=== PATIENT | male | born 1965 | race American Indian/Alaskan Native ===

== ENCOUNTER 2016-06-20 11:26 | Emergency (ER) | payer MEDICAID ==
--- NOTE | 2016-06-20 13:26 | ER Document Report ---
ED ENT - General Mode of Arrival: Ambulatory Information source: Patient TRAVEL OUTSIDE OF THE [place] IN LAST 30 DAYS: No - HPI Patient complains to provider of: Ear problem Associated symptoms: Other - See above - General Chief Complaint: Ear Pain Stated Complaint: EAR PAIN Notes: Patient is a 51 year old male who presents to the emergency department complaining of ear pain onset last night. 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 Patient states that he has been thinking about taking jaiden pins to clean out his ears. Patient denies recently having a cold and states that he has been trying to quit smoking and so has been chewing a lot of gum recently. Patient states that the pain is exacerbated by chewing. (LG NGUYEN) - Related Data Allergies/Adverse Reactions: acetaminophen [From Tylenol] Allergy (Verified 06/20/16 12:00) amlodipine besylate [From Norvasc] Allergy (Verified 06/20/16 12:00) pioglitazone HCl [From Actos] Allergy (Verified 06/20/16 12:00) Past Medical History - General Information source: Patient - Social History Smoking Status: Current Every Day Smoker Frequency of alcohol use: Heavy Drug Abuse: Marijuana Family History: Reviewed & Not Pertinent, CAD - Past Medical History Cardiac Medical History: Reports: Hx Hypercholesterolemia, Hx Hypertension Pulmonary Medical History: Reports: Hx COPD Neurological Medical History: Reports: Hx Cerebrovascular Accident Endocrine Medical History: Reports: Hx Diabetes Mellitus Type 2 GI Medical History: Reports: Hx Gastroesophageal Reflux Disease Psychiatric Medical History: Reports: Hx Depression Past Surgical History: Reports: Hx Kidney (Renal Surgery), Hx Orthopedic Surgery - Immunizations Immunizations up to date: Yes Hx Diphtheria, Pertussis, Tetanus Vaccination: No Hx Pneumococcal Vaccination: 07/20/14 Review of Systems - Review of Systems Constitutional: No symptoms reported EENT: See HPI, Ear pain Cardiovascular: No symptoms reported Respiratory: No symptoms reported Gastrointestinal: No symptoms reported Genitourinary: No symptoms reported Male Genitourinary: No symptoms reported Musculoskeletal: No symptoms reported Skin: No symptoms reported Hematologic/Lymphatic: No symptoms reported Neurological/Psychological: No symptoms reported -: Yes All other systems reviewed and negative Physical Exam - Vital signs Interpretation: Normal - General General appearance: Appears well, Alert - HEENT Head: Normocephalic, Atraumatic Eyes: Normal Ears: Other - Temporomandibular joints tender to palpation bilaterally from within canal and around preauricular area. Pain is reproducable when opening mouth. Right temporomandibular joint is more tender than left. External canal: Normal - Some wax in left canal none in right Tympanic membrane: Normal - Respiratory Respiratory status: No respiratory distress - Cardiovascular Rhythm: Regular - Abdominal Inspection: Normal Distension: No distension Bowel sounds: Normal Tenderness: Nontender Organomegaly: No organomegaly - Extremities General upper extremity: Normal inspection, Normal ROM, Normal strength General lower extremity: Normal inspection, Normal ROM, Normal strength - Neurological Neuro grossly intact: Yes Cognition: Normal Orientation: AAOx4 Amina Coma Scale Eye Opening: Spontaneous Amina Coma Scale Verbal: Oriented Amina Coma Scale Motor: Obeys Commands Amina Coma Scale Total: 15 Speech: Normal - Psychological Associated symptoms: Normal affect, Normal mood - Skin Skin Temperature: Warm Skin Moisture: Dry Skin Color: Normal - Vital signs Vitals: Temp Pulse Resp BP Pulse Ox 97.9 F 63 18 125/73 99 06/20/16 11:53 06/20/16 11:53 06/20/16 11:53 06/20/16 11:53 06/20/16 11:53 (COLT MORENO) (LG NGUYEN) Scribe Documentation - Scribe Written by Scribe:: Shara Donald, 06/20/16, 13:47 acting as scribe for :: Mac
[2016-06-20 13:51] VITALS: BP 125/72
== END 2016-06-20 13:50 | disposition home or self-care (01) ==
LOC: ER 11:26
DX: M26.603 Bilateral temporomandibular joint disorder, unspecified (principal); H92.03 Otalgia, bilateral; E78.00 Pure hypercholesterolemia, unspecified; I10 Essential (primary) hypertension; J44.9 Chronic obstructive pulmonary disease, unspecified; E11.9 Type 2 diabetes mellitus without complications; K21.9 Gastro-esophageal reflux disease without esophagitis; Z88.6 Allergy status to analgesic agent; Z86.73 Personal history of transient ischemic attack (TIA), and cerebral infarction without residual deficits
CPT/HCPCS: 99282

== ENCOUNTER 2016-08-25 13:02 | Emergency (ER) | payer MEDICAID ==
--- NOTE | 2016-08-25 13:07 | ER Document Report ---
ED Medical Screen (RME) - General Stated Complaint: CHEST PAIN Notes: chest pain referral from dr esposito to r/o aortic dissection patient is alert and oriented, talking. Localizing pain to left lower chest with radiation into his back. Tender over anterior rib cage. I have greeted and performed a rapid initial assessment of this patient. A comprehensive ED assessment and evaluation of the patient, analysis of test results and completion of the medical decision making process will be conducted by additional ED providers. TRAVEL OUTSIDE OF THE [place] IN LAST 30 DAYS: No - Related Data Allergies/Adverse Reactions: acetaminophen [From Tylenol] Allergy (Verified 06/20/16 12:00) amlodipine besylate [From Norvasc] Allergy (Verified 06/20/16 12:00) pioglitazone HCl [From Actos] Allergy (Verified 06/20/16 12:00) Past Medical History - Past Medical History Cardiac Medical History: Reports: Hx Hypercholesterolemia, Hx Hypertension Pulmonary Medical History: Reports: Hx COPD Neurological Medical History: Reports: Hx Cerebrovascular Accident Endocrine Medical History: Reports: Hx Diabetes Mellitus Type 2 GI Medical History: Reports: Hx Gastroesophageal Reflux Disease Psychiatric Medical History: Reports: Hx Depression Past Surgical History: Reports: Hx Kidney (Renal Surgery), Hx Orthopedic Surgery - Immunizations Immunizations up to date: Yes Hx Diphtheria, Pertussis, Tetanus Vaccination: No
[2016-08-25 13:28] LABS: ABSOLUTE BASOPHILS # (AUTO) 0.1 10^3/uL (0.0-0.2); ABSOLUTE EOSINOPHILS # (AUTO) 0.4 10^3/uL (0.0-0.6); ABSOLUTE LYMPHOCYTES (AUTO) 2.3 10^3/uL (0.5-4.7); ABSOLUTE MONOCYTES (AUTO) 0.8 10^3/uL (0.1-1.4); BASOPHILS % (AUTO) 0.9 % (0-2); EOSINOPHILS % (AUTO) 4.5 % (0-6); HEMATOCRIT 48.3 % (37.9-51.0); HGB HCT DIFFERENCE -0.3; LYMPHOCYTES % (AUTO) 26.4 % (13-45); MEAN CORPUSCULAR HEMOGLOBIN 30.9 pg (27.0-33.4); MEAN CORPUSCULAR HGB CONC 33.1 g/dL (32.0-36.0); MEAN CORPUSCULAR VOLUME 93 fl (80-97); MONOCYTES % (AUTO) 9.5 % (3-13); RED BLOOD COUNT 5.17 10^6/uL (4.35-5.55); RED CELL DISTRIBUTION WIDTH 12.8 % (11.5-14.0); SEGMENTED NEUTROPHILS % (AUTO) 58.7 % (42-78); WHITE BLOOD COUNT 8.6 10^3/uL (4.0-10.5)
[2016-08-25 13:47] LABS: ALANINE AMINOTRANSFERASE 31 U/L (21-72); ALBUMIN 4.2 g/dL (3.5-5.0); ALKALINE PHOSPHATASE 62 U/L (38-126); ANION GAP 12 (5-19); ASPARTATE AMINO TRANSFERASE 23 U/L (17-59); BILIRUBIN,TOTAL 0.8 mg/dL (0.2-1.3); BLOOD UREA NITROGEN 18 mg/dL (7-20); CALCIUM 10.1 mg/dL (8.4-10.2); CARBON DIOXIDE 24 mmol/L (22-30); CHLORIDE 106 mmol/L (98-107); CREATINE KINASE 98 U/L (55-170); CREATININE RESULT 0.95 mg/dL (0.52-1.25); GLUCOSE 105 mg/dL (75-110); POTASSIUM 4.4 mmol/L (3.6-5.0); SODIUM 141.7 mmol/L (137-145); TOTAL PROTEIN 7.5 g/dL (6.3-8.2)
[2016-08-25 13:58] LABS: CREATINE KINASE MB 1.11 ng/mL (<4.55)
[2016-08-25 13:59] LABS: TROPONIN I < 0.012 ng/mL
--- NOTE | 2016-08-25 16:36 | ER Document Report ---
ED General - General Chief Complaint: Chest Pain Stated Complaint: CHEST PAIN Time seen by provider: 12:50 Mode of Arrival: Ambulatory Information source: Patient Notes: 51-year-old male who reports sharp left upper chest pain with exertion yesterday that radiated into his left neck and left shoulder. He reports he was made worse with movement or deep breathing. He denies associated shortness breath, diaphoresis, or nausea. He reports it lasted about 20 minutes and resolved with rest and did not recur during the day but he did have a second episode this morning after waking up with minimal exertion. Patient went to his primary care physician Dr. Atkinson who had concerns about possible aortic dissection refer patient to emergency department. The patient reports no prior history of symptoms like this. He reports no prior cardiac workup. He reports being in normal state of health otherwise recently. Review of records indicates an admission 2 years ago with a positive stress test here and discharge notes indicate they wanted an outpatient cardiac catheter the patient says he never had one done. He has not had any symptoms over the ensuing 2 years however. 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 He has a history of CVA with residual right upper extremity weakness but reports no new focal numbness weakness to any extremity or difficulty with speech or swallowing. Physical Exam: General: Alert, appears well. HEENT: Normocephalic. Atraumatic. PERRLA. Extraocular movements intact. Oropharynx clear. Neck: Supple. Non-tender. No JVD no carotid bruits no discomfort with range of motion Respiratory: No respiratory distress. Clear and equal breath sounds bilaterally. Point tenderness to palpation just lateral to the nipple on the left which localizes and reproduces patient's pain Cardiovascular: Regular rate and rhythm. Abdominal: Normal Inspection. Soft, non-tender. No distension. Normal Bowel Sounds. No bruits. 2 cm pulsatile mass periumbilical region with deep palpation Back: Non-tender. No deformity or step off. Extremities: Moves all four extremities. Upper extremities: Normal inspection. Non-tender. Normal color. Normal ROM. Normal temperature. Lower extremities: Normal inspection. Non-tender. No edema. Normal color. Normal ROM. Normal temperature. 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 Normal Mood. Skin: Warm. Dry. Normal color. TRAVEL OUTSIDE OF THE [place] IN LAST 30 DAYS: No - Related Data Allergies/Adverse Reactions: acetaminophen [From Tylenol] Allergy (Verified 06/20/16 12:00) amlodipine besylate [From Norvasc] Allergy (Verified 06/20/16 12:00) pioglitazone HCl [From Actos] Allergy (Verified 06/20/16 12:00) Past Medical History - Social History Smoking Status: Current Every Day Smoker Family History: CAD Patient has suicidal ideation: No Patient has homicidal ideation: No - Past Medical History Cardiac Medical History: Reports: Hx Hypercholesterolemia, Hx Hypertension Pulmonary Medical History: Reports: Hx COPD Neurological Medical History: Reports: Hx Cerebrovascular Accident Endocrine Medical History: Reports: Hx Diabetes Mellitus Type 2 Renal/ Medical History: Denies: Hx Peritoneal Dialysis GI Medical History: Reports: Hx Gastroesophageal Reflux Disease Psychiatric Medical History: Reports: Hx Depression Past Surgical History: Reports: Hx Kidney (Renal Surgery) - lithotripsy, Hx Orthopedic Surgery - Immunizations Immunizations up to date: Yes Hx Diphtheria, Pertussis, Tetanus Vaccination: Yes Hx Pneumococcal Vaccination: 07/20/14 Review of Systems - Review of Systems Constitutional: denies: Chills, Fever EENT: denies: Ear pain, Throat pain Cardiovascular: See HPI. denies: Syncope, Dizziness, Lightheaded Respiratory: denies: Cough, Short of breath Gastrointestinal: denies: Abdominal pain, Diarrhea, Nausea, Vomiting, Blood in vomit, Black stools, Rectal bleeding Genitourinary: denies: Burning, Dysuria Musculoskeletal: denies: Back pain Skin: denies: Rash Hematologic/Lymphatic: denies: Swollen glands Neurological/Psychological: See HPI Physical Exam - Vital signs Vitals: Resp 20 08/25/16 13:19 Course - Re-evaluation Re-evalutation: 08/25/16 16:42 Patient continues to have point tenderness on his chest wall but no other discomfort. Records do show positive stress test greater than a year ago but patient no further workup and no further symptoms. I do not find an etiology for his reported weight loss but he certainly has no evidence on workup for abdominal aneurysm, aortic dissection, or other serious etiologies for chest pain. He does have multiple risk factors for acute coronary syndrome but his symptoms are atypical enough that I believe he is safe for discharge and outpatient follow-up. I discussed case with Dr. Vikki Atkinson and he will see patient in office tomorrow - Vital Signs Vital signs: Temp Pulse Resp BP Pulse Ox 97.8 F 17 155/104 H 96 08/25/16 16:19 08/25/16 16:19 08/25/16 16:19 08/25/16 16:19 - Laboratory Result Diagrams: 08/25/16 13:10 08/25/16 13:10 - Diagnostic Test Radiology reviewed: Image reviewed, Reports reviewed - EKG Interpretation by Me Additional EKG results interpreted by me: 08/25/16 16:41 EKG reviewed by myself shows sinus rhythm at 69 with no acute changes and no significant change compared to 05/29/2015 Discharge - Discharge Clinical Impression: Chest wall pain Condition: Stable Disposition: HOME, SELF-CARE Instructions: Chest Pain of Unclear Cause ([facility]) Referrals: CAITLYN ATKINSON MD [Primary Care Provider] - Follow up tomorrow
[2016-08-25] MEDS ORDERED: ASPIRIN 325 MG TABLET PO ONE (16:43)
[2016-08-25 17:36] VITALS: BP 135/93
--- NOTE | 2016-08-25 20:06 | EKG REPORT ---
SEVERITY:- BORDERLINE ECG - SINUS RHYTHM BORDERLINE LEFT AXIS DEVIATION BORDERLINE T WAVE ABNORMALITIES : Confirmed by: Breann Crowley 25-Aug-2016 20:06:04
== END 2016-08-25 17:36 | disposition home or self-care (01) ==
LOC: ER 13:02
DX: R07.89 Other chest pain (principal); M54.2 Cervicalgia; M25.512 Pain in left shoulder; F17.210 Nicotine dependence, cigarettes, uncomplicated
CPT/HCPCS: 36415; 70450; 71010; 71275; 74174; 80053; 82550; 82553; 84484; 85025; 93005; 93010; 99285

== ENCOUNTER → 2016-09-23 | Outpatient (CLI) | payer MEDICAID | LOC: RAD 09:30 | PROVIDERS: ATTEND Physician Assistant | DX: R51 Headache (principal) | CPT/HCPCS: 70551 ==

== ENCOUNTER 2017-02-07 16:51 | Inpatient (IN) | payer MEDICAID ==
--- NOTE | 2017-02-07 17:39 | ER Document Report ---
ED Medical Screen (RME) - General Chief Complaint: Weakness Stated Complaint: POSSIBLE STROKE Time Seen by Provider: 02/07/17 17:36 Notes: Patient reports that he took a nap yesterday. He states that he woke approximately 1:15 PM yesterday and was unable to stand because his left leg would not work. Patient states that today he noticed that he cannot walk due to left leg weakness. He also feels that the left side of his face is weak and he has some numbness about the left side of his body. He states he has had a previous stroke in 2008 that left his right upper extremity week. He states he does not take any aspirin or Plavix daily. TRAVEL OUTSIDE OF THE [place] IN LAST 30 DAYS: No - Related Data Allergies/Adverse Reactions: acetaminophen [From Tylenol] Allergy (Verified 02/07/17 16:58) amlodipine besylate [From Norvasc] Allergy (Verified 02/07/17 16:58) pioglitazone HCl [From Actos] Allergy (Verified 02/07/17 16:58) Past Medical History - Past Medical History Cardiac Medical History: Reports: Hx Hypercholesterolemia, Hx Hypertension Pulmonary Medical History: Reports: Hx COPD Neurological Medical History: Reports: Hx Cerebrovascular Accident Endocrine Medical History: Reports: Hx Diabetes Mellitus Type 2 Renal/ Medical History: Denies: Hx Peritoneal Dialysis GI Medical History: Reports: Hx Gastroesophageal Reflux Disease Psychiatric Medical History: Reports: Hx Depression Past Surgical History: Reports: Hx Kidney (Renal Surgery) - lithotripsy, Hx Orthopedic Surgery - Immunizations Immunizations up to date: Yes Hx Diphtheria, Pertussis, Tetanus Vaccination: Yes Physical Exam - Vital signs Vitals: Temp Pulse Resp BP Pulse Ox 97.6 F 72 16 136/87 H 97 02/07/17 16:58 02/07/17 16:58 02/07/17 16:58 02/07/17 16:58 02/07/17 16:58 Course - Vital Signs Vital signs: Temp Pulse Resp BP Pulse Ox 97.6 F 72 16 136/87 H 97 02/07/17 16:58 02/07/17 16:58 02/07/17 16:58 02/07/17 16:58 02/07/17 16:58
--- NOTE | 2017-02-07 17:57 | RADIOLOGY REPORT (SQ) ---
EXAM DESCRIPTION: CT HEAD WITHOUT COMPLETED DATE/TIME: 02/07/2017 5:44 pm REASON FOR STUDY: left face/leg weak. hx cva COMPARISON: 08/25/2016 TECHNIQUE: Axial images acquired through the brain without intravenous contrast. Images reviewed wi th bone, brain and subdural windows. Images stored on PACS. All CT scanners at this facility use dose modulation, iterative reconstruction, and/or weight based d osing when appropriate to reduce radiation dose to as low as reasonably achievable (ALARA). [facility]: Dose Right [facility]: CareDose [facility]: Dose Right [facility]: Teradose 4D [facility]: Smart Hapara RADIATION DOSE: Up-to-date CT equipment and radiation dose reduction techniques were employed. CTDIv ol: 64.6 mGy. DLP: 1163 mGy-cm. mGy. LIMITATIONS: None. FINDINGS: VENTRICLES: Stable. CEREBRUM: No masses. No hemorrhage. No midline shift. Areas of low density in the white matter mos t likely due to chronic micro-vascular ischemic change. No evidence for acute infarction. CEREBELLUM: No masses. No hemorrhage. No alteration of density. No evidence for acute infarction. EXTRAAXIAL SPACES: Mild age-related involutional change. No fluid collections. No masses. ORBITS AND GLOBE: No intra- or extraconal masses. Normal contour of globe without masses. CALVARIUM: No fracture. PARANASAL SINUSES: Stable mucosal thickening without air-fluid levels. SOFT TISSUES: No mass or hematoma. OTHER: No other significant finding. IMPRESSION: NO ACUTE INTRACRANIAL PROCESS. NO SIGNIFICANT CHANGE FROM PRIOR STUDY. TECHNICAL DOCUMENTATION: JOB ID: [id number] Quality ID # [id number]: Final reports with documentation of one or more dose reduction techniques (e.g., Au tomated exposure control, adjustment of the mA and/or kV according to patient size, use of iterative reconstruction technique) 2010 [employer]- All Rights Reserved
[2017-02-07 18:02] LABS: ABSOLUTE EOSINOPHILS # (AUTO) 0.5 10^3/uL (0.0-0.6); ABSOLUTE LYMPHOCYTES (AUTO) 2.3 10^3/uL (0.5-4.7); ABSOLUTE MONOCYTES (AUTO) 0.9 10^3/uL (0.1-1.4); BASOPHILS % (AUTO) 0.6 % (0-2); EOSINOPHILS % (AUTO) 5.5 % (0-6); HEMATOCRIT 46.3 % (37.9-51.0); HEMOGLOBIN 15.9 g/dL (13.5-17.0); HGB HCT DIFFERENCE 1.4; LYMPHOCYTES % (AUTO) 25.9 % (13-45); MEAN CORPUSCULAR HEMOGLOBIN 32.3 pg (27.0-33.4); MEAN CORPUSCULAR HGB CONC 34.3 g/dL (32.0-36.0); MEAN CORPUSCULAR VOLUME 94 fl (80-97); MONOCYTES % (AUTO) 10.1 % (3-13); RED BLOOD COUNT 4.91 10^6/uL (4.35-5.55); RED CELL DISTRIBUTION WIDTH 13.1 % (11.5-14.0); SEGMENTED NEUTROPHILS % (AUTO) 57.9 % (42-78); WHITE BLOOD COUNT 8.7 10^3/uL (4.0-10.5)
[2017-02-07 18:20] LABS: ALANINE AMINOTRANSFERASE 24 U/L (21-72); ALBUMIN 4.4 g/dL (3.5-5.0); ALKALINE PHOSPHATASE 64 U/L (38-126); ANION GAP 10 (5-19); ASPARTATE AMINO TRANSFERASE 20 U/L (17-59); BILIRUBIN,DIRECT 0.4 mg/dL (0.0-0.4); BILIRUBIN,TOTAL 0.6 mg/dL (0.2-1.3); BLOOD UREA NITROGEN 18 mg/dL (7-20); CALCIUM 10.2 mg/dL (8.4-10.2); CARBON DIOXIDE 26 mmol/L (22-30); CHLORIDE 105 mmol/L (98-107); CREATININE RESULT 0.97 mg/dL (0.52-1.25); GLUCOSE 104 mg/dL (75-110); POTASSIUM 4.1 mmol/L (3.6-5.0); SODIUM 141.1 mmol/L (137-145); TOTAL PROTEIN 7.7 g/dL (6.3-8.2)
--- NOTE | 2017-02-07 19:10 | ER Document Report ---
ED Neuro Symptoms/Deficit - General Chief Complaint: Weakness Stated Complaint: POSSIBLE STROKE Time Seen by Provider: 02/07/17 17:36 Mode of Arrival: Stretcher Information source: Patient TRAVEL OUTSIDE OF THE [place] IN LAST 30 DAYS: No - HPI Patient complains to provider of: Difficulty standing, Weakness Onset: Yesterday Awoke with symptoms: No Symptoms are: Worse/persistent Duration: Continues in ED Quality of pain: Achy Severity: Moderate Pain Level: 2 Baseline Gait: Walks w/o assistance Pre-existing weakness: Lower extremity, Upper extremity New weakness: LUE, LLE Decreased ability to stand/walk: Weak Associated symptoms: Headache Similar symptoms previously: Yes Recently seen / treated by doctor: Yes Notes: Patient is a 52-year-old male sent to the emergency room by primary care provider for left-sided weakness that started yesterday, he reports he was working outside in his yard, thought maybe he felt overheated, so therefore decided to sleep it off, this morning when he woke up his left-sided weakness continued, making it difficult for him to ambulate or stand, therefore he went to see his primary care provider who sent him to the ER for evaluation and admission, he does report a headache, denies chest pain or shortness of breath, no injury or trauma, no fever, he does have a history of CVA in the past with no residual weakness as well as other medical problems that put him at risk for stroke - Related Data Allergies/Adverse Reactions: acetaminophen [From Tylenol] Allergy (Verified 02/07/17 16:58) amlodipine besylate [From Norvasc] Allergy (Verified 02/07/17 16:58) pioglitazone HCl [From Actos] Allergy (Verified 02/07/17 16:58) Past Medical History - General Information source: Patient - Social History Smoking Status: Current Every Day Smoker Family History: CAD Patient has suicidal ideation: No Patient has homicidal ideation: No - Past Medical History Cardiac Medical History: Reports: Hx Hypercholesterolemia, Hx Hypertension Pulmonary Medical History: Reports: Hx COPD Neurological Medical History: Reports: Hx Cerebrovascular Accident Endocrine Medical History: Reports: Hx Diabetes Mellitus Type 2 Renal/ Medical History: Denies: Hx Peritoneal Dialysis GI Medical History: Reports: Hx Gastroesophageal Reflux Disease Psychiatric Medical History: Reports: Hx Depression Past Surgical History: Reports: Hx Kidney (Renal Surgery) - lithotripsy, Hx Orthopedic Surgery - Immunizations Immunizations up to date: Yes Hx Diphtheria, Pertussis, Tetanus Vaccination: Yes Hx Pneumococcal Vaccination: 07/20/14 Review of Systems - Review of Systems Constitutional: No symptoms reported EENT: No symptoms reported Cardiovascular: No symptoms reported Respiratory: No symptoms reported Gastrointestinal: No symptoms reported Genitourinary: No symptoms reported Male Genitourinary: No symptoms reported Musculoskeletal: No symptoms reported Skin: No symptoms reported Hematologic/Lymphatic: No symptoms reported Neurological/Psychological: See HPI -: Yes All other systems reviewed and negative Physical Exam - Vital signs Vitals: Temp Pulse Resp BP Pulse Ox 97.6 F 72 16 136/87 H 97 02/07/17 16:58 02/07/17 16:58 02/07/17 16:58 02/07/17 16:58 02/07/17 16:58 Interpretation: Normal - General General appearance: Appears well, Alert - HEENT Head: Normocephalic, Atraumatic Eyes: Normal Pupils: PERRL - Respiratory Respiratory status: No respiratory distress Chest status: Nontender Breath sounds: Normal Chest palpation: Normal - Cardiovascular Rhythm: Regular Heart sounds: Normal auscultation Murmur: No - Abdominal Inspection: Normal Distension: No distension Bowel sounds: Normal Tenderness: Nontender Organomegaly: No organomegaly - Back Back: Normal, Nontender - Extremities General upper extremity: Normal inspection, Nontender, Normal color, Normal ROM , Normal temperature General lower extremity: Normal inspection, Nontender, Normal color, Normal ROM , Normal temperature. No: Alyssa's sign - Neurological Neuro grossly intact: Yes Cognition: Normal Orientation: AAOx4 Amina Coma Scale Eye Opening: Spontaneous [place] Coma Scale Verbal: Oriented Amina Coma Scale Motor: Obeys Commands Amina Coma Scale Total: 15 Speech: Normal Motor strength normal: RUE, RLE. No: LUE - 4 out of 5 strength in the left upper extremity, 3 out of 5 strength in the left lower extremity, LLE Sensory: Normal - Psychological Associated symptoms: Normal affect, Normal mood - Skin Skin Temperature: Warm Skin Moisture: Dry Skin Color: Normal Course - Re-evaluation Re-evalutation: 02/07/17 19:36 Patient's lab, imaging findings were discussed with primary care provider who requested he be admitted and have MRI/MRA of the brain performed, I discussed this plan with patient at bedside and he is refusing to be admitted, stating he wants to go home and follow-up as an outpatient, I did have a discussion with him regarding the risks and benefits of admission versus outpatient treatment the possibility of long or short-term or long-term sequela from acute CVA including permanent disability and/or , patient states he understands these risks and still wishes to be discharged home, therefore his primary care provider was notified and patient was permitted to sign out AGAINST MEDICAL ADVICE, although I think it is a poor decision on patient's part I do not believe he lacks the capacity to make such a decision and therefore signed out AGAINST MEDICAL ADVICE with instructions for follow-up and was informed that he can return to the emergency room at any time for further evaluation and treatment 02/07/17 23:29 , Patient was agreeable to having MRI/MRA performed, which does show evidence of an acute stroke, once I discussed this finding he was agreeable to staying for admission and was really discussed with his primary care provider who is in agreement with admitting patient for further evaluation and treatment, requested that patient receive a dose of aspirin and Plavix 02/07/17 23:31 Patient symptoms were present for greater than 24 hours at time of evaluation and presentation to the emergency room, therefore he is not eligible for TPA at this time - Vital Signs Vital signs: Temp Pulse Resp BP Pulse Ox 97.6 F 72 16 136/87 H 97 02/07/17 16:58 02/07/17 16:58 02/07/17 16:58 02/07/17 16:58 02/07/17 16:58 - Laboratory Result Diagrams: 02/07/17 17:45 02/07/17 17:45 - Diagnostic Test Radiology reviewed: Image reviewed, Reports reviewed - EKG Interpretation by Me EKG shows normal: Sinus rhythm Rate: Normal Rhythm: NSR When compared to previous EKG there are: No significant change - Transfer of Care Care transferred to following provider: Dr Taylor Critical Care Note - Critical Care Note Total time excluding time spent on procedures (mins): 60 Comments: Patient being admitted to [facility] for acute stroke, time was spent discussing lab and imaging findings with patient as well as family members at bedside and convincing patient to stay in the hospital for further evaluation and treatment ED [employer]/Exc Criteria - Date/Time patient last known well: Date/Time: 02/06/2017 1350 - Date/Time patient arrived in ED: _: 02/07/2017 - Inclusion Criteria: 1: Patient presented to ED within 3 hours of acute ischemic stroke symptom onset ? -: No 2: Did baseline CT exclude intracranial hemorrhage and/or other risk factors? -: Yes 3: Is the age of the patient 18 years of age or greater? -: Yes : If any of the above questions are answered "NO" then stop, patient is not a candidate for Alteplase, : If all of the above questions are answered "YES" then continue with Exclusion Criteria. - Exclusion Criteria: 1: Is there evidence of intracranial hemorrhage on baseline CT? 2: Is there suspicion of subarachnoid hemorrhage (even if CT negative)? 3: Is there a history of serious head trauma, recent previous stroke or NM within 3 months? 4: Does the patient have a clinical presentation consistent with NM or post-NM pericarditis? 5: Is there history of intracranial hemorrhage? 6: On repeated measurement is Systolic BP greater than 185mmHg or Diastolic BP greater that 110 mmHg and is aggressive treatment needed to reduce blood pressure to these limits (e.g. constant infusion of an anti-hypertensive)? 7: Did the patient awake with stroke symptoms? 8: Has the patient had a lumbar puncture or an arterial puncture at a non- compressile site within 7 days? 9: With in the last 14 days did the patient have surgery or major trauma? 10: Is the patient or less than 2 weeks? 11: Was there any active bleeding or acute trauma? 12: Does the patient have intracranial neoplasm, arteriovenous malformation or aneurysm? 13: Does the patient have abnormal glucose (less than 50 or greater than 400mg/ dl)? Record glucose in Comment. 14: Patient has rapidly improving symptoms at the time Alteplase is to be Administered. 15: Does the patient have any risks for bleeding, including but not limited to: a.: Current use of Coumadin with PT greater than 15 seconds or INR greater than 1.7. b.: Current use of Pradaxa (Dabigatran). c.: Heparin administereed within the past 48 hours and PTT elevated. d.: Platelet count less than 100,000/mm. e.: Major surgery or serious trauma within 14 days. f.: Gastrointestinal or gynecological urinary bleeding within 14 days. g.: Myocardial Infarction (NM) within 3 months. : If the answer to any of the above questions is "YES" then stop, the patient is not a candidate for Alteplase. : If the answer to all of the above questions is "NO" then the patient may be eligible for the Administration of Alteplase. : If the patient is noted to have seizure activity at onset of Stroke symptoms; Consult Neurologist for further evaluation. - The patient is: -: Included and is eligible to receive Alteplase. *Initiate bed placement at higher level of care* Reviewd risks & benefits of thrombolytic therapy: I have reviewed the risks and benefits of thrombolytic therapy with the patient and/or his/her family. -: Excluded and not eligible to receive Alteplase for the above exclusions. --: Yes - Symptoms for greater than 24 hours -: Excluded and not eligible to receive Alteplase for other reasons (specify in comments): - Diagnosis of TIA: -: Patient presented with transient symptoms that are now resolved and no other neurologic findings are currently present. List symptoms in comments. -: Patient is NOT a candidate for tPA. -: ____(put name in comment) has been consulted for admission and continued evaluation of risk factor assessment. Discharge - Discharge Clinical Impression: Acute CVA (cerebrovascular accident) Condition: Fair Disposition: ADMITTED INPATIENT Admitting Provider: Taylor Unit Admitted: [facility]
[2017-02-07] MEDS ORDERED: ASPIRIN 81 MG TABLET, CHEWABLE PO ONE (19:12)
[2017-02-07 19:43] LABS: PROTHROMBIN TIME 12.1 SEC (11.4-15.4)
[2017-02-07 19:44] LABS: PARTIAL THROMBOPLASTIN TIME 31.8 SEC (23.5-35.8)
[2017-02-07 20:01] LABS: CREATINE KINASE MB 0.75 ng/mL (<4.55)
[2017-02-07 20:02] LABS: TROPONIN I < 0.012 ng/mL
--- NOTE | 2017-02-07 21:03 | RADIOLOGY REPORT (SQ) ---
EXAM DESCRIPTION: MRA HEAD WITHOUT COMPLETED DATE/TIME: 02/07/2017 8:45 pm REASON FOR STUDY: left sided weakness COMPARISON: None. TECHNIQUE: Axial 3-D [id number] acquisition imaging performed through the brain in the area of t he [place] of [place]. Images reformatted using 3-D MIPS. LIMITATIONS: None. FINDINGS: SOURCE IMAGES: No unexpected findings on source images. No large masses. 3-D MIP: No aneurysm. No occlusions. No significant stenosis. OTHER: No other significant finding. IMPRESSION: NORMAL MRA OF THE [place]. TECHNICAL DOCUMENTATION: JOB ID: [id number] [employer]- All Rights Reserved
--- NOTE | 2017-02-07 21:04 | RADIOLOGY REPORT (SQ) ---
EXAM DESCRIPTION: MRI HEAD WITHOUT COMPLETED DATE/TIME: 02/07/2017 8:45 pm REASON FOR STUDY: left sided weakness COMPARISON: CT brain done earlier the same day, MRI brain dated 09/23/2016 TECHNIQUE: Multiplanar imaging includes non-contrasted T1, T2, FLAIR, and Diffusion with ADC map seq uences. Images stored on PACS. LIMITATIONS: None. FINDINGS: ANATOMY: No anomalies. Normal vascular flow voids. Pituitary fossa normal. CSF SPACES: Normal in size and contour. No hemorrhage. CEREBRUM: A few high-signal intensity lesions scattered throughout the white matter on FLAIR imaging with distribution suggesting chronic micro-vascular ischemic change. Sulci and gyri normal in size a nd contour. No evidence of hemorrhage, mass or extraaxial fluid collection. POSTERIOR FOSSA: No signal alteration. No hemorrhage. No edema, masses or mass effect. Internal lexy tory canals, cerebello-pontine angles, mastoids normal. DIFFUSION: There is abnormal signal in the high right posterior frontal lobe and in the right parieta l lobe near the midline consistent with acute infarcts. ORBITS: No masses. Globes normal. PARANASAL SINUSES: There is mucosal thickening in the maxillary and sphenoid sinuses. OTHER: No other significant finding. IMPRESSION: 1. Acute infarcts in the high right posterior frontal lobe most likely MCA distribution. A tiny focus of abnormal signal is seen on diffusion-weighted images in the high right parietal lob e as well. 2. Mild small vessel ischemic changes bilaterally. EVIDENCE OF ACUTE STROKE: YES. COMMENT: Pertinent findings on the imaging study reported as a CRITICAL RESULT to HAILE PEREIRA DO at20:55 on 02/07/2017. Category of Critical Result: Acute stroke TECHNICAL DOCUMENTATION: JOB ID: [id number] [employer]- All Rights Reserved
[2017-02-07] MEDS ORDERED: CLOPIDOGREL BISULFATE 75 MG TABLET PO ONE (21:06)
[2017-02-07] MEDS ORDERED: ACETAMINOPHEN 325 MG TABLET PO PRN (21:06)
--- NOTE | 2017-02-07 21:12 | EKG REPORT ---
SEVERITY:- ABNORMAL ECG - SINUS RHYTHM PROBABLE LEFT VENTRICULAR HYPERTROPHY NONSPECIFIC T ABNORMALITIES, INFERIOR LEADS ST ELEV, PROBABLE NORMAL EARLY REPOL PATTERN : Confirmed by: Breann Crowley 07-Feb-2017 21:11:57
[2017-02-07] MEDS ORDERED: DEXTROSE 50%-WATER 25 GM/50 ML DISP.SYRIN IV PRN ×2 (21:14)
[2017-02-07] MEDS ORDERED: GLUCAGON,HUMAN RECOMB 1 MG INJ IM PRN (21:14)
[2017-02-07] MEDS ORDERED: DEXTROSE 40% GEL 15 GM TUBE PO PRN ×2 (21:14)
[2017-02-07] MEDS ORDERED: INSULIN LISPRO 100 UNIT/ML 3 ML VIAL SUBCUT PRN (21:14)
[2017-02-07] MEDS: FAMOTIDINE 20 MG TABLET PO SCH (22:09)
[2017-02-07] MEDS: ATORVASTATIN CALCIUM 40 MG TABLET PO SCH (22:09)
--- NOTE | 2017-02-07 22:11 | PDOC H&P ---
History of Present Illness Admission Date/PCP: 02/07/17 21:09 DANIELA ATKINSON MD Patient complains of: lt side weakness History of Present Illness: EMERSON DANGELO JR is a 52 year old male This is a 52-year-old male with a history of the CVA and type 2 diabetes mellitus hypertension's hyperlipidemia and chronic smokerCame to my office today with the complaining of a left-sided weakness and tingling and numbness started yesterday at 1:50 PM patient was working outside and patients was not feeling well.Patient's went home and this morning patients noticed more weakness in the left lower extremity and unable to walk and patients came to the office today with the patient have a definite left-sided weakness Patient otherwise denied any chest pain denied any shortness of the breath but patients Sent to the emergency department and patient have an MRI and MRA of the head was done and was so the acute right-sided parietal infarctions All other blood work and a CT of the head was negative patient initially declined to admit in the hospital but finally agreed to admit in the hospital Past Medical History Cardiac Medical History: Reports: Hyperlipidema, Hypertension Pulmonary Medical History: Reports: Chronic Obstructive Pulmonary Disease (COPD) Neurological Medical History: Reports: Ischemic CVA Endocrine Medical History: Reports: Diabetes Mellitus Type 2 GI Medical History: Reports: Gastroesophageal Reflux Disease Psychiatric Medical History: Reports: Depression Past Surgical History Past Surgical History: Reports: Orthopedic Surgery Social History Smoking Status: Current Every Day Smoker Frequency of Alcohol Use: None Hx Recreational Drug Use: No Hx Prescription Drug Abuse: No Family History Family History: Reviewed & Not Pertinent, CAD Parental Family History Reviewed: Yes Children Family History Reviewed: Yes Sibling(s) Family History Reviewed.: Yes Medication/Allergy Home Medications: Aspirin [Ecotrin 81 mg EC Tablet] 81 mg PO DAILY tabec 05/29/15 Clonidine HCl [Catapres 0.2 mg Tablet] 0.3 mg PO Q8 #90 tablet 05/29/15 Fluticasone Propionate [Flonase Allergy Relief] 2 sprays NAREB BID #1 spray.susp 05/29/15 Hum Insulin NPH/Reg Insulin Hm [Insulin 70-30 (NPH/Reg) 100 unit/mL] 10 units SUBCUT BIDACBS 30 Days unit 05/29/15 Insulin Aspart [Novolog Flexpen] 5 units SUBCUT BIDACBS 30 Days ml 05/29/15 Ipratropium [place] [Atrovent Hfa] 12.9 gm IH QID #7 hfa.aer.ad 05/29/15 Losartan Potassium [Cozaar 25 mg Tablet] 25 mg PO DAILY #30 tablet 05/29/15 Metoprolol Tartrate [Lopressor 25 mg Tablet] 12.5 mg PO Q12 #60 tab 05/29/15 Pantoprazole Sodium [Protonix] 40 mg PO DAILY #30 tablet. 05/29/15 Simvastatin 20 mg PO DAILY #30 tablet 05/29/15 Trazodone HCl [Desyrel 50 mg Tablet] 25 mg PO HSP PRN #30 tablet 05/29/15 Hydrocodone/Acetaminophen [[place] 5-325 mg Tablet] 1 tab PO Q6HP PRN #14 tablet 10/02/15 Cyclobenzaprine HCl [Flexeril 10 mg Tablet] 10 mg PO TIDP PRN #10 tab 10/05/15 Erythromycin Base [Ilotycin] 1 gm OP QID #1 oint...g. 10/05/15 Hydrocodone/Acetaminophen [[place] 5-325 Tablet] 1 each PO Q6 #15 tablet 10/05/15 Prednisone 20 mg PO DAILY #15 tablet 10/05/15 Cyclobenzaprine HCl [Flexeril 10 mg Tablet] 10 mg PO TIDP PRN #10 tab 11/23/15 Hydrocodone/Acetaminophen [[place] 5-325 mg Tablet] 1 tab PO BID #7 tablet Naproxen [Naprosyn 375 mg Tablet] 375 mg PO BID #10 tablet 11/23/15 Tramadol HCl [Ultram] 50 mg PO Q4HP PRN #20 tablet 12/07/15 Hydrocodone/Acetaminophen [Hydrocodon-Acetaminophen 5-325] 1 each PO Q4 PRN #15 tablet 06/20/16 Naproxen [Naprosyn 375 Mg Tablet] 375 mg PO BID #15 tablet 06/20/16 Clopidogrel Bisulfate [Plavix 75 mg Tablet] 75 mg PO DAILY #30 tablet 02/07/17 Allergies/Adverse Reactions: acetaminophen [From Tylenol] Allergy (Verified 02/07/17 16:58) amlodipine besylate [From Norvasc] Allergy (Verified 02/07/17 16:58) pioglitazone HCl [From Actos] Allergy (Verified 08/22/17 16:58) Review of Systems Constitutional: ABSENT: chills, fever(s), headache(s), weight gain, weight loss Eyes: ABSENT: visual disturbances Ears: ABSENT: hearing changes Cardiovascular: ABSENT: chest pain, dyspnea on exertion, edema, orthropnea, palpitations Respiratory: ABSENT: cough, hemoptysis Gastrointestinal: ABSENT: abdominal pain, constipation, diarrhea, hematemesis, hematochezia, nausea, vomiting Genitourinary: ABSENT: dysuria, hematuria Musculoskeletal: ABSENT: joint swelling Integumentary: ABSENT: rash, wounds Neurological: PRESENT: as per HPI, abnormal gait, numbness Psychiatric: ABSENT: anxiety, depression, homidical ideation, suicidal ideation Endocrine: ABSENT: cold intolerance, heat intolerance, menstrual abnormalities, polydipsia, polyuria Hematologic/Lymphatic: ABSENT: easy bleeding, easy bruising, lymphadenopathy Physical Exam Vital Signs: Temp Pulse Resp BP Pulse Ox 97.6 F 72 23 H 143/97 H 99 02/07/17 16:58 02/07/17 16:58 02/07/17 20:01 02/07/17 20:01 02/07/17 20:01 General appearance: PRESENT: no acute distress, well-developed, well-nourished Head exam: PRESENT: atraumatic, normocephalic Eye exam: PRESENT: conjunctiva pink, EOMI, PERRLA. ABSENT: scleral icterus Ear exam: PRESENT: normal external ear exam Mouth exam: PRESENT: moist, tongue midline Neck exam: PRESENT: full ROM. ABSENT: carotid bruit, JVD, lymphadenopathy, thyromegaly Respiratory exam: PRESENT: clear to auscultation rommel Cardiovascular exam: PRESENT: RRR. ABSENT: diastolic murmur, rubs, systolic murmur Pulses: PRESENT: normal dorsalis pedis pul, +2 pedal pulses bilateral Vascular exam: PRESENT: normal capillary refill GI/Abdominal exam: PRESENT: normal bowel sounds, soft. ABSENT: distended, guarding, mass, organolmegaly, rebound, tenderness Rectal exam: PRESENT: deferred Neurological exam: PRESENT: alert, awake, oriented to person, oriented to place , oriented to time, oriented to situation, CN II-XII grossly intact. ABSENT: motor sensory deficit Additional comments: Left-sided 3/5 strength both upper and lower extremity Psychiatric exam: PRESENT: appropriate affect, normal mood. ABSENT: homicidal ideation, suicidal ideation Skin exam: PRESENT: dry, intact, warm. ABSENT: cyanosis, rash Results Impressions: Head CT 02/07/17 17:37 IMPRESSION: NO ACUTE INTRACRANIAL PROCESS. NO SIGNIFICANT CHANGE FROM PRIOR STUDY. Brain MRI with MRA 02/07/17 19:29 IMPRESSION: NORMAL MRA OF THE [place]. Head MRI 02/07/17 19:29 IMPRESSION: 1. Acute infarcts in the high right posterior frontal lobe most likely MCA distribution. A tiny focus of abnormal signal is seen on diffusion- weighted images in the high right parietal lobe as well. 2. Mild small vessel ischemic changes bilaterally. EVIDENCE OF ACUTE STROKE: YES. Assessment & Plan - Diagnosis (1) Acute CVA (cerebrovascular accident) Is this a current diagnosis for this admission?: Yes Plan: Hospital for the CVA protocol (2) COPD (chronic obstructive pulmonary disease) Qualifiers: COPD type: unspecified COPD Qualified Code(s): J44.9 - Chronic obstructive pulmonary disease, unspecified Is this a current diagnosis for this admission?: Yes Plan: Continues to nebulizer treatments discussed with the patient about smoking cessation (3) Depression Qualifiers: Depression Type: major depressive disorder Is this a current diagnosis for this admission?: Yes (4) Hyperlipidemia Qualifiers: Hyperlipidemia type: unspecified Qualified Code(s): E78.5 - Hyperlipidemia , unspecified Is this a current diagnosis for this admission?: Yes Plan: Continues to statin 40 mg patient's recent LDL is 109 (5) Hypertension Qualifiers: Hypertension type: essential hypertension Qualified Code(s): I10 - Essential (primary) hypertension Is this a current diagnosis for this admission?: Yes Plan: Patient's progress about 140-160 range (6) Insulin dependent diabetes mellitus Plan: This patient sliding scale - Time Time Spent: 30 to 50 Minutes Medications reviewed and adjusted accordingly: Yes Anticipated discharge: Home Within: Other - Inpatient Certification Based on my medical assessment, after consideration of the patient's comorbidities, presenting symptoms, or acuity I expect that the services needed warrant INPATIENT care.: Yes Medical Necessity: Significant Comorbidiites Make Outpatient Treatment Too Risky , Need Close Monitoring Due to Risk of Patient Decompensation Post Hospital Care: D/C E Business Specialist Documentation - Plan Summary Plan Summary: Discussed with the patient and his regarding the patient's current condition and all the test and the plan admitting the [facility]
[2017-02-08 00:37] LABS: CREATINE KINASE MB 0.63 ng/mL (<4.55)
[2017-02-08 00:40] LABS: TROPONIN I < 0.012 ng/mL
[2017-02-08] MEDS ORDERED: TRAZODONE HCL 50 MG TABLET PO PRN (02:42)
[2017-02-08] MEDS ORDERED: CYCLOBENZAPRINE HCL 10 MG TABLET PO PRN (02:42)
[2017-02-08] MEDS ORDERED: TRAMADOL HCL 50 MG TABLET PO PRN ×2 (02:42→03:00)
[2017-02-08] MEDS ORDERED: IPRATROPIUM BROMIDE HFA 17 MCG/PUFF 200 PUFF/12.9 GM MDI IH ONE (03:29)
[2017-02-08] MEDS ORDERED: HYDROCODONE/ACETAMINOPHEN 5-325 MG TABLET PO ONE (03:30)
[2017-02-08 05:51] LABS: ABSOLUTE EOSINOPHILS # (AUTO) 0.5 10^3/uL (0.0-0.6); ABSOLUTE LYMPHOCYTES (AUTO) 2.2 10^3/uL (0.5-4.7); ABSOLUTE NEUT (AUTO) 4.7 10^3/uL (1.7-8.2); BASOPHILS % (AUTO) 0.5 % (0-2); EOSINOPHILS % (AUTO) 5.5 % (0-6); HEMATOCRIT 43.5 % (37.9-51.0); HEMOGLOBIN 14.9 g/dL (13.5-17.0); HGB HCT DIFFERENCE 1.2; LYMPHOCYTES % (AUTO) 26.2 % (13-45); MEAN CORPUSCULAR HEMOGLOBIN 32.6 pg (27.0-33.4); MEAN CORPUSCULAR HGB CONC 34.3 g/dL (32.0-36.0); MEAN CORPUSCULAR VOLUME 95 fl (80-97); MONOCYTES % (AUTO) 11.4 % (3-13); RED BLOOD COUNT 4.59 10^6/uL (4.35-5.55); RED CELL DISTRIBUTION WIDTH 13.1 % (11.5-14.0); SEGMENTED NEUTROPHILS % (AUTO) 56.4 % (42-78); WHITE BLOOD COUNT 8.4 10^3/uL (4.0-10.5)
[2017-02-08] MEDS ORDERED: CLONIDINE HCL 0.2 MG TABLET PO SCH (06:00)
[2017-02-08 06:11] LABS: ALANINE AMINOTRANSFERASE 26 U/L (21-72); ALBUMIN 3.8 g/dL (3.5-5.0); ALKALINE PHOSPHATASE 62 U/L (38-126); ANION GAP 9 (5-19); ASPARTATE AMINO TRANSFERASE 20 U/L (17-59); BILIRUBIN,DIRECT 0.4 mg/dL (0.0-0.4); BILIRUBIN,TOTAL 0.6 mg/dL (0.2-1.3); BLOOD UREA NITROGEN 19 mg/dL (7-20); CALCIUM 9.8 mg/dL (8.4-10.2); CARBON DIOXIDE 25 mmol/L (22-30); CHLORIDE 105 mmol/L (98-107); CREATINE KINASE 85 U/L (55-170); CREATININE RESULT 0.96 mg/dL (0.52-1.25); Direct HDL 34 mg/dL (>40); GLUCOSE 118 mg/dL (75-110); POTASSIUM 4.1 mmol/L (3.6-5.0); SODIUM 139.4 mmol/L (137-145); TOTAL PROTEIN 6.8 g/dL (6.3-8.2); TRIGLYCERIDES 224 mg/dL (<150)
[2017-02-08 06:21] LABS: CREATINE KINASE MB 0.58 ng/mL (<4.55)
[2017-02-08 06:25] LABS: DIRECT LDL 127 mg/dL (<100)
[2017-02-08 06:28] LABS: TROPONIN I < 0.012 ng/mL
[2017-02-08 06:29] LABS: VLDL CHOLESTEROL 44.8 mg/dL (10-31)
[2017-02-08] MEDS: INSULIN LISPRO 100 UNIT/ML 3 ML VIAL SUBCUT SCH ×2 (08:29→16:38)
[2017-02-08] MEDS: HYDROCODONE/ACETAMINOPHEN 5-325 MG TABLET PO PRN ×2 (08:44→16:34)
[2017-02-08] MEDS ORDERED: SIMVASTATIN 10 MG TABLET PO SCH (10:00)
[2017-02-08] MEDS ORDERED: LANSOPRAZOLE 30 MG TAB.RAP.DR PO SCH (10:00)
[2017-02-08] MEDS ORDERED: FLUTICASONE NASAL SPRAY 50 MCG/SPRY 120 SPRAY/16 GM NAREB SCH (10:00)
[2017-02-08] MEDS ORDERED: METOPROLOL TARTRATE 25 MG TABLET PO SCH (10:00)
[2017-02-08] MEDS ORDERED: HYDROCODONE/ACETAMINOPHEN 5-325 MG TABLET PO SCH (10:00)
[2017-02-08] MEDS: ASPIRIN 81 MG TABLET, ENT COATED PO SCH (10:25)
[2017-02-08] MEDS: CLOPIDOGREL BISULFATE 75 MG TABLET PO SCH (10:26)
[2017-02-08] MEDS: FAMOTIDINE 20 MG TABLET PO SCH ×2 (10:26→20:59)
[2017-02-08] MEDS: ENOXAPARIN SODIUM INJ 40 MG/0.4 ML DISP.SYRIN SUBCUT SCH (10:28)
[2017-02-08] MEDS: IPRATROPIUM BROMIDE HFA 17 MCG/PUFF 200 PUFF/12.9 GM MDI IH SCH ×4 (10:35→21:17)
--- NOTE | 2017-02-08 11:14 | RADIOLOGY REPORT (SQ) ---
EXAM DESCRIPTION: CAROTID DOPPLER COMPLETED DATE/TIME: 02/08/2017 11:02 am REASON FOR STUDY: [place] COMPARISON: CT brain 08/25/2016, 02/07/2017 MRI brain 09/23/2016, 02/07/2017 TECHNIQUE: Grayscale ultrasound, Doppler velocity and spectra, and color Doppler images acquired of the extra-cranial carotid and vertebral arteries. Images stored on PACS. LIMITATIONS: None. FINDINGS: RIGHT CAROTID CCA Velocities: Within normal limits. ICA Velocities Peak systolic 1.7 m/s. End diastolic 0.6 m/s. Proximal ICA/CCA peak systolic ratio 2.9. There is mixed calcific and noncalcific plaque at the right carotid bifurcation. On direct vessel di ameter measurement, there is 68% proximal right ICA stenosis. By velocity criteria, there is 50 to 6 9% diameter narrowing. LEFT CAROTID CCA Velocities: Within normal limits. ICA Velocities Peak systolic 0.63 m/s. End diastolic 0.21 m/s. Proximal ICA/CCA peak systolic ratio 1.3. Minimal mixed calcific and noncalcific plaque at the left carotid bifurcation. No flow significant s tenosis by direct vessel diameter measurement or velocity criteria VERTEBRAL ARTERIES: Antegrade flow. Normal waveforms. SUBCLAVIAN ARTERIES: Not examined OTHER: No other significant finding. IMPRESSION: 50 to 69% stenosis right proximal internal carotid artery at the bifurcation No flow significant stenosis identified left carotid bifurcation. COMMENT: Quality ID #[id number]: Velocity criteria are extrapolated from the diameter data as defined by t he Society of Radiologists in Ultrasound Consensus Conference. Radiology 2003: 229; 340-346. TECHNICAL DOCUMENTATION: JOB ID: [id number] [employer]- All Rights Reserved
[2017-02-08] MEDS ORDERED: (PENDING PHARMACY ID) (Eszopiclone [Lunesta] 2 MG) PO PRN (13:05)
--- NOTE | 2017-02-08 13:16 | PDOC PROGRESS REPORT ---
Subjective Progress Note for:: 02/08/17 Subjective:: Patient is currently doing fair. Patient's denied any chest pain denied any shortness of the breath. Patient is still complaining some mild headache No blurry vision Still have some weakness in the left upper and lower extremity Physical Exam Vital Signs: Temp Pulse Resp BP Pulse Ox 97.9 F 60 18 155/93 H 99 02/08/17 11:36 02/08/17 11:36 02/08/17 11:36 02/08/17 11:36 02/08/17 11:36 Intake & Output 02/07/17 02/08/17 02/09/17 06:59 06:59 06:59 Intake Total 403 598 Output Total 450 Balance 403 148 Weight 85.5 kg General appearance: PRESENT: no acute distress, well-developed, well-nourished Head exam: PRESENT: atraumatic, normocephalic Eye exam: PRESENT: conjunctiva pink, EOMI, PERRLA. ABSENT: scleral icterus Ear exam: PRESENT: normal external ear exam Mouth exam: PRESENT: moist, tongue midline Neck exam: PRESENT: full ROM. ABSENT: carotid bruit, JVD, lymphadenopathy, thyromegaly Respiratory exam: PRESENT: clear to auscultation rommel Cardiovascular exam: PRESENT: RRR. ABSENT: diastolic murmur, rubs, systolic murmur Pulses: PRESENT: normal dorsalis pedis pul, +2 pedal pulses bilateral Vascular exam: PRESENT: normal capillary refill GI/Abdominal exam: PRESENT: normal bowel sounds, soft. ABSENT: distended, guarding, mass, organolmegaly, rebound, tenderness Rectal exam: PRESENT: deferred Neurological exam: PRESENT: alert, awake, oriented to person, oriented to place , oriented to time, oriented to situation, reflexes normal, abnormal gait. ABSENT: motor sensory deficit Additional comments: Patient had was weakness on the left upper and lower extremity and the patient' s move the left lower extremity but unable to keep a stand Psychiatric exam: PRESENT: appropriate affect, normal mood. ABSENT: homicidal ideation, suicidal ideation Skin exam: PRESENT: dry, intact, warm. ABSENT: cyanosis, rash Results Laboratory Results: 02/08/17 05:21 02/08/17 05:21 02/08/17 02/08/17 05:21 05:21 WBC 8.4 RBC 4.59 Hgb 14.9 Hct 43.5 MCV 95 MCH 32.6 MCHC 34.3 RDW 13.1 Plt Count 185 Seg Neutrophils % 56.4 Lymphocytes % 26.2 Monocytes % 11.4 Eosinophils % 5.5 Basophils % 0.5 Absolute Neutrophils 4.7 Absolute Lymphocytes 2.2 Absolute Monocytes 1.0 Absolute Eosinophils 0.5 Absolute Basophils 0.0 Sodium 139.4 Potassium 4.1 Chloride 105 Carbon Dioxide 25 Anion Gap 9 BUN 19 Creatinine 0.96 Est GFR ( Amer) > 60 Est GFR (Non-Af Amer) > 60 Glucose 118 H Calcium 9.8 Total Bilirubin 0.6 AST 20 ALT 26 Alkaline Phosphatase 62 Total Protein 6.8 Albumin 3.8 Triglycerides 224 H Cholesterol 187.70 LDL Cholesterol Direct 127 H VLDL Cholesterol 44.8 H HDL Cholesterol 34 L 02/07/17 02/07/17 02/08/17 23:43 23:43 05:21 Creatine Kinase 90 CK-MB (CK-2) 0.63 0.58 Troponin I < 0.012 < 0.012 02/08/17 05:21 Creatine Kinase 85 CK-MB (CK-2) Troponin I Impressions: Head CT 02/07/17 17:37 IMPRESSION: NO ACUTE INTRACRANIAL PROCESS. NO SIGNIFICANT CHANGE FROM PRIOR STUDY. Brain MRI with MRA 02/07/17 19:29 IMPRESSION: NORMAL MRA OF THE [place]. Head MRI 02/07/17 19:29 IMPRESSION: 1. Acute infarcts in the high right posterior frontal lobe most likely MCA distribution. A tiny focus of abnormal signal is seen on diffusion- weighted images in the high right parietal lobe as well. 2. Mild small vessel ischemic changes bilaterally. EVIDENCE OF ACUTE STROKE: YES. Carotid Doppler Study 02/08/17 00:00 IMPRESSION: 50 to 69% stenosis right proximal internal carotid artery at the bifurcation No flow significant stenosis identified left carotid bifurcation. Assessment & Plan - Diagnosis (1) Acute CVA (cerebrovascular accident) Is this a current diagnosis for this admission?: Yes Plan: Hospital for the CVA protocol (2) COPD (chronic obstructive pulmonary disease) Qualifiers: COPD type: unspecified COPD Qualified Code(s): J44.9 - Chronic obstructive pulmonary disease, unspecified Is this a current diagnosis for this admission?: Yes Plan: Continues to nebulizer treatments discussed with the patient about smoking cessation (3) Depression Qualifiers: Depression Type: major depressive disorder Is this a current diagnosis for this admission?: Yes (4) Hyperlipidemia Qualifiers: Hyperlipidemia type: unspecified Qualified Code(s): E78.5 - Hyperlipidemia , unspecified Is this a current diagnosis for this admission?: Yes Plan: Continues to statin 40 mg patient's recent LDL is 109 (5) Hypertension Qualifiers: Hypertension type: essential hypertension Qualified Code(s): I10 - Essential (primary) hypertension Is this a current diagnosis for this admission?: Yes Plan: Patient's progress about 140-160 range (6) Insulin dependent diabetes mellitus Plan: This patient sliding scale - Time Time Spent with patient: 15-24 minutes Medications reviewed and adjusted accordingly: Yes Anticipated discharge: Home Within: Other - Inpatient Certification Medical Necessity: Need Close Monitoring Due to Risk of Patient Decompensation Post Hospital Care: D/C 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
[2017-02-08 13:41] LABS: CREATINE KINASE MB 0.59 ng/mL (<4.55)
[2017-02-08 14:06] LABS: TROPONIN I < 0.012 ng/mL
[2017-02-08] MEDS: GABAPENTIN 300 MG CAPSULE PO SCH ×2 (14:56→20:59)
[2017-02-08] MEDS ORDERED: HUM INSULIN NPH/REG INSULIN HM 100 UNIT/1 ML 3 ML SUBCUT SCH (18:00)
--- NOTE | 2017-02-08 19:40 | XCELERA REPORT ---
[address] [address] Transthoracic Echocardiogram Report Name: EMERSON DANGELO JR Age: 52 yrs Gender: Male : 1965 Patient Status: Inpatient Patient Location: [address] [place] [address] Study Date: 02/08/2017 09:20 AM Height: 65 in Weight: 173 lb BSA: 1.9 m2 Procedure: A complete two-dimensional transthoracic echocardiogram was performed (2D, M-mode, spectral and color flow Doppler). The study was technically adequate with some images being suboptimal in quality. Reason For Study: merced Ordering Physician: CAITLYN ATKINSON Performed By: Tabitha Hdz Interpretation Summary Left ventricular systolic function is low normal. Doppler measurements suggest pseudonormalized left ventricular relaxation, which is associated with grade II/IV or mild to moderate diastolic dysfunction There is borderline concentric left ventricular hypertrophy. The left ventricle is grossly normal size. Wall motion cannot be accurately commented on, but no definite regional wall motion abnormalities noted. The right ventricular systolic function is normal. The right atrium is normal. The left atrium is mildly dilated. There is a mild amount of mitral regurgitation There is no mitral valve stenosis. There is a mild amount of aortic regurgitation There is no aortic valve stenosis There is a trace or physiologic amount of tricuspid regurgitation Tricuspid regurgitation jet envelope not well defined to measure RV systolic pressure accurately. The aortic root is not well visualized but is probably normal size. The inferior vena cava appeared normal and decreased > 50% with respiration (RAP 5-10 mmHg) Minimal pericardial effusion. MMode/2D Measurements & Calculations RVDd: 3.3 cm LVIDd: 6.0 cm FS: 30.1 % Ao root diam: 2.6 cm IVSd: 0.97 cm LVIDs: 4.2 cm EDV(Teich): 181.3 ml LVPWd: 1.0 cm ESV(Teich): 78.9 ml Ao root area: 5.4 cm2 EF(Teich): 56.5 % Doppler Measurements & Calculations MV E max alan: MV dec slope: Ao V2 max: AI max alan: 59.8 cm/sec 180.8 cm/sec 486.9 cm/sec MV A max alan: 335.4 cm/sec2 Ao max PG: AI max P.7 cm/sec MV dec time: 13.1 mmHg 94.8 mmHg MV E/A: 1.1 0.18 sec AI dec slope: 214.8 cm/sec2 AI P1/2t: 663.9 msec LV V1 max PG: PA V2 max: PI end-d alan: TR max alan: 3.6 mmHg 81.9 cm/sec 116.1 cm/sec 238.0 cm/sec LV V1 max: PA max P.7 mmHg TR max P.3 cm/sec 22.7 mmHg Left Ventricle The left ventricle is grossly normal size. There is borderline concentric left ventricular hypertrophy. Left ventricular systolic function is low normal. Doppler measurements suggest pseudonormalized left ventricular relaxation, which is associated with grade II/IV or mild to moderate diastolic dysfunction. Wall motion cannot be accurately commented on, but no definite regional wall motion abnormalities noted. Right Ventricle The right ventricle is grossly normal size. There is normal right ventricular wall thickness. The right ventricular systolic function is normal. Atria The right atrium is normal. The left atrium is mildly dilated. Interarterial septum not well visualized and not well dopplered. Cannot comment on ASD/PFO presence. Mitral Valve The mitral valve is grossly normal. There is no mitral valve stenosis. There is a mild amount of mitral regurgitation. Aortic Valve The aortic valve is grossly normal. There is no aortic valve stenosis. There is a mild amount of aortic regurgitation. Tricuspid Valve The tricuspid valve is not well visualized, but is grossly normal. There is no tricuspid stenosis. There is a trace or physiologic amount of tricuspid regurgitation. Tricuspid regurgitation jet envelope not well defined to measure RV systolic pressure accurately. Pulmonic Valve The pulmonic valve is not well visualized. Great Vessels The aortic root is not well visualized but is probably normal size. The inferior vena cava appeared normal and decreased > 50% with respiration (RAP 5-10 mmHg). Effusions Minimal pericardial effusion. : CAITLYN ATKINSON > Breann Crowley
[2017-02-08] MEDS: ATORVASTATIN CALCIUM 40 MG TABLET PO SCH (20:59)
[2017-02-08] MEDS: CLONIDINE HCL 0.2 MG TABLET PO SCH (21:00)
[2017-02-08] MEDS: TRAZODONE HCL 50 MG TABLET PO SCH (21:00)
[2017-02-08] MEDS: ZOLPIDEM TARTRATE 5 MG TABLET PO PRN (21:13)
[2017-02-08] MEDS: BUDESONIDE/FORMOTEROL 160-4.5 MCG 60 PUFF/6 GM MDI IH SCH (21:14)
[2017-02-09] MEDS: HYDROCODONE/ACETAMINOPHEN 5-325 MG TABLET PO PRN ×3 (02:30→23:31)
[2017-02-09 04:48] LABS: ABSOLUTE EOSINOPHILS # (AUTO) 0.4 10^3/uL (0.0-0.6); ABSOLUTE MONOCYTES (AUTO) 0.7 10^3/uL (0.1-1.4); ABSOLUTE NEUT (AUTO) 3.3 10^3/uL (1.7-8.2); BASOPHILS % (AUTO) 0.7 % (0-2); EOSINOPHILS % (AUTO) 5.5 % (0-6); HEMOGLOBIN 14.8 g/dL (13.5-17.0); HGB HCT DIFFERENCE 0.4; LYMPHOCYTES % (AUTO) 31.6 % (13-45); MEAN CORPUSCULAR HGB CONC 33.7 g/dL (32.0-36.0); MEAN CORPUSCULAR VOLUME 95 fl (80-97); MONOCYTES % (AUTO) 10.9 % (3-13); RED BLOOD COUNT 4.64 10^6/uL (4.35-5.55); RED CELL DISTRIBUTION WIDTH 12.9 % (11.5-14.0); SEGMENTED NEUTROPHILS % (AUTO) 51.3 % (42-78); WHITE BLOOD COUNT 6.4 10^3/uL (4.0-10.5)
[2017-02-09 05:08] LABS: ALANINE AMINOTRANSFERASE 25 U/L (21-72); ALBUMIN 3.7 g/dL (3.5-5.0); ALKALINE PHOSPHATASE 53 U/L (38-126); ANION GAP 10 (5-19); ASPARTATE AMINO TRANSFERASE 18 U/L (17-59); BILIRUBIN,DIRECT 0.4 mg/dL (0.0-0.4); BILIRUBIN,TOTAL 0.8 mg/dL (0.2-1.3); BLOOD UREA NITROGEN 16 mg/dL (7-20); CALCIUM 9.8 mg/dL (8.4-10.2); CARBON DIOXIDE 25 mmol/L (22-30); CHLORIDE 105 mmol/L (98-107); CREATININE RESULT 1.02 mg/dL (0.52-1.25); GLUCOSE 123 mg/dL (75-110); POTASSIUM 4.3 mmol/L (3.6-5.0); SODIUM 139.9 mmol/L (137-145); TOTAL PROTEIN 6.7 g/dL (6.3-8.2)
[2017-02-09] MEDS: GABAPENTIN 300 MG CAPSULE PO SCH ×3 (05:28→21:54)
[2017-02-09] MEDS: ENOXAPARIN SODIUM INJ 40 MG/0.4 ML DISP.SYRIN SUBCUT SCH (09:22)
[2017-02-09] MEDS: FAMOTIDINE 20 MG TABLET PO SCH ×2 (09:23→21:54)
[2017-02-09] MEDS: CLOPIDOGREL BISULFATE 75 MG TABLET PO SCH (09:24)
[2017-02-09] MEDS: RAMIPRIL 5 MG CAPSULE PO SCH (09:24)
[2017-02-09] MEDS: ASPIRIN 81 MG TABLET, ENT COATED PO SCH (09:25)
[2017-02-09] MEDS: FLUTICASONE NASAL SPRAY 50 MCG/SPRY 120 SPRAY/16 GM NASL SCH (09:25)
[2017-02-09] MEDS: IPRATROPIUM BROMIDE HFA 17 MCG/PUFF 200 PUFF/12.9 GM MDI IH SCH ×4 (09:27→21:55)
[2017-02-09] MEDS: BUDESONIDE/FORMOTEROL 160-4.5 MCG 60 PUFF/6 GM MDI IH SCH ×2 (09:27→21:55)
[2017-02-09] MEDS: CLONIDINE HCL 0.2 MG TABLET PO SCH ×2 (09:27→21:54)
[2017-02-09] MEDS ORDERED: RAMIPRIL 5 MG CAPSULE PO SCH (10:00)
--- NOTE | 2017-02-09 10:00 | PDOC PROGRESS REPORT ---
Subjective Progress Note for:: 02/09/17 Subjective:: Patient is currently doing fair. Denied any headache no blurry visionPatient's had a physical therapy done and still have a lot of weakness in the left lower extremitiesI think patient should get a benefit to go to the rehab's Patient's otherwise denied any chest pain denied any shortness of the breath Physical Exam Vital Signs: Temp Pulse Resp BP Pulse Ox 97.7 F 59 L 17 134/43 H 96 02/09/17 07:11 02/09/17 08:00 02/09/17 08:00 02/09/17 08:00 02/09/17 08:00 Intake & Output 02/08/17 02/09/17 02/10/17 06:59 06:59 06:59 Intake Total 403 1818 Output Total 1775 Balance 403 43 Weight 85.5 kg 89.9 kg General appearance: PRESENT: no acute distress, well-developed, well-nourished Head exam: PRESENT: atraumatic, normocephalic Eye exam: PRESENT: conjunctiva pink, EOMI, PERRLA. ABSENT: scleral icterus Ear exam: PRESENT: normal external ear exam Mouth exam: PRESENT: moist, tongue midline Neck exam: PRESENT: full ROM. ABSENT: carotid bruit, JVD, lymphadenopathy, thyromegaly Respiratory exam: PRESENT: clear to auscultation rommel Cardiovascular exam: PRESENT: RRR. ABSENT: diastolic murmur, rubs, systolic murmur Pulses: PRESENT: normal dorsalis pedis pul, +2 pedal pulses bilateral Vascular exam: PRESENT: normal capillary refill GI/Abdominal exam: PRESENT: normal bowel sounds, soft. ABSENT: distended, guarding, mass, organolmegaly, rebound, tenderness Rectal exam: PRESENT: deferred Neurological exam: PRESENT: alert, awake, oriented to person, oriented to place , oriented to time, oriented to situation, abnormal gait. ABSENT: motor sensory deficit Additional comments: Patient have a left lower extremity weakness unable to lift but having difficulty walking Psychiatric exam: PRESENT: appropriate affect, normal mood. ABSENT: homicidal ideation, suicidal ideation Skin exam: PRESENT: dry, intact, warm. ABSENT: cyanosis, rash Results Laboratory Results: 02/09/17 03:53 02/09/17 03:53 02/09/17 02/09/17 03:53 03:53 WBC 6.4 RBC 4.64 Hgb 14.8 Hct 44.0 MCV 95 MCH 32.0 MCHC 33.7 RDW 12.9 Plt Count 190 Seg Neutrophils % 51.3 Lymphocytes % 31.6 Monocytes % 10.9 Eosinophils % 5.5 Basophils % 0.7 Absolute Neutrophils 3.3 Absolute Lymphocytes 2.0 Absolute Monocytes 0.7 Absolute Eosinophils 0.4 Absolute Basophils 0.0 Sodium 139.9 Potassium 4.3 Chloride 105 Carbon Dioxide 25 Anion Gap 10 BUN 16 Creatinine 1.02 Est GFR ( Amer) > 60 Est GFR (Non-Af Amer) > 60 Glucose 123 H Calcium 9.8 Total Bilirubin 0.8 AST 18 ALT 25 Alkaline Phosphatase 53 Total Protein 6.7 Albumin 3.7 02/07/17 02/07/17 02/08/17 23:43 23:43 05:21 Creatine Kinase 90 CK-MB (CK-2) 0.63 0.58 Troponin I < 0.012 < 0.012 02/08/17 02/08/17 02/08/17 05:21 12:30 12:30 Creatine Kinase 85 82 CK-MB (CK-2) 0.59 Troponin I < 0.012 Impressions: Head CT 02/07/17 17:37 IMPRESSION: NO ACUTE INTRACRANIAL PROCESS. NO SIGNIFICANT CHANGE FROM PRIOR STUDY. Brain MRI with MRA 02/07/17 19:29 IMPRESSION: NORMAL MRA OF THE [place]. Head MRI 02/07/17 19:29 IMPRESSION: 1. Acute infarcts in the high right posterior frontal lobe most likely MCA distribution. A tiny focus of abnormal signal is seen on diffusion- weighted images in the high right parietal lobe as well. 2. Mild small vessel ischemic changes bilaterally. EVIDENCE OF ACUTE STROKE: YES. Carotid Doppler Study 02/08/17 00:00 IMPRESSION: 50 to 69% stenosis right proximal internal carotid artery at the bifurcation No flow significant stenosis identified left carotid bifurcation. Assessment & Plan - Diagnosis (1) Acute CVA (cerebrovascular accident) Is this a current diagnosis for this admission?: Yes Plan: Hospital for the CVA protocol (2) COPD (chronic obstructive pulmonary disease) Qualifiers: COPD type: unspecified COPD Qualified Code(s): J44.9 - Chronic obstructive pulmonary disease, unspecified Is this a current diagnosis for this admission?: Yes Plan: Continues to nebulizer treatments discussed with the patient about smoking cessation (3) Depression Qualifiers: Depression Type: major depressive disorder Is this a current diagnosis for this admission?: Yes (4) Hyperlipidemia Qualifiers: Hyperlipidemia type: unspecified Qualified Code(s): E78.5 - Hyperlipidemia , unspecified Is this a current diagnosis for this admission?: Yes Plan: Continues to statin 40 mg patient's recent LDL is 109 (5) Hypertension Qualifiers: Hypertension type: essential hypertension Qualified Code(s): I10 - Essential (primary) hypertension Is this a current diagnosis for this admission?: Yes Plan: Patient's progress about 140-160 range (6) Insulin dependent diabetes mellitus Plan: This patient sliding scale (7) Carotid stenosis Qualifiers: Laterality: right Qualified Code(s): I65.21 - Occlusion and stenosis of right carotid artery Is this a current diagnosis for this admission?: Yes Plan: Continues to aspirin and the Plavix and statins and to follow outpatients vascular surgeon - Time Time Spent with patient: 15-24 minutes Medications reviewed and adjusted accordingly: Yes Anticipated discharge: SNF Within: within 24 hours, Other - Inpatient Certification Medical Necessity: Need Close Monitoring Due to Risk of Patient Decompensation Post Hospital Care: D/C Principal Law Clerk Documentation - Plan Summary Plan Summary: Continues to current medications planning to send to the rehab if he remained stable in next 24 hours
--- NOTE | 2017-02-09 11:43 | Physician Advisory Note ---
Physician Advisor ProgressNote .: Pursuant to the plan for [facility], I have reviewed the medical record for this patient. Physician Advisor Statement: Please consider documenting, for increased specificity: 1. "Acute Rt-sided thrombotic [or embolic, or other etiology] MCA CVA with cerebral infarction, with Lt nondominant hemiparesis, [resolved or improved or persistent] " Thanks! CK
[2017-02-09] MEDS ORDERED: CLONIDINE HCL 0.2 MG TABLET PO SCH (12:00)
[2017-02-09] MEDS: TRAMADOL HCL 50 MG TABLET PO PRN ×2 (17:00→23:30)
[2017-02-09] MEDS: ATORVASTATIN CALCIUM 40 MG TABLET PO SCH (21:54)
[2017-02-09] MEDS: TRAZODONE HCL 50 MG TABLET PO SCH (21:54)
[2017-02-10] MEDS: ZOLPIDEM TARTRATE 5 MG TABLET PO PRN (01:42)
[2017-02-10 05:37] LABS: ABSOLUTE EOSINOPHILS # (AUTO) 0.4 10^3/uL (0.0-0.6); ABSOLUTE LYMPHOCYTES (AUTO) 1.9 10^3/uL (0.5-4.7); ABSOLUTE MONOCYTES (AUTO) 0.8 10^3/uL (0.1-1.4); ABSOLUTE NEUT (AUTO) 3.6 10^3/uL (1.7-8.2); BASOPHILS % (AUTO) 0.7 % (0-2); EOSINOPHILS % (AUTO) 5.3 % (0-6); HEMOGLOBIN 14.7 g/dL (13.5-17.0); HGB HCT DIFFERENCE 1.1; LYMPHOCYTES % (AUTO) 28.8 % (13-45); MEAN CORPUSCULAR HEMOGLOBIN 32.3 pg (27.0-33.4); MEAN CORPUSCULAR HGB CONC 34.2 g/dL (32.0-36.0); MEAN CORPUSCULAR VOLUME 95 fl (80-97); MONOCYTES % (AUTO) 11.4 % (3-13); RED BLOOD COUNT 4.55 10^6/uL (4.35-5.55); RED CELL DISTRIBUTION WIDTH 12.9 % (11.5-14.0); SEGMENTED NEUTROPHILS % (AUTO) 53.8 % (42-78); WHITE BLOOD COUNT 6.6 10^3/uL (4.0-10.5)
[2017-02-10] MEDS: GABAPENTIN 300 MG CAPSULE PO SCH (05:53)
[2017-02-10 06:09] LABS: ALANINE AMINOTRANSFERASE 20 U/L (21-72); ALBUMIN 3.8 g/dL (3.5-5.0); ALKALINE PHOSPHATASE 52 U/L (38-126); ANION GAP 9 (5-19); ASPARTATE AMINO TRANSFERASE 16 U/L (17-59); BILIRUBIN,DIRECT 0.3 mg/dL (0.0-0.4); BILIRUBIN,TOTAL 0.7 mg/dL (0.2-1.3); BLOOD UREA NITROGEN 22 mg/dL (7-20); CALCIUM 9.8 mg/dL (8.4-10.2); CARBON DIOXIDE 26 mmol/L (22-30); CHLORIDE 105 mmol/L (98-107); CREATININE RESULT 1.04 mg/dL (0.52-1.25); GLUCOSE 111 mg/dL (75-110); POTASSIUM 4.6 mmol/L (3.6-5.0); SODIUM 140.1 mmol/L (137-145); TOTAL PROTEIN 6.6 g/dL (6.3-8.2)
--- NOTE | 2017-02-10 08:18 | PDOC DISCHARGE SUMMARY ---
General - Admit/Disc Date/PCP Admission Date/Primary Care Provider: 02/07/17 21:06 DANIELA ATKINSON MD Discharge Date: 02/10/17 - Discharge Diagnosis (1) Acute CVA (cerebrovascular accident) Is this a current diagnosis for this admission?: Yes Summary: Continues to aspirin and Plavix and continues to statin. Because of the patient is a chronic migraine issue avoid the Aggrenox at this point may be a consider to put back instead of the Plavix follow the neurology as outpatient (2) COPD (chronic obstructive pulmonary disease) Is this a current diagnosis for this admission?: Yes Summary: Continues to current inhaler and discuss about the patient's to smoking cessation (3) Depression Is this a current diagnosis for this admission?: Yes Summary: stable (4) Hyperlipidemia Is this a current diagnosis for this admission?: Yes Summary: Continues to statin 40 mg (5) Hypertension Is this a current diagnosis for this admission?: Yes Summary: Currently all well controlled (6) Insulin dependent diabetes mellitus Summary: Insert current medications (7) Carotid stenosis Is this a current diagnosis for this admission?: Yes Summary: We will schedule outpatients vascular surgeon for further evaluations - Additional Information Discharge Diet: Diabetic Home Medications: Albuterol Sulfate [Proair HFA Inhalation Aerosol 8.5 gm MDI] 2 puff NASL Q4H PRN 02/08/17 Budesonide/Formoterol Fumarate [Symbicort HFA 160-4.5 mcg Inhaler 6 gm] 2 puff NASL Q12 02/08/17 Eszopiclone [Lunesta] 2 mg PO HSP PRN 02/08/17 Fluticasone Propionate [Flonase Nasal [place] 50 Mcg/[place] 16 gm] 1 spray NASL DAILY 02/08/17 Gabapentin [Neurontin 300 mg Capsule] 300 mg PO Q8 02/08/17 Ramipril [Altace 5 mg Capsule] 5 mg PO DAILY 02/08/17 Trazodone HCl [Desyrel 50 mg Tablet] 50 mg PO QHS 02/08/17 Aspirin [Ecotrin 81 mg EC Tablet] 81 mg PO DAILY #30 tabec 02/10/17 Atorvastatin Calcium [Lipitor 40 mg Tablet] 40 mg PO QHS #30 tablet 02/10/17 Clonidine HCl [Catapres 0.2 mg Tablet] 0.3 mg PO Q12 #60 tablet 02/10/17 Clopidogrel Bisulfate [Plavix 75 mg Tablet] 75 mg PO DAILY #30 tablet 02/10/17 History of Present Illness History of Present Illness: EMERSON DANGELO JR is a 52 year old male This is a 52-year-old male with a history of the CVA and type 2 diabetes mellitus hypertension's hyperlipidemia and chronic smokerCame to my office today with the complaining of a left-sided weakness and tingling and numbness started yesterday at 1:50 PM patient was working outside and patients was not feeling well.Patient's went home and this morning patients noticed more weakness in the left lower extremity and unable to walk and patients came to the office today with the patient have a definite left-sided weakness Patient otherwise denied any chest pain denied any shortness of the breath but patients Sent to the emergency department and patient have an MRI and MRA of the head was done and was so the acute right-sided parietal infarctions All other blood work and a CT of the head was negative patient initially declined to admit in the hospital but finally agreed to admit in the hospital Hospital Course Hospital Course: This is a 52-year-old male with a significant history is as above came to the my office with the left-sided weakness for more than 24 hours sent to the emergency department with the patient was found acute CVA on the right side and the patient was admitting in the hospital for the CVA protocol. Patient initially did not want to admit but finally agree Reason was put on aspirin Plavix and patient have a physical therapy and speech therapy was done Patient have all the other test was done was all stable except patient's right- sided carotid with 50-60% stenosis and follow outpatients Patients at this points still have a left-sided weakness and suggest to go to the rehab but patients do not want to go to the rehab and wants to go home and will make arrangement for the home health and physical therapy at home Discussed with the regarding the patient's current conditions Patient is a very noncompliance continues to smoke and drink alcohol and discussed with the patient about that if the patient does not take the medicines as prescribed patients may be high risk for further stroke and more complications and patients and the understand very well Patient's main might get a more benefit to go to the rehab but patients choose to go to the home and will follow the patient wish Physical Exam Vital Signs: Temp Pulse Resp BP Pulse Ox 97.6 F 53 L 20 144/81 H 97 02/10/17 04:09 02/10/17 04:09 02/10/17 04:09 02/10/17 04:09 02/10/17 04:09 Intake & Output 02/09/17 02/10/17 02/11/17 06:59 06:59 06:59 Intake Total 1818 2270 Output Total 1775 1350 Balance 43 920 Weight 89.9 kg 90.5 kg General appearance: PRESENT: no acute distress, well-developed, well-nourished Head exam: PRESENT: atraumatic, normocephalic Eye exam: PRESENT: conjunctiva pink, EOMI, PERRLA. ABSENT: scleral icterus Ear exam: PRESENT: normal external ear exam Mouth exam: PRESENT: moist, tongue midline Neck exam: PRESENT: full ROM. ABSENT: carotid bruit, JVD, lymphadenopathy, thyromegaly Respiratory exam: PRESENT: clear to auscultation rommel Cardiovascular exam: PRESENT: RRR. ABSENT: diastolic murmur, rubs, systolic murmur Pulses: PRESENT: normal dorsalis pedis pul, +2 pedal pulses bilateral Vascular exam: PRESENT: normal capillary refill GI/Abdominal exam: PRESENT: normal bowel sounds, soft. ABSENT: distended, guarding, mass, organolmegaly, rebound, tenderness Rectal exam: PRESENT: deferred Extremities exam: ABSENT: pedal edema Musculoskeletal exam: PRESENT: ambulatory Neurological exam: PRESENT: alert, awake, oriented to person, oriented to place , oriented to time, oriented to situation, CN II-XII grossly intact, other. ABSENT: motor sensory deficit Additional comments: Left-sided weakness from the stroke is present Psychiatric exam: PRESENT: appropriate affect, normal mood. ABSENT: homicidal ideation, suicidal ideation Skin exam: PRESENT: dry, intact, warm. ABSENT: cyanosis, rash Results Laboratory Results: 02/10/17 04:29 02/10/17 04:29 02/10/17 02/10/17 04:29 04:29 WBC 6.6 RBC 4.55 Hgb 14.7 Hct 43.0 MCV 95 MCH 32.3 MCHC 34.2 RDW 12.9 Plt Count 181 Seg Neutrophils % 53.8 Lymphocytes % 28.8 Monocytes % 11.4 Eosinophils % 5.3 Basophils % 0.7 Absolute Neutrophils 3.6 Absolute Lymphocytes 1.9 Absolute Monocytes 0.8 Absolute Eosinophils 0.4 Absolute Basophils 0.0 Sodium 140.1 Potassium 4.6 Chloride 105 Carbon Dioxide 26 Anion Gap 9 BUN 22 H Creatinine 1.04 Est GFR ( Amer) > 60 Est GFR (Non-Af Amer) > 60 Glucose 111 H Calcium 9.8 Total Bilirubin 0.7 AST 16 L ALT 20 L Alkaline Phosphatase 52 Total Protein 6.6 Albumin 3.8 02/07/17 02/07/17 02/08/17 23:43 23:43 05:21 Creatine Kinase 90 CK-MB (CK-2) 0.63 0.58 Troponin I < 0.012 < 0.012 02/08/17 02/08/17 02/08/17 05:21 12:30 12:30 Creatine Kinase 85 82 CK-MB (CK-2) 0.59 Troponin I < 0.012 Impressions: Head CT 02/07/17 17:37 IMPRESSION: NO ACUTE INTRACRANIAL PROCESS. NO SIGNIFICANT CHANGE FROM PRIOR STUDY. Brain MRI with MRA 02/07/17 19:29 IMPRESSION: NORMAL MRA OF THE [place]. Head MRI 02/07/17 19:29 IMPRESSION: 1. Acute infarcts in the high right posterior frontal lobe most likely MCA distribution. A tiny focus of abnormal signal is seen on diffusion- weighted images in the high right parietal lobe as well. 2. Mild small vessel ischemic changes bilaterally. EVIDENCE OF ACUTE STROKE: YES. Carotid Doppler Study 02/08/17 00:00 IMPRESSION: 50 to 69% stenosis right proximal internal carotid artery at the bifurcation No flow significant stenosis identified left carotid bifurcation. Plan Time Spent: Greater than 30 Minutes - Follow outpatients neurology and will schedule outpatient vascular surgery for further evaluations. Continues to new current medications and very extensive discussed with the patient and the and the nursing staff and patient understand very well and patient's discharge home
[2017-02-10] MEDS: IPRATROPIUM BROMIDE HFA 17 MCG/PUFF 200 PUFF/12.9 GM MDI IH SCH (09:50)
[2017-02-10] MEDS: FLUTICASONE NASAL SPRAY 50 MCG/SPRY 120 SPRAY/16 GM NASL SCH (09:51)
[2017-02-10] MEDS: BUDESONIDE/FORMOTEROL 160-4.5 MCG 60 PUFF/6 GM MDI IH SCH (09:51)
[2017-02-10] MEDS: CLOPIDOGREL BISULFATE 75 MG TABLET PO SCH (09:52)
[2017-02-10] MEDS: FAMOTIDINE 20 MG TABLET PO SCH (09:52)
[2017-02-10] MEDS: ASPIRIN 81 MG TABLET, ENT COATED PO SCH (09:52)
[2017-02-10] MEDS: ENOXAPARIN SODIUM INJ 40 MG/0.4 ML DISP.SYRIN SUBCUT SCH (09:54)
[2017-02-10] MEDS: RAMIPRIL 5 MG CAPSULE PO SCH (09:54)
[2017-02-10] MEDS: CLONIDINE HCL 0.2 MG TABLET PO SCH (09:54)
[2017-02-10 10:13] VITALS: BP 145/88
== END 2017-02-10 10:45 | disposition home or self-care (01) | DRG 66 ==
LOC: ER 16:51 → EH 21:06 → UNDOADMIN 21:09 → EH 21:09 → 3N 23:28
PROVIDERS: ADMIT Family Medicine; ATTEND Family Medicine
DX: I63.231 Cerebral infarction due to unspecified occlusion or stenosis of right carotid arteries (principal); G43.909 Migraine, unspecified, not intractable, without status migrainosus; J44.9 Chronic obstructive pulmonary disease, unspecified; F32.9 Major depressive disorder, single episode, unspecified; E78.5 Hyperlipidemia, unspecified; I10 Essential (primary) hypertension; E11.9 Type 2 diabetes mellitus without complications; F17.210 Nicotine dependence, cigarettes, uncomplicated; K21.9 Gastro-esophageal reflux disease without esophagitis; Z79.4 Long term (current) use of insulin; Z79.82 Long term (current) use of aspirin; Z79.899 Other long term (current) drug therapy; Z88.6 Allergy status to analgesic agent; Z88.8 Allergy status to other drugs, medicaments and biological substances; Z82.49 Family history of ischemic heart disease and other diseases of the circulatory system
CPT/HCPCS: 36415; 70450; 70544; 70551; 80053; 80061; 82550; 82553; 82962; 84484; 85025; 85610; 85730; 93005; 93010; 93306; 93880; 99285; J1650; J3490

== ENCOUNTER 2017-04-13 11:23 | Emergency (ER) | payer MEDICAID ==
[2017-04-13] MEDS ORDERED: ASPIRIN 81 MG TABLET, CHEWABLE PO ONE (11:27)
[2017-04-13 11:51] LABS: ABSOLUTE EOSINOPHILS # (AUTO) 0.1 10^3/uL (0.0-0.6); ABSOLUTE LYMPHOCYTES (AUTO) 0.8 10^3/uL (0.5-4.7); ABSOLUTE MONOCYTES (AUTO) 0.5 10^3/uL (0.1-1.4); ABSOLUTE NEUT (AUTO) 4.5 10^3/uL (1.7-8.2); BASOPHILS % (AUTO) 0.7 % (0-2); EOSINOPHILS % (AUTO) 1.4 % (0-6); HEMATOCRIT 42.6 % (37.9-51.0); HEMOGLOBIN 14.8 g/dL (13.5-17.0); HGB HCT DIFFERENCE 1.8; LYMPHOCYTES % (AUTO) 13.2 % (13-45); MEAN CORPUSCULAR HGB CONC 34.7 g/dL (32.0-36.0); MEAN CORPUSCULAR VOLUME 92 fl (80-97); MONOCYTES % (AUTO) 8.2 % (3-13); RED BLOOD COUNT 4.62 10^6/uL (4.35-5.55); RED CELL DISTRIBUTION WIDTH 12.9 % (11.5-14.0); SEGMENTED NEUTROPHILS % (AUTO) 76.5 % (42-78); WHITE BLOOD COUNT 5.9 10^3/uL (4.0-10.5)
--- NOTE | 2017-04-13 11:51 | RADIOLOGY REPORT (SQ) ---
EXAM DESCRIPTION: CT HEAD WITHOUT COMPLETED DATE/TIME: 04/13/2017 11:36 am REASON FOR STUDY: weakness COMPARISON: 02/07/2017 TECHNIQUE: Axial images acquired through the brain without intravenous contrast. Images reviewed wi th bone, brain and subdural windows. Images stored on PACS. All CT scanners at this facility use dose modulation, iterative reconstruction, and/or weight based d osing when appropriate to reduce radiation dose to as low as reasonably achievable (ALARA). [facility]: Dose Right [facility]: CareDose [facility]: Dose Right [facility]: Teradose 4D [facility]: [employer] RADIATION DOSE: Up-to-date CT equipment and radiation dose reduction techniques were employed. CTDIv ol: 64.6 mGy. DLP: 1163 mGy-cm. mGy. LIMITATIONS: None. FINDINGS: VENTRICLES: Prominent. CEREBRUM: No masses. No hemorrhage. No midline shift. Areas of low density in the white matter mos t likely due to chronic micro-vascular ischemic change. No evidence for acute infarction. CEREBELLUM: No masses. No hemorrhage. No alteration of density. No evidence for acute infarction. EXTRAAXIAL SPACES: Mild age-related involutional change. No fluid collections. No masses. ORBITS AND GLOBE: No intra- or extraconal masses. Normal contour of globe without masses. CALVARIUM: No fracture. PARANASAL SINUSES: Extensive sinus disease is identified with mucosal thickening. SOFT TISSUES: No mass or hematoma. OTHER: No other significant finding. IMPRESSION: MILD CHRONIC CHANGES OF ATROPHY AND MICROVASCULAR ISCHEMIA. NO ACUTE PROCESS. EVIDENCE OF ACUTE STROKE: NO. COMMENT: Pertinent positive or negative findings of the imaging study reported as a CRITICAL EXAM fidel GREEN DO at11:39 on 04/13/2017. Category of Critical Exam: Stroke alert TECHNICAL DOCUMENTATION: JOB ID: [id number] Quality ID # [id number]: Final reports with documentation of one or more dose reduction techniques (e.g., Au tomated exposure control, adjustment of the mA and/or kV according to patient size, use of iterative reconstruction technique) 2010 [employer]- All Rights Reserved
[2017-04-13 11:56] LABS: PROTHROMBIN TIME 12.8 SEC (11.4-15.4)
[2017-04-13 11:57] LABS: PARTIAL THROMBOPLASTIN TIME 30.3 SEC (23.5-35.8)
--- NOTE | 2017-04-13 12:00 | RADIOLOGY REPORT (SQ) ---
EXAM DESCRIPTION: CHEST SINGLE VIEW COMPLETED DATE/TIME: 04/13/2017 11:36 am REASON FOR STUDY: weakness COMPARISON: August 2016 EXAM PARAMETERS: NUMBER OF VIEWS: One view. TECHNIQUE: Single frontal radiographic view of the chest acquired. RADIATION DOSE: NA LIMITATIONS: None. FINDINGS: LUNGS AND PLEURA: No opacities, masses or pneumothorax. No pleural effusion. MEDIASTINUM AND HILAR STRUCTURES: No masses. Contour normal. HEART AND VASCULAR STRUCTURES: Heart normal in size. Normal vasculature. BONES: Degenerative changes are identified in the lower thoracic spine. HARDWARE: None in the chest. OTHER: No other significant finding. IMPRESSION: NO ACUTE RADIOGRAPHIC FINDING IN THE CHEST. TECHNICAL DOCUMENTATION: JOB ID: [id number]
--- NOTE | 2017-04-13 12:02 | ER Document Report ---
ED General - General Stated Complaint: LEFT SIDE WEAK/NUMB Time Seen by Provider: 04/13/17 11:27 Mode of Arrival: Ambulatory Information source: Patient, [facility] Records TRAVEL OUTSIDE OF THE [place] IN LAST 30 DAYS: No - HPI Patient complains to provider of: Left-sided weakness Onset: This morning Onset/Duration: Gradual Quality of pain: No pain Associated symptoms: Other - Speech changes Exacerbated by: Denies Relieved by: Denies Similar symptoms previously: Yes Recently seen / treated by doctor: Yes Notes: Patient is a 52-year-old male who was last admitted to this facility on February 07 for symptoms consistent with a right-sided CVA. Patient had an MRI done at that time which did confirm acute infarcts in the high right posterior frontal lobe most likely MCA distribution. Patient was admitted for the stroke. Patient discharged home several days later. Patient states he has been doing well until today when he noticed some left-sided weakness once again. Patient was able to drive himself home from the location where the symptoms began. Patient also states his speech does not sound normal. No syncope or LOC. No chest pain or shortness of breath. Patient had an appointment tomorrow with neurology in [place] to discuss further management of his symptoms. - Related Data Allergies/Adverse Reactions: acetaminophen [From Tylenol] Allergy (Verified 02/07/17 16:58) amlodipine besylate [From Norvasc] Allergy (Verified 02/07/17 16:58) pioglitazone HCl [From Actos] Allergy (Verified 02/07/17 16:58) Past Medical History - General Information source: Patient, [facility] Records - Social History Smoking Status: Never Smoker Family History: CAD - Past Medical History Cardiac Medical History: Reports: Hx Hypercholesterolemia, Hx Hypertension Pulmonary Medical History: Reports: Hx COPD Neurological Medical History: Reports: Hx Cerebrovascular Accident Endocrine Medical History: Reports: Hx Diabetes Mellitus Type 2 Renal/ Medical History: Denies: Hx Peritoneal Dialysis GI Medical History: Reports: Hx Gastroesophageal Reflux Disease Psychiatric Medical History: Reports: Hx Depression Past Surgical History: Reports: Hx Kidney (Renal Surgery) - lithotripsy, Hx Orthopedic Surgery - Immunizations Immunizations up to date: Yes Hx Diphtheria, Pertussis, Tetanus Vaccination: Yes Hx Pneumococcal Vaccination: 07/20/14 Review of Systems - Review of Systems Neurological/Psychological: Weakness -: Yes All other systems reviewed and negative Physical Exam - Vital signs Vitals: Pulse Ox 100 04/13/17 11:37 Interpretation: Normal - General General appearance: Appears well, Alert - HEENT Head: Normocephalic, Atraumatic Eyes: Normal Pupils: PERRL - Respiratory Respiratory status: No respiratory distress Chest status: Nontender Breath sounds: Normal Chest palpation: Normal - Cardiovascular Rhythm: Regular Heart sounds: Normal auscultation Murmur: No - Abdominal Inspection: Normal Distension: No distension Bowel sounds: Normal Tenderness: Nontender Organomegaly: No organomegaly - Back Back: Normal, Nontender - Extremities General upper extremity: Normal inspection, Nontender, Normal color, Normal ROM , Normal temperature General lower extremity: Normal inspection, Nontender, Normal color, Normal ROM , Normal temperature, Normal weight bearing. No: Alyssa's sign - Neurological Neuro grossly intact: Yes Cognition: Normal Orientation: AAOx4 Amina Coma Scale Eye Opening: Spontaneous [place] Coma Scale Verbal: Oriented Amina Coma Scale Motor: Obeys Commands Amina Coma Scale Total: 15 Speech: Other - Speech is slow, appropriate, intelligible, no slurring noted Motor strength normal: RUE, RLE Sensory: Normal Notes: On motor exam, there appears to be some spasticity of the left upper and left lower extremity, I do not appreciate any specific weakness but his movement is somewhat uncoordinated. - Psychological Associated symptoms: Normal affect, Normal mood - Skin Skin Temperature: Warm Skin Moisture: Dry Skin Color: Normal Course - Re-evaluation Re-evalutation: 04/13/17 12:[address] Peter Atkinson for admission 04/13/17 12:[address] Atkinson. He requests MRI Head. If unchanged, discharge home. If positive, call him back. 04/13/17 14:50 MRI brain complete. Will call Dr. Atkinson and discussed report with him. 04/13/17 15:08 MRI report discussed with Dr. Atkinson. Dr. Atkinson is comfortable with patient being discharged home. Patient has appointment with vascular surgery on Monday. Patient given copy of his MRI report and he also has a CD of the images. - Vital Signs Vital signs: Temp Pulse Resp BP Pulse Ox 82 17 126/82 H 97 04/13/17 11:58 04/13/17 13:01 04/13/17 13:01 04/13/17 13:01 - Laboratory Result Diagrams: 04/13/17 11:42 04/13/17 11:42 Laboratory results interpreted by me: 04/13/17 04/13/17 11:38 11:42 Glucose 215 H POC Glucose 204 H - Diagnostic Test Radiology reviewed: Reports reviewed Radiology results interpreted by me: 04/13/17 12:02 Per radiologist, CT brain is unremarkable. 04/13/17 14:49 MRI report reviewed. Discharge - Discharge Clinical Impression: History of CVA (cerebrovascular accident) Condition: Good Disposition: HOME, SELF-CARE Instructions: Transient Ischemic Attack ([facility]) Additional Instructions: Follow-up with your scheduled vascular surgery appointment on Monday. Continue on your medications. Return to the emergency department if worse or for any other problems. Referrals: CAITLYN ATKINSON MD [Primary Care Provider] - Follow up as needed
[2017-04-13 12:12] LABS: ALANINE AMINOTRANSFERASE 26 U/L (21-72); ALBUMIN 4.4 g/dL (3.5-5.0); ALKALINE PHOSPHATASE 51 U/L (38-126); ANION GAP 14 (5-19); ASPARTATE AMINO TRANSFERASE 21 U/L (17-59); BILIRUBIN,DIRECT 0.3 mg/dL (0.0-0.4); BILIRUBIN,TOTAL 0.5 mg/dL (0.2-1.3); BLOOD UREA NITROGEN 14 mg/dL (7-20); CALCIUM 9.8 mg/dL (8.4-10.2); CARBON DIOXIDE 26 mmol/L (22-30); CHLORIDE 104 mmol/L (98-107); CREATINE KINASE 131 U/L (55-170); CREATININE RESULT 1.05 mg/dL (0.52-1.25); GLUCOSE 215 mg/dL (75-110); POTASSIUM 4.3 mmol/L (3.6-5.0); TOTAL PROTEIN 7.4 g/dL (6.3-8.2)
[2017-04-13 12:25] LABS: CREATINE KINASE MB 0.92 ng/mL (<4.55)
[2017-04-13 12:27] LABS: TROPONIN I < 0.012 ng/mL
--- NOTE | 2017-04-13 14:43 | RADIOLOGY REPORT (SQ) ---
EXAM DESCRIPTION: MRI HEAD WITHOUT COMPLETED DATE/TIME: 04/13/2017 2:15 pm REASON FOR STUDY: cva COMPARISON: Brain CT scan dated 04/13/2017 an MRI of the brain dated 02/07/2017 TECHNIQUE: Multiplanar imaging includes non-contrasted T1, T2, FLAIR, and Diffusion with ADC map seq uences. Images stored on PACS. LIMITATIONS: None. FINDINGS: ANATOMY: No anomalies. Normal vascular flow voids. Pituitary fossa normal. CSF SPACES: Normal in size and contour. No hemorrhage. CEREBRUM: A few high-signal intensity lesions scattered throughout the white matter on FLAIR imaging with distribution suggesting chronic micro-vascular ischemic change. Sulci and gyri normal in size a nd contour. No evidence of hemorrhage, mass or extraaxial fluid collection. POSTERIOR FOSSA: There are a couple punctate areas of abnormal signal intensity in the right posterio r parietal region consistent with focal areas of recent infarction. DIFFUSION: Negative for acute or sub-acute infarction. ORBITS: No masses. Globes normal. PARANASAL SINUSES: Mucosal thickening is identified in the maxillary antra, several of the ethmoidal air cells, in the frontal sinuses. OTHER: No other significant finding. IMPRESSION: MINIMAL MICROVASCULAR ISCHEMIC CHANGE. There are couple punctate areas of abnormal sign al intensity in the right posterior parietal region consistent with focal areas of recent infarction. Other findings as noted above EVIDENCE OF ACUTE STROKE: Yes TECHNICAL DOCUMENTATION: JOB ID: [id number]- All Rights Reserved
[2017-04-13 15:16] VITALS: BP 130/86
--- NOTE | 2017-04-14 10:41 | EKG REPORT ---
SEVERITY:- ABNORMAL ECG - SINUS RHYTHM LEFT VENTRICULAR HYPERTROPHY BORDERLINE T ABNORMALITIES, INFERIOR LEADS : Confirmed by: Breann Crowley 14-Apr-2017 10:40:20
== END 2017-04-13 15:41 | disposition home or self-care (01) ==
LOC: ER 11:23
DX: R53.1 Weakness (principal); E78.00 Pure hypercholesterolemia, unspecified; I10 Essential (primary) hypertension; E11.9 Type 2 diabetes mellitus without complications; Z88.6 Allergy status to analgesic agent; Z86.73 Personal history of transient ischemic attack (TIA), and cerebral infarction without residual deficits
CPT/HCPCS: 36415; 70450; 70551; 71010; 80053; 82550; 82553; 82962; 84484; 85025; 85610; 85730; 93005; 93010; 99285

== ENCOUNTER 2017-07-25 09:21 | Emergency (ER) | payer MEDICAID ==
--- NOTE | 2017-07-25 09:50 | ER Document Report ---
ED Medical Screen (RME) - General Chief Complaint: Weakness Stated Complaint: WEAKNESS Time Seen by Provider: 07/25/17 09:46 Notes: Patient with recent CVA. thinks he is having another stroke. States that is slurring his speech. Dragging his right side. He has good days and bad days but today is a bad day. Currently patient is answering all of the questions appropriately. Denies any complaints. Speech is clear. I have greeted and performed a rapid initial assessment of this patient. A comprehensive ED assessment and evaluation of the patient, analysis of test results and completion of the medical decision making process will be conducted by additional ED providers. TRAVEL OUTSIDE OF THE U.S. IN LAST 30 DAYS: No - Related Data Allergies/Adverse Reactions: acetaminophen [From Tylenol] Allergy (Verified 07/25/17 09:23) amlodipine besylate [From Norvasc] Allergy (Verified 07/25/17 09:23) pioglitazone HCl [From Actos] Allergy (Verified 07/25/17 09:23) Past Medical History - Past Medical History Cardiac Medical History: Reports: Hx Hypercholesterolemia, Hx Hypertension Pulmonary Medical History: Reports: Hx COPD Neurological Medical History: Reports: Hx Cerebrovascular Accident Endocrine Medical History: Reports: Hx Diabetes Mellitus Type 2 Renal/ Medical History: Denies: Hx Peritoneal Dialysis GI Medical History: Reports: Hx Gastroesophageal Reflux Disease Psychiatric Medical History: Reports: Hx Depression Past Surgical History: Reports: Hx Kidney (Renal Surgery) - lithotripsy, Hx Orthopedic Surgery - Immunizations Immunizations up to date: Yes Hx Diphtheria, Pertussis, Tetanus Vaccination: Yes Review of Systems - Review of Systems Constitutional: Weakness. denies: Fever, Malaise Cardiovascular: denies: Palpitations, Heart racing, Orthopnea Respiratory: denies: Hurts to breathe, Short of breath, Wheezing Gastrointestinal: denies: Abdominal pain Neurological/Psychological: Confusion, Weakness, Gait changes, Other - slurred speach Physical Exam - Vital signs Vitals: Temp Pulse Resp BP Pulse Ox 97.7 F 53 L 16 157/97 H 98 07/25/17 09:29 07/25/17 09:29 07/25/17 09:29 07/25/17 09:29 07/25/17 09:29 Interpretation: Hypertensive, Bradycardic - General General appearance: Appears well, Alert In distress: None - Neurological Cognition: Normal Orientation: AAOx4 Course - Vital Signs Vital signs: Temp Pulse Resp BP Pulse Ox 97.7 F 53 L 16 157/97 H 98 07/25/17 09:29 07/25/17 09:29 07/25/17 09:29 07/25/17 09:29 07/25/17 09:29
--- NOTE | 2017-07-25 10:16 | RADIOLOGY REPORT (SQ) ---
EXAM DESCRIPTION: CT HEAD WITHOUT COMPLETED DATE/TIME: 07/25/2017 9:57 am REASON FOR STUDY: stroke prot COMPARISON: None. TECHNIQUE: Axial images acquired through the brain without intravenous contrast. Images reviewed wi th bone, brain and subdural windows. Images stored on PACS. All CT scanners at this facility use dose modulation, iterative reconstruction, and/or weight based d osing when appropriate to reduce radiation dose to as low as reasonably achievable (ALARA). [facility]: Dose Right [facility]: CareDose [facility]: Dose Right [facility]: Teradose 4D [facility]: [employer] RADIATION DOSE: CT Rad equipment meets quality standard of care and radiation dose reduction techniq ues were employed. CTDIvol: 64.6 mGy. DLP: 1163 mGy-cm. mGy. LIMITATIONS: None. FINDINGS: VENTRICLES: Normal size and contour. CEREBRUM: No masses. No hemorrhage. No midline shift. No evidence for acute infarction. Normal gra y/white matter differentiation. No areas of low density in the white matter. . Questionable right m iddle cerebral artery cuff off CEREBELLUM: No masses. No hemorrhage. No alteration of density. No evidence for acute infarction. EXTRAAXIAL SPACES: No fluid collections. No masses. ORBITS AND GLOBE: No intra- or extraconal masses. Normal contour of globe without masses. CALVARIUM: No fracture. PARANASAL SINUSES: No fluid or mucosal thickening. SOFT TISSUES: No mass or hematoma. OTHER: No other significant finding. IMPRESSION: No intracranial hemorrhage. No infarct. EVIDENCE OF ACUTE STROKE: NO. RIGHT MCA possible cut off sign. COMMENT: Quality ID # [id number]: Final reports with documentation of one or more dose reduction techniques (e.g., Automated exposure control, adjustment of the mA and/or kV according to patient size, use of iterative reconstruction technique) TECHNICAL DOCUMENTATION: JOB ID: [id number]- All Rights Reserved
[2017-07-25 10:21] LABS: ABSOLUTE BASOPHILS # (AUTO) 0.1 10^3/uL (0.0-0.2); ABSOLUTE EOSINOPHILS # (AUTO) 0.3 10^3/uL (0.0-0.6); ABSOLUTE LYMPHOCYTES (AUTO) 2.1 10^3/uL (0.5-4.7); ABSOLUTE MONOCYTES (AUTO) 0.7 10^3/uL (0.1-1.4); ABSOLUTE NEUT (AUTO) 4.4 10^3/uL (1.7-8.2); BASOPHILS % (AUTO) 0.8 % (0-2); EOSINOPHILS % (AUTO) 4.3 % (0-6); HEMATOCRIT 44.7 % (37.9-51.0); HEMOGLOBIN 15.1 g/dL (13.5-17.0); LYMPHOCYTES % (AUTO) 28.1 % (13-45); MEAN CORPUSCULAR HEMOGLOBIN 31.4 pg (27.0-33.4); MEAN CORPUSCULAR HGB CONC 33.8 g/dL (32.0-36.0); MEAN CORPUSCULAR VOLUME 93 fl (80-97); MONOCYTES % (AUTO) 8.6 % (3-13); PLATELET COUNT 224 10^3/uL (150-450); RED BLOOD COUNT 4.81 10^6/uL (4.35-5.55); RED CELL DISTRIBUTION WIDTH 13.2 % (11.5-14.0); SEGMENTED NEUTROPHILS % (AUTO) 58.2 % (42-78); TOTAL CELLS COUNTED % (AUTO) 100 %; WHITE BLOOD COUNT 7.6 10^3/uL (4.0-10.5)
--- NOTE | 2017-07-25 10:23 | RADIOLOGY REPORT (SQ) ---
EXAM DESCRIPTION: CHEST SINGLE VIEW COMPLETED DATE/TIME: 07/25/2017 10:12 am REASON FOR STUDY: stroke prot COMPARISON: None. EXAM PARAMETERS: NUMBER OF VIEWS: One view. TECHNIQUE: Single frontal radiographic view of the chest acquired. RADIATION DOSE: NA LIMITATIONS: None. FINDINGS: LUNGS AND PLEURA: No opacities, masses or pneumothorax. No pleural effusion. MEDIASTINUM AND HILAR STRUCTURES: No masses. Contour normal. HEART AND VASCULAR STRUCTURES: Heart normal in size. Normal vasculature. BONES: No acute findings. HARDWARE: None in the chest. OTHER: No other significant finding. IMPRESSION: NO ACUTE RADIOGRAPHIC FINDING IN THE CHEST. TECHNICAL DOCUMENTATION: JOB ID: [id number] [employer]- All Rights Reserved
[2017-07-25 10:26] LABS: INTERNATIONAL RATION (INR) 0.87; PROTHROMBIN TIME 12.4 SEC (11.4-15.4)
[2017-07-25 10:27] LABS: PARTIAL THROMBOPLASTIN TIME 30.9 SEC (23.5-35.8)
--- NOTE | 2017-07-25 10:45 | ER Document Report ---
ED Neuro Symptoms/Deficit - General Chief Complaint: Weakness Stated Complaint: WEAKNESS Time Seen by Provider: 07/25/17 09:46 Notes: Patient thinks he may be having another stroke. He says he is feeling fine at this moment, but recently has had increasing weakness, especially when he tries to walk. He has a right-sided headache since yesterday. says that he is slurring his speech off and on over the past week. He was slurring earlier this morning, but is clear now. Patient also is having problems with short- term memory, but that is also clear at this moment. His symptoms seem to have worsened over the last 24 hours. Patient has a history of a stroke in 2008, leaving him with residual right wrist/arm and right leg weakness, although he can walk. And then he has had 3 TIAs in 2013, 2014, 2016. Following his TIA in 2016, he went to [place] where he underwent a right carotid artery endarterectomy. He has done well since that time up until about a week ago. He does try to continue with normal activities. Unfortunately, he was attempting to climb up a ladder yesterday when he missed the second step and fell. Has no changes in his vision. Vomited last night. No change in bowels. No chest pain. No abdominal pain. No fevers. Patient currently takes a baby aspirin daily and Plavix 75 mg daily. TRAVEL OUTSIDE OF THE U.S[place] IN LAST 30 DAYS: No - Related Data Allergies/Adverse Reactions: acetaminophen [From Tylenol] Allergy (Verified 07/25/17 09:23) amlodipine besylate [From Norvasc] Allergy (Verified 07/25/17 09:23) pioglitazone HCl [From Actos] Allergy (Verified 07/25/17 09:23) Past Medical History - Social History Smoking Status: Current Every Day Smoker Chew tobacco use (# tins/day): No Frequency of alcohol use: Social Drug Abuse: None Family History: Reviewed & Not Pertinent, CAD Patient has suicidal ideation: No Patient has homicidal ideation: No - Past Medical History Cardiac Medical History: Reports: Hx Hypercholesterolemia, Hx Hypertension Denies: Hx Atrial Fibrillation, Hx Coronary Artery Disease Pulmonary Medical History: Reports: Hx COPD Neurological Medical History: Reports: Hx Cerebrovascular Accident Endocrine Medical History: Reports: Hx Diabetes Mellitus Type 1, Hx Diabetes Mellitus Type 2 GI Medical History: Reports: Hx Gastroesophageal Reflux Disease Psychiatric Medical History: Reports: Hx Depression Past Surgical History: Reports: Hx Kidney (Renal Surgery) - lithotripsy, Hx Orthopedic Surgery - Immunizations Immunizations up to date: Yes Hx Diphtheria, Pertussis, Tetanus Vaccination: Yes Hx Pneumococcal Vaccination: 07/20/14 Review of Systems - Review of Systems Notes: REVIEW OF SYSTEMS: CONSTITUTIONAL : Denies fever. EENT: Denies eye, ear, nose or mouth or throat pain or other symptoms. CARDIOVASCULAR: Denies chest pain. RESPIRATORY: Denies cough, chest congestion, or shortness of breath. GASTROINTESTINAL: Denies abdominal pain. Vomited last night. No diarrhea. GENITOURINARY: Denies difficulty or painful urinating, urinary frequency, blood in urine. MUSCULOSKELETAL: Denies back or neck pain. Denies joint pain or swelling. SKIN: Denies rash or skin lesions. NEUROLOGICAL: Denies LOC or altered mental status. Right-sided headache since last night.. Denies sensory loss or motor deficits. ALL OTHER SYSTEMS REVIEWED AND NEGATIVE. Physical Exam - Vital signs Vitals: Temp Pulse Resp BP Pulse Ox 97.7 F 53 L 16 157/97 H 98 07/25/17 09:29 07/25/17 09:29 07/25/17 09:29 07/25/17 09:29 07/25/17 09:29 Interpretation: Normal - Notes Notes: PHYSICAL EXAMINATION: GENERAL: Well-appearing, in no acute distress. HEAD: Atraumatic, normocephalic. EYES: Pupils equal round and reactive to light, extraocular movements intact. ENT: oropharynx clear without exudates. Moist mucous membranes. NECK: Normal range of motion, supple. LUNGS: Breath sounds clear and equal bilaterally. HEART: Regular rate and rhythm without murmurs. ABDOMEN: Soft, nontender. No guarding or rebound. No masses. BACK: No tenderness throughout entire back. EXTREMITIES: Normal range of motion without pain. Right wrist in a splint because of weakness of that extremity from his previous stroke NEUROLOGICAL: Normal speech. Unsteady gait. 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 Awake, alert, and oriented x3. PSYCH: Normal mood, normal affect. SKIN: Warm, dry, no rashes. Course - Re-evaluation Re-evalutation: 07/25/17 12:[address] Atkinson. - Vital Signs Vital signs: Temp Pulse Resp BP Pulse Ox 97.7 F 53 L 16 157/97 H 98 07/25/17 09:29 07/25/17 09:29 07/25/17 09:29 07/25/17 09:29 07/25/17 09:29 - Laboratory Result Diagrams: 07/25/17 10:11 07/25/17 10:11 - EKG Interpretation by Me EKG shows normal: Sinus rhythm Rate: Normal Rhythm: NSR Additional EKG results interpreted by me: 07/25/17 20:38 EKG shows some nonspecific ST and T-wave changes, but no acute changes. Discharge - Discharge Clinical Impression: Altered mental status, TIA (transient ischemic attack) Condition: Stable Disposition: HOME, SELF-CARE Additional Instructions: Altered Mental Status An altered mental status is a change in the normal functioning of the brain. This alteration of function can range from minor decreased brain function with some forgetfulness and confusion to complete loss of consciousness and coma. There are many possible causes of an altered mental status and include brain injuries such as trauma or strokes, problems with oxygen supply to the brain, fever and infections of the brain and/or elsewhere in the body, metabolic abnormalities such as low or high blood sugar, overdoses or excessive medication ingestion, and mental and psychiatric illnesses. Sometimes the altered mental status resolves and a definite cause is not determined. If a cause for your altered mental status was found, it has likely been corrected. Your evaluation has not shown any condition that requires that you be admitted to the hospital. It is believed that you are safe to leave and return to your home. If you have a return of your symptoms, you should return for re-evaluation. Transient Ischemic Attack You have been diagnosed as having a transient ischemic attack (TIA). This is caused when an artery to the brain has been temporarily blocked. It can result in visual changes, difficulty with speech, and weakness or numbness -- usually limited to one side of the body. TIA symptoms usually resolve within an hour, but a TIA is serious, as it may be a warning sign of an impending stroke. To prevent further episodes, you may be placed on medication to reduce the possibility that your platelets will aggregate and form blood clots in the arteries that supply the brain. Usually, this includes aspirin and sometimes other platelet inhibitors. Further evaluation is often necessary to make an exact diagnosis as to where these blood clots are originating, and if anything else needs to be done to correct the problem. Call the physician or go to the emergency room if episodes occur with increasing frequency. If symptoms occur that don't go away within a few minutes , call 911. Continue to take your Plavix and your baby aspirin daily. Stop Smoking You should stop smoking. The tar and chemicals in cigarette smoke are harmful. Smoking has been shown to cause: Emphysema and chronic bronchitis Lung cancer Cancer of the mouth, larynx, stomach, and pancreas Heart disease and stroke Stillbirths and miscarriage Premature aging In addition, smoking increases the chances of respiratory infections and ear infections in children of smokers, and increases the risk of cancer in persons exposed to second-hand smoke. Classes are available to help you stop smoking. If you are serious about wanting to quit, we can help arrange this therapy for you, or you can contact the local lung or cancer association. Return for further reevaluation if your symptoms worsen. Follow-up with your doctor, Dr. Atkinson. FOLLOW-UP CARE: If you have been referred to a physician for follow-up care, call the physician s office for an appointment as you were instructed or within the next two days. If you experience worsening or a significant change in your symptoms, notify the physician immediately or return to the Emergency Department at any time for re-evaluation. Referrals: CAITLYN ATKINSON MD [Primary Care Provider] - Follow up as needed
[2017-07-25 10:49] LABS: ALANINE AMINOTRANSFERASE 19 U/L (21-72); ALBUMIN 4.4 g/dL (3.5-5.0); ALKALINE PHOSPHATASE 53 U/L (38-126); ANION GAP 8 (5-19); ASPARTATE AMINO TRANSFERASE 19 U/L (17-59); BILIRUBIN,TOTAL 0.4 mg/dL (0.2-1.3); BLOOD UREA NITROGEN 15 mg/dL (7-20); CALCIUM 10.1 mg/dL (8.4-10.2); CARBON DIOXIDE 31 mmol/L (22-30); CHLORIDE 104 mmol/L (98-107); GLUCOSE 123 mg/dL (75-110); POTASSIUM 4.5 mmol/L (3.6-5.0); SODIUM 142.8 mmol/L (137-145); TOTAL PROTEIN 7.1 g/dL (6.3-8.2)
--- NOTE | 2017-07-25 11:52 | RADIOLOGY REPORT (SQ) ---
EXAM DESCRIPTION: CTA HEAD COMPLETED DATE/TIME: 07/25/2017 11:26 am REASON FOR STUDY: ? occlusion right MCA; [place] COMPARISON: None. TECHNIQUE: Post IV contrast scanning, thin section axial imaging through the brain to evaluate the a rterial structures. Source and MIP images are saved and reviewed on PACS. Advanced 3D imaging as volume-rendering, MIPs, SSD performed? yes All CT scanners at this facility use dose modulation, iterative reconstruction, and/or weight based d osing when appropriate to reduce radiation dose to as low as reasonably achievable (ALARA). [facility]: Dose Right [facility]: CareDose [facility]: Dose Right [facility]: Teradose 4D [facility]: [employer] CONTRAST TYPE AND DOSE: contrast/concentration: Isovue 370.00 mg/ml; Total Contrast Delivered: 70.0 ml; Total Saline Delivered: 44.0 ml 70 cc Isovue 370- low osmolar. RENAL FUNCTION: GFR > 60. LIMITATIONS: None. FINDINGS: [place] [facility] [place]: The anterior, middle, posterior cerebral arteries are all patent. No ev idence of aneurysm or focal stenosis. POSTERIOR CIRCULATION: The distal vertebral arteries are patent as is the basilar artery. No aneurysm . BRAIN: No gross enhancing lesions as visualized. The superior cerebral hemispheres are not included in the field of view. BONES: Intact as visualized. SINUSES: No fluid or mucosal thickening. OTHER: No other significant finding. IMPRESSION: No intracranial vascular occlusive changes identified particularly right middle cerebral artery as suspected on the earlier CT of the head. No aneurysm or other vascular pathology TECHNICAL DOCUMENTATION: JOB ID: [id number] Quality ID # [id number]: Final reports with documentation of one or more dose reduction techniques (e.g., Au tomated exposure control, adjustment of the mA and/or kV according to patient size, use of iterative reconstruction technique) 2010 [employer]- All Rights Reserved
[2017-07-25 12:37] LABS: APPEARANCE,URINE CLEAR; BILIRUBIN,URINE NEGATIVE (NEGATIVE); COLOR,URINE YELLOW; GLUCOSE, URINE NEGATIVE (NEGATIVE); KETONES,URINE NEGATIVE (NEGATIVE); LEUKOCYTE ESTERASE,URINE NEGATIVE (NEGATIVE); NITRITE,URINE NEGATIVE (NEGATIVE); PROTEIN,URINE 100 mg/dL (NEGATIVE); URINE SPECIFIC GRAVITY 1.033; UROBILINOGEN,URINE NEGATIVE mg/dL (<2.0)
[2017-07-25 12:47] VITALS: BP 187/103
--- NOTE | 2017-07-25 22:52 | EKG REPORT ---
SEVERITY:- ABNORMAL ECG - SINUS RHYTHM LEFT AXIS DEVIATION NONSPECIFIC T ABNORMALITIES, LATERAL LEADS : Confirmed by: Breann Crowley 25-Jul-2017 22:51:29
== END 2017-07-25 12:47 | disposition home or self-care (01) ==
LOC: ER 09:21
DX: G45.9 Transient cerebral ischemic attack, unspecified (principal); R51 Headache; R41.82 Altered mental status, unspecified; I69.351 Hemiplegia and hemiparesis following cerebral infarction affecting right dominant side; I10 Essential (primary) hypertension; E11.9 Type 2 diabetes mellitus without complications; J44.9 Chronic obstructive pulmonary disease, unspecified; F17.200 Nicotine dependence, unspecified, uncomplicated; Z79.02 Long term (current) use of antithrombotics/antiplatelets; Z79.82 Long term (current) use of aspirin; Z88.6 Allergy status to analgesic agent; Z88.8 Allergy status to other drugs, medicaments and biological substances
CPT/HCPCS: 36415; 70450; 70496; 71045; 80053; 81001; 84484; 85025; 85610; 85730; 93005; 93010; 99285

== ENCOUNTER 2017-08-09 13:03 | Emergency (ER) | payer MEDICAID ==
--- NOTE | 2017-08-09 14:24 | ER Document Report ---
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 IN LAST 30 DAYS: No - Related Data Allergies/Adverse Reactions: acetaminophen [From Tylenol] Allergy (Verified 08/09/17 13:05) amlodipine besylate [From Norvasc] Allergy (Verified 08/09/17 13:05) pioglitazone HCl [From Actos] Allergy (Verified 08/09/17 13:05) Past Medical History - Social History Frequency of alcohol use: Occasional Drug Abuse: Marijuana - Past Medical History Cardiac Medical History: Reports: Hx Hypercholesterolemia, Hx Hypertension Denies: Hx Atrial Fibrillation, Hx Coronary Artery Disease Pulmonary Medical History: Reports: Hx COPD Neurological Medical History: Reports: Hx Cerebrovascular Accident Endocrine Medical History: Reports: Hx Diabetes Mellitus Type 1, Hx Diabetes Mellitus Type 2 Renal/ Medical History: Denies: Hx Peritoneal Dialysis GI Medical History: Reports: Hx Gastroesophageal Reflux Disease Psychiatric Medical History: Reports: Hx Depression Past Surgical History: Reports: Hx Kidney (Renal Surgery) - lithotripsy, Hx Orthopedic Surgery - Immunizations Immunizations up to date: Yes Hx Diphtheria, Pertussis, Tetanus Vaccination: Yes Physical Exam - Vital signs Vitals: Temp Pulse Resp BP Pulse Ox 98.5 F 81 24 H 166/94 H 100 08/09/17 13:11 08/09/17 13:11 08/09/17 13:11 08/09/17 13:11 08/09/17 13:11 Course - Vital Signs Vital signs: Temp Pulse Resp BP Pulse Ox 98.5 F 81 24 H 166/94 H 100 08/09/17 13:11 08/09/17 13:11 08/09/17 13:11 08/09/17 13:11 08/09/17 13:11
[2017-08-09] MEDS ORDERED: LORAZEPAM 1 MG TABLET PO ONE (14:26)
[2017-08-09 15:12] LABS: ABSOLUTE BASOPHILS # (AUTO) 0.1 10^3/uL (0.0-0.2); ABSOLUTE EOSINOPHILS # (AUTO) 0.2 10^3/uL (0.0-0.6); ABSOLUTE LYMPHOCYTES (AUTO) 2.2 10^3/uL (0.5-4.7); ABSOLUTE MONOCYTES (AUTO) 1.1 10^3/uL (0.1-1.4); ABSOLUTE NEUT (AUTO) 4.5 10^3/uL (1.7-8.2); BASOPHILS % (AUTO) 1.3 % (0-2); EOSINOPHILS % (AUTO) 2.3 % (0-6); HEMATOCRIT 48.3 % (37.9-51.0); HEMOGLOBIN 16.6 g/dL (13.5-17.0); LYMPHOCYTES % (AUTO) 27.4 % (13-45); MEAN CORPUSCULAR HEMOGLOBIN 31.2 pg (27.0-33.4); MEAN CORPUSCULAR HGB CONC 34.3 g/dL (32.0-36.0); MEAN CORPUSCULAR VOLUME 91 fl (80-97); MONOCYTES % (AUTO) 13.2 % (3-13); PLATELET COUNT 272 10^3/uL (150-450); RED BLOOD COUNT 5.31 10^6/uL (4.35-5.55); RED CELL DISTRIBUTION WIDTH 13.1 % (11.5-14.0); SEGMENTED NEUTROPHILS % (AUTO) 55.8 % (42-78); TOTAL CELLS COUNTED % (AUTO) 100 %
[2017-08-09 15:22] LABS: APPEARANCE,URINE SLIGHTLY-CLOUDY; BILIRUBIN,URINE NEGATIVE (NEGATIVE); COLOR,URINE YELLOW; GLUCOSE, URINE NEGATIVE (NEGATIVE); KETONES,URINE NEGATIVE (NEGATIVE); LEUKOCYTE ESTERASE,URINE NEGATIVE (NEGATIVE); NITRITE,URINE NEGATIVE (NEGATIVE); PROTEIN,URINE 100 mg/dL (NEGATIVE); URINE SPECIFIC GRAVITY 1.028; UROBILINOGEN,URINE NEGATIVE mg/dL (<2.0)
[2017-08-09 15:27] LABS: ALANINE AMINOTRANSFERASE 31 U/L (21-72); ALKALINE PHOSPHATASE 54 U/L (38-126); ANION GAP 14 (5-19); ASPARTATE AMINO TRANSFERASE 36 U/L (17-59); BILIRUBIN,DIRECT 0.3 mg/dL (0.0-0.4); BILIRUBIN,TOTAL 1.2 mg/dL (0.2-1.3); BLOOD UREA NITROGEN 24 mg/dL (7-20); CALCIUM 10.3 mg/dL (8.4-10.2); CARBON DIOXIDE 25 mmol/L (22-30); CHLORIDE 106 mmol/L (98-107); CREATINE KINASE 591 U/L (55-170); GLUCOSE 95 mg/dL (75-110); POTASSIUM 4.3 mmol/L (3.6-5.0); SODIUM 144.7 mmol/L (137-145); TOTAL PROTEIN 8.9 g/dL (6.3-8.2)
--- NOTE | 2017-08-09 15:28 | ER Document Report ---
ED General - General Chief Complaint: Abdominal Pain Stated Complaint: STOMACH ISSUES Time Seen by Provider: 08/09/17 14:20 Notes: The patient is a 52-year-old male, PMHx HTN, who presents with multiple complaints that began after he smoked hookah that he thinks was laced with parasites. Patient is feeling anxious and thinks he saw worms in his stool and in his urine. He also had a dog bite several days ago on his left palm, but denies discharge from the wounds, redness or fevers. Patient appears anxious, but denies chest pain, shortness of breath, hallucinations, fevers, nausea, vomiting, back pain, headaches, SI or HI. TRAVEL OUTSIDE OF THE [place] IN LAST 30 DAYS: No - Related Data Allergies/Adverse Reactions: acetaminophen [From Tylenol] Allergy (Verified 08/09/17 13:05) amlodipine besylate [From Norvasc] Allergy (Verified 08/09/17 13:05) pioglitazone HCl [From Actos] Allergy (Verified 08/09/17 13:05) Past Medical History - General Information source: Patient - Social History Smoking Status: Current Every Day Smoker Frequency of alcohol use: Occasional Drug Abuse: Marijuana Family History: Reviewed & Not Pertinent, CAD Patient has suicidal ideation: No Patient has homicidal ideation: No - Past Medical History Cardiac Medical History: Reports: Hx Hypercholesterolemia, Hx Hypertension Denies: Hx Atrial Fibrillation, Hx Coronary Artery Disease Pulmonary Medical History: Reports: Hx COPD Neurological Medical History: Reports: Hx Cerebrovascular Accident Endocrine Medical History: Reports: Hx Diabetes Mellitus Type 1, Hx Diabetes Mellitus Type 2 Renal/ Medical History: Denies: Hx Peritoneal Dialysis GI Medical History: Reports: Hx Gastroesophageal Reflux Disease Psychiatric Medical History: Reports: Hx Depression Past Surgical History: Reports: Hx Kidney (Renal Surgery) - lithotripsy, Hx Orthopedic Surgery - Immunizations Immunizations up to date: Yes Hx Diphtheria, Pertussis, Tetanus Vaccination: Yes Hx Pneumococcal Vaccination: 07/20/14 Review of Systems - Review of Systems Notes: REVIEW OF SYSTEMS: CONSTITUTIONAL: -fevers, -chills EENT: -eye pain, -difficulty swallowing, -nasal congestion CARDIOVASCULAR: -chest pain, -syncope. RESPIRATORY: -cough, -SOB GASTROINTESTINAL: -abdominal pain, -nausea, -vomiting, -diarrhea GENITOURINARY: -dysuria, -hematuria MUSCULOSKELETAL: -back pain, -neck pain SKIN: -rash or skin lesions. HEMATOLOGIC: -easy bruising or bleeding. LYMPHATIC: -swollen, enlarged glands. NEUROLOGICAL: -altered mental status or loss of consciousness, -headache, - neurologic symptoms PSYCHIATRIC: +anxiety, -depression. ALL OTHER SYSTEMS REVIEWED AND NEGATIVE. Physical Exam - Vital signs Vitals: Temp Pulse Resp BP Pulse Ox 98.5 F 81 24 H 166/94 H 100 08/09/17 13:11 08/09/17 13:11 08/09/17 13:11 08/09/17 13:11 08/09/17 13:11 - Notes Notes: PHYSICAL EXAMINATION: GENERAL: Well-appearing, well-nourished and in no acute distress. HEAD: Atraumatic, normocephalic. EYES: Pupils equal round and reactive to light, extraocular movements intact, sclera anicteric, conjunctiva are normal. ENT: nares patent, oropharynx clear without exudates. Moist mucous membranes. NECK: Normal range of motion, supple without lymphadenopathy LUNGS: Breath sounds clear to auscultation bilaterally and equal. No wheezes rales or rhonchi. HEART: Regular rate and rhythm without murmurs ABDOMEN: Soft, nontender, normoactive bowel sounds. No guarding, no rebound. No masses appreciated. EXTREMITIES: Normal range of motion, no pitting or edema. No cyanosis. NEUROLOGICAL: Cranial nerves grossly intact. Normal speech, normal gait. Normal sensory and motor exams. PSYCH: Anxious affect. SKIN: Warm, Dry, normal turgor, no rashes or lesions noted. Course - Re-evaluation Re-evalutation: Patient's blood work is consistent with slight dehydration and slight rhabdo, which may be from smoking THC that may have been laced with a sympathomimetic drug. He does not appear to be any acute distress and told him that he should throw this away and not smoke it again. Patient provided with 2 L IV fluids. His dog bite from several days ago does not appear to be infected and instructed him to use bacitracin. Patient presents with multiple vague complaints that did not appear to be concerning for any acute life-threatening pathology. Vitals are within normal limits at triage and at time of discharge. Physical examination is unremarkable. Patient has tolerated oral intake without difficulty. Patient was not noted to be in distress at any point during their ER visit. At this time, based on the reassuring evaluation, I do not suspect an acute MA, pulmonary embolus, aortic dissection, acute intra-abdominal pathology, stroke, or sepsis.Will discharge with return precautions and follow-up recommendations. Verbal discharge instructions given a the bedside and opportunity for questions given. Medication warnings reviewed. Patient is in agreement with this plan and has verbalized understanding of return precautions and the need for primary care follow-up in the next 24-72 hours. - Vital Signs Vital signs: Temp Pulse Resp BP Pulse Ox 98.5 F 81 24 H 166/94 H 100 08/09/17 13:11 08/09/17 13:11 08/09/17 13:11 08/09/17 13:11 08/09/17 13:11 - Laboratory Result Diagrams: 08/09/17 14:57 08/09/17 14:57 Laboratory results interpreted by me: 08/09/17 08/09/17 08/09/17 14:57 14:57 15:00 Monocytes % 13.2 H BUN 24 H Creatinine 1.35 H Est GFR (Non-Af Amer) 55 L Calcium 10.3 H Creatine Kinase 591 H Total Protein 8.9 H Urine Protein 100 H Urine Ascorbic Acid 40 H Discharge - Discharge Clinical Impression: Substance abuse Condition: Stable Disposition: HOME, SELF-CARE Additional Instructions: Try to cut down on using marijuana, especially if you think it is laced with something. Follow-up with your primary care physician for recheck of your symptoms this week. Forms: Elevated Blood Pressure Referrals: [facility] [Outside] - Follow up as needed
[2017-08-09] MEDS: NORMAL SALINE 1000 ML 1,000 ML IV PRN ×2 (15:35→15:36)
[2017-08-09 15:36] LABS: URINE AMPHETAMINES SCREEN NEGATIVE; URINE BARBITURATES SCREEN NEGATIVE; URINE BENZODIAZEPINES SCREEN NEGATIVE; URINE COCAINE SCREEN NEGATIVE; URINE MARIJUANA (THC) SCREEN UNCONFIRMED POSITIVE; URINE METHADONE SCREEN NEGATIVE; URINE PHENCYCLIDINE SCREEN NEGATIVE
--- NOTE | 2017-08-09 15:38 | RADIOLOGY REPORT (SQ) ---
EXAM DESCRIPTION: CHEST PA/LAT COMPLETED DATE/TIME: 08/09/2017 3:28 pm REASON FOR STUDY: sob COMPARISON: None. EXAM PARAMETERS: NUMBER OF VIEWS: two views TECHNIQUE: Digital Frontal and Lateral radiographic views of the chest acquired. RADIATION DOSE: NA LIMITATIONS: none FINDINGS: LUNGS AND PLEURA: No opacities, masses or pneumothorax. No pleural effusion. MEDIASTINUM AND HILAR STRUCTURES: No masses or contour abnormalities. HEART AND VASCULAR STRUCTURES: Heart normal size. No evidence for failure. BONES: No acute findings. HARDWARE: None in the chest. OTHER: No other significant finding. IMPRESSION: NO SIGNIFICANT RADIOGRAPHIC FINDING IN THE CHEST. TECHNICAL DOCUMENTATION: JOB ID: [id number] [employer]- All Rights Reserved
[2017-08-09 15:45] LABS: NT PRO BNP 26 pg/mL (5-900)
[2017-08-09 15:46] LABS: TROPONIN I < 0.012 ng/mL
[2017-08-09] MEDS ORDERED: HYDROXYZINE PAMOATE 25 MG CAPSULE PO ONE (17:08)
[2017-08-09] MEDS ORDERED: CLONIDINE HCL 0.2 MG TABLET PO ONE (17:22)
[2017-08-09 17:28] VITALS: BP 201/115
--- NOTE | 2017-08-09 18:25 | EKG REPORT ---
SEVERITY:- ABNORMAL ECG - SINUS RHYTHM LEFT VENTRICULAR HYPERTROPHY ST ELEV, PROBABLE NORMAL EARLY REPOL PATTERN : Confirmed by: Richard Harding MD 09-Aug-2017 18:24:32
== END 2017-08-09 17:27 | disposition home or self-care (01) ==
LOC: ER 13:03
DX: F12.10 Cannabis abuse, uncomplicated (principal); F17.200 Nicotine dependence, unspecified, uncomplicated; F41.9 Anxiety disorder, unspecified; S81.852A Open bite, left lower leg, initial encounter; W54.0XXA Bitten by dog, initial encounter; I10 Essential (primary) hypertension; J44.9 Chronic obstructive pulmonary disease, unspecified; E11.9 Type 2 diabetes mellitus without complications; Z88.6 Allergy status to analgesic agent; Z88.8 Allergy status to other drugs, medicaments and biological substances
CPT/HCPCS: 93005; 99284; 96360; 36415; 80307 ×2; 82550; 85025; 80053; 81001; 84484; 83880; 71046; 93010; J3490 ×2; J7030

== ENCOUNTER 2017-08-10 11:20 | Inpatient (IN) | payer MEDICAID ==
[2017-08-10 11:40] LABS: ABSOLUTE BASOPHILS # (AUTO) 0.1 10^3/uL (0.0-0.2); ABSOLUTE EOSINOPHILS # (AUTO) 0.2 10^3/uL (0.0-0.6); ABSOLUTE LYMPHOCYTES (AUTO) 2.2 10^3/uL (0.5-4.7); ABSOLUTE NEUT (AUTO) 4.8 10^3/uL (1.7-8.2); BASOPHILS % (AUTO) 0.8 % (0-2); EOSINOPHILS % (AUTO) 2.2 % (0-6); HEMOGLOBIN 16.9 g/dL (13.5-17.0); LYMPHOCYTES % (AUTO) 26.6 % (13-45); MEAN CORPUSCULAR HEMOGLOBIN 30.9 pg (27.0-33.4); MEAN CORPUSCULAR HGB CONC 33.8 g/dL (32.0-36.0); MEAN CORPUSCULAR VOLUME 91 fl (80-97); MONOCYTES % (AUTO) 11.7 % (3-13); PLATELET COUNT 291 10^3/uL (150-450); RED BLOOD COUNT 5.47 10^6/uL (4.35-5.55); RED CELL DISTRIBUTION WIDTH 13.1 % (11.5-14.0); SEGMENTED NEUTROPHILS % (AUTO) 58.7 % (42-78); TOTAL CELLS COUNTED % (AUTO) 100 %; WHITE BLOOD COUNT 8.2 10^3/uL (4.0-10.5)
[2017-08-10 11:42] LABS: INTERNATIONAL RATION (INR) 0.93; PROTHROMBIN TIME 13.1 SEC (11.4-15.4)
--- NOTE | 2017-08-10 11:47 | RADIOLOGY REPORT (SQ) ---
EXAM DESCRIPTION: CT HEAD WITHOUT COMPLETED DATE/TIME: 08/10/2017 11:31 am REASON FOR STUDY: STROKE ALERT COMPARISON: [address] brain exams since 05/28/2015, most recently 07/25/2017 MRI brain 04/13/2017, 02/07/2017, 09/23/2016 TECHNIQUE: Axial images acquired through the brain without intravenous contrast. Images reviewed wi th bone, brain and subdural windows. Images stored on PACS. All CT scanners at this facility use dose modulation, iterative reconstruction, and/or weight based d osing when appropriate to reduce radiation dose to as low as reasonably achievable (ALARA). [facility]: Dose Right [facility]: CareDose [facility]: Dose Right [facility]: Teradose 4D [facility]: [employer] RADIATION DOSE: 64 mGy. LIMITATIONS: Patient motion artifact, scanned twice FINDINGS: VENTRICLES: Normal size and contour. CEREBRUM: No CT evidence of acute large territory ischemic change, acute intracranial hemorrhage, mas s effect, or shift. There are small old cortical infarcts in the left and right frontal cortex. Ther e is mild spotty low attenuation in the biparietal and bifrontal white matter likely chronic small ve ssel ischemic change CEREBELLUM: No masses. No hemorrhage. No alteration of density. No evidence for acute infarction. EXTRAAXIAL SPACES: No fluid collections. No masses. ORBITS AND GLOBE: No intra- or extraconal masses. Normal contour of globe without masses. CALVARIUM: No fracture. PARANASAL SINUSES: Mucous membrane thickening bilateral ethmoid air cells and maxillary sinuses. Air -fluid level right maxillary sinus SOFT TISSUES: No mass or hematoma. OTHER: No other significant finding. 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 COMMENT: Pertinent findings on the imaging study reported as a CRITICAL RESULT to ARLENE Vieyra t11:21 on 08/10/2017. Category of Critical Result: CT code stroke Quality ID # [id number]: Final reports with documentation of one or more dose reduction techniques (e.g., Au tomated exposure control, adjustment of the mA and/or kV according to patient size, use of iterative reconstruction technique) TECHNICAL DOCUMENTATION: JOB ID: [id number]- All Rights Reserved
[2017-08-10 11:57] LABS: ALANINE AMINOTRANSFERASE 36 U/L (21-72); ALBUMIN 5.1 g/dL (3.5-5.0); ALKALINE PHOSPHATASE 68 U/L (38-126); ANION GAP 16 (5-19); ASPARTATE AMINO TRANSFERASE 42 U/L (17-59); BILIRUBIN,DIRECT 0.3 mg/dL (0.0-0.4); BLOOD UREA NITROGEN 17 mg/dL (7-20); CALCIUM 10.6 mg/dL (8.4-10.2); CARBON DIOXIDE 23 mmol/L (22-30); CHLORIDE 105 mmol/L (98-107); CREATINE KINASE 674 U/L (55-170); GLUCOSE 109 mg/dL (75-110); POTASSIUM 4.4 mmol/L (3.6-5.0); SODIUM 144.2 mmol/L (137-145)
--- NOTE | 2017-08-10 12:02 | ER Document Report ---
ED Neuro Symptoms/Deficit - General Mode of Arrival: Medic Information source: Patient Notes: 52 year old male with history of CVA (2008) presents to the ED via EMS after developing slurred speech, left sided weakness, and blurred vision while at Dr. Crowley's office earlier this morning. Patient reports he suddenly was not able to move his bilateral upper or lower extremities. Patient was seen in the ED yesterday for vomiting and malaise after his hookah was "poisoned" when smoking synthetic marijuana. Patient reports that since he initially arrived in the ED today he is feeling better and is able to understand more. Patient reports he has noticed the improvement in his symptoms. Last known well: 1055 PCP: Dr. Taylor TRAVEL OUTSIDE OF THE [place] IN LAST 30 DAYS: No - HPI Patient complains to provider of: Facial Droop, Paresthesia, Speech Impairment Onset: This morning Context: Other - see notes above New weakness: L facial Associated symptoms: Other - see notes above <JUNIOR TAYLOR - Last Filed: 08/10/17 14:00> <ARLENE STOREY - Last Filed: 08/10/17 15:19> - General Chief Complaint: S/S of Possible Stroke Stated Complaint: POSSIBLE STROKE Time Seen by Provider: 08/10/17 11:28 - Related Data Allergies/Adverse Reactions: acetaminophen [From Tylenol] Allergy (Verified 08/10/17 12:16) amlodipine besylate [From Norvasc] Allergy (Verified 08/10/17 12:16) pioglitazone HCl [From Actos] Allergy (Verified 08/10/17 12:16) Past Medical History - General Information source: Patient - Social History Smoking Status: Current Every Day Smoker Chew tobacco use (# tins/day): No Frequency of alcohol use: Social Drug Abuse: Marijuana - synthetic Family History: Reviewed & Not Pertinent, CAD - Past Medical History Cardiac Medical History: Reports: Hx Hypercholesterolemia, Hx Hypertension Denies: Hx Atrial Fibrillation, Hx Coronary Artery Disease Pulmonary Medical History: Reports: Hx COPD Neurological Medical History: Reports: Hx Cerebrovascular Accident - 2008 with residual right sided weakness Endocrine Medical History: Reports: Hx Diabetes Mellitus Type 1, Hx Diabetes Mellitus Type 2 Renal/ Medical History: Denies: Hx Peritoneal Dialysis GI Medical History: Reports: Hx Gastroesophageal Reflux Disease Psychiatric Medical History: Reports: Hx Depression Past Surgical History: Reports: Hx Kidney (Renal Surgery) - lithotripsy, Hx Orthopedic Surgery - Immunizations Immunizations up to date: Yes Hx Diphtheria, Pertussis, Tetanus Vaccination: Yes Hx Pneumococcal Vaccination: 07/20/14 <JUNIOR TAYLOR - Last Filed: 08/10/17 14:00> Review of Systems - Review of Systems Constitutional: No symptoms reported EENT: No symptoms reported Cardiovascular: No symptoms reported Respiratory: No symptoms reported Gastrointestinal: No symptoms reported Genitourinary: No symptoms reported Male Genitourinary: No symptoms reported Musculoskeletal: No symptoms reported Skin: No symptoms reported Hematologic/Lymphatic: No symptoms reported Neurological/Psychological: See HPI, Weakness - left sided, Speech impairment, Numbness - right side -: Yes All other systems reviewed and negative <JUNIOR TAYLOR - Last Filed: 08/10/17 14:00> Physical Exam - Vital signs Vitals: Pulse Ox 99 08/10/17 11:38 - Notes Notes: GENERAL: Alert, interacts well. HEAD: Normocephalic, atraumatic. EYES: Pupils equal, round, and reactive to light. Extraocular movements intact. See neuro exam below. ENT: Oral mucosa moist, tongue midline. NECK: Full range of motion. Supple. Trachea midline. LUNGS: Clear to auscultation bilaterally, no wheezes, rales, or rhonchi. No respiratory distress. HEART: Regular rate and rhythm. No murmurs, gallops, or rubs. ABDOMEN: Soft, non-tender. Non-distended. Bowel sounds present in all 4 quadrants. EXTREMITIES: No edema, radial and dorsalis pedis pulses 2/4 bilaterally. No cyanosis. NEUROLOGICAL: Alert and oriented x3. Upon arrival to the ED (approximately 1125 ) the patient had a weak traffic director bilaterally, slight tremor bilaterally, slurred unintelligible speech, significant left sided facial droop, with no respiratory compromise. Upon reevaluation (approximately 1140), patient has slight traffic director weakness on the left compared to right. No pronator drift bilaterally. Normal left leg raise. Slightly reduced superior visual field of the right eye. Minimal left sided facial droop that almost completely resolves with smiling. Slurred speech clears with talking. Decreased sensation to the right upper extremity. Patient has residual right sided weakness secondary to CVA in 2008 and is unable to lift his right lower extremity. PSYCH: Normal affect, normal mood. SKIN: Warm, dry, normal turgor. No rashes or lesions noted. <JUNIOR TAYLOR - Last Filed: 08/10/17 14:00> - Vital signs Vitals: Resp 38 H 08/10/17 11:27 <ARLENE STOREY - Last Filed: 08/10/17 15:19> Course - Vital Signs Vital signs: Temp Pulse Resp BP Pulse Ox 99 08/10/17 11:38 - Laboratory Result Diagrams: 08/10/17 11:14 08/10/17 11:14 - Consults Dr. Taylor Time consulted: 13:45 Reason for consultation: 08/10/17 13:[address] Taylor who agrees to admit the patient under his care. <JUNIOR TAYLOR - Last Filed: 08/10/17 14:00> - Re-evaluation Re-evalutation: 08/10/17 13:55 On arrival admit the patient as he came in through the ambulance bay doors, he had acutely slurred speech, unintelligible speech, left-sided facial droop. Patient was stable for CT scan so is immediately sent to the CAT scanner, on return from CAT scan patient had some improvement in his speech and his facial droop. NIH stroke scale was performed and is as recorded in the computer. Patient's symptoms steadily continue to improve, he is not a candidate for TPA as he appears to be having a TIA. I did just recheck the patient at 1345 and his symptoms have completely resolved as far as slurred speech, weakness and facial droop. Patient does state that he still feels somewhat dizzy when he stands up. Patient's CAT scan does not show any acute process, MRI also does not show any acute ischemia. Patient appears to be having a TIA. His residual dizziness on standing may be related to vertigo. Patient will be treated with Antivert. Discussed this case with Dr. Taylor the patient's primary care physician who agrees to accept the patient to his service on the [facility] for a TIA. 08/10/17 13:56 CBC unremarkable, coags unremarkable, CMP shows elevated calcium and bilirubin otherwise unremarkable, cardiac enzymes negative, chest x-ray shows no acute process. CT scan of the head and MRI of the brain do not show acute bleeding or infarction. 08/10/17 15:19 Hypertension will be followed as an inpatient. - Vital Signs Vital signs: Temp Pulse Resp BP Pulse Ox 73 26 H 165/108 H 98 08/10/17 11:49 08/10/17 12:01 08/10/17 12:01 08/10/17 12:01 - Laboratory Result Diagrams: 08/10/17 11:14 08/10/17 11:14 Laboratory results interpreted by me: 08/10/17 11:14 Calcium 10.6 H Total Bilirubin 2.0 H Creatine Kinase 674 H Total Protein 9.0 H Albumin 5.1 H - EKG Interpretation by Me Additional EKG results interpreted by me: 08/10/17 13:56 EKG shows sinus rhythm at a rate of 79, left axis deviation, normal intervals, poor R-wave progression, no ST segment elevations or depressions, T-wave inversions in lead III and flattening in aVF per my interpretation. <ARLENE STOREY - Last Filed: 08/10/17 15:19> Critical Care Note - Critical Care Note Total time excluding time spent on procedures (mins): 45 <ARLENE STOREY - Last Filed: 08/10/17 15:19> ED Alteplase Inc/Exc Criteria - Date/Time patient last known well: Date/Time: 1055 - Date/Time patient arrived in ED: _: 1120 - Inclusion Criteria: 1: Patient presented to ED within 3 hours of acute ischemic stroke symptom onset ? -: Yes 2: Did baseline CT exclude intracranial hemorrhage and/or other risk factors? -: Yes 3: Is the age of the patient 18 years of age or greater? -: Yes : If any of the above questions are answered "NO" then stop, patient is not a candidate for Alteplase, : If all of the above questions are answered "YES" then continue with Exclusion Criteria. - Exclusion Criteria: 1: Is there evidence of intracranial hemorrhage on baseline CT? -: No 2: Is there suspicion of subarachnoid hemorrhage (even if CT negative)? -: No 3: Is there a history of serious head trauma, recent previous stroke or HI within 3 months? 4: Does the patient have a clinical presentation consistent with HI or post-HI pericarditis? 5: Is there history of intracranial hemorrhage? -: Yes - CVA 2008 6: On repeated measurement is Systolic BP greater than 185mmHg or Diastolic BP greater that 110 mmHg and is aggressive treatment needed to reduce blood pressure to these limits (e.g. constant infusion of an anti-hypertensive)? 7: Did the patient awake with stroke symptoms? -: No 8: Has the patient had a lumbar puncture or an arterial puncture at a non- compressile site within 7 days? -: No 9: With in the last 14 days did the patient have surgery or major trauma? -: No 10: Is the patient or less than 2 weeks? -: No 11: Was there any active bleeding or acute trauma? -: No 12: Does the patient have intracranial neoplasm, arteriovenous malformation or aneurysm? 13: Does the patient have abnormal glucose (less than 50 or greater than 400mg/ dl)? Record glucose in Comment. 14: Patient has rapidly improving symptoms at the time Alteplase is to be Administered. -: Yes 15: Does the patient have any risks for bleeding, including but not limited to: a.: Current use of Coumadin with PT greater than 15 seconds or INR greater than 1.7. b.: Current use of Pradaxa (Dabigatran). c.: Heparin administereed within the past 48 hours and PTT elevated. d.: Platelet count less than 100,000/mm. e.: Major surgery or serious trauma within 14 days. f.: Gastrointestinal or gynecological urinary bleeding within 14 days. g.: Myocardial Infarction (HI) within 3 months. : If the answer to any of the above questions is "YES" then stop, the patient is not a candidate for Alteplase. : If the answer to all of the above questions is "NO" then the patient may be eligible for the Administration of Alteplase. : If the patient is noted to have seizure activity at onset of Stroke symptoms; Consult Neurologist for further evaluation. - The patient is: -: Included and is eligible to receive Alteplase. *Initiate bed placement at higher level of care* Reviewd risks & benefits of thrombolytic therapy: I have reviewed the risks and benefits of thrombolytic therapy with the patient and/or his/her family. Yes -: Excluded and not eligible to receive Alteplase for the above exclusions. --: Yes -: Excluded and not eligible to receive Alteplase for other reasons (specify in comments): <JUNIOR TAYLOR - Last Filed: 08/10/17 14:00> - The patient is: -: Included and is eligible to receive Alteplase. *Initiate bed placement at higher level of care* --: No Reviewd risks & benefits of thrombolytic therapy: I have reviewed the risks and benefits of thrombolytic therapy with the patient and/or his/her family. -: Excluded and not eligible to receive Alteplase for the above exclusions. -: Excluded and not eligible to receive Alteplase for other reasons (specify in comments): - Diagnosis of TIA: -: Patient presented with transient symptoms that are now resolved and no other neurologic findings are currently present. List symptoms in comments. -: Yes - slurred speech, facial droop L -: Patient is NOT a candidate for tPA. -: Yes -: ____(put name in comment) has been consulted for admission and continued evaluation of risk factor assessment. Comment: Brandon <ARLENE STOREY - Last Filed: 08/10/17 15:19> ED NIH Stroke Scale - NIH Stroke Scale When completed:: Before Alteplase *: 1. NIH scale should be completed with appropriate accompanying assessment tools. *: 2. The NIH should reflect what the patient is capable of doing and should not be coached by the clinician. 1a. Level of Consciousness: 0=Alert;keenly responsive -: 1=Drowsy -: 2=Obtunded -: 3=Coma/unresponsive or reflex to noxious stimuli. 1a. Responses: 0 1b. Orientation Questions: a. What month is it? -: b. How old are you? -: 0=Answers both questions correctly. -: 1=Answers one question correctly or patient is intubated or has orotracheal trauma. -: 2=Answers neither question correctly. 1b. Responses: 1 1c. Response to commands: a. Open and close eyes? -: b. Wooden Tank Erector and release hand? -: Credit is given despite weakness. Demonstration of task is permitted. Substitute command if hands cannot be used. -: 0=Performs both tasks correctly -: 1=Performs one task correctly -: 2=Performs neither task correctly 1c. Responses: 0 2. Gaze: Establish eye contact and instruct patient to "Follow my finger" -: 0=Normal -: 1=Partial gaze palsy. Gaze is abnormal in one or both eyes, but where forced deviation or total gaze paresis is not present. -: 2=Forced deviation or total gaze paresis. 2. Responses: 0 3. Visual [place]: Sees fingers in all four quadrants. -: 0=No visual loss. -: 1=Partial hemianopsia. -: 2=Complete hemianopsia. -: 3=Bilateral hemianopsia (including Cortical blindness) 3. Responses: 1 4. Facial Movement: Instruct patient to: -: a. Show me your teeth -: b. Raise your eyebrows -: c. Close your eyes -: d. Smile -: 0=Normal symmetrical movement -: 1=Minor paralysis (flattened nasolabial fold, asymmetry on smiling). -: 2=Partial paralysis (total or near total paralysis of lower face). -: 3=Complete paralysis of upper and lower face 4. Responses: 1 - left sided 5. Motor functions (left arm): Alternate sides and extend each arm with palms down (90 degrees if sitting or 45 degrees for supine). -: 0=No drift;limb holds for full 10 seconds. -: 1=Drift; limb holds but drifts down before full 10 seconds, but does not hit bed. -: 2=Some effort against gravity; limb cannot get to or maintain position. -: 3=No effort against gravity; limb falls. -: 4=No movement. -: UN=Amputation, joint fusion, explain in comments. 5. Responses (left arm): 0 5. Motor Functions (right arm): Alternate sides and extend each arm with palms down (90 degrees if sitting or 45 degrees for supine). -: 0=No drift;limb holds for full 10 seconds. -: 1=Drift; limb holds but drifts down before full 10 seconds, but does not hit bed. -: 2=Some effort against gravity; limb cannot get to or maintain position. -: 3=No effort against gravity; limb falls. -: 4=No movement. -: UN=Amputation, joint fusion, explain in comments. 5. Responses (right arm): 0 6. Motor Functions (left leg): With patient lying supine, alternate sides and extend each leg (30 degrees always while supine). -: 0=No drift, leg holds position for full 5 seconds -: 1=Drift; leg falls before full 5 seconds but does not hit bed. -: 2=Some effort against gravity, leg falls to bed but some effort against gravity. -: 3=No effort against gravity, leg falls to bed immediately. -: 4=No movement. -: UN=Amputation, joint fusion; explain in comments. 6. Responses (left leg): 0 6. Motor Functions (right leg): With patient lying supine, alternate sides and extend each leg (30 degrees always while supine). -: 0=No drift, leg holds position for full 5 seconds -: 1=Drift; leg falls before full 5 seconds but does not hit bed. -: 2=Some effort against gravity, leg falls to bed but some effort against gravity. -: 3=No effort against gravity, leg falls to bed immediately. -: 4=No movement. -: UN=Amputation, joint fusion; explain in comments. 6. Responses (right leg): 3 - Residual weakness from CVA in 2008 7. Limb Ataxia: With eyes open instruct patient to: -: a. "Touch your finger to your nose". -: b. "Touch your heel to your palm" -: 0=Absent -: 1=Present in one limb. -: 2=Present in two limbs. -: UN=Amputation or joint fusion; explain in comments. 7. Responses: 0 - Untested in right leg due to weakness from old stroke (2008) 8. Sensory: Test sensation using pinprick or noxious stimuli. Test as many body parts as possible. -: 0=Normal;no sensory loss -: 1=Mile to moderate sensory loss (patient feels pin prick but is less sharp on affected side). -: 2=Severe or total sensory loss. 8. Responses: 1 - Decreased sensation to the right upper extremity secondary to old CVA in 2008 9. Best Language: Instruct patient to: -: a. "Describe what you see in this picture." -: b. "Name the items in this picture." -: c. "Read these sentences." -: 0=No aphasia, normal -: 1=Mild to moderate aphasia. -: 2=Severe aphasia -: 3=Mute, global aphasia, no usable speech or auditory comprehension. 9. Responses: 0 10. Articulation, Dysarthia: Instruct patient to: -: "Read these words" or "Repeat these words" -: 0=Normal -: 1=Mild to moderate; patient may slur some words but can be understood without difficulty. -: 2=Severe; patients speech so slurred as to be unintelligible in the absence of dysphasia. -: UN=Intubated or other physical barrier, explain in comments. 10. Responses: 1 11. Extinction or inattention: 0=No abnormality -: 1= Visual, tactile, auditory, spatial, or personal inattention or extinction to bilateral simulation in one or the sensory modalities. -: 2=Profound karyn-inattention or karyn-inattention to more than one modality; does not recognize own hand. 11. Responses: 0 Total Score: 8 <JUNIOR TAYLOR - Last Filed: 08/10/17 14:00> Discharge <JUNIOR TAYLOR - Last Filed: 08/10/17 14:00> - Discharge Admitting Provider: Brandon Unit Admitted: KP Scribe Attestation: 08/10/17 15:19 I personally performed the services described in the documentation, reviewed and edited the documentation which was dictated to the scribe in my presence, and it accurately records my words and actions. <ARLENE STOREY - Last Filed: 08/10/17 15:19> - Discharge Clinical Impression: Substance abuse Hypertension Qualifiers: Hypertension type: essential hypertension Qualified Code(s): I10 - Essential ( primary) hypertension TIA (transient ischemic attack) Qualifiers: Transient cerebral ischemia type: unspecified Qualified Code(s): G45.9 - Transient cerebral ischemic attack, unspecified Condition: Fair Disposition: ADMITTED INPATIENT Scribe Documentation - Scribe Written by Scribe:: Shara Hopkins, 08/10/2017 1220 acting as scribe for :: Bhavani <JUNIOR TAYLOR - Last Filed: 08/10/17 14:00>
[2017-08-10 12:09] LABS: CREATINE KINASE MB 2.25 ng/mL (<4.55)
[2017-08-10 12:10] LABS: TROPONIN I < 0.012 ng/mL
--- NOTE | 2017-08-10 12:33 | RADIOLOGY REPORT (SQ) ---
EXAM DESCRIPTION: CHEST SINGLE VIEW COMPLETED DATE/TIME: 08/10/2017 12:19 pm REASON FOR STUDY: STRPKE ALERT COMPARISON: AP chest 08/09/2017, 04/13/2017, 11/23/2015 CT chest 08/25/2016 EXAM PARAMETERS: NUMBER OF VIEWS: One view. TECHNIQUE: Single frontal radiographic view of the chest acquired. RADIATION DOSE: NA LIMITATIONS: None. FINDINGS: LUNGS AND PLEURA: No opacities, masses or pneumothorax. No pleural effusion. MEDIASTINUM AND HILAR STRUCTURES: No masses. Contour normal. HEART AND VASCULAR STRUCTURES: Heart normal in size. Normal vasculature. BONES: No acute findings. HARDWARE: None in the chest. OTHER: No other significant finding. IMPRESSION: NO ACUTE RADIOGRAPHIC FINDING IN THE CHEST. TECHNICAL DOCUMENTATION: JOB ID: [id number] [employer]- All Rights Reserved
--- NOTE | 2017-08-10 13:07 | RADIOLOGY REPORT (SQ) ---
EXAM DESCRIPTION: MRI HEAD WITHOUT COMPLETED DATE/TIME: 08/10/2017 12:55 pm REASON FOR STUDY: acute stroke, clinically inconsistent symptoms COMPARISON: CT brain 08/10/2017 MRI brain 04/13/2017, 02/07/2017 TECHNIQUE: Multiplanar imaging includes non-contrasted T1, T2, FLAIR, and diffusion with ADC map seq uences. Images stored on PACS. LIMITATIONS: None. FINDINGS: ANATOMY: No developmental anomalies. Normal vascular flow voids. Pituitary fossa normal. CSF SPACES: Normal in size and contour. No hemorrhage. CEREBRUM: No MR evidence of acute ischemic change. Diffusion-weighted images are negative. There is mild spotty bifrontal and biparietal white matter disease, likely small vessel ischemic phillips ge. Demyelinating process could mimic this appearance. There are old small bilateral posterior frontal cortical and subcortical white matter infarcts. No MR evidence of acute intracranial hemorrhage, mass effect, or midline shift. POSTERIOR FOSSA: Spotty white matter disease in the mid shea, small bilateral chronic appearing cereb ellar lacunar infarcts are present. No acute hemorrhage. No edema, masses or mass effect. Internal a uditory canals, cerebello-pontine angles, mastoids normal. DIFFUSION IMAGING: Negative for acute or sub-acute infarction. ORBITS: No masses. Globes normal. PARANASAL SINUSES: Diffuse inflammatory change in the paranasal sinuses with air-fluid levels in the frontal, ethmoid, and bilateral maxillary sinuses from sinusitis OTHER: No other significant finding. IMPRESSION: Mild small vessel ischemic change in the hemispheric white matter and shea with Old right and left posterior frontal cortical infarcts Old right and left cerebellar lacunar infarcts Sinusitis EVIDENCE OF ACUTE STROKE: NO. TECHNICAL DOCUMENTATION: JOB ID: [id number] [employer]- All Rights Reserved
--- NOTE | 2017-08-10 13:27 | EKG REPORT ---
SEVERITY:- ABNORMAL ECG - SINUS RHYTHM LEFT AXIS DEVIATION LEFT VENTRICULAR HYPERTROPHY : Confirmed by: Richard Harding MD 10-Aug-2017 13:26:57
[2017-08-10] MEDS ORDERED: ASPIRIN 325 MG TABLET PO ONE (13:48)
[2017-08-10] MEDS ORDERED: LABETALOL HCL INJ 20 MG/4 ML DISP.SYRIN IV PRN (13:53)
[2017-08-10] MEDS ORDERED: ACETAMINOPHEN 325 MG TABLET PO PRN (13:53)
[2017-08-10] MEDS ORDERED: DEXTROSE 40% GEL 15 GM TUBE PO PRN ×2 (14:15)
[2017-08-10] MEDS ORDERED: INSULIN LISPRO 100 UNIT/ML 3 ML VIAL SUBCUT PRN (14:15)
[2017-08-10] MEDS ORDERED: GLUCAGON,HUMAN RECOMB 1 MG INJ IM PRN (14:15)
[2017-08-10] MEDS ORDERED: DEXTROSE 50%-WATER 25 GM/50 ML DISP.SYRIN IV PRN ×2 (14:15)
[2017-08-10 15:27] LABS: CREATINE KINASE MB 1.68 ng/mL (<4.55)
[2017-08-10 15:30] LABS: TROPONIN I < 0.012 ng/mL
--- NOTE | 2017-08-10 15:52 | RADIOLOGY REPORT (SQ) ---
EXAM DESCRIPTION: MRA HEAD WITHOUT COMPLETED DATE/TIME: 08/10/2017 3:30 pm REASON FOR STUDY: tia COMPARISON: MRI brain 08/10/2017, CT brain 08/10/2017, 07/25/2017, MRI brain 04/13/2017 TECHNIQUE: Axial 3-D [id number] acquisition imaging performed through the brain in the area of t he [place] of [place]. Images reformatted using 3-D MIPS. LIMITATIONS: None. FINDINGS: SOURCE IMAGES: No unexpected findings on source images. No large masses. 3-D MIP: No aneurysm. No occlusions. No significant stenosis. OTHER: No other significant finding. IMPRESSION: NORMAL MRA OF THE [place]. TECHNICAL DOCUMENTATION: JOB ID: [id number] [employer]- All Rights Reserved
[2017-08-10] MEDS ORDERED: ONDANSETRON HCL INJ/PF 4 MG/2 ML SDV IV PRN (16:37)
[2017-08-10] MEDS ORDERED: HYDRALAZINE HCL INJ/PF 20 MG/1 ML SDV IV PRN (17:32)
--- NOTE | 2017-08-10 17:33 | PDOC H&P ---
History of Present Illness Admission Date/PCP: 08/10/17 14:02 CAITLYN ATKINSON MD Patient complains of: Left-sided weakness and slurred speech History of Present Illness: EMERSON DANGELO JR is a 52 year old male This is a 52-year-old maleWith a significant history of the stroke in the past with a carotid artery disease status post right-sided surgeryWith a history of the type 2 diabetes mellitus hypertension'sAnd hyperlipidemia and a super noncompliance with the medications and also continues to smoke and continues to smoke the marijuanaWent to the doctor's office and noticed some slurred speech and left-sided weakness and patients called the EMS and brought to the emergency department with left-sided weakness and slurred speech is completely resolved Patient's MRI of the head was all negatives with no acute findings patient's blood pressure is definitely elevated which patient is very noncompliance with the medications Patient's denied any chest pain denied any shortness of the breath Is completely back to the baseline's but still very noncompliance with extensive discussed with the patient and the in my office last week about this and patient understand very well and understand very wellBut unfortunately patient's still not able to follow the diets not stop smoking At this point we decided to admit the patient's in the IMCU for the stroke protocol and order the MRI of the head to rule out other etiology Just came back same issues with the couple of weeks back and a CT angiogram of the head was done was negative Past Medical History Cardiac Medical History: Reports: Hyperlipidema, Hypertension Denies: Atrial Fibrillation, Coronary Artery Disease Pulmonary Medical History: Reports: Chronic Obstructive Pulmonary Disease (COPD) Endocrine Medical History: Reports: Diabetes Mellitus Type 2 GI Medical History: Reports: Gastroesophageal Reflux Disease Psychiatric Medical History: Reports: Depression, Substance Abuse, Tobacco Dependency Past Surgical History Past Surgical History: Reports: Carotid Endarterectomy, Orthopedic Surgery, Vascular Surgery Social History Information Source: Patient, Relative Smoking Status: Current Every Day Smoker Frequency of Alcohol Use: None Hx Recreational Drug Use: Yes Drugs: None, Marijuana Hx Prescription Drug Abuse: No Family History Family History: Reviewed & Not Pertinent, CAD Parental Family History Reviewed: Yes Children Family History Reviewed: Yes Sibling(s) Family History Reviewed.: Yes Medication/Allergy Home Medications: Albuterol Sulfate [Proair Hfa Inhalation Aerosol 8.5 gm Mdi] 2 puff IH Q12 08/10 Aspirin [Ecotrin 81 mg EC Tablet] 81 mg PO DAILY 08/10/17 Atorvastatin Calcium [Lipitor 40 mg Tablet] 40 mg PO QHS 08/10/17 Budesonide/Formoterol Fumarate [Symbicort 160-4.5 Mcg Inhaler] 2 puff IH Q12 Clonidine HCl [Catapres 0.3 mg Tablet] 0.3 mg PO DAILY 08/10/17 Clopidogrel Bisulfate [Plavix 75 mg Tablet] 75 mg PO DAILY 08/10/17 Fluticasone Propionate [Flonase Nasal [place] 50 Mcg/[place] 16 gm] 1 spray NAREB DAILY PRN 08/10/17 Gabapentin [Neurontin 300 mg Capsule] 300 mg PO Q8 PRN 08/10/17 Meloxicam [Mobic] 15 mg PO DAILY 08/10/17 Metoprolol Succinate [Toprol Xl 50 mg Tab.sr] 50 mg PO DAILY 08/10/17 Ramipril [Altace 5 mg Capsule] 5 mg PO BID 08/10/17 Allergies/Adverse Reactions: acetaminophen [From Tylenol] Allergy (Verified 08/10/17 12:16) amlodipine besylate [From Norvasc] Allergy (Verified 08/10/17 12:16) pioglitazone HCl [From Actos] Allergy (Verified 08/10/17 12:16) Review of Systems Constitutional: ABSENT: chills, fever(s), headache(s), weight gain, weight loss Eyes: ABSENT: visual disturbances Ears: ABSENT: hearing changes Cardiovascular: ABSENT: chest pain, dyspnea on exertion, edema, orthropnea, palpitations Respiratory: ABSENT: cough, hemoptysis Gastrointestinal: ABSENT: abdominal pain, constipation, diarrhea, hematemesis, hematochezia, nausea, vomiting Genitourinary: ABSENT: dysuria, hematuria Musculoskeletal: ABSENT: joint swelling Integumentary: ABSENT: rash, wounds Neurological: PRESENT: dizziness, focal weakness, numbness, weakness. ABSENT: abnormal gait, abnormal speech, confusion, syncope Psychiatric: ABSENT: anxiety, depression, homidical ideation, suicidal ideation Endocrine: ABSENT: cold intolerance, heat intolerance, menstrual abnormalities, polydipsia, polyuria Hematologic/Lymphatic: ABSENT: easy bleeding, easy bruising, lymphadenopathy Physical Exam Vital Signs: Temp Pulse Resp BP Pulse Ox 73 26 H 165/108 H 98 08/10/17 11:49 08/10/17 12:01 08/10/17 12:01 08/10/17 12:01 General appearance: PRESENT: no acute distress, well-developed, well-nourished Head exam: PRESENT: atraumatic, normocephalic Eye exam: PRESENT: conjunctiva pink, EOMI, PERRLA. ABSENT: scleral icterus Ear exam: PRESENT: normal external ear exam Mouth exam: PRESENT: moist, tongue midline Neck exam: PRESENT: full ROM. ABSENT: carotid bruit, JVD, lymphadenopathy, thyromegaly Respiratory exam: PRESENT: clear to auscultation rommel Cardiovascular exam: PRESENT: RRR. ABSENT: diastolic murmur, rubs, systolic murmur Pulses: PRESENT: normal dorsalis pedis pul, +2 pedal pulses bilateral Vascular exam: PRESENT: normal capillary refill GI/Abdominal exam: PRESENT: normal bowel sounds, soft. ABSENT: distended, guarding, mass, organolmegaly, rebound, tenderness Rectal exam: PRESENT: deferred Extremities exam: ABSENT: full ROM, left AKA, right AKA, left BKA, right BKA, calf tenderness, joint swelling, pedal edema, tenderness, other Neurological exam: PRESENT: alert, awake, oriented to person, oriented to place , oriented to time, oriented to situation, CN II-XII grossly intact. ABSENT: motor sensory deficit Psychiatric exam: PRESENT: appropriate affect, normal mood. ABSENT: homicidal ideation, suicidal ideation Skin exam: PRESENT: dry, intact, warm. ABSENT: cyanosis, rash Results Laboratory Results: 08/10/17 08/10/17 14:51 14:51 Creatine Kinase 588 H CK-MB (CK-2) 1.68 Troponin I < 0.012 Impressions: Chest X-Ray 08/10/17 00:00 IMPRESSION: NO ACUTE RADIOGRAPHIC FINDING IN THE CHEST. Head CT 08/10/17 00:00 IMPRESSION: No CT evidence of acute intracranial hemorrhage, mass effect, midline shift, or large territory acute ischemic change Old bilateral small frontal cortical and subcortical white matter infarcts Inflammatory changes in the paranasal sinuses EVIDENCE OF ACUTE STROKE: NO. Head MRI 08/10/17 11:51 IMPRESSION: Mild small vessel ischemic change in the hemispheric white matter and shea with Old right and left posterior frontal cortical infarcts Old right and left cerebellar lacunar infarcts Sinusitis EVIDENCE OF ACUTE STROKE: NO. Assessment & Plan - Diagnosis (1) TIA (transient ischemic attack) Qualifiers: Transient cerebral ischemia type: unspecified Qualified Code(s): G45.9 - Transient cerebral ischemic attack, unspecified Is this a current diagnosis for this admission?: Yes Plan: Continues to stroke protocols is Continues aspirin Plavix and statin This with the patient about the smoking counseling and also substance abuse counseling and better control of the blood pressures (2) Carotid stenosis Qualifiers: Laterality: right Qualified Code(s): I65.21 - Occlusion and stenosis of right carotid artery Is this a current diagnosis for this admission?: Yes Plan: Patient had right-sided carotid artery surgery was done last to the [facility] repeat the ultrasound for the carotid (3) Hyperlipidemia Qualifiers: Hyperlipidemia type: unspecified Qualified Code(s): E78.5 - Hyperlipidemia , unspecified Is this a current diagnosis for this admission?: Yes Plan: Continues on high-dose statin (4) Insulin dependent diabetes mellitus Is this a current diagnosis for this admission?: Yes Plan: Continues to current medication and sliding scale (5) COPD (chronic obstructive pulmonary disease) Qualifiers: COPD type: unspecified COPD Qualified Code(s): J44.9 - Chronic obstructive pulmonary disease, unspecified Is this a current diagnosis for this admission?: Yes Plan: Continues to nebulizer (6) Substance abuse Is this a current diagnosis for this admission?: Yes Plan: Discussed with the patient about smoking counseling in the substance abuse counselingWe consult the psych for further - Time Time Spent: 30 to 50 Minutes Medications reviewed and adjusted accordingly: Yes Anticipated discharge: Other Within: Other - Inpatient Certification Medical Necessity: Need Close Monitoring Due to Risk of Patient Decompensation Post Hospital Care: D/C Time Clerk Documentation - Plan Summary Plan Summary: Discussed with the patient and the regarding the patient's current condition we admit in the IM for the stroke protocolsWill get the MRI of the brain and also get the carotid Doppler and echocardiogram
[2017-08-10 17:36] LABS: URINE AMPHETAMINES SCREEN NEGATIVE; URINE BARBITURATES SCREEN NEGATIVE; URINE BENZODIAZEPINES SCREEN NEGATIVE; URINE COCAINE SCREEN NEGATIVE; URINE METHADONE SCREEN NEGATIVE; URINE PHENCYCLIDINE SCREEN NEGATIVE
[2017-08-10 17:45] LABS: URINE MARIJUANA (THC) SCREEN UNCONFIRMED POSITIVE
[2017-08-10] MEDS ORDERED: CLONIDINE HCL 0.1 MG TABLET PO ONE (18:00)
[2017-08-10] MEDS ORDERED: RAMIPRIL 5 MG CAPSULE PO SCH (18:00)
[2017-08-10] MEDS: LANSOPRAZOLE 30 MG TAB.RAP.DR PO SCH (18:01)
[2017-08-10 20:37] LABS: CREATINE KINASE MB 1.33 ng/mL (<4.55); TROPONIN I < 0.012 ng/mL
[2017-08-10] MEDS ORDERED: ATORVASTATIN CALCIUM 40 MG TABLET PO SCH (22:00)
[2017-08-10] MEDS ORDERED: FAMOTIDINE 20 MG TABLET PO SCH (22:00)
[2017-08-10] MEDS ORDERED: (PENDING PHARMACY ID) (Clonidine Hcl [Catapres 0.3 Mg Tablet] 0.3 MG) PO SCH (22:00)
[2017-08-10] MEDS: CLONIDINE HCL 0.1 MG TABLET PO SCH (22:30)
[2017-08-10] MEDS: RAMIPRIL 5 MG CAPSULE PO SCH (22:30)
[2017-08-10] MEDS: ATORVASTATIN CALCIUM 40 MG TABLET PO SCH (22:31)
[2017-08-10] MEDS: BUSPIRONE HCL 10 MG TABLET PO SCH (22:33)
[2017-08-10] MEDS: BUDESONIDE/FORMOTEROL 160-4.5 MCG 60 PUFF/6 GM MDI IH SCH (22:33)
[2017-08-11 02:28] LABS: HEMATOCRIT 46.1 % (37.9-51.0); HEMOGLOBIN 15.6 g/dL (13.5-17.0); MEAN CORPUSCULAR HEMOGLOBIN 30.8 pg (27.0-33.4); MEAN CORPUSCULAR HGB CONC 33.8 g/dL (32.0-36.0); MEAN CORPUSCULAR VOLUME 91 fl (80-97); RED BLOOD COUNT 5.06 10^6/uL (4.35-5.55); RED CELL DISTRIBUTION WIDTH 12.8 % (11.5-14.0); WHITE BLOOD COUNT 8.5 10^3/uL (4.0-10.5)
[2017-08-11 02:29] LABS: ABSOLUTE BASOPHILS # (AUTO) 0.1 10^3/uL (0.0-0.2); ABSOLUTE EOSINOPHILS # (AUTO) 0.4 10^3/uL (0.0-0.6); EOSINOPHILS % (AUTO) 5.1 % (0-6); LYMPHOCYTES % (AUTO) 23.7 % (13-45); MONOCYTES % (AUTO) 11.4 % (3-13); PLATELET COUNT 235 10^3/uL (150-450); SEGMENTED NEUTROPHILS % (AUTO) 58.8 % (42-78); TOTAL CELLS COUNTED % (AUTO) 100 %
[2017-08-11 02:54] LABS: ALANINE AMINOTRANSFERASE 24 U/L (21-72); ALBUMIN 4.5 g/dL (3.5-5.0); ALKALINE PHOSPHATASE 55 U/L (38-126); ANION GAP 12 (5-19); ASPARTATE AMINO TRANSFERASE 38 U/L (17-59); BILIRUBIN,DIRECT 0.5 mg/dL (0.0-0.4); BILIRUBIN,TOTAL 1.2 mg/dL (0.2-1.3); BLOOD UREA NITROGEN 20 mg/dL (7-20); CALCIUM 9.9 mg/dL (8.4-10.2); CARBON DIOXIDE 22 mmol/L (22-30); CHLORIDE 110 mmol/L (98-107); CHOLESTEROL 206.88 mg/dL (0-200); GLUCOSE 119 mg/dL (75-110); POTASSIUM 4.2 mmol/L (3.6-5.0); SODIUM 144.2 mmol/L (137-145); TOTAL PROTEIN 7.6 g/dL (6.3-8.2); TRIGLYCERIDES 133 mg/dL (<150)
[2017-08-11 03:04] LABS: CREATINE KINASE MB 1.19 ng/mL (<4.55); DIRECT LDL 151 mg/dL (<100)
[2017-08-11 03:09] LABS: TROPONIN I < 0.012 ng/mL
[2017-08-11] MEDS: CLONIDINE HCL 0.1 MG TABLET PO SCH ×3 (05:37→23:14)
[2017-08-11] MEDS: BUSPIRONE HCL 10 MG TABLET PO SCH ×3 (05:40→23:19)
[2017-08-11] MEDS: LANSOPRAZOLE 30 MG TAB.RAP.DR PO SCH ×2 (05:40→17:20)
[2017-08-11] MEDS ORDERED: IBUPROFEN 400 MG TABLET PO PRN (08:28)
[2017-08-11] MEDS ORDERED: CLONIDINE HCL 0.2 MG TABLET PO ONE (09:30)
[2017-08-11] MEDS: NICOTINE 14 MG/24 HR PATCH.TD24 TD SCH (09:39)
[2017-08-11] MEDS: CLOPIDOGREL BISULFATE 75 MG TABLET PO SCH (09:39)
[2017-08-11] MEDS: ASPIRIN 81 MG TABLET, ENT COATED PO SCH (09:40)
[2017-08-11] MEDS: METOPROLOL SUCCINATE 50 MG TAB.SR.24H PO SCH (09:40)
[2017-08-11] MEDS: FLUTICASONE NASAL SPRAY 50 MCG/SPRY 120 SPRAY/16 GM NAREB PRN (09:41)
[2017-08-11] MEDS: ENOXAPARIN SODIUM INJ 40 MG/0.4 ML DISP.SYRIN SUBCUT SCH (09:42)
[2017-08-11] MEDS: BUDESONIDE/FORMOTEROL 160-4.5 MCG 60 PUFF/6 GM MDI IH SCH ×2 (09:42→23:17)
[2017-08-11] MEDS ORDERED: CLOPIDOGREL BISULFATE 75 MG TABLET PO SCH (10:00)
[2017-08-11] MEDS ORDERED: ASPIRIN 81 MG TABLET, ENT COATED PO SCH (10:00)
--- NOTE | 2017-08-11 10:00 | PDOC PROGRESS REPORT ---
Subjective Progress Note for:: 08/11/17 Subjective:: Patient is currently feeling much better still have some weakness but other than that no any focal weaknesses noticed Patient still have some stomach discomfort which is most likely a synthetic marijuana Patient's denied any chest pain denied any shortness of the breath Most likely patient however after using the synthetic marijuana started developing a stomach upset and nausea and vomiting and patient unable to keep any blood pressure medications down which caused the patient's blood pressures go high and possible mild TIA Reason For Visit: TIA Physical Exam Vital Signs: Temp Pulse Resp BP Pulse Ox 97.5 F 66 20 161/98 H 100 08/11/17 07:46 08/11/17 07:46 08/11/17 07:46 08/11/17 07:46 08/11/17 07:46 Intake & Output 08/10/17 08/11/17 08/12/17 06:59 06:59 06:59 Intake Total 916 Output Total 400 Balance 516 Weight 90.2 kg General appearance: PRESENT: no acute distress, well-developed, well-nourished Head exam: PRESENT: atraumatic, normocephalic Eye exam: PRESENT: conjunctiva pink, EOMI, PERRLA. ABSENT: scleral icterus Ear exam: PRESENT: normal external ear exam Mouth exam: PRESENT: moist, tongue midline Neck exam: PRESENT: full ROM. ABSENT: carotid bruit, JVD, lymphadenopathy, thyromegaly Respiratory exam: PRESENT: clear to auscultation rommel Cardiovascular exam: PRESENT: RRR. ABSENT: diastolic murmur, rubs, systolic murmur Pulses: PRESENT: normal dorsalis pedis pul, +2 pedal pulses bilateral Vascular exam: PRESENT: normal capillary refill GI/Abdominal exam: PRESENT: normal bowel sounds, soft. ABSENT: distended, guarding, mass, organolmegaly, rebound, tenderness Rectal exam: PRESENT: deferred Neurological exam: PRESENT: alert, awake, oriented to person, oriented to place , oriented to time, oriented to situation, CN II-XII grossly intact. ABSENT: motor sensory deficit Psychiatric exam: PRESENT: appropriate affect, normal mood. ABSENT: homicidal ideation, suicidal ideation Skin exam: PRESENT: dry, intact, warm. ABSENT: cyanosis, rash Results Laboratory Results: 08/11/17 02:16 08/11/17 02:16 08/10/17 08/11/17 08/11/17 14:51 02:16 02:16 WBC 8.5 RBC 5.06 Hgb 15.6 Hct 46.1 MCV 91 MCH 30.8 MCHC 33.8 RDW 12.8 Plt Count 235 Seg Neutrophils % 58.8 Lymphocytes % 23.7 Monocytes % 11.4 Eosinophils % 5.1 Basophils % 1.0 Absolute Neutrophils 5.0 Absolute Lymphocytes 2.0 Absolute Monocytes 1.0 Absolute Eosinophils 0.4 Absolute Basophils 0.1 Sodium 144.2 Potassium 4.2 Chloride 110 H Carbon Dioxide 22 Anion Gap 12 BUN 20 Creatinine 1.12 Est GFR ( Amer) > 60 Est GFR (Non-Af Amer) > 60 Glucose 119 H Calcium 9.9 Total Bilirubin 1.2 AST 38 ALT 24 Alkaline Phosphatase 55 Total Protein 7.6 Albumin 4.5 Triglycerides 133 Cholesterol 206.88 H LDL Cholesterol Direct 151 H VLDL Cholesterol 27.0 HDL Cholesterol 33 L Lipase 106.2 08/10/17 08/10/17 08/10/17 14:51 14:51 20:00 Creatine Kinase 588 H 479 H CK-MB (CK-2) 1.68 Troponin I < 0.012 08/10/17 08/11/17 08/11/17 20:00 02:16 02:16 Creatine Kinase 444 H CK-MB (CK-2) 1.33 1.19 Troponin I < 0.012 < 0.012 Impressions: Brain MRI with MRA 08/10/17 00:00 IMPRESSION: NORMAL MRA OF THE [place]. Chest X-Ray 08/10/17 00:00 IMPRESSION: NO ACUTE RADIOGRAPHIC FINDING IN THE CHEST. Head CT 08/10/17 00:00 IMPRESSION: No CT evidence of acute intracranial hemorrhage, mass effect, midline shift, or large territory acute ischemic change Old bilateral small frontal cortical and subcortical white matter infarcts Inflammatory changes in the paranasal sinuses EVIDENCE OF ACUTE STROKE: NO. Head MRI 08/10/17 11:51 IMPRESSION: Mild small vessel ischemic change in the hemispheric white matter and shea with Old right and left posterior frontal cortical infarcts Old right and left cerebellar lacunar infarcts Sinusitis EVIDENCE OF ACUTE STROKE: NO. Assessment & Plan - Diagnosis (1) TIA (transient ischemic attack) Qualifiers: Transient cerebral ischemia type: unspecified Qualified Code(s): G45.9 - Transient cerebral ischemic attack, unspecified Is this a current diagnosis for this admission?: Yes Plan: Continues aspirin Plavix and statin (2) Carotid stenosis Qualifiers: Laterality: right Qualified Code(s): I65.21 - Occlusion and stenosis of right carotid artery Is this a current diagnosis for this admission?: Yes Plan: Patient had right-sided carotid artery surgery was done last to the [facility] repeat the ultrasound for the carotid (3) Hyperlipidemia Qualifiers: Hyperlipidemia type: unspecified Qualified Code(s): E78.5 - Hyperlipidemia , unspecified Is this a current diagnosis for this admission?: Yes Plan: Continues on high-dose statin (4) Insulin dependent diabetes mellitus Is this a current diagnosis for this admission?: Yes Plan: Continues to current medication and sliding scale (5) COPD (chronic obstructive pulmonary disease) Qualifiers: COPD type: unspecified COPD Qualified Code(s): J44.9 - Chronic obstructive pulmonary disease, unspecified Is this a current diagnosis for this admission?: Yes Plan: Continues to nebulizer (6) Substance abuse Is this a current diagnosis for this admission?: Yes Plan: Discussed with the patient about do not use any kind of substance abuse and patients understand and agreeWe will get the psych consult - Time Time Spent with patient: 15-24 minutes Medications reviewed and adjusted accordingly: Yes Anticipated discharge: Home Within: within 24 hours - Inpatient Certification Medical Necessity: Need Close Monitoring Due to Risk of Patient Decompensation - Plan Summary Plan Summary: We will restart the patient's all blood pressure medications will remain stable in the next 24 hours patient's blood pressure is 130-140 range and hopefully if the patient's remain stable discharge home with the home health and physical therapy
--- NOTE | 2017-08-11 11:44 | RADIOLOGY REPORT (SQ) ---
EXAM DESCRIPTION: CAROTID DOPPLER COMPLETED DATE/TIME: 08/11/2017 11:33 am REASON FOR STUDY: tia COMPARISON: Carotid Doppler 02/08/2017 MRI brain 04/13/2017, 08/10/2017 MRA [place] 08/10/2017 CT brain 07/25/2017, 08/10/2017 TECHNIQUE: Grayscale ultrasound, Doppler velocity and spectra, and color Doppler images acquired of the extra-cranial carotid and vertebral arteries. Images stored on PACS. LIMITATIONS: None. FINDINGS: RIGHT CAROTID CCA Velocities: Within normal limits. ICA Velocities Peak systolic 0.52 m/s. End diastolic 0.13 m/s. Proximal ICA/CCA peak systolic ratio 1.2. Spectra normal. No significant plaque. LEFT CAROTID CCA Velocities: Within normal limits. ICA Velocities Peak systolic 0.71 m/s. End diastolic 0.28 m/s. Proximal ICA/CCA peak systolic ratio 1.0. Spectra normal. No significant plaque. VERTEBRAL ARTERIES: Antegrade flow. Normal waveforms. SUBCLAVIAN ARTERIES: Not evaluated OTHER: No other significant finding. IMPRESSION: NO HEMODYNAMICALLY SIGNIFICANT STENOSIS. COMMENT: Quality ID #[id number]: Velocity criteria are extrapolated from the diameter data as defined by t he Society of Radiologists in Ultrasound Consensus Conference. Radiology 2003: 229; 340-346. TECHNICAL DOCUMENTATION: JOB ID: [id number] [employer]- All Rights Reserved
--- NOTE | 2017-08-11 11:48 | RADIOLOGY REPORT (SQ) ---
EXAM DESCRIPTION: CT ABD/PELVIS NO ORAL OR IV COMPLETED DATE/TIME: 08/11/2017 11:34 am REASON FOR STUDY: abd pain COMPARISON: CT chest abdomen pelvis 08/25/2016 CT abdomen pelvis 10/02/2015 TECHNIQUE: CT scan of the abdomen and pelvis performed without intravenous or oral contrast. Images reviewed with lung, soft tissue, and bone windows. Reconstructed coronal and sagittal MPR images revi ewed. All images stored on PACS. All CT scanners at this facility use dose modulation, iterative reconstruction, and/or weight based d osing when appropriate to reduce radiation dose to as low as reasonably achievable (ALARA). [facility]: Dose Right [facility]: CareDose [facility]: Dose Right [facility]: Teradose 4D [facility]: [employer] RADIATION DOSE: CT Rad equipment meets quality standard of care and radiation dose reduction techniq ues were employed. CTDIvol: 7.0 mGy. DLP: 367 mGy-cm.mGy. LIMITATIONS: No oral or IV contrast FINDINGS: LOWER CHEST: Small hiatal hernia. No nodules or infiltrates. NON-CONTRASTED LIVER, SPLEEN, ADRENALS: Evaluation limited by lack of IV contrast. No identified sign ificant masses. PANCREAS: No masses. No peripancreatic inflammatory changes. GALLBLADDER: No identified stones by CT criteria. No inflammatory changes to suggest cholecystitis. RIGHT KIDNEY AND URETER: No suspicious masses. Assessment limited by lack of IV contrast. No signif icant calcifications. No hydronephrosis or hydroureter. LEFT KIDNEY AND URETER: No suspicious masses. Assessment limited by lack of IV contrast. 2 mm left midpole intrarenal nonobstructive stone. No hydronephrosis or hydroureter. AORTA AND RETROPERITONEUM: No aneurysm. No retroperitoneal masses or adenopathy. BOWEL AND PERITONEAL CAVITY: No obvious masses or inflammatory changes. No free fluid. APPENDIX: Normal. PELVIS, BLADDER, AND ABDOMINAL WALL:No abnormal masses. No free fluid. Bladder normal. BONES: No significant findings. OTHER: No other significant finding. IMPRESSION: NO SIGNIFICANT OR ACUTE PROCESS IN THE ABDOMEN OR PELVIS. COMMENT: Quality ID # [id number]: Final reports with documentation of one or more dose reduction techniques (e.g., Automated exposure control, adjustment of the mA and/or kV according to patient size, use of iterative reconstruction technique) TECHNICAL DOCUMENTATION: JOB ID: [id number]- All Rights Reserved
--- NOTE | 2017-08-11 11:59 | XCELERA REPORT ---
[address] [address] Transthoracic Echocardiogram Report Name: EMERSON DANGELO JR Age: 52 yrs Gender: Male : 1965 Patient Status: Inpatient Patient Location: [address] [place], [place] [address]A Study Date: 08/11/2017 09:28 AM Height: 69 in Weight: 198 lb BSA: 2.1 m2 Procedure: A complete two-dimensional transthoracic echocardiogram was performed (2D, M-mode, spectral and color flow Doppler). The study was technically adequate with some images being suboptimal in quality. Reason For Study: tia Ordering Physician: CAITLYN ATKINSON Performed By: Melania Lopez Interpretation Summary The left ventricular ejection fraction is normal. There is mild concentric left ventricular hypertrophy. Doppler measurements suggest pseudonormalized left ventricular relaxation, which is associated with grade II/IV or mild to moderate diastolic dysfunction The left ventricle is grossly normal size. Wall motion cannot be accurately commented on, but no definite regional wall motion abnormalities noted. The right ventricular systolic function is normal. The left atrial size is normal. The right atrium is normal in size There is a trace amount of mitral regurgitation There is no mitral valve stenosis. There is a mild to moderate amount of aortic regurgitation There is no aortic valve stenosis The aortic root is not well visualized. The inferior vena cava appeared normal and decreased > 50% with respiration (RAP 5-10 mmHg) There is no pericardial effusion. MMode/2D Measurements & Calculations RVDd: 2.4 cm LVIDd: 6.5 cm FS: 26.7 % Ao root diam: 2.5 cm IVSd: 0.98 cm LVIDs: 4.8 cm EDV(Teich): 216.7 ml LVPWd: 0.96 cm ESV(Teich): 106.0 ml Ao root area: 5.0 cm2 EF(Teich): 51.1 % LA dimension: 2.9 cm Doppler Measurements & Calculations MV E max alan: MV P1/2t max alan: Ao V2 max: AI max alan: 49.4 cm/sec 51.3 cm/sec 186.0 cm/sec 257.4 cm/sec MV A max alan: MV P1/2t: 61.6 msec Ao max PG: AI max P.3 cm/sec 13.8 mmHg 26.5 mmHg MV E/A: 0.93 MVA(P1/2t): 3.6 cm2 AI dec slope: MV dec slope: 244.1 cm/sec2 67.0 cm/sec2 AI P1/2t: 1124 msec LV V1 max PG: PA V2 max: 3.9 mmHg 80.5 cm/sec LV V1 max: PA max P.6 mmHg 98.2 cm/sec Left Ventricle The left ventricle is grossly normal size. There is mild concentric left ventricular hypertrophy. The left ventricular ejection fraction is normal. Doppler measurements suggest pseudonormalized left ventricular relaxation, which is associated with grade II/IV or mild to moderate diastolic dysfunction. Wall motion cannot be accurately commented on, but no definite regional wall motion abnormalities noted. Right Ventricle The right ventricle is grossly normal size. There is normal right ventricular wall thickness. The right ventricular systolic function is normal. Atria The right atrium is normal in size. The left atrial size is normal. Interarterial septum not well visualized and not well dopplered. Cannot comment on ASD/PFO presence. Mitral Valve The mitral valve leaflets appear thickened, but open well. There is no mitral valve stenosis. There is a trace amount of mitral regurgitation. Aortic Valve The aortic valve is grossly normal. There is no aortic valve stenosis. There is a mild to moderate amount of aortic regurgitation. Tricuspid Valve The tricuspid valve is not well visualized, but is grossly normal. There is no tricuspid stenosis. There is a trace or physiologic amount of tricuspid regurgitation. Tricuspid regurgitation jet envelope not well defined to measure RV systolic pressure accurately. Pulmonic Valve The pulmonic valve is not well visualized. Great Vessels The aortic root is not well visualized. The inferior vena cava appeared normal and decreased > 50% with respiration (RAP 5-10 mmHg). Effusions There is no pericardial effusion. : CAITLYN ATKINSON > Breann Crowley
[2017-08-11] MEDS ORDERED: IBUPROFEN 400 MG TABLET PO SCH (12:00)
--- NOTE | 2017-08-11 12:33 | PDOC CONSULTATION ---
Consultation Consult Date: 08/11/17 Attending physician:: CAITLYN ATKINSON Consult reason:: Severe hypertension and transient ischemic attack History of Present Illness Admission Date/PCP: 08/10/17 14:02 CAITLYN ATKINSON MD Patient complains of: Severe hypertension and transient ischemic attack History of Present Illness: EMERSON DANGELO JR is a 52 year old male This is a 52-year-old maleWith a significant history of the stroke in the past with a carotid artery disease status post right-sided surgeryWith a history of the type 2 diabetes mellitus hypertension'sAnd hyperlipidemia and a super noncompliance with the medications and also continues to smoke and continues to smoke the marijuanaWent to the doctor's office and noticed some slurred speech and left-sided weakness and patients called the EMS and brought to the emergency department with left-sided weakness and slurred speech is completely resolved Patient's MRI of the head was all negatives with no acute findings patient's blood pressure is definitely elevated which patient is very noncompliance with the medications Patient's denied any chest pain denied any shortness of the breath Is completely back to the baseline's but still very noncompliance with extensive discussed with the patient and the in my office last week about this and patient understand very well and understand very wellBut unfortunately patient's still not able to follow the diets not stop smoking At this point we decided to admit the patient's in the IMCU for the stroke protocol and order the MRI of the head to rule out other etiology Just came back same issues with the couple of weeks back and a CT angiogram of the head was done was negative. This history was reviewed and confirmed. Patient was actually seen by my physician assistant county engineer in the office. He tells me that his blood pressure was extremely high at around 250/150. This may however need to be confirmed independently. He was noted to be very dizzy week and almost passing out. A 12-lead EKG had shown sinus tachycardia but without any acute ST-T wave changes. This was performed in my office. Patient was subsequently transported to the emergency room with the diagnosis of impending stroke and severe hypertension. Past Medical History Cardiac Medical History: Reports: Hyperlipidema, Hypertension Denies: Atrial Fibrillation, Coronary Artery Disease Pulmonary Medical History: Reports: Chronic Obstructive Pulmonary Disease (COPD) Endocrine Medical History: Reports: Diabetes Mellitus Type 1, Diabetes Mellitus Type 2 GI Medical History: Reports: Gastroesophageal Reflux Disease Psychiatric Medical History: Reports: Depression, Substance Abuse, Tobacco Dependency Past Surgical History Past Surgical History: Reports: Carotid Endarterectomy, Orthopedic Surgery, Vascular Surgery Social History Information Source: Patient Smoking Status: Current Every Day Smoker Frequency of Alcohol Use: None Hx Recreational Drug Use: Yes Drugs: None, Marijuana Hx Prescription Drug Abuse: No - Advance Directive Resuscitation Status: Full Code Surrogate healthcare decision maker:: Patient spouse is the surrogate decision-maker Family History Family History: Reviewed & Not Pertinent, CAD Parental Family History Reviewed: Yes Children Family History Reviewed: Yes Sibling(s) Family History Reviewed.: Yes Medication/Allergy Home Medications: Albuterol Sulfate [Proair Hfa Inhalation Aerosol 8.5 gm Mdi] 2 puff IH Q12 08/10 Aspirin [Ecotrin 81 mg EC Tablet] 81 mg PO DAILY 08/10/17 Atorvastatin Calcium [Lipitor 40 mg Tablet] 40 mg PO QHS 08/10/17 Budesonide/Formoterol Fumarate [Symbicort 160-4.5 Mcg Inhaler] 2 puff IH Q12 Clonidine HCl [Catapres 0.3 mg Tablet] 0.3 mg PO DAILY 08/10/17 Clopidogrel Bisulfate [Plavix 75 mg Tablet] 75 mg PO DAILY 08/10/17 Fluticasone Propionate [Flonase Nasal [place] 50 Mcg/[place] 16 gm] 1 spray NAREB DAILY PRN 08/10/17 Gabapentin [Neurontin 300 mg Capsule] 300 mg PO Q8 PRN 08/10/17 Meloxicam [Mobic] 15 mg PO DAILY 08/10/17 Metoprolol Succinate [Toprol Xl 50 mg Tab.sr] 50 mg PO DAILY 08/10/17 Ramipril [Altace 5 mg Capsule] 5 mg PO BID 08/10/17 Allergies/Adverse Reactions: acetaminophen [From Tylenol] Allergy (Verified 08/10/17 12:16) amlodipine besylate [From Norvasc] Allergy (Verified 08/10/17 12:16) pioglitazone HCl [From Actos] Allergy (Verified 08/10/17 12:16) Review of Systems Review of Systems: Please see history of present illness and past medical history as wall. Constitutional: No fever or chills reported. Head : Describes history of recent headaches but denied any head trauma. Eyes: No recent eye pain, diplopia, redness, discharge, acute visual changes. Ears: No recent chronic ear pain, acute hearing loss, ear discharge. Oral cavity: No recent ulcerations, bleeding, oral cavity discomfort. Neck: No recent acute neck pain reported. Hematologic: No recent easy bruising or bleeding or hematologic malignancy reported. Lymphatic: No recent lymphatic malignancy, chronic lymphadenopathy reported yet Cardiovascular system review: See history of present illness. Respiratory system review: No recent chronic cough, hemoptysis, blood clots in the lungs reported. Shortness of breath on exertion Gastrointestinal system review: Negative for any recent acute or chronic abdominal pain, hematemesis, melena, recent change in bowel habits. Genitourinary system review: No recent acute or chronic hematuria, flank pain, UTI etc. reported. Skin system review: Negative for any recent abnormal bruising, no rash, no pruritus reported. Neurologic: No prior history of strokes, mini strokes, seizure disorder. Near syncopal spells noted in the office yesterday. Psychologic: No history of major psychosis or major depression reported. Musculoskeletal: Minor aches and pains reported. No acute joint swelling reported. Endocrine: No recent polyuria, polydipsia, recent heat or cold intolerance. Physical Exam Vital Signs: Temp Pulse Resp BP Pulse Ox 98.1 F 68 20 151/99 H 100 08/11/17 12:00 08/11/17 12:00 08/11/17 12:00 08/11/17 12:00 08/11/17 12:00 Intake & Output 08/10/17 08/11/17 08/12/17 06:59 06:59 06:59 Intake Total 916 Output Total 400 Balance 516 Weight 90.2 kg Exam: GENERAL: well-nourished and in no acute distress. Alert and oriented x3 HEAD: Atraumatic, normocephalic. EYES: Pupils equal round and reactive to light, extraocular movements intact, sclera anicteric, conjunctiva are normal. ENT: TMs normal, nares patent, oropharynx clear without exudates. Moist mucous membranes. No oral ulcerations or bleeding gums noted NECK: supple without lymphadenopathy. Trachea is central. No cervical or axillary lymphadenopathy noted. Carotids are 2+, JVD WNL LUNGS: Respiration seems nonlabored, no significant accessory muscle action noted. Breath sounds clear to auscultation bilaterally and equal noted. No wheezes rales or rhonchi noted. No significant dullness noted on percussion. CHEST: Palpation of the chest wall shows no significant chest wall tenderness. No other significant abnormalities noted. 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 ABDOMEN: Soft, no significant tenderness appreciated, normoactive bowel sounds. No guarding, no rebound. No rigidity noted . No masses appreciated. EXTREMITIES: Pedal pulses are 1-2+, no calf tenderness noted. No clubbing or cyanosis. Negative pedal edema noted NEUROLOGICAL: Focused neurological exam showed no significant neurologic deficit. Normal speech, no focal weakness appreciated. PSYCH: Normal mood, normal affect. Judgment and insight within normal limits. SKIN: No significant ecchymosis, rash, ulcerations or signs of pruritus noted. MUSCULOSKELETAL EXAM: No significant joint swelling noted. Results Laboratory Results: 08/11/17 02:16 08/11/17 02:16 08/10/17 08/11/17 08/11/17 14:51 02:16 02:16 WBC 8.5 RBC 5.06 Hgb 15.6 Hct 46.1 MCV 91 MCH 30.8 MCHC 33.8 RDW 12.8 Plt Count 235 Seg Neutrophils % 58.8 Lymphocytes % 23.7 Monocytes % 11.4 Eosinophils % 5.1 Basophils % 1.0 Absolute Neutrophils 5.0 Absolute Lymphocytes 2.0 Absolute Monocytes 1.0 Absolute Eosinophils 0.4 Absolute Basophils 0.1 Sodium 144.2 Potassium 4.2 Chloride 110 H Carbon Dioxide 22 Anion Gap 12 BUN 20 Creatinine 1.12 Est GFR ( Amer) > 60 Est GFR (Non-Af Amer) > 60 Glucose 119 H Calcium 9.9 Total Bilirubin 1.2 AST 38 ALT 24 Alkaline Phosphatase 55 Total Protein 7.6 Albumin 4.5 Triglycerides 133 Cholesterol 206.88 H LDL Cholesterol Direct 151 H VLDL Cholesterol 27.0 HDL Cholesterol 33 L Lipase 106.2 08/10/17 08/10/17 08/10/17 14:51 14:51 20:00 Creatine Kinase 588 H 479 H CK-MB (CK-2) 1.68 Troponin I < 0.012 08/10/17 08/11/17 08/11/17 20:00 02:16 02:16 Creatine Kinase 444 H CK-MB (CK-2) 1.33 1.19 Troponin I < 0.012 < 0.012 EKG Comments: Twelve-lead EKG shows sinus rhythm. No acute ST-T wave changes noted. Impressions: Abdomen/Pelvis CT 08/10/17 00:00 IMPRESSION: NO SIGNIFICANT OR ACUTE PROCESS IN THE ABDOMEN OR PELVIS. Brain MRI with MRA 08/10/17 00:00 IMPRESSION: NORMAL MRA OF THE [place]. Chest X-Ray 08/10/17 00:00 IMPRESSION: NO ACUTE RADIOGRAPHIC FINDING IN THE CHEST. Head CT 08/10/17 00:00 IMPRESSION: No CT evidence of acute intracranial hemorrhage, mass effect, midline shift, or large territory acute ischemic change Old bilateral small frontal cortical and subcortical white matter infarcts Inflammatory changes in the paranasal sinuses EVIDENCE OF ACUTE STROKE: NO. Head MRI 08/10/17 11:51 IMPRESSION: Mild small vessel ischemic change in the hemispheric white matter and shea with Old right and left posterior frontal cortical infarcts Old right and left cerebellar lacunar infarcts Sinusitis EVIDENCE OF ACUTE STROKE: NO. Carotid Doppler Study 08/11/17 00:00 IMPRESSION: NO HEMODYNAMICALLY SIGNIFICANT STENOSIS. Assessment & Plan - Diagnosis (1) Hypertensive emergency Is this a current diagnosis for this admission?: Yes (2) TIA (transient ischemic attack) Qualifiers: Transient cerebral ischemia type: unspecified Qualified Code(s): G45.9 - Transient cerebral ischemic attack, unspecified Is this a current diagnosis for this admission?: Yes (3) Substance abuse Is this a current diagnosis for this admission?: Yes (4) Hyperlipidemia Qualifiers: Hyperlipidemia type: unspecified Qualified Code(s): E78.5 - Hyperlipidemia , unspecified Is this a current diagnosis for this admission?: Yes - Notes Notes: Severe hypertension: Patient was noted to have extremely high blood pressure. This could have caused cerebral vasoconstriction leading to patient's symptoms of TIA. So far evaluation into carotid duplex, brain MRI/MRA, CT of the head has been negative for acute stroke. Recommend better control of blood pressure. Consider switching patient to clonidine TTS patch to reduce chances of rebound hypertension. Have ordered patient to have 24 hour urinary collection for catecholamine excretion to rule out pheochromocytoma. Previous CT of the abdomen was negative for any adrenal tumor. The radiologist did not comment on renal artery stenosis but may need to be ruled out in this patient. Transient ischemic attack: Caused by severe hypertension. Recommend antiplatelet and statin therapy. Substance abuse: Patient had been advised against this. Hyperlipidemia: Recommend high potency statin therapy. - Time Time Spent: 30 to 50 Minutes - CODE STATUS was discussed, patient remains full code. Surrogate decision-maker unchanged. Multiple medical problems were addressed. More than 50% of the time spent coordinating care, discussing management plans with involved caregivers. Management plans discussed with involved personnels. Medical decision making was of moderate to high complexity , patient's has multiple comorbidities. Medications reviewed and adjusted accordingly: Yes
[2017-08-11] MEDS: GABAPENTIN 300 MG CAPSULE PO PRN (17:24)
[2017-08-11] MEDS: RAMIPRIL 5 MG CAPSULE PO SCH (23:14)
[2017-08-11] MEDS: ATORVASTATIN CALCIUM 40 MG TABLET PO SCH (23:19)
[2017-08-12 05:38] LABS: ABSOLUTE BASOPHILS # (AUTO) 0.1 10^3/uL (0.0-0.2); ABSOLUTE EOSINOPHILS # (AUTO) 0.4 10^3/uL (0.0-0.6); ABSOLUTE LYMPHOCYTES (AUTO) 1.8 10^3/uL (0.5-4.7); ABSOLUTE MONOCYTES (AUTO) 0.9 10^3/uL (0.1-1.4); ABSOLUTE NEUT (AUTO) 4.4 10^3/uL (1.7-8.2); BASOPHILS % (AUTO) 0.9 % (0-2); EOSINOPHILS % (AUTO) 5.5 % (0-6); HEMATOCRIT 46.2 % (37.9-51.0); HEMOGLOBIN 15.7 g/dL (13.5-17.0); LYMPHOCYTES % (AUTO) 23.4 % (13-45); MEAN CORPUSCULAR HEMOGLOBIN 30.9 pg (27.0-33.4); MEAN CORPUSCULAR VOLUME 91 fl (80-97); MONOCYTES % (AUTO) 12.1 % (3-13); PLATELET COUNT 226 10^3/uL (150-450); RED BLOOD COUNT 5.07 10^6/uL (4.35-5.55); SEGMENTED NEUTROPHILS % (AUTO) 58.1 % (42-78); TOTAL CELLS COUNTED % (AUTO) 100 %; WHITE BLOOD COUNT 7.6 10^3/uL (4.0-10.5)
[2017-08-12 06:04] LABS: ALANINE AMINOTRANSFERASE 24 U/L (21-72); ALBUMIN 4.4 g/dL (3.5-5.0); ALKALINE PHOSPHATASE 54 U/L (38-126); ANION GAP 11 (5-19); ASPARTATE AMINO TRANSFERASE 30 U/L (17-59); BILIRUBIN,DIRECT 0.3 mg/dL (0.0-0.4); BILIRUBIN,TOTAL 1.1 mg/dL (0.2-1.3); BLOOD UREA NITROGEN 21 mg/dL (7-20); CALCIUM 9.7 mg/dL (8.4-10.2); CARBON DIOXIDE 25 mmol/L (22-30); CHLORIDE 109 mmol/L (98-107); GLUCOSE 99 mg/dL (75-110); POTASSIUM 4.2 mmol/L (3.6-5.0); SODIUM 144.6 mmol/L (137-145); TOTAL PROTEIN 7.8 g/dL (6.3-8.2)
[2017-08-12] MEDS: BUSPIRONE HCL 10 MG TABLET PO SCH ×3 (06:29→22:02)
[2017-08-12] MEDS: CLONIDINE HCL 0.1 MG TABLET PO SCH (06:30)
[2017-08-12] MEDS: LANSOPRAZOLE 30 MG TAB.RAP.DR PO SCH ×2 (06:30→17:06)
[2017-08-12] MEDS: METOPROLOL SUCCINATE 50 MG TAB.SR.24H PO SCH (11:06)
[2017-08-12] MEDS: RAMIPRIL 5 MG CAPSULE PO SCH ×2 (11:06→22:01)
[2017-08-12] MEDS: CLOPIDOGREL BISULFATE 75 MG TABLET PO SCH (11:06)
[2017-08-12] MEDS: ASPIRIN 81 MG TABLET, ENT COATED PO SCH (11:06)
[2017-08-12] MEDS: BUDESONIDE/FORMOTEROL 160-4.5 MCG 60 PUFF/6 GM MDI IH SCH ×2 (11:07→22:01)
[2017-08-12] MEDS: ENOXAPARIN SODIUM INJ 40 MG/0.4 ML DISP.SYRIN SUBCUT SCH (11:07)
[2017-08-12] MEDS: GABAPENTIN 300 MG CAPSULE PO PRN ×2 (11:09→19:37)
[2017-08-12] MEDS: NICOTINE 14 MG/24 HR PATCH.TD24 TD SCH (11:10)
--- NOTE | 2017-08-12 11:16 | PDOC PROGRESS REPORT ---
Subjective Progress Note for:: 08/12/17 Subjective:: Patient was seen by the bedside, he was admitted for evaluation of left-sided weakness, the MRI of the head that was done on 08/10/2017 showed old small bilateral posterior frontal cortical and subcortical white matter infarcts there is diffuse inflammatory change in the paranasal sinuses with air-fluid levels in the frontal, ethmoid, bilateral maxillary sinuses Reason For Visit: TIA Physical Exam Vital Signs: Temp Pulse Resp BP Pulse Ox 98.8 F 67 16 128/83 H 98 08/12/17 07:51 08/12/17 07:51 08/12/17 07:51 08/12/17 07:51 08/12/17 07:51 Intake & Output 08/11/17 08/12/17 08/13/17 06:59 06:59 06:59 Intake Total 916 1326 Output Total 400 1200 Balance 516 126 Weight 90.2 kg 80.2 kg General appearance: PRESENT: no acute distress Eye exam: PRESENT: PERRLA Respiratory exam: PRESENT: clear to auscultation rommel Cardiovascular exam: PRESENT: +S1, +S2 GI/Abdominal exam: PRESENT: soft Neurological exam: PRESENT: alert, motor sensory deficit Results Laboratory Results: 08/12/17 04:51 08/12/17 04:51 08/12/17 08/12/17 04:51 04:51 WBC 7.6 RBC 5.07 Hgb 15.7 Hct 46.2 MCV 91 MCH 30.9 MCHC 34.0 RDW 13.0 Plt Count 226 Seg Neutrophils % 58.1 Lymphocytes % 23.4 Monocytes % 12.1 Eosinophils % 5.5 Basophils % 0.9 Absolute Neutrophils 4.4 Absolute Lymphocytes 1.8 Absolute Monocytes 0.9 Absolute Eosinophils 0.4 Absolute Basophils 0.1 Sodium 144.6 Potassium 4.2 Chloride 109 H Carbon Dioxide 25 Anion Gap 11 BUN 21 H Creatinine 1.22 Est GFR ( Amer) > 60 Est GFR (Non-Af Amer) > 60 Glucose 99 Calcium 9.7 Total Bilirubin 1.1 AST 30 ALT 24 Alkaline Phosphatase 54 Total Protein 7.8 Albumin 4.4 08/10/17 08/10/17 08/10/17 14:51 14:51 20:00 Creatine Kinase 588 H 479 H CK-MB (CK-2) 1.68 Troponin I < 0.012 08/10/17 08/11/17 08/11/17 20:00 02:16 02:16 Creatine Kinase 444 H CK-MB (CK-2) 1.33 1.19 Troponin I < 0.012 < 0.012 Impressions: Abdomen/Pelvis CT 08/10/17 00:00 IMPRESSION: NO SIGNIFICANT OR ACUTE PROCESS IN THE ABDOMEN OR PELVIS. Brain MRI with MRA 08/10/17 00:00 IMPRESSION: NORMAL MRA OF THE [place]. Chest X-Ray 08/10/17 00:00 IMPRESSION: NO ACUTE RADIOGRAPHIC FINDING IN THE CHEST. Head CT 08/10/17 00:00 IMPRESSION: No CT evidence of acute intracranial hemorrhage, mass effect, midline shift, or large territory acute ischemic change Old bilateral small frontal cortical and subcortical white matter infarcts Inflammatory changes in the paranasal sinuses EVIDENCE OF ACUTE STROKE: NO. Head MRI 08/10/17 11:51 IMPRESSION: Mild small vessel ischemic change in the hemispheric white matter and shea with Old right and left posterior frontal cortical infarcts Old right and left cerebellar lacunar infarcts Sinusitis EVIDENCE OF ACUTE STROKE: NO. Carotid Doppler Study 08/11/17 00:00 IMPRESSION: NO HEMODYNAMICALLY SIGNIFICANT STENOSIS. Assessment & Plan - Diagnosis (1) Acute CVA (cerebrovascular accident) Is this a current diagnosis for this admission?: Yes Plan: Continue anti-CVA regimen may need to repeat MRI in a week (2) Acute maxillary sinusitis Qualifiers: Recurrence: not specified as recurrent Qualified Code(s): J01.00 - Acute maxillary sinusitis, unspecified Is this a current diagnosis for this admission?: Yes Plan: Start amoxicillin
[2017-08-12] MEDS ORDERED: AMOXICILLIN TRIHYDRATE 500 MG CAPSULE PO SCH (11:30)
--- NOTE | 2017-08-12 13:25 | PDOC PROGRESS REPORT ---
Subjective Progress Note for:: 08/12/17 Subjective:: Patient seems to be doing better with gradual improvement. Patient denied any recurrence of neurologic deficit. Blood pressure remains intermittently elevated. Yesterday patient declined to pursue 24 hour urinary collection. Pt is denying any chest arm or neck discomfort. Patient denying any PND, orthopnea. Patient denied any sustained palpitations, dizziness, syncope, near syncope. Patient denying any fever chills. Patient denying any other significant discomfort. Patient is maintaining sinus rhythm. Review of systems: Rest review of systems negative. Medications: Medications have been reviewed. Reason For Visit: TIA Physical Exam Vital Signs: Temp Pulse Resp BP Pulse Ox 98.6 F 67 14 154/94 H 98 08/12/17 12:02 08/12/17 12:02 08/12/17 12:02 08/12/17 12:02 08/12/17 12:02 Intake & Output 08/11/17 08/12/17 08/13/17 06:59 06:59 06:59 Intake Total 916 1326 Output Total 400 1200 Balance 516 126 Weight 90.2 kg 80.2 kg Exam: GENERAL: well-nourished and in no acute distress. Alert and oriented x3 HEAD: Atraumatic, normocephalic. EYES: Pupils equal round and reactive to light, extraocular movements intact, sclera anicteric, conjunctiva are normal. ENT: TMs normal, nares patent, oropharynx clear without exudates. Moist mucous membranes. No oral ulcerations or bleeding gums noted NECK: supple without lymphadenopathy. Trachea is central. No cervical or axillary lymphadenopathy noted. Carotids are 2+, JVD WNL LUNGS: Respiration seems nonlabored, no significant accessory muscle action noted. Breath sounds clear to auscultation bilaterally and equal noted. No wheezes rales or rhonchi noted. No significant dullness noted on percussion. CHEST: Palpation of the chest wall shows no significant chest wall tenderness. No other significant abnormalities noted. 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 ABDOMEN: Soft, no significant tenderness appreciated, normoactive bowel sounds. No guarding, no rebound. No rigidity noted . No masses appreciated. EXTREMITIES: Pedal pulses are 1-2+, no calf tenderness noted. No clubbing or cyanosis.trace to 1+ pedal edema noted NEUROLOGICAL: Focused neurological exam showed no significant neurologic deficit. Normal speech, no focal weakness appreciated. PSYCH: Normal mood, normal affect. Judgment and insight within normal limits. SKIN: No significant ecchymosis, rash, ulcerations or signs of pruritus noted. MUSCULOSKELETAL EXAM: No significant joint swelling noted. Results Laboratory Results: 08/12/17 04:51 08/12/17 04:51 08/12/17 08/12/17 04:51 04:51 WBC 7.6 RBC 5.07 Hgb 15.7 Hct 46.2 MCV 91 MCH 30.9 MCHC 34.0 RDW 13.0 Plt Count 226 Seg Neutrophils % 58.1 Lymphocytes % 23.4 Monocytes % 12.1 Eosinophils % 5.5 Basophils % 0.9 Absolute Neutrophils 4.4 Absolute Lymphocytes 1.8 Absolute Monocytes 0.9 Absolute Eosinophils 0.4 Absolute Basophils 0.1 Sodium 144.6 Potassium 4.2 Chloride 109 H Carbon Dioxide 25 Anion Gap 11 BUN 21 H Creatinine 1.22 Est GFR ( Amer) > 60 Est GFR (Non-Af Amer) > 60 Glucose 99 Calcium 9.7 Total Bilirubin 1.1 AST 30 ALT 24 Alkaline Phosphatase 54 Total Protein 7.8 Albumin 4.4 08/10/17 08/10/17 08/10/17 14:51 14:51 20:00 Creatine Kinase 588 H 479 H CK-MB (CK-2) 1.68 Troponin I < 0.012 08/10/17 08/11/17 08/11/17 20:00 02:16 02:16 Creatine Kinase 444 H CK-MB (CK-2) 1.33 1.19 Troponin I < 0.012 < 0.012 EKG Comments: Telemetry strips shows sinus rhythm without any sustained tacky or bradycardia arrhythmias. Impressions: Abdomen/Pelvis CT 08/10/17 00:00 IMPRESSION: NO SIGNIFICANT OR ACUTE PROCESS IN THE ABDOMEN OR PELVIS. Brain MRI with MRA 08/10/17 00:00 IMPRESSION: NORMAL MRA OF THE [place]. Chest X-Ray 08/10/17 00:00 IMPRESSION: NO ACUTE RADIOGRAPHIC FINDING IN THE CHEST. Head CT 08/10/17 00:00 IMPRESSION: No CT evidence of acute intracranial hemorrhage, mass effect, midline shift, or large territory acute ischemic change Old bilateral small frontal cortical and subcortical white matter infarcts Inflammatory changes in the paranasal sinuses EVIDENCE OF ACUTE STROKE: NO. Head MRI 08/10/17 11:51 IMPRESSION: Mild small vessel ischemic change in the hemispheric white matter and shea with Old right and left posterior frontal cortical infarcts Old right and left cerebellar lacunar infarcts Sinusitis EVIDENCE OF ACUTE STROKE: NO. Carotid Doppler Study 08/11/17 00:00 IMPRESSION: NO HEMODYNAMICALLY SIGNIFICANT STENOSIS. Assessment & Plan - Diagnosis (1) Hypertensive emergency Is this a current diagnosis for this admission?: Yes (2) TIA (transient ischemic attack) Qualifiers: Transient cerebral ischemia type: unspecified Qualified Code(s): G45.9 - Transient cerebral ischemic attack, unspecified Is this a current diagnosis for this admission?: Yes (3) Substance abuse Is this a current diagnosis for this admission?: Yes (4) Hyperlipidemia Qualifiers: Hyperlipidemia type: unspecified Qualified Code(s): E78.5 - Hyperlipidemia , unspecified Is this a current diagnosis for this admission?: Yes - Notes Notes: Patient convinced to have 24 hour urinary collection. Patient was demanding to be discharged. Patient being started on treatment for acute sinusitis by Dr. Rodriguez. Severe hypertension: Patient was noted to have extremely high blood pressure. This could have caused cerebral vasoconstriction leading to patient's symptoms of TIA. So far evaluation into carotid duplex, brain MRI/MRA, CT of the head has been negative for acute stroke. Recommend better control of blood pressure. Consider switching patient to clonidine TTS patch to reduce chances of rebound hypertension. Have ordered patient to have 24 hour urinary collection for catecholamine excretion to rule out pheochromocytoma. Previous CT of the abdomen was negative for any adrenal tumor. The radiologist did not comment on renal artery stenosis but may need to be ruled out in this patient. Transient ischemic attack: Caused by severe hypertension. Recommend antiplatelet and statin therapy. Substance abuse: History of substance abuse. Patient had been advised against this. Hyperlipidemia: Recommend high potency statin therapy. - Time Time with patient: 15-25 minutes - CODE STATUS was discussed, patient remains full code. Surrogate decision-maker unchanged. Multiple medical problems were addressed. More than 50% of the time spent coordinating care, discussing management plans with involved caregivers. Management plans discussed with involved personnels. Medical decision making was of moderate to high complexity , patient's has multiple comorbidities. Medications reviewed and adjusted accordingly: Yes
[2017-08-12] MEDS: CLONIDINE HCL 0.2 MG TABLET PO SCH ×2 (13:54→22:02)
[2017-08-12] MEDS: AMOXICILLIN TRIHYDRATE 500 MG CAPSULE PO SCH ×2 (13:55→22:02)
--- NOTE | 2017-08-12 18:37 | PSYCHOLOGICAL NOTE ---
Psych Note - Psych Note Psych Note: Reason for Consult: Substance abuse and depression Consent permissions: none given 52 year old male with history of CVA (2008) presents to the ED via EMS after developing slurred speech, left sided weakness, and blurred vision while at Dr. Crowley's office earlier this morning. Patient reports he suddenly was not able to move his bilateral upper or lower extremities. Patient was seen in the ED yesterday for vomiting and malaise after his hookah was "poisoned" when smoking synthetic marijuana. Patient disclosed that he is currently feeling better than when he came in to [facility]; "I came in from a stroke." He confirms this is not his first stroke;" I have had 3 or 4 before this one." He continued disclosed it happened after smoke his hookah with some "bad stuff." He reports that he is attempting to quit smoking and "my doctor told me to do that stuff...I'm not doing that again. " He confirms he drinks but disclosed that he has not drank for "a few months" because he has not been feeling well. He reports that he does not have any concerns with his drinking or smoking; "If I want to have a drink, I am going to drink...I'm 52 years old." When offered local resources to for mental health and substance abuse services he stated he had no interest and thanked the clinician for coming. Patient asked for assistance in obtaining access to stroke video per information page he received; clinician provided the requested assistance. Patient is alert and orientated to person, place, time and circumstance. Mood is euthymic with congruent affect as evidenced by the patient smiling, laughing and openly engaging with clinician. Patient denies suicidal and homicidal ideation. Delusions are absent and behaviors congruent with intact reality based presentation i.e. organized, linear thinking. Intellectual abilities appears to be within the average range. Eye contact was well-maintained. Conversational speech was within normal rate and tone with distinct accent. Attention and concentration were good. Insight, judgment, impulse control is fair. There are no medication recommendations at this time Alcohol abuse Cannabis abuse Impression\\plan: Patient is considered psychiatrically clear. Patient does not meet IVC criteria per [place] GS 120 2C. Patient denies suicidal and homicidal ideation. No evidence of psychosis and behaviors are congruent with intact reality based presentation i.e. organized and linear thinking. Patient was encouraged to seek substance abuse treatment however patient stated he was not interested in disclosed "if I want to have a drink I am going to drink." Patient declined resources for local area that include both substance abuse and mental health services. Dr. Fung was consulted and the care management this patient.
[2017-08-12] MEDS: ATORVASTATIN CALCIUM 40 MG TABLET PO SCH (22:02)
[2017-08-13] MEDS: LANSOPRAZOLE 30 MG TAB.RAP.DR PO SCH ×2 (05:34→18:14)
[2017-08-13] MEDS: AMOXICILLIN TRIHYDRATE 500 MG CAPSULE PO SCH ×3 (05:34→23:09)
[2017-08-13] MEDS: BUSPIRONE HCL 10 MG TABLET PO SCH ×3 (05:34→23:04)
[2017-08-13] MEDS: CLONIDINE HCL 0.2 MG TABLET PO SCH ×3 (05:36→23:03)
[2017-08-13 06:16] LABS: ABSOLUTE BASOPHILS # (AUTO) 0.1 10^3/uL (0.0-0.2); ABSOLUTE EOSINOPHILS # (AUTO) 0.4 10^3/uL (0.0-0.6); ABSOLUTE LYMPHOCYTES (AUTO) 1.9 10^3/uL (0.5-4.7); ABSOLUTE MONOCYTES (AUTO) 0.8 10^3/uL (0.1-1.4); ABSOLUTE NEUT (AUTO) 4.3 10^3/uL (1.7-8.2); BASOPHILS % (AUTO) 1.2 % (0-2); EOSINOPHILS % (AUTO) 5.3 % (0-6); HEMATOCRIT 47.1 % (37.9-51.0); HEMOGLOBIN 15.9 g/dL (13.5-17.0); LYMPHOCYTES % (AUTO) 25.3 % (13-45); MEAN CORPUSCULAR HEMOGLOBIN 30.9 pg (27.0-33.4); MEAN CORPUSCULAR HGB CONC 33.7 g/dL (32.0-36.0); MEAN CORPUSCULAR VOLUME 92 fl (80-97); MONOCYTES % (AUTO) 10.9 % (3-13); PLATELET COUNT 217 10^3/uL (150-450); RED BLOOD COUNT 5.14 10^6/uL (4.35-5.55); RED CELL DISTRIBUTION WIDTH 12.9 % (11.5-14.0); SEGMENTED NEUTROPHILS % (AUTO) 57.3 % (42-78); TOTAL CELLS COUNTED % (AUTO) 100 %; WHITE BLOOD COUNT 7.6 10^3/uL (4.0-10.5)
[2017-08-13 06:29] LABS: ALANINE AMINOTRANSFERASE 25 U/L (21-72); ALBUMIN 4.5 g/dL (3.5-5.0); ALKALINE PHOSPHATASE 54 U/L (38-126); ANION GAP 15 (5-19); ASPARTATE AMINO TRANSFERASE 23 U/L (17-59); BILIRUBIN,DIRECT 0.1 mg/dL (0.0-0.4); BILIRUBIN,TOTAL 1.3 mg/dL (0.2-1.3); BLOOD UREA NITROGEN 24 mg/dL (7-20); CALCIUM 10.2 mg/dL (8.4-10.2); CARBON DIOXIDE 24 mmol/L (22-30); CHLORIDE 105 mmol/L (98-107); GLUCOSE 97 mg/dL (75-110); POTASSIUM 4.4 mmol/L (3.6-5.0); TOTAL PROTEIN 7.5 g/dL (6.3-8.2)
[2017-08-13] MEDS: CLOPIDOGREL BISULFATE 75 MG TABLET PO SCH (09:47)
[2017-08-13] MEDS: ENOXAPARIN SODIUM INJ 40 MG/0.4 ML DISP.SYRIN SUBCUT SCH (09:47)
[2017-08-13] MEDS: NICOTINE 14 MG/24 HR PATCH.TD24 TD SCH (09:48)
[2017-08-13] MEDS: RAMIPRIL 5 MG CAPSULE PO SCH ×2 (09:48→23:04)
[2017-08-13] MEDS: ASPIRIN 81 MG TABLET, ENT COATED PO SCH (09:48)
[2017-08-13] MEDS: GABAPENTIN 300 MG CAPSULE PO PRN ×2 (09:48→18:15)
[2017-08-13] MEDS: METOPROLOL SUCCINATE 50 MG TAB.SR.24H PO SCH (09:48)
[2017-08-13] MEDS: BUDESONIDE/FORMOTEROL 160-4.5 MCG 60 PUFF/6 GM MDI IH SCH ×2 (09:49→23:02)
--- NOTE | 2017-08-13 12:36 | PDOC PROGRESS REPORT ---
Subjective Progress Note for:: 08/13/17 Subjective:: Blood pressure noted to be in better control. Patient seems to be doing better with gradual improvement. Patient denied any recurrence of neurologic deficit. Blood pressure remains intermittently elevated. Yesterday patient declined to pursue 24 hour urinary collection. Pt is denying any chest arm or neck discomfort. Patient denying any PND, orthopnea. Patient denied any sustained palpitations, dizziness, syncope, near syncope. Patient denying any fever chills. Patient denying any other significant discomfort. Patient is maintaining sinus rhythm. Patient complaints of fluttering sensation in the chest but when correlated with telemetry monitoring, no arrhythmias were noted. Review of systems: Rest review of systems negative. Medications: Medications have been reviewed. Reason For Visit: TIA Physical Exam Vital Signs: Temp Pulse Resp BP Pulse Ox 98.7 F 63 18 144/87 H 99 08/13/17 11:34 08/13/17 11:34 08/13/17 11:34 08/13/17 11:34 08/13/17 11:34 Intake & Output 08/12/17 08/13/17 08/14/17 06:59 06:59 06:59 Intake Total 1326 1603 250 Output Total 1200 900 400 Balance 126 703 -150 Weight 80.2 kg 79.1 kg Exam: GENERAL: well-nourished and in no acute distress. Alert and oriented x3 HEAD: Atraumatic, normocephalic. EYES: Pupils equal round and reactive to light, extraocular movements intact, sclera anicteric, conjunctiva are normal. ENT: TMs normal, nares patent, oropharynx clear without exudates. Moist mucous membranes. No oral ulcerations or bleeding gums noted NECK: supple without lymphadenopathy. Trachea is central. No cervical or axillary lymphadenopathy noted. Carotids are 2+, JVD WNL LUNGS: Respiration seems nonlabored, no significant accessory muscle action noted. Breath sounds clear to auscultation bilaterally and equal noted. No wheezes rales or rhonchi noted. No significant dullness noted on percussion. CHEST: Palpation of the chest wall shows no significant chest wall tenderness. No other significant abnormalities noted. HEART: [place] TALCER, No PSH, 1/6 ERNESTO aortic area, 1/6 [place] systolic murmur mitral area, no rubs, no gallops. ABDOMEN: Soft, no significant tenderness appreciated, normoactive bowel sounds. No guarding, no rebound. No rigidity noted . No masses appreciated. EXTREMITIES: Pedal pulses are 1-2+, no calf tenderness noted. No clubbing or cyanosis.trace to 1+ pedal edema noted NEUROLOGICAL: Focused neurological exam showed no significant neurologic deficit. Normal speech, no focal weakness appreciated. PSYCH: Normal mood, normal affect. Judgment and insight within normal limits. SKIN: No significant ecchymosis, rash, ulcerations or signs of pruritus noted. MUSCULOSKELETAL EXAM: No significant joint swelling noted. Results Laboratory Results: 08/13/17 05:08 08/13/17 05:08 08/13/17 08/13/17 05:08 05:08 WBC 7.6 RBC 5.14 Hgb 15.9 Hct 47.1 MCV 92 MCH 30.9 MCHC 33.7 RDW 12.9 Plt Count 217 Seg Neutrophils % 57.3 Lymphocytes % 25.3 Monocytes % 10.9 Eosinophils % 5.3 Basophils % 1.2 Absolute Neutrophils 4.3 Absolute Lymphocytes 1.9 Absolute Monocytes 0.8 Absolute Eosinophils 0.4 Absolute Basophils 0.1 Sodium 144.0 Potassium 4.4 Chloride 105 Carbon Dioxide 24 Anion Gap 15 BUN 24 H Creatinine 1.34 H Est GFR ( Amer) > 60 Est GFR (Non-Af Amer) 56 L Glucose 97 Calcium 10.2 Total Bilirubin 1.3 AST 23 ALT 25 Alkaline Phosphatase 54 Total Protein 7.5 Albumin 4.5 08/10/17 08/10/17 08/10/17 14:51 14:51 20:00 Creatine Kinase 588 H 479 H CK-MB (CK-2) 1.68 Troponin I < 0.012 08/10/17 08/11/17 08/11/17 20:00 02:16 02:16 Creatine Kinase 444 H CK-MB (CK-2) 1.33 1.19 Troponin I < 0.012 < 0.012 Impressions: Abdomen/Pelvis CT 08/10/17 00:00 IMPRESSION: NO SIGNIFICANT OR ACUTE PROCESS IN THE ABDOMEN OR PELVIS. Brain MRI with MRA 08/10/17 00:00 IMPRESSION: NORMAL MRA OF THE [place]. Chest X-Ray 08/10/17 00:00 IMPRESSION: NO ACUTE RADIOGRAPHIC FINDING IN THE CHEST. Head CT 08/10/17 00:00 IMPRESSION: No CT evidence of acute intracranial hemorrhage, mass effect, midline shift, or large territory acute ischemic change Old bilateral small frontal cortical and subcortical white matter infarcts Inflammatory changes in the paranasal sinuses EVIDENCE OF ACUTE STROKE: NO. Head MRI 08/10/17 11:51 IMPRESSION: Mild small vessel ischemic change in the hemispheric white matter and shea with Old right and left posterior frontal cortical infarcts Old right and left cerebellar lacunar infarcts Sinusitis EVIDENCE OF ACUTE STROKE: NO. Carotid Doppler Study 08/11/17 00:00 IMPRESSION: NO HEMODYNAMICALLY SIGNIFICANT STENOSIS. Assessment & Plan - Diagnosis (1) Hypertensive emergency Is this a current diagnosis for this admission?: Yes (2) TIA (transient ischemic attack) Qualifiers: Transient cerebral ischemia type: unspecified Qualified Code(s): G45.9 - Transient cerebral ischemic attack, unspecified Is this a current diagnosis for this admission?: Yes (3) Substance abuse Is this a current diagnosis for this admission?: Yes (4) Hyperlipidemia Qualifiers: Hyperlipidemia type: unspecified Qualified Code(s): E78.5 - Hyperlipidemia , unspecified Is this a current diagnosis for this admission?: Yes (5) Acute maxillary sinusitis Qualifiers: Recurrence: not specified as recurrent Qualified Code(s): J01.00 - Acute maxillary sinusitis, unspecified Is this a current diagnosis for this admission?: Yes - Notes Notes: Patient continue with 24 hour urinary collection. Severe hypertension: Blood pressure now under better control. However on admission and just back to admission, patient was noted to have extremely high blood pressure. This could have caused cerebral vasoconstriction leading to patient's symptoms of TIA. So far evaluation into carotid duplex, brain MRI/MRA , CT of the head has been negative for acute stroke. Consider switching patient to clonidine TTS patch to reduce chances of rebound hypertension. Have ordered patient to have 24 hour urinary collection for catecholamine excretion to rule out pheochromocytoma. Previous CT of the abdomen was negative for any adrenal tumor. The radiologist did not comment on renal artery stenosis but may need to be ruled out in this patient. Transient ischemic attack: Caused by severe hypertension. Recommend antiplatelet and statin therapy. Substance abuse: History of substance abuse. Patient had been advised against this. Hyperlipidemia: Recommend high potency statin therapy. Headaches: Most likely related to acute sinusitis. Continue antibiotic therapy. - Time Time with patient: Greater than 35 minutes - CODE STATUS was discussed, patient remains full code. Surrogate decision-maker unchanged. Multiple medical problems were addressed. More than 50% of the time spent coordinating care, discussing management plans with involved caregivers. Management plans discussed with involved personnels. Medical decision making was of moderate to high complexity, patient's has multiple comorbidities. Medications reviewed and adjusted accordingly: Yes
[2017-08-13] MEDS ORDERED: BISACODYL 5 MG TABEC PO ONE (13:15)
--- NOTE | 2017-08-13 13:55 | PDOC PROGRESS REPORT ---
Subjective Progress Note for:: 08/13/17 Subjective:: He complained of constipation and insomnia Reason For Visit: TIA Physical Exam Vital Signs: Temp Pulse Resp BP Pulse Ox 98.7 F 63 18 144/87 H 99 08/13/17 11:34 08/13/17 11:34 08/13/17 11:34 08/13/17 11:34 08/13/17 11:34 Intake & Output 08/12/17 08/13/17 08/14/17 06:59 06:59 06:59 Intake Total 1326 1603 250 Output Total 1200 900 400 Balance 126 703 -150 Weight 80.2 kg 79.1 kg General appearance: PRESENT: no acute distress Eye exam: PRESENT: PERRLA Respiratory exam: PRESENT: clear to auscultation rommel Cardiovascular exam: PRESENT: +S1, +S2 GI/Abdominal exam: PRESENT: soft Neurological exam: PRESENT: alert Results Laboratory Results: 08/13/17 05:08 08/13/17 05:08 08/13/17 08/13/17 05:08 05:08 WBC 7.6 RBC 5.14 Hgb 15.9 Hct 47.1 MCV 92 MCH 30.9 MCHC 33.7 RDW 12.9 Plt Count 217 Seg Neutrophils % 57.3 Lymphocytes % 25.3 Monocytes % 10.9 Eosinophils % 5.3 Basophils % 1.2 Absolute Neutrophils 4.3 Absolute Lymphocytes 1.9 Absolute Monocytes 0.8 Absolute Eosinophils 0.4 Absolute Basophils 0.1 Sodium 144.0 Potassium 4.4 Chloride 105 Carbon Dioxide 24 Anion Gap 15 BUN 24 H Creatinine 1.34 H Est GFR ( Amer) > 60 Est GFR (Non-Af Amer) 56 L Glucose 97 Calcium 10.2 Total Bilirubin 1.3 AST 23 ALT 25 Alkaline Phosphatase 54 Total Protein 7.5 Albumin 4.5 08/10/17 08/10/17 08/10/17 14:51 14:51 20:00 Creatine Kinase 588 H 479 H CK-MB (CK-2) 1.68 Troponin I < 0.012 08/10/17 08/11/17 08/11/17 20:00 02:16 02:16 Creatine Kinase 444 H CK-MB (CK-2) 1.33 1.19 Troponin I < 0.012 < 0.012 Impressions: Abdomen/Pelvis CT 08/10/17 00:00 IMPRESSION: NO SIGNIFICANT OR ACUTE PROCESS IN THE ABDOMEN OR PELVIS. Brain MRI with MRA 08/10/17 00:00 IMPRESSION: NORMAL MRA OF [place]. Chest X-Ray 08/10/17 00:00 IMPRESSION: NO ACUTE RADIOGRAPHIC FINDING IN THE CHEST. Head CT 08/10/17 00:00 IMPRESSION: No CT evidence of acute intracranial hemorrhage, mass effect, midline shift, or large territory acute ischemic change Old bilateral small frontal cortical and subcortical white matter infarcts Inflammatory changes in the paranasal sinuses EVIDENCE OF ACUTE STROKE: NO. Head MRI 08/10/17 11:51 IMPRESSION: Mild small vessel ischemic change in the hemispheric white matter and shea with Old right and left posterior frontal cortical infarcts Old right and left cerebellar lacunar infarcts Sinusitis EVIDENCE OF ACUTE STROKE: NO. Carotid Doppler Study 08/11/17 00:00 IMPRESSION: NO HEMODYNAMICALLY SIGNIFICANT STENOSIS. Assessment & Plan - Diagnosis (1) Acute CVA (cerebrovascular accident) Is this a current diagnosis for this admission?: Yes (2) Acute maxillary sinusitis Qualifiers: Recurrence: not specified as recurrent Qualified Code(s): J01.00 - Acute maxillary sinusitis, unspecified Is this a current diagnosis for this admission?: Yes Plan: Start amoxicillin (3) Constipation Qualifiers: Constipation type: other constipation type Qualified Code(s): K59.09 - Other constipation Is this a current diagnosis for this admission?: Yes Plan: Give Dulcolax (4) Insomnia Qualifiers: Insomnia type: primary Qualified Code(s): F51.01 - Primary insomnia Plan: Start Ambien
[2017-08-13 21:17] LABS: ABSOLUTE BASOPHILS # (AUTO) 0.1 10^3/uL (0.0-0.2); ABSOLUTE EOSINOPHILS # (AUTO) 0.4 10^3/uL (0.0-0.6); ABSOLUTE LYMPHOCYTES (AUTO) 3.1 10^3/uL (0.5-4.7); ABSOLUTE MONOCYTES (AUTO) 1.1 10^3/uL (0.1-1.4); ABSOLUTE NEUT (AUTO) 7.6 10^3/uL (1.7-8.2); BASOPHILS % (AUTO) 0.7 % (0-2); EOSINOPHILS % (AUTO) 3.2 % (0-6); HEMATOCRIT 51.7 % (37.9-51.0); HEMOGLOBIN 17.6 g/dL (13.5-17.0); LYMPHOCYTES % (AUTO) 25.5 % (13-45); MEAN CORPUSCULAR HEMOGLOBIN 30.9 pg (27.0-33.4); MEAN CORPUSCULAR HGB CONC 34.1 g/dL (32.0-36.0); MEAN CORPUSCULAR VOLUME 91 fl (80-97); PLATELET COUNT 321 10^3/uL (150-450); SEGMENTED NEUTROPHILS % (AUTO) 61.6 % (42-78); TOTAL CELLS COUNTED % (AUTO) 100 %; WHITE BLOOD COUNT 12.3 10^3/uL (4.0-10.5)
[2017-08-13 21:23] LABS: INTERNATIONAL RATION (INR) 0.91; PARTIAL THROMBOPLASTIN TIME 33.4 SEC (23.5-35.8)
[2017-08-13 21:26] LABS: PROTHROMBIN TIME 12.9 SEC (11.4-15.4)
--- NOTE | 2017-08-13 21:26 | EKG REPORT ---
SEVERITY:- ABNORMAL ECG - SINUS RHYTHM LEFT AXIS DEVIATION LEFT VENTRICULAR HYPERTROPHY : Confirmed by: Richard Harding MD 13-Aug-2017 21:25:15
[2017-08-13 21:34] LABS: ALANINE AMINOTRANSFERASE 30 U/L (21-72); ALBUMIN 5.3 g/dL (3.5-5.0); ALKALINE PHOSPHATASE 72 U/L (38-126); ANION GAP 17 (5-19); ASPARTATE AMINO TRANSFERASE 22 U/L (17-59); BILIRUBIN,DIRECT 0.1 mg/dL (0.0-0.4); BILIRUBIN,TOTAL 1.2 mg/dL (0.2-1.3); BLOOD UREA NITROGEN 26 mg/dL (7-20); CALCIUM 10.6 mg/dL (8.4-10.2); CARBON DIOXIDE 19 mmol/L (22-30); CHLORIDE 107 mmol/L (98-107); CREATINE KINASE 185 U/L (55-170); GLUCOSE 102 mg/dL (75-110); POTASSIUM 4.3 mmol/L (3.6-5.0); SODIUM 143.1 mmol/L (137-145); TOTAL PROTEIN 8.7 g/dL (6.3-8.2)
[2017-08-13 21:45] LABS: CREATINE KINASE MB 0.75 ng/mL (<4.55)
--- NOTE | 2017-08-13 21:45 | RADIOLOGY REPORT (SQ) ---
EXAM DESCRIPTION: CT HEAD WITHOUT COMPLETED DATE/TIME: 08/13/2017 9:21 pm REASON FOR STUDY: INPATIENT STROKE ALERT PROTOCOL/SUSPECTED STROKE COMPARISON: 08/10/2017 TECHNIQUE: Axial images acquired through the brain without intravenous contrast. Images reviewed wi th bone, brain and subdural windows. Images stored on PACS. All CT scanners at this facility use dose modulation, iterative reconstruction, and/or weight based d osing when appropriate to reduce radiation dose to as low as reasonably achievable (ALARA). [facility]: Dose Right [facility]: CareDose [facility]: Dose Right [facility]: Teradose 4D [facility]: [employer] RADIATION DOSE: CT Rad equipment meets quality standard of care and radiation dose reduction techniq ues were employed. CTDIvol: 64.6 mGy. DLP: 1163 mGy-cm. mGy. LIMITATIONS: None. FINDINGS: VENTRICLES: Normal. CEREBRUM: No masses. No hemorrhage. No midline shift. Small Areas of low density in the white jeannie er most likely due to chronic micro-vascular ischemic change. No evidence for acute infarction. CEREBELLUM: No masses. No hemorrhage. No alteration of density. No evidence for acute infarction. EXTRAAXIAL SPACES: Mild age-related involutional change. No fluid collections. No masses. ORBITS AND GLOBE: No intra- or extraconal masses. Normal contour of globe without masses. CALVARIUM: No fracture. PARANASAL SINUSES: Similar mucosal thickening. SOFT TISSUES: No mass or hematoma. OTHER: No other significant finding. IMPRESSION: No acute intracranial findings. EVIDENCE OF ACUTE STROKE: NO. COMMENT: These results were communicated to Dr. Taylor at 2138 hours. TECHNICAL DOCUMENTATION: JOB ID: [id number] Quality ID # [id number]: Final reports with documentation of one or more dose reduction techniques (e.g., Au tomated exposure control, adjustment of the mA and/or kV according to patient size, use of iterative reconstruction technique) 2010 [employer]- All Rights Reserved Reading location - IP/workstation name: [email or web address]
--- NOTE | 2017-08-13 21:47 | RADIOLOGY REPORT (SQ) ---
EXAM DESCRIPTION: CHEST SINGLE VIEW COMPLETED DATE/TIME: 08/13/2017 9:25 pm REASON FOR STUDY: INPATIENT STROKE ALERT PROTOCOL/SUSPECTED STROKE COMPARISON: 08/10/2017 EXAM PARAMETERS: NUMBER OF VIEWS: One view. TECHNIQUE: Single frontal radiographic view of the chest acquired. RADIATION DOSE: NA LIMITATIONS: None. FINDINGS: LUNGS AND PLEURA: No acute opacities, masses or pneumothorax. No pleural effusion. MEDIASTINUM AND HILAR STRUCTURES: Stable. HEART AND VASCULAR STRUCTURES: Heart normal in size. Normal vasculature. BONES: No acute findings. HARDWARE: None in the chest. OTHER: No other significant finding. IMPRESSION: NO ACUTE RADIOGRAPHIC FINDING IN THE CHEST. TECHNICAL DOCUMENTATION: JOB ID: [id number] 2010 [employer]- All Rights Reserved Reading location - IP/workstation name: [email or web address]
[2017-08-13 21:49] LABS: TROPONIN I < 0.012 ng/mL
[2017-08-13] MEDS: ATORVASTATIN CALCIUM 40 MG TABLET PO SCH (23:03)
[2017-08-13] MEDS: ZOLPIDEM TARTRATE 5 MG TABLET PO SCH (23:10)
[2017-08-13] MEDS ORDERED: ASPIRIN 325 MG TABLET, ENT COATED PO ONE (23:45)
[2017-08-14] MEDS: LANSOPRAZOLE 30 MG TAB.RAP.DR PO SCH ×2 (05:36→17:21)
[2017-08-14] MEDS: AMOXICILLIN TRIHYDRATE 500 MG CAPSULE PO SCH ×3 (05:36→21:08)
[2017-08-14] MEDS: BUSPIRONE HCL 10 MG TABLET PO SCH ×3 (05:36→21:08)
[2017-08-14] MEDS: CLONIDINE HCL 0.2 MG TABLET PO SCH ×3 (05:36→21:08)
[2017-08-14] MEDS: ENOXAPARIN SODIUM INJ 40 MG/0.4 ML DISP.SYRIN SUBCUT SCH (11:17)
[2017-08-14] MEDS: ASPIRIN 325 MG TABLET, ENT COATED PO SCH (11:20)
[2017-08-14] MEDS: METOPROLOL SUCCINATE 50 MG TAB.SR.24H PO SCH (11:20)
[2017-08-14] MEDS: RAMIPRIL 5 MG CAPSULE PO SCH ×2 (11:22→21:08)
[2017-08-14] MEDS: CLOPIDOGREL BISULFATE 75 MG TABLET PO SCH (11:22)
[2017-08-14] MEDS: FLUTICASONE NASAL SPRAY 50 MCG/SPRY 120 SPRAY/16 GM NAREB PRN (11:24)
[2017-08-14] MEDS: BUDESONIDE/FORMOTEROL 160-4.5 MCG 60 PUFF/6 GM MDI IH SCH ×2 (11:26→21:08)
[2017-08-14] MEDS: NICOTINE 14 MG/24 HR PATCH.TD24 TD SCH (11:28)
--- NOTE | 2017-08-14 11:54 | PDOC PROGRESS REPORT ---
Subjective Progress Note for:: 08/14/17 Subjective:: Patient have episode of for possible TIA like symptoms yesterday and have a CT scan of the head and other workup was done was all negative Patient's denied any chest pain denied any weakness denied any shortness of the breath Patient also for migraine headache no short of the TIA versus migraine Reason For Visit: TIA Physical Exam Vital Signs: Temp Pulse Resp BP Pulse Ox 98.4 F 79 16 129/65 H 99 08/14/17 08:50 08/14/17 08:50 08/14/17 08:50 08/14/17 08:50 08/14/17 08:50 Intake & Output 08/13/17 08/14/17 08/15/17 06:59 06:59 06:59 Intake Total 1603 860 Output Total 900 900 Balance 703 -40 Weight 79.1 kg 77.4 kg General appearance: PRESENT: no acute distress, well-developed, well-nourished Head exam: PRESENT: atraumatic, normocephalic Eye exam: PRESENT: conjunctiva pink, EOMI, PERRLA. ABSENT: scleral icterus Ear exam: PRESENT: normal external ear exam Mouth exam: PRESENT: moist, tongue midline Neck exam: PRESENT: full ROM. ABSENT: carotid bruit, JVD, lymphadenopathy, thyromegaly Respiratory exam: PRESENT: clear to auscultation rommel Cardiovascular exam: PRESENT: RRR. ABSENT: diastolic murmur, rubs, systolic murmur Pulses: PRESENT: normal dorsalis pedis pul, +2 pedal pulses bilateral Vascular exam: PRESENT: normal capillary refill GI/Abdominal exam: PRESENT: normal bowel sounds, soft. ABSENT: distended, guarding, mass, organolmegaly, rebound, tenderness Rectal exam: PRESENT: deferred Extremities exam: ABSENT: pedal edema Musculoskeletal exam: PRESENT: ambulatory Neurological exam: PRESENT: alert, awake, oriented to person, oriented to place , oriented to time, oriented to situation, CN II-XII grossly intact. ABSENT: motor sensory deficit Psychiatric exam: PRESENT: appropriate affect, normal mood. ABSENT: homicidal ideation, suicidal ideation Skin exam: PRESENT: dry, intact, warm. ABSENT: cyanosis, rash Results Laboratory Results: 08/13/17 21:10 08/13/17 21:10 08/13/17 08/13/17 21:10 21:10 WBC 12.3 H RBC 5.70 H Hgb 17.6 H Hct 51.7 H MCV 91 MCH 30.9 MCHC 34.1 RDW 13.0 Plt Count 321 Seg Neutrophils % 61.6 Lymphocytes % 25.5 Monocytes % 9.0 Eosinophils % 3.2 Basophils % 0.7 Absolute Neutrophils 7.6 Absolute Lymphocytes 3.1 Absolute Monocytes 1.1 Absolute Eosinophils 0.4 Absolute Basophils 0.1 Sodium 143.1 Potassium 4.3 Chloride 107 Carbon Dioxide 19 L Anion Gap 17 BUN 26 H Creatinine 1.34 H Est GFR ( Amer) > 60 Est GFR (Non-Af Amer) 56 L Glucose 102 Calcium 10.6 H Total Bilirubin 1.2 AST 22 ALT 30 Alkaline Phosphatase 72 Total Protein 8.7 H Albumin 5.3 H 08/10/17 08/10/17 08/10/17 14:51 14:51 20:00 Creatine Kinase 588 H 479 H CK-MB (CK-2) 1.68 Troponin I < 0.012 08/10/17 08/11/17 08/11/17 20:00 02:16 02:16 Creatine Kinase 444 H CK-MB (CK-2) 1.33 1.19 Troponin I < 0.012 < 0.012 08/13/17 08/13/17 21:10 21:10 Creatine Kinase 185 H CK-MB (CK-2) 0.75 Troponin I < 0.012 Impressions: Abdomen/Pelvis CT 08/10/17 00:00 IMPRESSION: NO SIGNIFICANT OR ACUTE PROCESS IN THE ABDOMEN OR PELVIS. Brain MRI with MRA 08/10/17 00:00 IMPRESSION: NORMAL MRA OF THE [place]. Head MRI 08/10/17 11:51 IMPRESSION: Mild small vessel ischemic change in the hemispheric white matter and shea with Old right and left posterior frontal cortical infarcts Old right and left cerebellar lacunar infarcts Sinusitis EVIDENCE OF ACUTE STROKE: NO. Carotid Doppler Study 08/11/17 00:00 IMPRESSION: NO HEMODYNAMICALLY SIGNIFICANT STENOSIS. Chest X-Ray 08/13/17 20:51 IMPRESSION: NO ACUTE RADIOGRAPHIC FINDING IN THE CHEST. Head CT 08/13/17 20:51 IMPRESSION: No acute intracranial findings. EVIDENCE OF ACUTE STROKE: NO. Assessment & Plan - Diagnosis (1) TIA (transient ischemic attack) Qualifiers: Transient cerebral ischemia type: unspecified Qualified Code(s): G45.9 - Transient cerebral ischemic attack, unspecified Is this a current diagnosis for this admission?: Yes Plan: Continues aspirin Plavix and statin (2) Carotid stenosis Qualifiers: Laterality: right Qualified Code(s): I65.21 - Occlusion and stenosis of right carotid artery Is this a current diagnosis for this admission?: Yes Plan: Currently all stable (3) Hyperlipidemia Qualifiers: Hyperlipidemia type: unspecified Qualified Code(s): E78.5 - Hyperlipidemia , unspecified Is this a current diagnosis for this admission?: Yes Plan: Continues on high-dose statin (4) Insulin dependent diabetes mellitus Is this a current diagnosis for this admission?: Yes Plan: Continues to current medication and sliding scale (5) COPD (chronic obstructive pulmonary disease) Qualifiers: COPD type: unspecified COPD Qualified Code(s): J44.9 - Chronic obstructive pulmonary disease, unspecified Is this a current diagnosis for this admission?: Yes Plan: Continues to nebulizer (6) Substance abuse Is this a current diagnosis for this admission?: Yes Plan: Discussed with the patient about do not use any kind of substance abuse and patients understand and agreeWe will get the psych consult - Time Time Spent with patient: 15-24 minutes Medications reviewed and adjusted accordingly: Yes Anticipated discharge: Home with Homehealth Within: Other - Inpatient Certification Medical Necessity: Need Close Monitoring Due to Risk of Patient Decompensation Post Hospital Care: D/C Hydrator Documentation
--- NOTE | 2017-08-14 19:58 | PDOC PROGRESS REPORT ---
Subjective Progress Note for:: 08/14/17 Subjective:: Blood pressure noted to be in better control. Patient claims transient numbness of left side of face claiming that he had yet another TIA spell. Patient is maintaining sinus rhythm. Review of systems: Rest review of systems negative. Medications: Medications have been reviewed. Reason For Visit: TIA Physical Exam Vital Signs: Temp Pulse Resp BP Pulse Ox 98.9 F 70 16 100/59 L 99 08/14/17 15:53 08/14/17 18:56 08/14/17 15:53 08/14/17 15:53 08/14/17 15:53 Intake & Output 08/13/17 08/14/17 08/15/17 06:59 06:59 06:59 Intake Total 1603 860 750 Output Total 900 900 Balance 703 -40 750 Weight 79.1 kg 77.4 kg Exam: GENERAL: well-nourished and in no acute distress. Alert and oriented x3 HEAD: Atraumatic, normocephalic. EYES: Pupils equal round and reactive to light, extraocular movements intact, sclera anicteric, conjunctiva are normal. ENT: TMs normal, nares patent, oropharynx clear without exudates. Moist mucous membranes. No oral ulcerations or bleeding gums noted NECK: supple without lymphadenopathy. Trachea is central. No cervical or axillary lymphadenopathy noted. Carotids are 2+, JVD WNL LUNGS: Respiration seems nonlabored, no significant accessory muscle action noted. Breath sounds clear to auscultation bilaterally and equal noted. No wheezes rales or rhonchi noted. No significant dullness noted on percussion. CHEST: Palpation of the chest wall shows no significant chest wall tenderness. No other significant abnormalities noted. 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 ABDOMEN: Soft, no significant tenderness appreciated, normoactive bowel sounds. No guarding, no rebound. No rigidity noted . No masses appreciated. EXTREMITIES: Pedal pulses are 1-2+, no calf tenderness noted. No clubbing or cyanosis.trace to 1+ pedal edema noted NEUROLOGICAL: Focused neurological exam showed no significant neurologic deficit. Normal speech, no focal weakness appreciated. PSYCH: Normal mood, normal affect. Judgment and insight within normal limits. SKIN: No significant ecchymosis, rash, ulcerations or signs of pruritus noted. MUSCULOSKELETAL EXAM: No significant joint swelling noted. Results Laboratory Results: 08/13/17 21:10 08/13/17 21:10 08/13/17 08/13/17 21:10 21:10 WBC 12.3 H RBC 5.70 H Hgb 17.6 H Hct 51.7 H MCV 91 MCH 30.9 MCHC 34.1 RDW 13.0 Plt Count 321 Seg Neutrophils % 61.6 Lymphocytes % 25.5 Monocytes % 9.0 Eosinophils % 3.2 Basophils % 0.7 Absolute Neutrophils 7.6 Absolute Lymphocytes 3.1 Absolute Monocytes 1.1 Absolute Eosinophils 0.4 Absolute Basophils 0.1 Sodium 143.1 Potassium 4.3 Chloride 107 Carbon Dioxide 19 L Anion Gap 17 BUN 26 H Creatinine 1.34 H Est GFR ( Amer) > 60 Est GFR (Non-Af Amer) 56 L Glucose 102 Calcium 10.6 H Total Bilirubin 1.2 AST 22 ALT 30 Alkaline Phosphatase 72 Total Protein 8.7 H Albumin 5.3 H 08/10/17 08/10/17 08/10/17 14:51 14:51 20:00 Creatine Kinase 588 H 479 H CK-MB (CK-2) 1.68 Troponin I < 0.012 08/10/17 08/11/17 08/11/17 20:00 02:16 02:16 Creatine Kinase 444 H CK-MB (CK-2) 1.33 1.19 Troponin I < 0.012 < 0.012 08/13/17 08/13/17 21:10 21:10 Creatine Kinase 185 H CK-MB (CK-2) 0.75 Troponin I < 0.012 Impressions: Abdomen/Pelvis CT 08/10/17 00:00 IMPRESSION: NO SIGNIFICANT OR ACUTE PROCESS IN THE ABDOMEN OR PELVIS. Brain MRI with MRA 08/10/17 00:00 IMPRESSION: NORMAL MRA OF THE [place]. Head MRI 08/10/17 11:51 IMPRESSION: Mild small vessel ischemic change in the hemispheric white matter and shea with Old right and left posterior frontal cortical infarcts Old right and left cerebellar lacunar infarcts Sinusitis EVIDENCE OF ACUTE STROKE: NO. Carotid Doppler Study 08/11/17 00:00 IMPRESSION: NO HEMODYNAMICALLY SIGNIFICANT STENOSIS. Chest X-Ray 02/25/18 20:51 IMPRESSION: NO ACUTE RADIOGRAPHIC FINDING IN THE CHEST. Head CT 08/13/17 20:51 IMPRESSION: No acute intracranial findings. EVIDENCE OF ACUTE STROKE: NO. Assessment & Plan - Diagnosis (1) Hypertensive emergency Is this a current diagnosis for this admission?: Yes (2) TIA (transient ischemic attack) Qualifiers: Transient cerebral ischemia type: unspecified Qualified Code(s): G45.9 - Transient cerebral ischemic attack, unspecified Is this a current diagnosis for this admission?: Yes (3) Substance abuse Is this a current diagnosis for this admission?: Yes (4) Hyperlipidemia Qualifiers: Hyperlipidemia type: unspecified Qualified Code(s): E78.5 - Hyperlipidemia , unspecified Is this a current diagnosis for this admission?: Yes (5) Acute maxillary sinusitis Qualifiers: Recurrence: not specified as recurrent Qualified Code(s): J01.00 - Acute maxillary sinusitis, unspecified Is this a current diagnosis for this admission?: Yes - Notes Notes: Hypertension: Blood pressure now under better control. However on admission and just back to admission, patient was noted to have extremely high blood pressure. This could have caused cerebral vasoconstriction leading to patient' s symptoms of TIA. So far evaluation into carotid duplex, brain MRI/MRA, CT of the head has been negative for acute stroke. Consider switching patient to clonidine TTS patch to reduce chances of rebound hypertension. Have ordered patient to have 24 hour urinary collection for catecholamine excretion to rule out pheochromocytoma. Previous CT of the abdomen was negative for any adrenal tumor. The radiologist did not comment on renal artery stenosis but may need to be ruled out in this patient. Transient ischemic attack: Caused by severe hypertension. Recommend antiplatelet and statin therapy. Today blood pressure lower than patient's usual blood pressure therefore could be related to TIA. Substance abuse: History of substance abuse. Patient had been advised against this. Hyperlipidemia: Recommend high potency statin therapy. Headaches: Most likely related to acute sinusitis. Continue antibiotic therapy. - Time Time with patient: 15-25 minutes - CODE STATUS was discussed, patient remains full code. Surrogate decision-maker unchanged. Multiple medical problems were addressed. More than 50% of the time spent coordinating care, discussing management plans with involved caregivers. Management plans discussed with involved personnels. Medical decision making was of moderate to high complexity , patient's has multiple comorbidities. Medications reviewed and adjusted accordingly: Yes
[2017-08-14] MEDS: ZOLPIDEM TARTRATE 5 MG TABLET PO SCH (21:08)
[2017-08-14] MEDS ORDERED: ATORVASTATIN CALCIUM 40 MG TABLET PO SCH (22:00)
[2017-08-15 05:54] LABS: ABSOLUTE BASOPHILS # (AUTO) 0.1 10^3/uL (0.0-0.2); ABSOLUTE EOSINOPHILS # (AUTO) 0.3 10^3/uL (0.0-0.6); ABSOLUTE LYMPHOCYTES (AUTO) 2.2 10^3/uL (0.5-4.7); ABSOLUTE MONOCYTES (AUTO) 0.9 10^3/uL (0.1-1.4); EOSINOPHILS % (AUTO) 3.6 % (0-6); HEMATOCRIT 48.5 % (37.9-51.0); HEMOGLOBIN 16.4 g/dL (13.5-17.0); LYMPHOCYTES % (AUTO) 26.1 % (13-45); MEAN CORPUSCULAR HEMOGLOBIN 30.5 pg (27.0-33.4); MEAN CORPUSCULAR HGB CONC 33.8 g/dL (32.0-36.0); MEAN CORPUSCULAR VOLUME 90 fl (80-97); MONOCYTES % (AUTO) 10.7 % (3-13); PLATELET COUNT 252 10^3/uL (150-450); RED BLOOD COUNT 5.37 10^6/uL (4.35-5.55); RED CELL DISTRIBUTION WIDTH 12.9 % (11.5-14.0); SEGMENTED NEUTROPHILS % (AUTO) 58.6 % (42-78); TOTAL CELLS COUNTED % (AUTO) 100 %; WHITE BLOOD COUNT 8.6 10^3/uL (4.0-10.5)
[2017-08-15] MEDS: AMOXICILLIN TRIHYDRATE 500 MG CAPSULE PO SCH (06:05)
[2017-08-15] MEDS: BUSPIRONE HCL 10 MG TABLET PO SCH (06:05)
[2017-08-15] MEDS: LANSOPRAZOLE 30 MG TAB.RAP.DR PO SCH (06:05)
[2017-08-15] MEDS: CLONIDINE HCL 0.2 MG TABLET PO SCH (06:06)
[2017-08-15 06:22] LABS: ANION GAP 11 (5-19); BLOOD UREA NITROGEN 28 mg/dL (7-20); CALCIUM 9.7 mg/dL (8.4-10.2); CARBON DIOXIDE 24 mmol/L (22-30); CHLORIDE 107 mmol/L (98-107); GLUCOSE 97 mg/dL (75-110); SODIUM 141.8 mmol/L (137-145)
[2017-08-15 06:39] LABS: HEPATITIS A AB IGM Negative (Negative); HEPATITIS B CORE AB IGM Negative (Negative); HEPATITS B SURFACE ANTIGEN Negative (Negative)
[2017-08-15 07:16] LABS: HEPATITIS C VIRUS ANTIBODY <0.1 s/co ratio (0.0-0.9)
[2017-08-15] MEDS ORDERED: NORMAL SALINE 1000 ML 1,000 ML IV ONE (09:30)
[2017-08-15] MEDS: RAMIPRIL 5 MG CAPSULE PO SCH (09:46)
[2017-08-15] MEDS: ASPIRIN 325 MG TABLET, ENT COATED PO SCH (09:47)
[2017-08-15] MEDS: CLOPIDOGREL BISULFATE 75 MG TABLET PO SCH (09:47)
[2017-08-15] MEDS: METOPROLOL SUCCINATE 50 MG TAB.SR.24H PO SCH (09:47)
[2017-08-15] MEDS: ENOXAPARIN SODIUM INJ 40 MG/0.4 ML DISP.SYRIN SUBCUT SCH (09:47)
[2017-08-15] MEDS: BUDESONIDE/FORMOTEROL 160-4.5 MCG 60 PUFF/6 GM MDI IH SCH (09:48)
[2017-08-15] MEDS: NICOTINE 14 MG/24 HR PATCH.TD24 TD SCH (09:48)
--- NOTE | 2017-08-15 11:51 | PDOC DISCHARGE SUMMARY ---
General - Admit/Disc Date/PCP Admission Date/Primary Care Provider: 08/10/17 14:02 CAITLYN ATKINSON MD Discharge Date: 08/15/17 - Discharge Diagnosis (1) TIA (transient ischemic attack) Is this a current diagnosis for this admission?: Yes Summary: Continues to aspirin Plavix and statin (2) Carotid stenosis Is this a current diagnosis for this admission?: Yes Summary: Currently all stable (3) Hyperlipidemia Is this a current diagnosis for this admission?: Yes Summary: Continues on high-dose statin (4) Insulin dependent diabetes mellitus Is this a current diagnosis for this admission?: Yes Summary: Continues to current medications (5) COPD (chronic obstructive pulmonary disease) Is this a current diagnosis for this admission?: Yes Summary: Currently all stable's (6) Substance abuse Is this a current diagnosis for this admission?: Yes Summary: Very extensive discussed with the patient's do not use any kind of street drugs and patients currently every and follow outpatient psych (7) Renal insufficiency Is this a current diagnosis for this admission?: Yes Summary: Currently hold the ramipril and patient already given 1 L of the fluid will repeat the blood work in a week in the office while patient did not want to stay in the hospital because of the patient admitting for his disability (8) Acute maxillary sinusitis Is this a current diagnosis for this admission?: Yes Summary: Continue amoxicillin - Additional Information Resuscitation Status: Full Code Discharge Diet: Diabetic Discharge Activity: Activity As Tolerated Prescriptions: Amoxicillin Trihydrate [Amoxil 500 mg Capsule] 500 mg PO Q8 #21 capsule Aspirin [Ecotrin 325 mg EC Tablet] 325 mg PO DAILY #30 tabec Atorvastatin Calcium [Lipitor 40 mg Tablet] 80 mg PO QHS #30 tablet Buspirone HCl [Buspar 10 mg Tablet] 5 mg PO Q8 #90 tablet Clonidine HCl [Catapres 0.2 mg Tablet] 0.2 mg PO Q8 #90 tablet Clopidogrel Bisulfate [Plavix 75 mg Tablet] 75 mg PO DAILY #30 tablet Nicotine [Nicoderm 14 mg/24 Hr Transdermal Patch] 1 each TD DAILY #30 patch.td24 Omeprazole 40 mg PO DAILY #30 capsule. Home Medications: Albuterol Sulfate [Proair HFA Inhalation Aerosol 8.5 gm MDI] 2 puff IH Q12 08/10 Budesonide/Formoterol Fumarate [Symbicort 160-4.5 Mcg Inhaler] 2 puff IH Q12 Clopidogrel Bisulfate [Plavix 75 mg Tablet] 75 mg PO DAILY 08/10/17 Fluticasone Propionate [Flonase Nasal [place] 50 Mcg/[place] 16 gm] 1 spray NAREB DAILY PRN 08/10/17 Gabapentin [Neurontin 300 mg Capsule] 300 mg PO Q8 PRN 08/10/17 Metoprolol Succinate [Toprol Xl 50 mg Tab.sr] 50 mg PO DAILY 08/10/17 Amoxicillin Trihydrate [Amoxil 500 mg Capsule] 500 mg PO Q8 #21 capsule Aspirin [Ecotrin 325 mg EC Tablet] 325 mg PO DAILY #30 tabec 08/15/17 Atorvastatin Calcium [Lipitor 40 mg Tablet] 80 mg PO QHS #30 tablet 08/15/17 Buspirone HCl [Buspar 10 mg Tablet] 5 mg PO Q8 #90 tablet 08/15/17 Clonidine HCl [Catapres 0.2 mg Tablet] 0.2 mg PO Q8 #90 tablet 08/15/17 Clopidogrel Bisulfate [Plavix 75 mg Tablet] 75 mg PO DAILY #30 tablet 08/15/17 Nicotine [Nicoderm 14 mg/24 Hr Transdermal Patch] 1 each TD DAILY #30 patch.td24 08/15/17 Omeprazole 40 mg PO DAILY #30 capsule. 08/15/17 History of Present Illness History of Present Illness: EMERSON DANGELO JR is a 52 year old male This is a 52-year-old maleWith a significant history of the stroke in the past with a carotid artery disease status post right-sided surgeryWith a history of the type 2 diabetes mellitus hypertension'sAnd hyperlipidemia and a super noncompliance with the medications and also continues to smoke and continues to smoke the marijuanaWent to the doctor's office and noticed some slurred speech and left-sided weakness and patients called the EMS and brought to the emergency department with left-sided weakness and slurred speech is completely resolved Patient's MRI of the head was all negatives with no acute findings patient's blood pressure is definitely elevated which patient is very noncompliance with the medications Patient's denied any chest pain denied any shortness of the breath Is completely back to the baseline's but still very noncompliance with extensive discussed with the patient and the in my office last week about this and patient understand very well and understand very wellBut unfortunately patient's still not able to follow the diets not stop smoking At this point we decided to admit the patient's in the IMCU for the stroke protocol and order the MRI of the head to rule out other etiology Just came back same issues with the couple of weeks back and a CT angiogram of the head was done was negative Hospital Course Hospital Course: This is a 52-year-old male with this very noncompliance basically came to the emergency department with the left-sided weakness with possible TIA with using the marijuana with the synthetic which causing the more upset stomach'sAnd patient unable to keep her food down and which make the patient's blood pressures go home very high Patient was started on IV fluid and put on stroke protocol and had MRI and MRA of the head was done was negative for any acute finding Patient had ultrasound for the carotid was done which is also negative for any acute finding and echocardiogram was also stable Patient seen by the cardiology suggest to continue some medications follow outpatient Patient also some mild renal insufficiency which patient was given IV fluid and hold the ramipril and patient did not want to stay in the hospital because of the as able patient was admitting with the disability people She is otherwise doing well walk with the walker without any problems, no more any symptoms patient's blood pressures remain 130 range in the discharge Physical Exam Vital Signs: Temp Pulse Resp BP Pulse Ox 98.6 F 74 16 148/91 H 100 08/15/17 07:42 08/15/17 07:42 08/15/17 07:42 08/15/17 07:42 08/15/17 07:42 Intake & Output 08/14/17 08/15/17 08/16/17 06:59 06:59 06:59 Intake Total 860 1270 Output Total 900 200 Balance -40 1070 Weight 77.4 kg 76.7 kg General appearance: PRESENT: no acute distress, well-developed, well-nourished Head exam: PRESENT: atraumatic, normocephalic Eye exam: PRESENT: conjunctiva pink, EOMI, PERRLA. ABSENT: scleral icterus Ear exam: PRESENT: normal external ear exam Mouth exam: PRESENT: moist, tongue midline Neck exam: PRESENT: full ROM. ABSENT: carotid bruit, JVD, lymphadenopathy, thyromegaly Respiratory exam: PRESENT: clear to auscultation rommel Cardiovascular exam: PRESENT: RRR. ABSENT: diastolic murmur, rubs, systolic murmur Pulses: PRESENT: normal dorsalis pedis pul, +2 pedal pulses bilateral Vascular exam: PRESENT: normal capillary refill GI/Abdominal exam: PRESENT: normal bowel sounds, soft. ABSENT: distended, guarding, mass, organolmegaly, rebound, tenderness Rectal exam: PRESENT: deferred Extremities exam: ABSENT: full ROM, left AKA, right AKA, left BKA, right BKA, calf tenderness, joint swelling, pedal edema, tenderness, other Musculoskeletal exam: PRESENT: ambulatory Neurological exam: PRESENT: alert, awake, oriented to person, oriented to place , oriented to time, oriented to situation, CN II-XII grossly intact. ABSENT: motor sensory deficit Psychiatric exam: PRESENT: appropriate affect, normal mood. ABSENT: homicidal ideation, suicidal ideation Skin exam: PRESENT: dry, intact, warm. ABSENT: cyanosis, rash Results Laboratory Results: 08/15/17 05:13 08/15/17 05:13 08/15/17 08/15/17 05:13 05:13 WBC 8.6 RBC 5.37 Hgb 16.4 Hct 48.5 MCV 90 MCH 30.5 MCHC 33.8 RDW 12.9 Plt Count 252 Seg Neutrophils % 58.6 Lymphocytes % 26.1 Monocytes % 10.7 Eosinophils % 3.6 Basophils % 1.0 Absolute Neutrophils 5.0 Absolute Lymphocytes 2.2 Absolute Monocytes 0.9 Absolute Eosinophils 0.3 Absolute Basophils 0.1 Sodium 141.8 Potassium 4.0 Chloride 107 Carbon Dioxide 24 Anion Gap 11 BUN 28 H Creatinine 1.51 H Est GFR ( Amer) 59 L Est GFR (Non-Af Amer) 49 L Glucose 97 Calcium 9.7 08/10/17 08/10/17 08/10/17 14:51 14:51 20:00 Creatine Kinase 588 H 479 H CK-MB (CK-2) 1.68 Troponin I < 0.012 08/10/17 08/11/17 08/11/17 20:00 02:16 02:16 Creatine Kinase 444 H CK-MB (CK-2) 1.33 1.19 Troponin I < 0.012 < 0.012 08/13/17 08/13/17 21:10 21:10 Creatine Kinase 185 H CK-MB (CK-2) 0.75 Troponin I < 0.012 Impressions: Abdomen/Pelvis CT 08/10/17 00:00 IMPRESSION: NO SIGNIFICANT OR ACUTE PROCESS IN THE ABDOMEN OR PELVIS. Brain MRI with MRA 08/10/17 00:00 IMPRESSION: NORMAL MRA OF THE [place]. Head MRI 08/10/17 11:51 IMPRESSION: Mild small vessel ischemic change in the hemispheric white matter and shea with Old right and left posterior frontal cortical infarcts Old right and left cerebellar lacunar infarcts Sinusitis EVIDENCE OF ACUTE STROKE: NO. Carotid Doppler Study 08/11/17 00:00 IMPRESSION: NO HEMODYNAMICALLY SIGNIFICANT STENOSIS. Chest X-Ray 08/13/17 20:51 IMPRESSION: NO ACUTE RADIOGRAPHIC FINDING IN THE CHEST. Head CT 08/13/17 20:51 IMPRESSION: No acute intracranial findings. EVIDENCE OF ACUTE STROKE: NO. Qualifiers - * PATEINT BEING DISCHARGED WITH ANY OF THE FOLLOWING DIAGNOSIS?: Stroke VTE patient discharged on overlapping Therapy?: Yes Stroke Pt being discharged on Anti-thrombolytic therapy?: Yes Stroke Pt being discharged on Anti-coagulation therapy?: No Reason(s) for not prescribing Anti-coagulation therapy:: Not indicated Stroke Pt being discharged on Statins?: Yes Plan Time Spent: Greater than 30 Minutes - Patient discharged home with the stable conditions with the home health and physical therapy Patients do not want to go to the rehab Follow-up outpatient will recheck the Chem-7 Discussed with the patient about smoking and substance abuse counseling and follow outpatient psych
[2017-08-15 13:17] VITALS: BP 151/99
[2017-08-15 13:18] LABS: ANION GAP 14 (5-19); BLOOD UREA NITROGEN 27 mg/dL (7-20); CARBON DIOXIDE 21 mmol/L (22-30); CHLORIDE 108 mmol/L (98-107); GLUCOSE 96 mg/dL (75-110); POTASSIUM 4.6 mmol/L (3.6-5.0); SODIUM 143.2 mmol/L (137-145)
--- NOTE | 2017-08-15 19:29 | PDOC PROGRESS REPORT ---
Subjective Progress Note for:: 08/15/17 Subjective:: Blood pressure noted to be in better control. Today claims to be much improved and wanting to be discharged. With me as an outpatient. Patient is maintaining sinus rhythm. Review of systems: Rest review of systems negative. Medications: Medications have been reviewed. Reason For Visit: TIA Physical Exam Vital Signs: Temp Pulse Resp BP Pulse Ox 98.6 F 74 16 148/91 H 100 08/15/17 07:42 08/15/17 07:42 08/15/17 07:42 08/15/17 07:42 08/15/17 07:42 Intake & Output 08/14/17 08/15/17 08/16/17 06:59 06:59 06:59 Intake Total 860 1270 Output Total 900 200 Balance -40 1070 Weight 77.4 kg 76.7 kg Exam: GENERAL: well-nourished and in no acute distress. Alert and oriented x3 HEAD: Atraumatic, normocephalic. EYES: Pupils equal round and reactive to light, extraocular movements intact, sclera anicteric, conjunctiva are normal. ENT: TMs normal, nares patent, oropharynx clear without exudates. Moist mucous membranes. No oral ulcerations or bleeding gums noted NECK: supple without lymphadenopathy. Trachea is central. No cervical or axillary lymphadenopathy noted. Carotids are 2+, JVD WNL LUNGS: Respiration seems nonlabored, no significant accessory muscle action noted. Breath sounds clear to auscultation bilaterally and equal noted. No wheezes rales or rhonchi noted. No significant dullness noted on percussion. CHEST: Palpation of the chest wall shows no significant chest wall tenderness. No other significant abnormalities noted. 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 ABDOMEN: Soft, no significant tenderness appreciated, normoactive bowel sounds. No guarding, no rebound. No rigidity noted . No masses appreciated. EXTREMITIES: Pedal pulses are 1-2+, no calf tenderness noted. No clubbing or cyanosis. Negative + pedal edema noted NEUROLOGICAL: Focused neurological exam showed no significant neurologic deficit. Normal speech, no focal weakness appreciated. PSYCH: Normal mood, normal affect. Judgment and insight within normal limits. SKIN: No significant ecchymosis, rash, ulcerations or signs of pruritus noted. MUSCULOSKELETAL EXAM: No significant joint swelling noted. Results Laboratory Results: 08/15/17 05:13 08/15/17 08/15/17 05:13 05:13 WBC 8.6 RBC 5.37 Hgb 16.4 Hct 48.5 MCV 90 MCH 30.5 MCHC 33.8 RDW 12.9 Plt Count 252 Seg Neutrophils % 58.6 Lymphocytes % 26.1 Monocytes % 10.7 Eosinophils % 3.6 Basophils % 1.0 Absolute Neutrophils 5.0 Absolute Lymphocytes 2.2 Absolute Monocytes 0.9 Absolute Eosinophils 0.3 Absolute Basophils 0.1 Sodium 141.8 Potassium 4.0 Chloride 107 Carbon Dioxide 24 Anion Gap 11 BUN 28 H Creatinine 1.51 H Est GFR ( Amer) 59 L Est GFR (Non-Af Amer) 49 L Glucose 97 Calcium 9.7 08/10/17 08/10/17 08/10/17 14:51 14:51 20:00 Creatine Kinase 588 H 479 H CK-MB (CK-2) 1.68 Troponin I < 0.012 08/10/17 08/11/17 08/11/17 20:00 02:16 02:16 Creatine Kinase 444 H CK-MB (CK-2) 1.33 1.19 Troponin I < 0.012 < 0.012 08/13/17 08/13/17 21:10 21:10 Creatine Kinase 185 H CK-MB (CK-2) 0.75 Troponin I < 0.012 Impressions: Abdomen/Pelvis CT 08/10/17 00:00 IMPRESSION: NO SIGNIFICANT OR ACUTE PROCESS IN THE ABDOMEN OR PELVIS. Brain MRI with MRA 08/10/17 00:00 IMPRESSION: NORMAL MRA OF THE [place]. Head MRI 08/10/17 11:51 IMPRESSION: Mild small vessel ischemic change in the hemispheric white matter and shea with Old right and left posterior frontal cortical infarcts Old right and left cerebellar lacunar infarcts Sinusitis EVIDENCE OF ACUTE STROKE: NO. Carotid Doppler Study 08/11/17 00:00 IMPRESSION: NO HEMODYNAMICALLY SIGNIFICANT STENOSIS. Chest X-Ray 08/13/17 20:51 IMPRESSION: NO ACUTE RADIOGRAPHIC FINDING IN THE CHEST. Head CT 08/13/17 20:51 IMPRESSION: No acute intracranial findings. EVIDENCE OF ACUTE STROKE: NO. Assessment & Plan - Diagnosis (1) Hypertensive emergency Is this a current diagnosis for this admission?: Yes (2) TIA (transient ischemic attack) Qualifiers: Transient cerebral ischemia type: unspecified Qualified Code(s): G45.9 - Transient cerebral ischemic attack, unspecified Is this a current diagnosis for this admission?: Yes (3) Substance abuse Is this a current diagnosis for this admission?: Yes (4) Hyperlipidemia Qualifiers: Hyperlipidemia type: unspecified Qualified Code(s): E78.5 - Hyperlipidemia , unspecified Is this a current diagnosis for this admission?: Yes (5) Acute maxillary sinusitis Qualifiers: Recurrence: not specified as recurrent Qualified Code(s): J01.00 - Acute maxillary sinusitis, unspecified Is this a current diagnosis for this admission?: Yes - Notes Notes: Hypertension: Blood pressure now under better control. So far evaluation into carotid duplex, brain MRI/MRA, CT of the head has been negative for acute stroke. In the hospital patient blood pressure is well controlled therefore concern regarding compliance with medication is stressed. Transient ischemic attack: Caused by severe hypertension. Recommend antiplatelet and statin therapy. Substance abuse: History of substance abuse. Patient had been advised against this. Hyperlipidemia: Recommend high potency statin therapy. Headaches: Most likely related to acute sinusitis. Continue antibiotic therapy. - Time Time with patient: 15-25 minutes - CODE STATUS was discussed, patient remains full code. Surrogate decision-maker not identified by the patient. Multiple medical problems were addressed. More than 50% of the time spent coordinating care, discussing management plans with involved caregivers. Management plans discussed with involved personnels. Medical decision making was of moderate to high complexity, patient's has multiple comorbidities. Medications reviewed and adjusted accordingly: Yes
[2017-08-18 15:38] LABS: DOPAMINE URINE 192 ug/L (Undefined); EPINEPHRINE URINE 10 ug/L (Undefined); EPINEPHRINE URINE 24HR 10 ug/24 hr (0-20); NOREPINEPHRINE URINE 27 ug/L (Undefined); NOREPINEPHRINE URINE 24HR 26 ug/24 hr (0-135)
[2017-08-18 15:54] LABS: DOPAMINE URINE 24HR 188 ug/24 hr (0-510)
== END 2017-08-15 13:30 | disposition home health service (06) | DRG 69 ==
LOC: ER 11:20 → EH 14:02 → 3N 17:11
PROVIDERS: ADMIT Family Medicine; ATTEND Family Medicine
DX: G45.9 Transient cerebral ischemic attack, unspecified (principal); I16.1 Hypertensive emergency; E11.9 Type 2 diabetes mellitus without complications; E78.5 Hyperlipidemia, unspecified; I10 Essential (primary) hypertension; J01.00 Acute maxillary sinusitis, unspecified; F12.10 Cannabis abuse, uncomplicated; F17.200 Nicotine dependence, unspecified, uncomplicated; K21.9 Gastro-esophageal reflux disease without esophagitis; J44.9 Chronic obstructive pulmonary disease, unspecified; K59.00 Constipation, unspecified; F51.01 Primary insomnia; I65.21 Occlusion and stenosis of right carotid artery; R20.0 Anesthesia of skin; Z91.19 Patient's noncompliance with other medical treatment and regimen; Z79.82 Long term (current) use of aspirin; Z88.6 Allergy status to analgesic agent; Z79.899 Other long term (current) drug therapy; Z82.49 Family history of ischemic heart disease and other diseases of the circulatory system; Z79.02 Long term (current) use of antithrombotics/antiplatelets; Z79.4 Long term (current) use of insulin
CPT/HCPCS: 36415; 70450; 70544; 70551; 71045; 74176; 80048; 80053; 80061; 80074; 80307; 82382; 82550; 82553; 82962; 83690; 84484; 85025; 85610; 85730; 86701; 93005; 93010; 93306; 93880; 99291; J0360; J1650; J1815; J2405; J3490; J7030

== ENCOUNTER 2017-09-04 08:32 | Emergency (ER) | payer MEDICAID | END 2017-09-04 09:00 | disposition left against medical advice (07) | LOC: ER 08:32 | DX: Z53.21 Procedure and treatment not carried out due to patient leaving prior to being seen by health care provider (principal) ==

== ENCOUNTER 2018-07-25 14:27 | Emergency (ER) | payer MEDICAID ==
[2018-07-25] MEDS ORDERED: NORMAL SALINE 1000 ML 1,000 ML IV ONE (15:20)
[2018-07-25] MEDS ORDERED: MORPHINE SULFATE 10 MG/ML INJ IV ONE (15:21)
[2018-07-25] MEDS ORDERED: ONDANSETRON HCL INJ/PF 4 MG/2 ML SDV IV ONE (15:21)
--- NOTE | 2018-07-25 15:25 | ER Document Report ---
ED Medical Screen (RME) - General Chief Complaint: Flank Pain Stated Complaint: FLANK PAIN Time Seen by Provider: 07/25/18 15:17 Notes: Patient is a 53-year-old male with history of kidney stones that presents to the emergency department for chief complaint of left flank pain. Reports pain started 2 days ago, with assoaciated blood in the urine. ROS: Other than noted above, the 12 point review of systems was reviewed with the patient and were negative, all pertinent findings are included in the HPI. PHYSICAL EXAMINATION: Vital signs reviewed. GENERAL: Patient appears very uncomfortable and in significant pain on exam HEAD: Atraumatic, normocephalic. EYES: Pupils equal round extraocular movements intact, conjunctiva are normal. ENT: Nares patent NECK: Normal range of motion CV: Heart regular rate and rhythm LUNGS: No respiratory distress comfortable Abdomen: Significant flank pain and tenderness on palpation Musculoskeletal: Normal range of motion NEUROLOGICAL: Normal speech PSYCH: Appears anxious and uncomfortable MDM: Patient seen and examined for rapid initial assessment. Vital signs reviewed. A comprehensive ED assessment and evaluation of the patient, analysis of test results and completion of the medical decision making process will be conducted by additional ED providers. *Note is created using voice recognition software and may contain spelling, syntax or grammatical errors. TRAVEL OUTSIDE OF THE [place] IN LAST 30 DAYS: No - Related Data Allergies/Adverse Reactions: acetaminophen [From Tylenol] Allergy (Verified 07/25/18 14:30) amlodipine besylate [From Norvasc] Allergy (Verified 07/25/18 14:30) ibuprofen Allergy (Verified 07/25/18 14:30) pioglitazone HCl [From Actos] Allergy (Verified 07/25/18 14:30) Past Medical History - Past Medical History Cardiac Medical History: Reports: Hx Hypercholesterolemia, Hx Hypertension Denies: Hx Atrial Fibrillation, Hx Coronary Artery Disease Pulmonary Medical History: Reports: Hx COPD Neurological Medical History: Reports: Hx Cerebrovascular Accident - 2009 with residual right sided weakness Endocrine Medical History: Reports: Hx Diabetes Mellitus Type 1, Hx Diabetes Mellitus Type 2 Renal/ Medical History: Denies: Hx Peritoneal Dialysis GI Medical History: Reports: Hx Gastroesophageal Reflux Disease Psychiatric Medical History: Reports: Hx Depression Past Surgical History: Reports: Hx Carotid Endarterectomy, Hx Kidney (Renal Surgery) - lithotripsy, Hx Orthopedic Surgery, Hx Vascular Surgery - Immunizations Immunizations up to date: Yes Hx Diphtheria, Pertussis, Tetanus Vaccination: Yes History of Influenza Vaccine for 03/2017 - 08/2017 Season: Refused Physical Exam - Vital signs Vitals: Temp Pulse Resp BP Pulse Ox 97.9 F 96 23 H 228/115 H 98 07/25/18 14:42 07/25/18 14:42 07/25/18 14:42 07/25/18 14:42 07/25/18 14:42 Course - Vital Signs Vital signs: Temp Pulse Resp BP Pulse Ox 97.9 F 96 23 H 228/115 H 98 07/25/18 14:42 07/25/18 14:42 07/25/18 14:42 07/25/18 14:42 07/25/18 14:42
--- NOTE | 2018-07-25 16:33 | RADIOLOGY REPORT (SQ) ---
EXAM DESCRIPTION: CT LTD RENAL STONE PROTOCOL ON COMPLETED DATE/TIME: 07/25/2018 4:21 pm REASON FOR STUDY: left flank pain, hematuria COMPARISON: 08/11/2017 TECHNIQUE: CT scan of the abdomen and pelvis performed without intravenous or oral contrast. Images reviewed with lung, soft tissue, and bone windows. Reconstructed coronal and sagittal MPR images revi ewed. All images stored on PACS. All CT scanners at this facility use dose modulation, iterative reconstruction, and/or weight based d osing when appropriate to reduce radiation dose to as low as reasonably achievable (ALARA). [facility]: Dose Right [facility]: CareDose [facility]: Dose Right [facility]: Teradose 4D [facility]: Smart [employer] RADIATION DOSE: CT Rad equipment meets quality standard of care and radiation dose reduction techniq ues were employed. CTDIvol: 7.2 mGy. DLP: 390 mGy-cm.mGy. LIMITATIONS: None. FINDINGS: LOWER CHEST: No significant findings. No nodules or infiltrates. NON-CONTRASTED LIVER, SPLEEN, ADRENALS: Evaluation limited by lack of IV contrast. No identified sign ificant masses. PANCREAS: No masses. No peripancreatic inflammatory changes. GALLBLADDER: No identified stones by CT criteria. No inflammatory changes to suggest cholecystitis. RIGHT KIDNEY AND URETER: No suspicious masses. Assessment limited by lack of IV contrast. No signif icant calcifications. No hydronephrosis or hydroureter. LEFT KIDNEY AND URETER: No suspicious masses. Assessment limited by lack of IV contrast. There are numerous small nonobstructing renal calculi. There is left-sided hydronephrosis and hydroureter. T hese changes are secondary to recently passed stone which now lies in the bladder. AORTA AND RETROPERITONEUM: No aneurysm. No retroperitoneal masses or adenopathy. BOWEL AND PERITONEAL CAVITY: No obvious masses or inflammatory changes. No free fluid. APPENDIX: Normal. PELVIS, BLADDER, AND ABDOMINAL WALL:No abnormal masses. No free fluid. Bladder normal. BONES: No significant findings. OTHER: No other significant finding. IMPRESSION: Mild left-sided hydronephrosis secondary to recently passed 1 to 2 mm stone which is now in the bladder. Numerous nonobstructing left renal calculi. COMMENT: Quality ID # [id number]: Final reports with documentation of one or more dose reduction techniques (e.g., Automated exposure control, adjustment of the mA and/or kV according to patient size, use of iterative reconstruction technique) TECHNICAL DOCUMENTATION: JOB ID: [id number] [employer]- All Rights Reserved Reading location - IP/workstation name: [email or web address]
[2018-07-25 17:26] LABS: ABSOLUTE BASOPHILS # (AUTO) 0.1 10^3/uL (0.0-0.2); ABSOLUTE EOSINOPHILS # (AUTO) 0.3 10^3/uL (0.0-0.6); ABSOLUTE LYMPHOCYTES (AUTO) 2.4 10^3/uL (0.5-4.7); ABSOLUTE MONOCYTES (AUTO) 1.2 10^3/uL (0.1-1.4); ABSOLUTE NEUT (AUTO) 5.4 10^3/uL (1.7-8.2); BASOPHILS % (AUTO) 1.1 % (0-2); EOSINOPHILS % (AUTO) 2.7 % (0-6); HEMATOCRIT 45.9 % (37.9-51.0); HEMOGLOBIN 15.7 g/dL (13.5-17.0); LYMPHOCYTES % (AUTO) 25.8 % (13-45); MEAN CORPUSCULAR HEMOGLOBIN 31.8 pg (27.0-33.4); MEAN CORPUSCULAR HGB CONC 34.2 g/dL (32.0-36.0); MEAN CORPUSCULAR VOLUME 93 fl (80-97); MONOCYTES % (AUTO) 12.6 % (3-13); PLATELET COUNT 227 10^3/uL (150-450); RED BLOOD COUNT 4.94 10^6/uL (4.35-5.55); RED CELL DISTRIBUTION WIDTH 13.1 % (11.5-14.0); SEGMENTED NEUTROPHILS % (AUTO) 57.8 % (42-78); TOTAL CELLS COUNTED % (AUTO) 100 %; WHITE BLOOD COUNT 9.3 10^3/uL (4.0-10.5)
--- NOTE | 2018-07-25 17:32 | ER Document Report ---
ED General - General Chief Complaint: Flank Pain Stated Complaint: FLANK PAIN Time Seen by Provider: 07/25/18 15:17 Primary Care Provider: CAITLYN ATKINSON MD [Primary Care Provider] - Follow up as needed Notes: Patient is a 53-year-old male that presents to the emergency department for chief complaint of left flank pain and hematuria. Patient reports that he started having pain in his left flank a few days ago, associated nausea, but it got severely worse today, he was seen by his primary care and advised to come to the emergency department. He has had associated nausea but no vomiting. Denies any fevers, chills, night sweats. He currently rates his pain as a 10 out of 10 in his left flank radiating towards the groin, described as a constant aching and sharp sensation. He had blood in his urine as well. He reports history of kidney stones in the past with lithotripsy. Denies having any chest pain, s hortness of breath, difficulty breathing, denies any other complaints at this time. Past Medical History: Kidney stones, hypertension Past Surgical History: Lithotripsy Social History: Denies current tobacco, alcohol or drug use. Family History: Reviewed and noncontributory for presenting illness Allergies: Reviewed, see documented allergy list. REVIEW OF SYSTEMS: Other than noted above, the 12 point review of systems was reviewed with the patient and were negative, all pertinent findings are included in the HPI. PHYSICAL EXAMINATION: Vital signs reviewed, nursing noted reviewed. GENERAL: Patient appears rather uncomfortable on exam, holding his left flank HEAD: Atraumatic, normocephalic. EYES: Eyes appear normal, extraocular movements intact, sclera anicteric, conjunctiva are normal. ENT: nares patent, oropharynx clear without exudates. Moist mucous membranes. NECK: Normal range of motion, supple without lymphadenopathy LUNGS: Breath sounds clear to auscultation bilaterally and equal. No wheezes rales or rhonchi. HEART: Regular rate and rhythm without murmurs ABDOMEN: Soft, left CVA tenderness with palpation, no anterior abdominal tenderness, normoactive bowel sounds. No rebound, guarding, or rigidity. No masses appreciated. EXTREMITIES: Nontender, good range of motion, no pitting or edema. NEUROLOGICAL: No focal neurological deficits. Moves all extremities spontaneously Motor and sensory grossly intact on exam. PSYCH: Patient appears uncomfortable, but answering questions appropriately. SKIN: Warm, Dry, normal turgor, no rashes or lesions noted on exposed skin TRAVEL OUTSIDE OF THE U.S. IN LAST 30 DAYS: No - Related Data Allergies/Adverse Reactions: acetaminophen [From Tylenol] Allergy (Verified 07/25/18 14:30) amlodipine besylate [From Norvasc] Allergy (Verified 07/25/18 14:30) ibuprofen Allergy (Verified 07/25/18 14:30) pioglitazone HCl [From Actos] Allergy (Verified 07/25/18 14:30) Past Medical History - Social History Smoking Status: Unknown if Ever Smoked Family History: Reviewed & Not Pertinent, CAD Patient has suicidal ideation: No Patient has homicidal ideation: No - Past Medical History Cardiac Medical History: Reports: Hx Hypercholesterolemia, Hx Hypertension Denies: Hx Atrial Fibrillation, Hx Coronary Artery Disease Pulmonary Medical History: Reports: Hx COPD Neurological Medical History: Reports: Hx Cerebrovascular Accident - 2008 with residual right sided weakness Endocrine Medical History: Reports: Hx Diabetes Mellitus Type 1, Hx Diabetes Mellitus Type 2 Renal/ Medical History: Denies: Hx Peritoneal Dialysis GI Medical History: Reports: Hx Gastroesophageal Reflux Disease Psychiatric Medical History: Reports: Hx Depression Past Surgical History: Reports: Hx Carotid Endarterectomy, Hx Kidney (Renal Surgery) - lithotripsy, Hx Orthopedic Surgery, Hx Vascular Surgery - Immunizations Immunizations up to date: Yes Hx Diphtheria, Pertussis, Tetanus Vaccination: Yes Hx Pneumococcal Vaccination: 07/20/14 Physical Exam - Vital signs Vitals: Temp Pulse Resp BP Pulse Ox 97.9 F 96 23 H 228/115 H 98 07/25/18 14:42 07/25/18 14:42 07/25/18 14:42 07/25/18 14:42 07/25/18 14:42 Course - Re-evaluation Re-evalutation: Patient seen and examined vital signs reviewed. Laboratory data and imaging were ordered as appropriate for the patient's presenting symptoms and complaint, with consideration of any critical or life threatening conditions that may be associated with their obtained history and exam as noted above. Patient was treated with IV fluids, IV Zofran and morphine Results were reviewed when available and demonstrated a recently passed renal stone, now currently in the bladder, measuring 2 mm, mild left hydronephrosis, with nonobstructing stones in the left kidney, otherwise negative CT, there is hematuria in the blood, no evidence of infection, no leukocytosis, renal function normal The patient was re-evaluated and was still having some pain, his blood pressure was still high therefore he was given a dose of IV Dilaudid 1 mg, and also given 0.3 mg of clonidine which she takes at home, he did miss his dose this morning. Evaluation was most consistent with renal stone, that is in the bladder currently, patient will be discharged home with Zofran and some oxycodone to take if needed for pain, advised to follow-up with urology, and to return if any worsening of his symptoms. Results were discussed with the patient at this point, after careful consideration I feel that that patient can be discharged from the emergency department, the patient was educated treatments and reasons to return to the emergency department based on their presumed diagnosis as noted above, they were advised to followup with a primary care physician in 2-3 days. Patient was agreeable to plan of care. *Note is created using voice recognition software and may contain spelling, syntax or grammatical errors. Laboratory 07/25/18 07/25/18 07/25/18 14:40 16:37 16:37 WBC 9.3 RBC 4.94 Hgb 15.7 Hct 45.9 MCV 93 MCH 31.8 MCHC 34.2 RDW 13.1 Plt Count 227 Seg Neutrophils % 57.8 Lymphocytes % 25.8 Monocytes % 12.6 Eosinophils % 2.7 Basophils % 1.1 Absolute Neutrophils 5.4 Absolute Lymphocytes 2.4 Absolute Monocytes 1.2 Absolute Eosinophils 0.3 Absolute Basophils 0.1 Sodium 142.7 Potassium 4.0 Chloride 106 Carbon Dioxide 26 Anion Gap 11 BUN 16 Creatinine 1.08 Est GFR ( Amer) > 60 Est GFR (Non-Af Amer) > 60 Glucose 84 Calcium 10.1 Total Bilirubin 1.2 Direct Bilirubin 0.2 Neonat Total Bilirubin Not Reportable Neonat Direct Bilirubin Not Reportable Neonat Indirect Bili Not Reportable AST 23 ALT 7 L Alkaline Phosphatase 53 Total Protein 8.1 Albumin 4.9 Lipase 138.6 Urine Color YELLOW Urine Appearance CLEAR Urine pH 5.0 Ur Specific [place] 1.027 Urine Protein 100 H Urine Glucose (UA) 50 H Urine Ketones NEGATIVE Urine Blood MODERATE H Urine Nitrite NEGATIVE Urine Bilirubin NEGATIVE Urine Urobilinogen NEGATIVE Ur Leukocyte Esterase NEGATIVE Urine WBC (Auto) 0 Urine RBC (Auto) 22 U Hyaline Cast (Auto) 1 Squamous Epi Cells Auto <1 Urine Mucus (Auto) RARE Urine Ascorbic Acid 20 H Limited or Local[address] CT 07/25/18 15:21 IMPRESSION: Mild left-sided hydronephrosis secondary to recently passed 1 to 2 mm stone which is now in the bladder. Numerous nonobstructing left renal calculi. - Vital Signs Vital signs: Temp Pulse Resp BP Pulse Ox 98.3 F 79 16 223/114 H 98 07/25/18 18:47 07/25/18 18:47 07/25/18 18:47 07/25/18 18:47 07/25/18 14:42 - Laboratory Result Diagrams: 07/25/18 16:37 07/25/18 16:37 Laboratory results interpreted by me: 07/25/18 07/25/18 14:40 16:37 ALT 7 L Urine Protein 100 H Urine Glucose (UA) 50 H Urine Blood MODERATE H Urine Ascorbic Acid 20 H Discharge - Discharge Clinical Impression: Ureteral stone Hematuria Qualifiers: Hematuria type: unspecified type Qualified Code(s): R31.9 - Hematuria, unspecified Condition: Stable Disposition: HOME, SELF-CARE Instructions: Kidney Stone ([facility]) Additional Instructions: Please follow up with a urologist. You may pass the stone in the next few days. [email or web address] [address] [email or web address] Uziel Brizuela [place] [email or web address] [address] Prescriptions: Ondansetron [Zofran Odt 4 mg Tablet] 1 tab PO Q8H PRN #15 tab.rapdis PRN Reason: For Nausea/Vomiting Oxycodone HCl [Oxycontin Ir 5 Mg Tablet] 1 mg PO Q6H PRN #15 tablet PRN Reason: flank pain Referrals: CAITLYN ATKINSON MD [Primary Care Provider] - Follow up as needed
[2018-07-25 17:40] LABS: ALANINE AMINOTRANSFERASE 7 U/L (21-72); ALBUMIN 4.9 g/dL (3.5-5.0); ALKALINE PHOSPHATASE 53 U/L (38-126); ANION GAP 11 (5-19); ASPARTATE AMINO TRANSFERASE 23 U/L (17-59); BILIRUBIN,DIRECT 0.2 mg/dL (0.0-0.4); BILIRUBIN,TOTAL 1.2 mg/dL (0.2-1.3); BLOOD UREA NITROGEN 16 mg/dL (7-20); CALCIUM 10.1 mg/dL (8.4-10.2); CARBON DIOXIDE 26 mmol/L (22-30); CHLORIDE 106 mmol/L (98-107); GLUCOSE 84 mg/dL (75-110); LIPASE 138.6 U/L (23-300); SODIUM 142.7 mmol/L (137-145); TOTAL PROTEIN 8.1 g/dL (6.3-8.2)
[2018-07-25 18:32] LABS: APPEARANCE,URINE CLEAR; BILIRUBIN,URINE NEGATIVE (NEGATIVE); COLOR,URINE YELLOW; GLUCOSE, URINE 50 mg/dL (NEGATIVE); KETONES,URINE NEGATIVE (NEGATIVE); LEUKOCYTE ESTERASE,URINE NEGATIVE (NEGATIVE); NITRITE,URINE NEGATIVE (NEGATIVE); PROTEIN,URINE 100 mg/dL (NEGATIVE); URINE SPECIFIC GRAVITY 1.027; UROBILINOGEN,URINE NEGATIVE mg/dL (<2.0)
[2018-07-25] MEDS ORDERED: HYDROMORPHONE HCL INJ/PF 2 MG/ML AMPULE IV ONE (18:32)
[2018-07-25 18:48] VITALS: BP 223/114
[2018-07-25] MEDS ORDERED: CLONIDINE HCL 0.2 MG TABLET PO ONE (18:49)
== END 2018-07-25 19:06 | disposition home or self-care (01) ==
LOC: ER 14:27
DX: N20.1 Calculus of ureter (principal); R31.9 Hematuria, unspecified; R10.9 Unspecified abdominal pain; R11.0 Nausea; I10 Essential (primary) hypertension; J44.9 Chronic obstructive pulmonary disease, unspecified; E11.9 Type 2 diabetes mellitus without complications
CPT/HCPCS: 99284; 96361; 96374; 96375; 36415; 83690; 85025; 80053; 81001; 76380; J3490; J2270; J1170; J2405; J7030

== ENCOUNTER 2018-08-06 08:07 | Emergency (ER) | payer MEDICAID ==
[2018-08-06 09:35] LABS: APPEARANCE,URINE SLIGHTLY-CLOUDY; BILIRUBIN,URINE NEGATIVE (NEGATIVE); COLOR,URINE YELLOW; GLUCOSE, URINE NEGATIVE (NEGATIVE); KETONES,URINE NEGATIVE (NEGATIVE); LEUKOCYTE ESTERASE,URINE NEGATIVE (NEGATIVE); NITRITE,URINE NEGATIVE (NEGATIVE); PROTEIN,URINE 100 mg/dL (NEGATIVE); URINE SPECIFIC GRAVITY 1.023
[2018-08-06] MEDS ORDERED: NORMAL SALINE 1000 ML 1,000 ML IV ONE (09:44)
[2018-08-06] MEDS ORDERED: MORPHINE SULFATE 10 MG/ML INJ IV ONE (09:44)
--- NOTE | 2018-08-06 09:49 | ER Document Report ---
ED General - General Chief Complaint: Medication Refill Stated Complaint: FLANK PAIN Time Seen by Provider: 08/06/18 09:13 Primary Care Provider: CAITLYN ATKINSON MD [Primary Care Provider] - Follow up as needed Notes: 53-year-old male with hypertension and kidney stones diagnosed on 07/25/2018 here in the emergency department presents for chief complaint of left flank pain and hematuria described as unbearable. Patient has associated nausea with no vomiting, but it got severely worse today, he called his primary care and was advised again like last time to come to the emergency department. Denies any fevers, chills, night sweats. He currently rates his pain as a 10 out of 10 in his left flank radiating towards the groin, described as a constant aching and sharp sensation. He has been unable to get into urology for referral that was given to him his last visit. He reports history of kidney stones in the past with lithotripsy. Denies having any chest pain, shortness of breath, difficulty breathing, denies any other complaints at this time. Past Medical History: Kidney stones, hypertension Past Surgical History: Lithotripsy Social History: Denies current tobacco, alcohol or drug use. Family History: Reviewed and noncontributory for presenting illness Allergies: Reviewed, see documented allergy list. TRAVEL OUTSIDE OF THE [place]S. IN LAST 30 DAYS: No - Related Data Allergies/Adverse Reactions: acetaminophen [From Tylenol] Allergy (Verified 08/06/18 08:08) amlodipine besylate [From Norvasc] Allergy (Verified 08/06/18 08:08) ibuprofen Allergy (Verified 08/06/18 08:08) pioglitazone HCl [From Actos] Allergy (Verified 08/06/18 08:08) Past Medical History - Social History Smoking Status: Current Some Day Smoker Family History: Reviewed & Not Pertinent, CAD Patient has suicidal ideation: No Patient has homicidal ideation: No - Past Medical History Cardiac Medical History: Reports: Hx Hypercholesterolemia, Hx Hypertension Denies: Hx Atrial Fibrillation, Hx Coronary Artery Disease Pulmonary Medical History: Reports: Hx COPD Neurological Medical History: Reports: Hx Cerebrovascular Accident - 2008 with residual right sided weakness Endocrine Medical History: Reports: Hx Diabetes Mellitus Type 1, Hx Diabetes Mellitus Type 2 Renal/ Medical History: Denies: Hx Peritoneal Dialysis GI Medical History: Reports: Hx Gastroesophageal Reflux Disease Psychiatric Medical History: Reports: Hx Depression Past Surgical History: Reports: Hx Carotid Endarterectomy, Hx Kidney (Renal Surgery) - lithotripsy, Hx Orthopedic Surgery, Hx Vascular Surgery - Immunizations Immunizations up to date: Yes Hx Diphtheria, Pertussis, Tetanus Vaccination: Yes Hx Pneumococcal Vaccination: 07/20/14 Physical Exam - Vital signs Vitals: Temp Pulse Resp BP Pulse Ox 99.0 F 106 H 18 179/118 H 100 08/06/18 08:14 08/06/18 08:14 08/06/18 08:14 08/06/18 08:14 08/06/18 08:14 - Notes Notes: PHYSICAL EXAMINATION: Reviewed vital signs and charting by RN GENERAL: Alert, interacts well. Standing leaning over a chair in acute distress. HEAD: Normocephalic, atraumatic. EYES: Pupils equal, round. Extraocular movements intact. ENT: Oral mucosa moist NECK: Full range of motion. Supple. Trachea midline. LUNGS: Clear to auscultation bilaterally, no wheezes, rales, or rhonchi. No respiratory distress. HEART: Regular rate and rhythm. No murmur ABDOMEN: soft, non-tender. Non-distended. Bowel sounds present in all 4 quadrants. EXTREMITIES: Moves all 4 extremities spontaneously. No edema, No cyanosis. BACK: Acute CVA tenderness left side NEUROLOGICAL: Alert and oriented. Normal speech. PSYCH: Normal affect, normal mood. SKIN: Warm, dry, normal turgor. No rashes or lesions noted. Course - Re-evaluation Re-evalutation: 08/06/18 09:48 53 male in acute distress presents to the emergency department for pain and left flank. Patient seen on 07/25/2018 and diagnosed with kidney stones on CT. No evidence of infected stone then. Plan is to obtain CBC and CMP to ensure no infection is present. Will initiate pain control and IV fluid hydration. 08/06/18 10:20 CBC showed no evidence of leukocytosis, patient does not have fever. I have low suspicion for an infected stone at this point. At this time because patient was imaged on 07/25/2018 I do not plan to reimage. I discussed case with Dr. Rain. Plan is to get pain under control and discharge home. 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 - Vital Signs Vital signs: Temp Pulse Resp BP Pulse Ox 99.0 F 106 H 18 179/118 H 100 08/06/18 08:14 08/06/18 08:14 08/06/18 08:14 08/06/18 08:14 08/06/18 08:14 - Laboratory Result Diagrams: 08/06/18 09:50 08/06/18 09:50 Laboratory results interpreted by me: 08/06/18 08/06/18 09:15 09:50 Glucose 115 H Calcium 10.3 H Urine Protein 100 H Urine Urobilinogen 2.0 H Urine Ascorbic Acid 40 H Discharge - Discharge Clinical Impression: Acute flank pain, Kidney stone on left side Condition: Good Disposition: HOME, SELF-CARE Instructions: Antinausea Medication ([facility]), Pain Medication Injection ([facility]) Additional Instructions: Your symptoms should improve over the course of the next one week. If you continue to have pain for greater than one week or your pain is not controlled with the pain medications that you have been sent home with you need to return to the emergency department. Please also return if you develop fever, persistent vomiting, or any other symptoms that are concerning to you. You should take ibuprofen 600 mg every 6 hours and use the oral morphine as prescribed only for pain not controlled by ibuprofen. You are also been sent home with a medication called Flomax to help pass the stone. You've been given Zofran to assist with nausea. Please follow-up with urology in the next 2-3 days. Prescriptions: Oxycodone HCl [Oxycontin Ir 5 Mg Tablet] 1 mg PO Q4H PRN #15 tablet PRN Reason: For Pain Referrals: CAITLYN ATKINSON MD [Primary Care Provider] - Follow up as needed
[2018-08-06 10:05] LABS: ABSOLUTE BASOPHILS # (AUTO) 0.1 10^3/uL (0.0-0.2); ABSOLUTE EOSINOPHILS # (AUTO) 0.2 10^3/uL (0.0-0.6); ABSOLUTE LYMPHOCYTES (AUTO) 1.5 10^3/uL (0.5-4.7); ABSOLUTE MONOCYTES (AUTO) 0.8 10^3/uL (0.1-1.4); ABSOLUTE NEUT (AUTO) 5.4 10^3/uL (1.7-8.2); BASOPHILS % (AUTO) 0.8 % (0-2); EOSINOPHILS % (AUTO) 2.7 % (0-6); HEMOGLOBIN 16.2 g/dL (13.5-17.0); LYMPHOCYTES % (AUTO) 18.9 % (13-45); MEAN CORPUSCULAR HGB CONC 34.5 g/dL (32.0-36.0); MEAN CORPUSCULAR VOLUME 93 fl (80-97); MONOCYTES % (AUTO) 9.8 % (3-13); PLATELET COUNT 261 10^3/uL (150-450); RED BLOOD COUNT 5.07 10^6/uL (4.35-5.55); SEGMENTED NEUTROPHILS % (AUTO) 67.8 % (42-78); TOTAL CELLS COUNTED % (AUTO) 100 %
[2018-08-06 10:26] LABS: ALANINE AMINOTRANSFERASE 23 U/L (21-72); ALKALINE PHOSPHATASE 54 U/L (38-126); ANION GAP 11 (5-19); ASPARTATE AMINO TRANSFERASE 21 U/L (17-59); BILIRUBIN,DIRECT 0.2 mg/dL (0.0-0.4); BILIRUBIN,TOTAL 0.9 mg/dL (0.2-1.3); BLOOD UREA NITROGEN 20 mg/dL (7-20); CALCIUM 10.3 mg/dL (8.4-10.2); CARBON DIOXIDE 26 mmol/L (22-30); CHLORIDE 106 mmol/L (98-107); GLUCOSE 115 mg/dL (75-110); POTASSIUM 4.8 mmol/L (3.6-5.0); SODIUM 142.7 mmol/L (137-145); TOTAL PROTEIN 8.2 g/dL (6.3-8.2)
[2018-08-06] MEDS ORDERED: ONDANSETRON ODT 4 MG TAB (6 TAB/ER DISP) PO PRN (10:41)
[2018-08-06 11:32] VITALS: BP 189/113
== END 2018-08-06 11:32 | disposition home or self-care (01) ==
LOC: ER 08:07
DX: N20.0 Calculus of kidney (principal); R31.9 Hematuria, unspecified; R10.9 Unspecified abdominal pain; R11.0 Nausea; I10 Essential (primary) hypertension; J44.9 Chronic obstructive pulmonary disease, unspecified; E11.9 Type 2 diabetes mellitus without complications; F17.200 Nicotine dependence, unspecified, uncomplicated; Z88.6 Allergy status to analgesic agent; Z88.8 Allergy status to other drugs, medicaments and biological substances
CPT/HCPCS: 99282; 96361; 96374; 36415; 85025; 80053; 81001; J2270; J7030

== ENCOUNTER → 2018-09-24 | Outpatient (CLI) | payer MEDICAID ==
--- NOTE | 2018-09-24 10:14 | RADIOLOGY REPORT (SQ) ---
EXAM DESCRIPTION: CT ABD/PELVIS NO ORAL OR IV COMPLETED DATE/TIME: 09/24/2018 8:41 am REASON FOR STUDY: KIDNEY STONES (N20.0) N20.0 CALCULUS OF KIDNEY COMPARISON: 08/11/2017 TECHNIQUE: CT scan of the abdomen and pelvis performed without intravenous or oral contrast. Images reviewed with lung, soft tissue, and bone windows. Reconstructed coronal and sagittal MPR images revi ewed. All images stored on PACS. All CT scanners at this facility use dose modulation, iterative reconstruction, and/or weight based d osing when appropriate to reduce radiation dose to as low as reasonably achievable (ALARA). [facility]: Dose Right [facility]: CareDose [facility]: Dose Right [facility]: Teradose 4D [facility]: [employer] RADIATION DOSE: CT Rad equipment meets quality standard of care and radiation dose reduction techniq ues were employed. CTDIvol: 6.0 mGy. DLP: 304 mGy-cm.. LIMITATIONS: None. FINDINGS: LOWER CHEST: No significant interval changes. NON-CONTRASTED LIVER, SPLEEN, ADRENALS: Evaluation limited by lack of IV contrast. No identified sign ificant masses. PANCREAS: No masses. No peripancreatic inflammatory changes. GALLBLADDER: No identified stones by CT criteria. No inflammatory changes to suggest cholecystitis. RIGHT KIDNEY AND URETER: A few very small punctate nonobstructing calculi in the kidney. Assessment limited by lack of IV contrast. LEFT KIDNEY AND URETER: Several new nonobstructing calculi in the mid lower pole of the left kidney with some of the largest measuring up to 5-6 mm. Assessment limited by lack of IV contrast AORTA AND RETROPERITONEUM: The abdominal aorta is tortuous. Mild atherosclerotic changes. An infra renal abdominal aortic aneurysm measures 3.6 cm. The common iliac arteries are mildly ectatic in maria a earance. The right iliac are measures 1.3 cm in diameter and the left measures 1.4 cm in diameter. BOWEL AND PERITONEAL CAVITY: No obvious masses or inflammatory changes. No free fluid. APPENDIX: Normal. PELVIS, BLADDER, AND ABDOMINAL WALL: The prostate gland is stable in appearance, mild prostate gland enlargement. No free fluid. Small stable fat containing umbilical hernia. BONES: The osseous structures are stable in appearance. OTHER: No other significant finding. IMPRESSION: 1. Bilateral nonobstructing renal calculi. 2. Mild atherosclerotic changes involving the abdominal aorta which is tortuous in appearance. An i nfrarenal 3.6 cm abdominal aortic aneurysm. The abdominal aorta is tortuous. 3. Additional stable findings as above. COMMENT: Quality ID # [id number]: Final reports with documentation of one or more dose reduction techniques (e.g., Automated exposure control, adjustment of the mA and/or kV according to patient size, use of iterative reconstruction technique) TECHNICAL DOCUMENTATION: JOB ID: [id number] [employer]- All Rights Reserved Reading location - IP/workstation name: [email or web address]
== END ==
LOC: RAD 08:14
PROVIDERS: ATTEND Urology
DX: N20.0 Calculus of kidney (principal)
CPT/HCPCS: 74176

== ENCOUNTER 2018-10-18 07:16 | Emergency (ER) | payer MEDICAID ==
[2018-10-18 07:53] LABS: APPEARANCE,URINE CLEAR; BILIRUBIN,URINE NEGATIVE (NEGATIVE); COLOR,URINE YELLOW; GLUCOSE, URINE NEGATIVE (NEGATIVE); KETONES,URINE NEGATIVE (NEGATIVE); LEUKOCYTE ESTERASE,URINE NEGATIVE (NEGATIVE); NITRITE,URINE NEGATIVE (NEGATIVE); PROTEIN,URINE 100 mg/dL (NEGATIVE); URINE SPECIFIC GRAVITY 1.023; UROBILINOGEN,URINE NEGATIVE mg/dL (<2.0)
[2018-10-18] MEDS ORDERED: METOPROLOL SUCCINATE 50 MG TAB.SR.24H PO ONE (08:25)
[2018-10-18] MEDS ORDERED: RAMIPRIL 5 MG CAPSULE PO ONE (08:25)
[2018-10-18] MEDS ORDERED: KETOROLAC TROMETHAMINE INJ/PF 30 MG/1 ML SDV IV ONE (08:26)
--- NOTE | 2018-10-18 08:27 | ER Document Report ---
ED General - General Chief Complaint: Flank Pain Stated Complaint: FLANK PAIN Time Seen by Provider: 10/18/18 08:13 Primary Care Provider: TRISTAN BARNHART MD [NO LOCAL MD] - Follow up as needed TRAVEL OUTSIDE OF THE [place] IN LAST 30 DAYS: No - HPI Notes: Patient is a 53-year-old male with a history of hypertension, CVA, kidney stones who presents emergency department complaining of left flank pain and some discomfort when he urinated began last night. Patient states that he has had pain similar to this with previous stones. He is otherwise able to eat and drink without difficulty. He is having normal bowel movements. He has had lithotripsies in the past. No other concerns or complaints. Patient states that he does not take Tylenol or Motrin by mouth because it upsets his stomach otherwise does not have an allergy to it. He did not take his blood pressure medicines this morning. Denies any headache, fever, URI, sore throat, chest pain, palpitations, syncope, cough, shortness of breath, wheeze, dyspnea, abdominal pain, nausea/vomiting/diarrhea, urinary retention, loss of control of bowel or bladder, numbness/tingling, saddle anesthesia, muscle paralysis/wea kness, or rash. Pt also has occ left ear pain after using a q-tip in his canal yesterday. No blood or other discharge noted. - Related Data Allergies/Adverse Reactions: acetaminophen [From Tylenol] Allergy (Verified 10/18/18 07:18) amlodipine besylate [From Norvasc] Allergy (Verified 10/18/18 07:18) ibuprofen Allergy (Verified 10/18/18 07:18) pioglitazone HCl [From Actos] Allergy (Verified 10/18/18 07:18) Past Medical History - Social History Smoking Status: Unknown if Ever Smoked Family History: Reviewed & Not Pertinent, CAD - Past Medical History Cardiac Medical History: Reports: Hx Hypercholesterolemia, Hx Hypertension Denies: Hx Atrial Fibrillation, Hx Coronary Artery Disease Pulmonary Medical History: Reports: Hx COPD Neurological Medical History: Reports: Hx Cerebrovascular Accident - 2008 with residual right sided weakness Endocrine Medical History: Reports: Hx Diabetes Mellitus Type 1, Hx Diabetes Mellitus Type 2 Renal/ Medical History: Denies: Hx Peritoneal Dialysis GI Medical History: Reports: Hx Gastroesophageal Reflux Disease Psychiatric Medical History: Reports: Hx Depression Past Surgical History: Reports: Hx Carotid Endarterectomy, Hx Kidney (Renal Surgery) - lithotripsy, Hx Orthopedic Surgery, Hx Vascular Surgery - Immunizations Immunizations up to date: Yes Hx Diphtheria, Pertussis, Tetanus Vaccination: Yes Hx Pneumococcal Vaccination: 07/20/14 Review of Systems - Review of Systems -: Yes All other systems reviewed and negative Physical Exam - Vital signs Vitals: Temp Pulse Resp BP Pulse Ox 98.1 F 76 16 191/108 H 97 10/18/18 07:20 10/18/18 07:20 10/18/18 07:20 10/18/18 07:20 10/18/18 07:20 - Notes Notes: PHYSICAL EXAMINATION: GENERAL: Well-appearing, well-nourished and in no acute distress. Ears: EAC clear b/l. no erythema or tenderness. TM's wnl b/l. LUNGS: Breath sounds clear to auscultation bilaterally and equal. No wheezes rales or rhonchi. HEART: Regular rate and rhythm without murmurs, rubs, gallops. ABDOMEN: Soft, nontender, nondistended abdomen. No guarding, no rebound. Norm al bowel sounds present. + mild left CVA tenderness. No pulsatile mass Musculoskeletal: LE's b/l: FROM to passive/active. Strength 5+/5. No deficits noted. No bony tenderness of extremities. Back: FROM to passive/active. Strength 5+/5. No vertebral point tenderness, stepoffs, or deformities. No other bony tenderness, erythema, swelling, or ecchymosis. SLR negative b/l. + mild reproducible tenderness to the left L- paraspinal mm. Mild spasming. No SI jt tenderness. No foot drop Extremities: No cyanosis, clubbing, or edema b/l. Peripheral pulses 2+. Capillary refill less than 2 seconds. NEUROLOGICAL: Normal speech, normal gait. Normal sensory, motor exams. Reflexes 2+ b/l. PSYCH: Normal mood, normal affect. SKIN: Warm, Dry, normal turgor, no rashes or lesions noted. Course - Re-evaluation Re-evalutation: 10/18/18 10:53 Patient is an afebrile, well-hydrated, 53-year-old male who presents to the ED with acute low back pain and left otalgia. Vitals are acceptable. PE is otherwise unremarkable for any focal neurological deficits. Labs and CT scan unremarkable for acute pathology. Patient was given Toradol and Lidoderm patch. He has no significant tachycardia, tachypnea, or hypoxia. He is nontoxic- appearing and is tolerating p.o. without difficulties. There are no signs of infection. No other red flag symptoms noted. No other labs or imaging warranted at this time based on H&P. Pt feeling better. Low suspicion for any meningitis, fracture, expanding/ruptured AAA, cauda equina syndrome, epidural mass lesion/abscess, herniated disc causing severe spinal stenosis, or other systemic infection at this time. Patient is aware that his condition can change from initial presentation and that he needs monitor symptoms closely for any acute changes. I will send him home with a prescription for flexeril as this has helped him in the past and lidoderm. Conservative measures otherwise for symptoms. Recheck with your PCM in 3-5 days. Consider consult with orthopedic/physical therapy. Return to the ED with any worsening/concerning symptoms otherwise as reviewed discharge. Patient is in agreement. - Vital Signs Vital signs: Temp Pulse Resp BP Pulse Ox 98.1 F 76 16 180/106 H 97 10/18/18 07:20 10/18/18 07:20 10/18/18 07:20 10/18/18 09:17 10/18/18 09:17 - Laboratory Result Diagrams: 10/18/18 08:22 10/18/18 08:22 Laboratory results interpreted by me: 10/18/18 07:18 Urine Protein 100 H Urine Blood SMALL H Urine Ascorbic Acid 40 H Discharge - Discharge Clinical Impression: Otalgia, left ear Left low back pain Qualifiers: Chronicity: acute Sciatica presence: without sciatica Qualified Code(s): M54.5 - Low back pain Condition: Stable Disposition: HOME, SELF-CARE Additional Instructions: Rest, Ice Light stretches daily Strength exercises as able Moist heat and massage may help F/u with your PCP in 3-5 days for a recheck Consider consult(s) with Orthopedics/physical therapy for ongoing/worsening symptoms Return to the ED with any worsening symptoms and/or development of fever, headache, chest pain, palpitations, syncope, shortness of breath, trouble breathing, abdominal pain, n/v/d, blood in stool/urine, loss of control of bowel/bladder, urinary retention, muscle weakness/paralysis, saddle anesthesia, numbness/tingling, or other worsening symptoms that are concerning to you. Prescriptions: Cyclobenzaprine HCl [Flexeril 10 mg Tablet] 10 mg PO TIDP PRN #15 tab PRN Reason: Lidocaine [Lidoderm 5% (700 mg) Transdermal Patch] 1 patch TP DAILY #10 adh..patch Forms: Elevated Blood Pressure Referrals: TRISTAN BARNHART MD [NO LOCAL MD] - Follow up as needed [facility] [Provider Group] - Follow up as needed
[2018-10-18 08:38] LABS: ABSOLUTE BASOPHILS # (AUTO) 0.1 10^3/uL (0.0-0.2); ABSOLUTE EOSINOPHILS # (AUTO) 0.3 10^3/uL (0.0-0.6); ABSOLUTE LYMPHOCYTES (AUTO) 1.4 10^3/uL (0.5-4.7); ABSOLUTE MONOCYTES (AUTO) 0.9 10^3/uL (0.1-1.4); ABSOLUTE NEUT (AUTO) 5.5 10^3/uL (1.7-8.2); BASOPHILS % (AUTO) 0.7 % (0-2); EOSINOPHILS % (AUTO) 3.9 % (0-6); HEMATOCRIT 43.9 % (37.9-51.0); HEMOGLOBIN 14.6 g/dL (13.5-17.0); LYMPHOCYTES % (AUTO) 17.6 % (13-45); MEAN CORPUSCULAR HEMOGLOBIN 31.1 pg (27.0-33.4); MEAN CORPUSCULAR HGB CONC 33.2 g/dL (32.0-36.0); MEAN CORPUSCULAR VOLUME 94 fl (80-97); MONOCYTES % (AUTO) 10.7 % (3-13); PLATELET COUNT 210 10^3/uL (150-450); RED BLOOD COUNT 4.69 10^6/uL (4.35-5.55); RED CELL DISTRIBUTION WIDTH 12.9 % (11.5-14.0); SEGMENTED NEUTROPHILS % (AUTO) 67.1 % (42-78); TOTAL CELLS COUNTED % (AUTO) 100 %; WHITE BLOOD COUNT 8.2 10^3/uL (4.0-10.5)
[2018-10-18 08:57] LABS: ALANINE AMINOTRANSFERASE 22 U/L (21-72); ALBUMIN 4.1 g/dL (3.5-5.0); ALKALINE PHOSPHATASE 50 U/L (38-126); ANION GAP 10 (5-19); ASPARTATE AMINO TRANSFERASE 24 U/L (17-59); BILIRUBIN,DIRECT 0.2 mg/dL (0.0-0.4); BILIRUBIN,TOTAL 0.6 mg/dL (0.2-1.3); BLOOD UREA NITROGEN 20 mg/dL (7-20); CALCIUM 9.7 mg/dL (8.4-10.2); CARBON DIOXIDE 28 mmol/L (22-30); CHLORIDE 106 mmol/L (98-107); GLUCOSE 103 mg/dL (75-110); POTASSIUM 4.2 mmol/L (3.6-5.0); SODIUM 143.8 mmol/L (137-145); TOTAL PROTEIN 7.6 g/dL (6.3-8.2)
[2018-10-18] MEDS ORDERED: NORMAL SALINE 1000 ML 1,000 ML IV ONE (09:00)
--- NOTE | 2018-10-18 09:12 | RADIOLOGY REPORT (SQ) ---
EXAM DESCRIPTION: CT ABD/PELVIS NO ORAL OR IV COMPLETED DATE/TIME: 10/18/2018 8:56 am REASON FOR STUDY: left flank pain COMPARISON: CT angio abdomen and pelvis 08/25/2016 CT abdomen pelvis without oral or IV contrast 08/11/2017, 09/24/2018 TECHNIQUE: CT scan of the abdomen and pelvis performed without intravenous or oral contrast. Images reviewed with lung, soft tissue, and bone windows. Reconstructed coronal and sagittal MPR images revi ewed. All images stored on PACS. All CT scanners at this facility use dose modulation, iterative reconstruction, and/or weight based d osing when appropriate to reduce radiation dose to as low as reasonably achievable (ALARA). [facility]: Dose Right [facility]: CareDose [facility]: Dose Right [facility]: Teradose 4D [facility]: [employer] RADIATION DOSE: 8.5 mGy. LIMITATIONS: None. FINDINGS: LOWER CHEST: No significant findings. No nodules or infiltrates. NON-CONTRASTED LIVER, SPLEEN, ADRENALS: Evaluation limited by lack of IV contrast. No identified sign ificant masses. PANCREAS: No masses. No peripancreatic inflammatory changes. GALLBLADDER: No identified stones by CT criteria. No inflammatory changes to suggest cholecystitis. RIGHT KIDNEY AND URETER: No suspicious masses. Assessment limited by lack of IV contrast. No signif icant calcifications. No hydronephrosis or hydroureter. LEFT KIDNEY AND URETER: No suspicious masses. Assessment limited by lack of IV contrast. There are multiple left-sided intrarenal nonobstructive calculi in the lower pole kidney, the largest is 6 mm i n diameter. No hydronephrosis or hydroureter. AORTA AND RETROPERITONEUM: Infrarenal abdominal aorta measures 3 cm in greatest diameter. No retrope ritoneal masses or adenopathy. There are atherosclerotic left iliac artery calcifications on coronal reconstruction images 35-38. BOWEL AND PERITONEAL CAVITY: No obvious masses or inflammatory changes. No free fluid. APPENDIX: Normal. PELVIS, BLADDER, AND ABDOMINAL WALL:No abnormal masses. No free fluid. Bladder normal. BONES: Old avulsion with bony well corticated fragments posterior left acetabulum OTHER: No other significant finding. IMPRESSION: Left-sided intrarenal nonobstructive calculi. No left ureteral stones or hydronephrosis / hydroureter. COMMENT: Quality ID # 436: Final reports with documentation of one or more dose reduction techniques (e.g., Automated exposure control, adjustment of the mA and/or kV according to patient size, use of iterative reconstruction technique) TECHNICAL DOCUMENTATION: JOB ID: [id number] [employer]- All Rights Reserved Reading location - IP/workstation name: [email or web address]
[2018-10-18] MEDS ORDERED: MORPHINE SULFATE 10 MG/ML INJ IV ONE (10:42)
[2018-10-18] MEDS ORDERED: LIDOCAINE 5% (700 MG) TRANSDERMAL ADH..PATCH TP ONE (10:52)
[2018-10-18 11:28] VITALS: BP 172/119
== END 2018-10-18 11:28 | disposition home or self-care (01) ==
LOC: ER 07:16
DX: M54.5 Low back pain (principal); H92.02 Otalgia, left ear; R10.9 Unspecified abdominal pain; J44.9 Chronic obstructive pulmonary disease, unspecified; E11.9 Type 2 diabetes mellitus without complications; R25.2 Cramp and spasm; I10 Essential (primary) hypertension; Z79.899 Other long term (current) drug therapy
CPT/HCPCS: 99284; 96361; 96374; 36415; 85025; 80053; 81001; 74176; J1885; J3490 ×3; J7030

== ENCOUNTER 2018-11-14 08:20 | Inpatient (IN) | payer MEDICAID ==
[2018-11-14 08:58] LABS: ABSOLUTE BASOPHILS # (AUTO) 0.1 10^3/uL (0.0-0.2); ABSOLUTE EOSINOPHILS # (AUTO) 0.3 10^3/uL (0.0-0.6); ABSOLUTE LYMPHOCYTES (AUTO) 1.7 10^3/uL (0.5-4.7); ABSOLUTE MONOCYTES (AUTO) 0.8 10^3/uL (0.1-1.4); ABSOLUTE NEUT (AUTO) 4.6 10^3/uL (1.7-8.2); BASOPHILS % (AUTO) 0.9 % (0-2); EOSINOPHILS % (AUTO) 3.6 % (0-6); HEMATOCRIT 46.5 % (37.9-51.0); HEMOGLOBIN 15.4 g/dL (13.5-17.0); LYMPHOCYTES % (AUTO) 23.3 % (13-45); MEAN CORPUSCULAR HGB CONC 33.2 g/dL (32.0-36.0); MEAN CORPUSCULAR VOLUME 93 fl (80-97); MONOCYTES % (AUTO) 11.1 % (3-13); PLATELET COUNT 188 10^3/uL (150-450); RED BLOOD COUNT 4.98 10^6/uL (4.35-5.55); RED CELL DISTRIBUTION WIDTH 13.2 % (11.5-14.0); SEGMENTED NEUTROPHILS % (AUTO) 61.1 % (42-78); TOTAL CELLS COUNTED % (AUTO) 100 %; WHITE BLOOD COUNT 7.5 10^3/uL (4.0-10.5)
--- NOTE | 2018-11-14 09:09 | RADIOLOGY REPORT (SQ) ---
EXAM DESCRIPTION: CHEST SINGLE VIEW COMPLETED DATE/TIME: 11/14/2018 8:59 am REASON FOR STUDY: New CVA COMPARISON: 08/09/2018 EXAM PARAMETERS: NUMBER OF VIEWS: One view. TECHNIQUE: Single frontal radiographic view of the chest acquired. RADIATION DOSE: NA LIMITATIONS: None. FINDINGS: LUNGS AND PLEURA: No opacities, masses or pneumothorax. No pleural effusion. MEDIASTINUM AND HILAR STRUCTURES: No masses. Contour normal. HEART AND VASCULAR STRUCTURES: Heart normal in size. Normal vasculature. BONES: No acute findings. HARDWARE: None in the chest. OTHER: No other significant finding. IMPRESSION: NO ACUTE RADIOGRAPHIC FINDING IN THE CHEST. TECHNICAL DOCUMENTATION: JOB ID: [id number] [employer]- All Rights Reserved Reading location - IP/workstation name: [email or web address]
[2018-11-14 09:16] LABS: ALANINE AMINOTRANSFERASE 19 U/L (21-72); ALBUMIN 4.4 g/dL (3.5-5.0); ALKALINE PHOSPHATASE 51 U/L (38-126); ANION GAP 10 (5-19); ASPARTATE AMINO TRANSFERASE 25 U/L (17-59); BILIRUBIN,DIRECT 0.2 mg/dL (0.0-0.4); BILIRUBIN,TOTAL 0.9 mg/dL (0.2-1.3); BLOOD UREA NITROGEN 17 mg/dL (7-20); CALCIUM 9.9 mg/dL (8.4-10.2); CARBON DIOXIDE 29 mmol/L (22-30); CHLORIDE 106 mmol/L (98-107); CREATINE KINASE 47 U/L (55-170); GLUCOSE 112 mg/dL (75-110); POTASSIUM 4.1 mmol/L (3.6-5.0); SODIUM 144.6 mmol/L (137-145); TOTAL PROTEIN 7.8 g/dL (6.3-8.2)
--- NOTE | 2018-11-14 09:17 | RADIOLOGY REPORT (SQ) ---
EXAM DESCRIPTION: CT HEAD WITHOUT COMPLETED DATE/TIME: 11/14/2018 9:00 am REASON FOR STUDY: New left-sided numbness and weakness COMPARISON: 08/13/2017 TECHNIQUE: Axial images acquired through the brain without intravenous contrast. Images reviewed wi th bone, brain and subdural windows. Additional sagittal and coronal reconstructions were generated. Images stored on PACS. All CT scanners at this facility use dose modulation, iterative reconstruction, and/or weight based d osing when appropriate to reduce radiation dose to as low as reasonably achievable (ALARA). [facility]: Dose Right [facility]: CareDose [facility]: Dose Right [facility]: Teradose 4D [facility]: [employer] RADIATION DOSE: CT Rad equipment meets quality standard of care and radiation dose reduction techniq ues were employed. CTDIvol: 53.2 mGy. DLP: 1017 mGy-cm. mGy. LIMITATIONS: None. FINDINGS: VENTRICLES: Normal size and contour. CEREBRUM: No masses. No hemorrhage. No midline shift. No evidence for acute large vascular territo ry infarction. Unchanged small areas of hypoattenuation within the bilateral frontal parietal cortex. Otherwise, normal gambino/white matter differentiation. No significant areas of low density in the whi te matter. CEREBELLUM: No masses. No hemorrhage. No alteration of density. No evidence for acute infarction. EXTRAAXIAL SPACES: No fluid collections. No masses. ORBITS AND GLOBE: No intra- or extraconal masses. Normal contour of globe without masses. CALVARIUM: No fracture. PARANASAL SINUSES: Mucosal thickening throughout the ethmoid air cells and right maxillary sinus. Mi nimal mucosal thickening in the left maxillary sinus. Small fluid level within the sphenoid sinuses. Mastoid air cells are clear. SOFT TISSUES: No mass or hematoma. OTHER: No other significant finding. IMPRESSION: 1. Stable chronic changes without evidence of acute intracranial abnormality. 2. Sinus mucosal disease within the maxillary and sphenoid sinuses and ethmoid air cells. EVIDENCE OF ACUTE STROKE: NO. COMMENT: Quality ID # [id number]: Final reports with documentation of one or more dose reduction techniques (e.g., Automated exposure control, adjustment of the mA and/or kV according to patient size, use of iterative reconstruction technique) TECHNICAL DOCUMENTATION: JOB ID: [id number] [employer]- All Rights Reserved Reading location - IP/workstation name: [email or web address]
[2018-11-14 09:28] LABS: CREATINE KINASE MB 0.56 ng/mL (<4.55)
[2018-11-14 09:40] LABS: TROPONIN I 0.102 ng/mL
--- NOTE | 2018-11-14 09:41 | ER Document Report ---
Entered by STANLEY SALGADO SCRIBE 11/14/18 0857 Acting as scribe for:COLT MORENO MD ED General - General Chief Complaint: Weakness Stated Complaint: POSSIBLE STROKE Time Seen by Provider: 11/14/18 08:31 Primary Care Provider: CAITLYN TAYLOR MD [Primary Care Provider] - Follow up as needed Mode of Arrival: Ambulatory Information source: Patient Notes: Patient is a 53 year old male with HTN and a history of CVA presents to the emergency department complaining of left sided weakness and left facial numbness. Patient states around 1800 yesterday, he noticed he had left sided weakness and left facial numbness. He states this morning, while attempting to drive to the ED, he became very confused and disoriented. He states he returned home and asked his significant other to drive him here. Patient state he has a history of a CVA (2008) and multiple TIAs (2013, 2015, 2017, 2018) with subsequent left sided deficits. In 2017, the patient presented to the ED complaining of left sided weakness and was discharged home with a walker. He states he has not needed to use the walker or a cane until his symptoms were onset yesterday. The patient reports the onset of his symptoms was at 6 PM yesterday evening. He is seen 14 hours post onset of symptoms. He is on Plavix and aspirin. He has had several TIAs or mini strokes in the past. He is not a TPA candidate. TRAVEL OUTSIDE OF THE [place] IN LAST 30 DAYS: No - Related Data Allergies/Adverse Reactions: acetaminophen [From Tylenol] Allergy (Verified 11/14/18 08:21) amlodipine besylate [From Norvasc] Allergy (Verified 11/14/18 08:21) ibuprofen Allergy (Verified 11/14/18 08:21) pioglitazone HCl [From Actos] Allergy (Verified 11/14/18 08:21) Past Medical History - General Information source: Patient - Social History Smoking Status: Current Some Day Smoker Cigarette use (# per day): Yes Chew tobacco use (# tins/day): No Smoking Education Provided: No Frequency of alcohol use: None Drug Abuse: None Lives with: Spouse/Significant other Family History: Reviewed & Not Pertinent, CAD - Past Medical History Cardiac Medical History: Reports: Hx Hypercholesterolemia, Hx Hypertension Pulmonary Medical History: Reports: Hx COPD Neurological Medical History: Reports: Hx Cerebrovascular Accident - 2009 with residual right sided weakness Endocrine Medical History: Reports: Hx Diabetes Mellitus Type 2 GI Medical History: Reports: Hx Gastroesophageal Reflux Disease Psychiatric Medical History: Reports: Hx Depression Past Surgical History: Reports: Hx Carotid Endarterectomy - right, Hx Kidney (Renal Surgery) - lithotripsy, Hx Orthopedic Surgery, Hx Vascular Surgery - Immunizations Immunizations up to date: Yes Hx Diphtheria, Pertussis, Tetanus Vaccination: Yes Hx Pneumococcal Vaccination: 07/20/14 Review of Systems - Review of Systems Constitutional: No symptoms reported EENT: No symptoms reported Cardiovascular: No symptoms reported Respiratory: No symptoms reported Gastrointestinal: No symptoms reported Genitourinary: No symptoms reported Male Genitourinary: No symptoms reported Musculoskeletal: No symptoms reported Skin: No symptoms reported Hematologic/Lymphatic: No symptoms reported Neurological/Psychological: See HPI, Confusion, Weakness, Numbness -: Yes All other systems reviewed and negative Physical Exam - Vital signs Vitals: Temp Pulse Resp BP Pulse Ox 98.2 F 82 16 178/109 H 98 11/14/18 08:30 11/14/18 08:30 11/14/18 08:30 11/14/18 08:30 11/14/18 08:30 - Notes Notes: GENERAL: Alert, interacts well. No acute distress. HEAD: Normocephalic, atraumatic. EYES: Pupils equal, round, and reactive to light. Extraocular movements intact. ENT: Oral mucosa moist, tongue midline. NECK: Full range of motion. Supple. Trachea midline. No bruits. LUNGS: Clear to auscultation bilaterally, no wheezes, rales, or rhonchi. No respiratory distress. HEART: Regular rate and rhythm. No murmurs, gallops, or rubs. ABDOMEN: Soft, non-tender. Non-distended. Bowel sounds present in all 4 quadrants. No guarding, rigidity, or rebound. EXTREMITIES: Moves all 4 extremities spontaneously. No edema, radial and dorsalis pedis pulses 2/4 bilaterally. No cyanosis. NEUROLOGICAL: Alert and oriented x3. Normal speech. Left sided facial weakness. 4/5 field broomer strength of left hand. Pass pointing with finger to nose testing of the left hand. Able to lift LLE off the bed with a jerking motion and accessory muscle use, unable to maintain LLE in the air. RUE and RLE appear normal. PSYCH: Normal affect, normal mood. SKIN: Warm, dry, normal turgor. No rashes or lesions noted. Course - Re-evaluation Re-evalutation: 11/14/18 13:20 I discussed the case with Dr. Taylor while the patient was pending MRI. He tells me the patient has either a persistent or new right carotid artery stenosis and is supposed to repeat his carotid ultrasound study sometime in the next 6 month s. He is followed by Dr. Frazier in [place]. Dr. Taylor is requesting that I get an MRA of the neck. I discussed this with radiologist, he felt that the carotid ultrasound would be a better test. About that time found that the patient had returned from MRI and the study was just being posted to PACS. I will order the duplex ultrasound now. 11/14/18 14:46 MRI shows punctate areas of restricted diffusion within the right cerebral peduncle and basal ganglia compatible with infarct. There are additional stable chronic lacunar infarcts and nonspecific white matter changes, likely sequelae of microangiopathic disease. 11/14/18 15:47 Carotid artery duplex Doppler shows good blood flow with no restricted flow in the internal carotid. - Vital Signs Vital signs: Temp Pulse Resp BP Pulse Ox 98.2 F 82 17 153/104 H 97 11/14/18 08:30 11/14/18 08:45 11/14/18 14:08 11/14/18 14:08 11/14/18 14:08 - Laboratory Result Diagrams: 11/14/18 08:40 11/14/18 08:40 Laboratory results interpreted by me: 11/14/18 08:40 Glucose 112 H ALT 19 L Creatine Kinase 47 L - Diagnostic Test Radiology reviewed: Image reviewed, Reports reviewed - CT scan of the head shows chronic changes with nothing acute. Chest x-ray is unremarkable. MRI of the brain shows punctate areas of restricted diffusion within the right cerebral peduncle and basal ganglia compatible with infarct. - EKG Interpretation by Me EKG shows normal: Sinus rhythm, [place], Intervals, QRS Complexes. abnormal: ST-T Waves - Lateral T wave abnormalities suggesting ischemia Rate: Normal - 66 Rhythm: NSR [place]/QRS: Left axis deviation Voltage: Consistant with LVH When compared to previous EKG there are: Changes noted - Inverted T waves in the 5 and V6 are new compared to the most recent EKG. - Consults Dr. Taylor Time consulted: 15:40 Consulted provider: will see as inpatient Critical Care Note - Critical Care Note Total time excluding time spent on procedures (mins): 35 Discharge - Discharge Clinical Impression: Acute CVA (cerebrovascular accident) Hypertension Qualifiers: Hypertension type: essential hypertension Qualified Code(s): I10 - Essential (primary) hypertension Condition: Stable Disposition: ADMITTED INPATIENT Admitting Provider: Brandon Unit Admitted: IMCU Referrals: CAITLYN TAYLOR MD [Primary Care Provider] - Follow up as needed Scribe Attestation: 11/14/18 10:56 I personally performed the services described in the documentation, reviewed and edited the documentation which was dictated to the scribe in my presence, and it accurately records my words and actions. I personally performed the services described in the documentation, reviewed and edited the documentation which was dictated to the scribe in my presence, and it accurately records my words and actions.
--- NOTE | 2018-11-14 13:49 | RADIOLOGY REPORT (SQ) ---
EXAM DESCRIPTION: MRI HEAD WITHOUT COMPLETED DATE/TIME: 11/14/2018 1:28 pm REASON FOR STUDY: Acute left sided weakness and numbness COMPARISON: Same day CT, 08/10/2017 TECHNIQUE: Multiplanar imaging includes non-contrasted T1, T2, FLAIR, and Diffusion with ADC map seq uences. Images stored on PACS. LIMITATIONS: None. FINDINGS: ANATOMY: No anomalies. Normal vascular flow voids. Pituitary fossa normal. CSF SPACES: Normal in size and contour. No hemorrhage. CEREBRUM: Diffusion-weighted imaging demonstrates punctate areas of restricted diffusion with corresp onding decreased signal on the ADC map involving the right cerebral peduncle and basal ganglia compat ible with infarct. Additional stable bifrontal and biparietal FLAIR signal hyperintensities compatib le with prior lacunar infarcts. There are additional scattered areas of increased signal throughout the white matter and periventricular region likely sequelae of microangiopathic disease. Sulci and gyri normal in size and contour. No evidence of hemorrhage, mass or extraaxial fluid collection. Pu nctate area of susceptibility artifact within the right periventricular frontal white matter, likely hemosiderin staining. No mass occupying hematoma. POSTERIOR FOSSA: No signal alteration. No hemorrhage. No edema, masses or mass effect. Internal lexy tory canals, cerebello-pontine angles, mastoids normal. ORBITS: No masses. Globes normal. PARANASAL SINUSES: Mucosal thickening within the in bilateral maxillary sinuses and ethmoid air cells . OTHER: No other significant finding. IMPRESSION: 1. Punctate areas of restricted diffusion within the right cerebral peduncle and basal ganglia compatible with infarct. No significant mass effect or midline shift. 2. Additional stable chronic lacunar infarcts and nonspecific white matter changes, likely sequelae of microangiopathic disease. 3. Sinus mucosal disease. Pertinent positive or negative findings of the imaging study reported as a CRITICAL EXAM to COLT MORENO MD at13:39 on 11/14/2018. EVIDENCE OF ACUTE STROKE: YES. RIGHT MCA. TECHNICAL DOCUMENTATION: JOB ID: [id number] [employer]- All Rights Reserved Reading location - IP/workstation name: [email or web address]
[2018-11-14] MEDS ORDERED: DOCUSATE SODIUM 100 MG CAPSULE PO PRN (16:19)
[2018-11-14] MEDS ORDERED: ACETAMINOPHEN 325 MG TABLET PO PRN (16:19)
[2018-11-14] MEDS ORDERED: DEXTROSE 50%-WATER 25 GM/50 ML DISP.SYRIN IV PRN ×2 (16:25)
[2018-11-14] MEDS ORDERED: DEXTROSE 40% GEL 15 GM TUBE PO PRN ×2 (16:25)
[2018-11-14] MEDS ORDERED: GLUCAGON,HUMAN RECOMB 1 MG INJ IM PRN (16:25)
[2018-11-14] MEDS ORDERED: LABETALOL HCL INJ 20 MG/4 ML DISP.SYRIN IV PRN (16:41)
--- NOTE | 2018-11-14 17:03 | RADIOLOGY REPORT (SQ) ---
EXAM DESCRIPTION: CAROTID DOPPLER COMPLETED DATE/TIME: 11/14/2018 4:51 pm REASON FOR STUDY: Right carotid stenosis, TIA COMPARISON: 08/11/2017 TECHNIQUE: Grayscale ultrasound, Doppler velocity and spectra, and color Doppler images acquired of the extra-cranial carotid and vertebral arteries. Images stored on PACS. LIMITATIONS: None. FINDINGS: RIGHT CAROTID CCA Velocities: Within normal limits. ICA Velocities Peak systolic 82 cm/s. End diastolic 28 cm/s. Proximal ICA/CCA peak systolic ratio 1.5. Intimal thickening in the proximal internal carotid. LEFT CAROTID CCA Velocities: Within normal limits. ICA Velocities Peak systolic 78 cm/s. End diastolic 33 cm/s. Proximal ICA/CCA peak systolic ratio 1.1. There is focal plaque in the internal carotid. VERTEBRAL ARTERIES: Antegrade flow. Normal waveforms. SUBCLAVIAN ARTERIES: No finding. OTHER: No other significant finding. IMPRESSION: NO HEMODYNAMICALLY SIGNIFICANT STENOSIS. COMMENT: Quality ID #[id number]: Velocity criteria are extrapolated from the diameter data as defined by t he Society of Radiologists in Ultrasound Consensus Conference. Radiology 2003: 229; 340-346. TECHNICAL DOCUMENTATION: JOB ID: [id number] [employer]- All Rights Reserved Reading location - IP/workstation name: [email or web address]
--- NOTE | 2018-11-14 17:54 | PDOC H&P ---
History of Present Illness Admission Date/PCP: 11/14/18 15:55 CAITLYN ATKINSON MD Patient complains of: Left-sided weakness History of Present Illness: EMERSON DANGELO JR is a 53 year old male This is a 53-year-old male with a history of the hypertension's and a history of the cerebrovascular accident with the multiple time but the noncompliance of the medications present in the emergency department with a complaining of a left- sided weakness in the left facial numbness. Patient stated that around 1800 yesterday he noticed he had a left-sided weakness in the left facial numbness. He stated this morning while attempting to drive to the ED he became very con fused and disoriented. He stated he returned home and ask his significant other to drive him here. Patient stated that he has a history of the CVA in 2008 and multiple TIA with subsequently left-sided deficit. July 2017 patient is presented to the ED complaining of left-sided weakness and was discharged home with a walker He stated he has not needed to use the walker cane until his symptoms with onset yesterday Patient is already taking the Plavix and aspirin and not sure about the complian ce with the medications Patient also see a neurology outpatient History of the carotid artery disease have a surgery done on the right side in 2016 and currently see a vascular surgery at [place] Patient's in the emergency departments initial CT of the head was negative and patient underwent for the MRI with so the punctate area of the restricted diffusion within the right cerebral pendulce to in the basal ganglia compatible with the acute infarct Additional stable chronic lacunar infarct and nonspecific white matter changes Carotid artery Doppler studies shows good blood flow with the no restrictions following the internal carotid Patient denied any chest pain to than any shortness of the breath patient's troponin was elevated His last blood work done in my office in July which patient A1c was 5.6 and LDL is less than 70 Patient other than that at this point admitting in the IM for the stroke protocol We will consult the cardiology due to the elevated troponin Past Medical History Cardiac Medical History: Reports: Hyperlipidema, Hypertension Denies: Atrial Fibrillation, Coronary Artery Disease Pulmonary Medical History: Reports: Chronic Obstructive Pulmonary Disease (COPD) Neurological Medical History: Reports: Ischemic CVA Endocrine Medical History: Reports: Diabetes Mellitus Type 2 Renal/ Medical History: Reports: Nephrolithiasis GI Medical History: Reports: Gastroesophageal Reflux Disease Musculoskeltal Medical History: Reports: Arthritis Musculoskeletal History Note: Chronic pain syndrome Psychiatric Medical History: Reports: Depression, General Anxiety Disorder Past Surgical History Past Surgical History: Reports: Carotid Endarterectomy - right, Orthopedic Surgery, Vascular Surgery Social History Lives with: Spouse/Significant other Smoking Status: Current Some Day Smoker Frequency of Alcohol Use: None Hx Recreational Drug Use: Yes Drugs: None, Marijuana Hx Prescription Drug Abuse: No Family History Family History: Reviewed & Not Pertinent, CAD Parental Family History Reviewed: Yes Children Family History Reviewed: Yes Sibling(s) Family History Reviewed.: Yes Medication/Allergy Home Medications: Albuterol Sulfate [Proair HFA Inhalation Aerosol 8.5 gm MDI] 2 puff IH Q12 08/10/17 Budesonide/Formoterol Fumarate [Symbicort 160-4.5 Mcg Inhaler] 2 puff IH Q12 08/10/17 Clopidogrel Bisulfate [Plavix 75 mg Tablet] 75 mg PO DAILY 08/10/17 Fluticasone Propionate [Flonase Nasal Duke 50 Mcg/Duke 16 gm] 1 spray NAREB DAILY PRN 08/10/17 Gabapentin [Neurontin 300 mg Capsule] 300 mg PO Q8 PRN 08/10/17 Metoprolol Succinate [Toprol Xl 50 mg Tab.sr] 50 mg PO DAILY 08/10/17 Amoxicillin Trihydrate [Amoxil 500 mg Capsule] 500 mg PO Q8 #21 capsule 08/15/17 Aspirin [Ecotrin 325 mg EC Tablet] 325 mg PO DAILY #30 tabec 08/15/17 Atorvastatin Calcium [Lipitor 40 mg Tablet] 80 mg PO QHS #30 tablet 08/15/17 Buspirone HCl [Buspar 10 mg Tablet] 5 mg PO Q8 #90 tablet 08/15/17 Clonidine HCl [Catapres 0.2 mg Tablet] 0.2 mg PO Q8 #90 tablet 08/15/17 Clopidogrel Bisulfate [Plavix 75 mg Tablet] 75 mg PO DAILY #30 tablet 08/15/17 Nicotine [Nicoderm 14 mg/24 Hr Transdermal Patch] 1 each TD DAILY #30 patch.td24 08/15/17 Omeprazole 40 mg PO DAILY #30 capsule. 08/15/17 Ondansetron [Zofran Odt 4 mg Tablet] 1 tab PO Q8H PRN #15 tab.rapdis 07/25/18 Oxycodone HCl [Oxycontin Ir 5 Mg Tablet] 1 mg PO Q6H PRN #15 tablet 07/25/18 Oxycodone HCl [Oxycontin Ir 5 Mg Tablet] 1 mg PO Q4H PRN #15 tablet 08/06/18 Cyclobenzaprine HCl [Flexeril 10 mg Tablet] 10 mg PO TIDP PRN #15 tab 10/18/18 Lidocaine [Lidoderm 5% (700 mg) Transdermal Patch] 1 patch TP DAILY #10 adh..patch 10/18/18 Allergies/Adverse Reactions: acetaminophen [From Tylenol] Allergy (Verified 11/14/18 08:21) amlodipine besylate [From Norvasc] Allergy (Verified 11/14/18 08:21) ibuprofen Allergy (Verified 11/14/18 08:21) pioglitazone HCl [From Actos] Allergy (Verified 11/14/18 08:21) Review of Systems Constitutional: PRESENT: fatigue, headache(s). ABSENT: chills, fever(s), weight gain, weight loss Eyes: ABSENT: visual disturbances Ears: ABSENT: hearing changes Nose, Mouth, and Throat: PRESENT: headache(s) Cardiovascular: ABSENT: chest pain, dyspnea on exertion, edema, orthropnea, palpitations Respiratory: ABSENT: cough, hemoptysis Gastrointestinal: ABSENT: abdominal pain, constipation, diarrhea, hematemesis, hematochezia, nausea, vomiting Genitourinary: ABSENT: dysuria, hematuria Musculoskeletal: ABSENT: joint swelling Integumentary: ABSENT: rash, wounds Neurological: PRESENT: dizziness. ABSENT: abnormal gait, abnormal speech, confusion, focal weakness, syncope Psychiatric: ABSENT: anxiety, depression, homidical ideation, suicidal ideation Endocrine: ABSENT: cold intolerance, heat intolerance, menstrual abnormalities, polydipsia, polyuria Hematologic/Lymphatic: ABSENT: easy bleeding, easy bruising, lymphadenopathy Physical Exam Vital Signs: Temp Pulse Resp BP Pulse Ox 98.2 F 82 17 153/104 H 97 11/14/18 08:30 11/14/18 08:45 11/14/18 14:08 11/14/18 14:08 11/14/18 14:08 Intake & Output 11/13/18 11/14/18 11/15/18 06:59 06:59 06:59 Weight 84.5 kg General appearance: PRESENT: no acute distress, well-developed, well-nourished Head exam: PRESENT: atraumatic, normocephalic Eye exam: PRESENT: conjunctiva pink, EOMI, PERRLA. ABSENT: scleral icterus Ear exam: PRESENT: normal external ear exam Mouth exam: PRESENT: moist, tongue midline Neck exam: PRESENT: full ROM. ABSENT: carotid bruit, JVD, lymphadenopathy, thyromegaly Respiratory exam: PRESENT: clear to auscultation rommel Cardiovascular exam: PRESENT: RRR. ABSENT: diastolic murmur, rubs, systolic murmur Pulses: PRESENT: normal dorsalis pedis pul, +2 pedal pulses bilateral Vascular exam: PRESENT: normal capillary refill GI/Abdominal exam: PRESENT: normal bowel sounds, soft. ABSENT: distended, guarding, mass, organolmegaly, rebound, tenderness Rectal exam: PRESENT: deferred Extremities exam: ABSENT: pedal edema Neurological exam: PRESENT: alert, awake, oriented to person, oriented to place, oriented to time, oriented to situation, CN II-XII grossly intact. ABSENT: motor sensory deficit Additional comments: Left-sided facial weakness 4/5 manager administration strength on the left hand Able to lift left lower extremity off the bed with the jerking motion and accessory muscles use able to maintain in the air Right upper extremity and lower extremity normal strength Psychiatric exam: PRESENT: appropriate affect, normal mood. ABSENT: homicidal ideation, suicidal ideation Skin exam: PRESENT: dry, intact, warm. ABSENT: cyanosis, rash Results Laboratory Results: 11/14/18 08:40 11/14/18 08:40 11/14/18 11/14/18 08:40 08:40 WBC 7.5 RBC 4.98 Hgb 15.4 Hct 46.5 MCV 93 MCH 31.0 MCHC 33.2 RDW 13.2 Plt Count 188 Seg Neutrophils % 61.1 Lymphocytes % 23.3 Monocytes % 11.1 Eosinophils % 3.6 Basophils % 0.9 Absolute Neutrophils 4.6 Absolute Lymphocytes 1.7 Absolute Monocytes 0.8 Absolute Eosinophils 0.3 Absolute Basophils 0.1 Sodium 144.6 Potassium 4.1 Chloride 106 Carbon Dioxide 29 Anion Gap 10 BUN 17 Creatinine 1.09 Est GFR ( Amer) > 60 Est GFR (Non-Af Amer) > 60 Glucose 112 H Calcium 9.9 Total Bilirubin 0.9 AST 25 ALT 19 L Alkaline Phosphatase 51 Total Protein 7.8 Albumin 4.4 05/29/19 05/29/19 08:40 08:40 Creatine Kinase 47 L CK-MB (CK-2) 0.56 Troponin I 0.102 Impressions: Chest X-Ray 11/14/18 08:44 IMPRESSION: NO ACUTE RADIOGRAPHIC FINDING IN THE CHEST. Head CT 11/14/18 08:44 IMPRESSION: 1. Stable chronic changes without evidence of acute intracranial abnormality. 2. Sinus mucosal disease within the maxillary and sphenoid sinuses and ethmoid air cells. EVIDENCE OF ACUTE STROKE: NO. Head MRI 11/14/18 11:05 IMPRESSION: 1. Punctate areas of restricted diffusion within the right cerebral peduncle and basal ganglia compatible with infarct. No significant mass effect or midline shift. 2. Additional stable chronic lacunar infarcts and nonspecific white matter changes, likely sequelae of microangiopathic disease. 3. Sinus mucosal disease. Pertinent positive or negative findings of the imaging study reported as a C RITICAL EXAM to COLT MORENO MD at13:39 on 11/14/2018. EVIDENCE OF ACUTE STROKE: YES. RIGHT MCA. Assessment & Plan - Diagnosis (1) Acute CVA (cerebrovascular accident) Is this a current diagnosis for this admission?: Yes Plan: We will put the patient on aspirin Plavix and high-dose statin Patient is very noncompliance with the medication and the follow-up Will get the echocardiograms Continues to monitor in the hospitals Up with the stroke protocol (2) Elevated troponin Is this a current diagnosis for this admission?: Yes Plan: Patient EKG of some T wave changes in the lateral lead Currently no complaints about the chest pain We will consult the cardiology for further evaluations We will do serial cardiac enzymes and EKG (3) Type 2 diabetes mellitus Qualifiers: Diabetes mellitus snf insulin use: without snf use Is this a current diagnosis for this admission?: Yes Plan: His last A1c was 5.6 (4) Smoker Is this a current diagnosis for this admission?: Yes Plan: Put the nicotine patch Discussed with the patient about the smoking counseling (5) Hypertension Qualifiers: Hypertension type: essential hypertension Qualified Code(s): I10 - Essential (primary) hypertension Is this a current diagnosis for this admission?: Yes Plan: We keep the blood pressures with a stroke protocol (6) COPD (chronic obstructive pulmonary disease) Qualifiers: COPD type: unspecified COPD Qualified Code(s): J44.9 - Chronic obstructive pulmonary disease, unspecified Is this a current diagnosis for this admission?: Yes Plan: Continues to PRN nebulizer treatments (7) Carotid stenosis Qualifiers: Laterality: right Qualified Code(s): I65.21 - Occlusion and stenosis of right carotid artery Is this a current diagnosis for this admission?: Yes Plan: Patient seen by the vascular surgery and suggest the following a 1 year recent 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 for 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 (8) Cervical radiculopathy Is this a current diagnosis for this admission?: Yes (9) Depression Qualifiers: Depression Type: major depressive disorder Is this a current diagnosis for this admission?: Yes (10) Hyperlipidemia Qualifiers: Hyperlipidemia type: unspecified Qualified Code(s): E78.5 - Hyperlipidemia, unspecified Is this a current diagnosis for this admission?: Yes Plan: Continues to high-dose stating (11) Substance abuse Is this a current diagnosis for this admission?: Yes Plan: The urine drug screens (12) Chronic sinusitis Qualifiers: Sinusitis location: unspecified location Qualified Code(s): J32.9 - Chronic sinusitis, unspecified Is this a current diagnosis for this admission?: Yes Plan: Start the patient on a Keflex - Time Time Spent: 50 to 70 Minutes Critical Time spent with patient: 25-34 minutes Smoking Cessation Education: over 10 minutes Medications reviewed and adjusted accordingly: Yes Anticipated discharge: Home, Home with Homehealth Within: Other - Inpatient Certification Based on my medical assessment, after consideration of the patient's comorbidities, presenting symptoms, or acuity I expect that the services needed warrant INPATIENT care.: Yes I certify that my determination is in accordance with my understanding of Medicare's requirements for reasonable and necessary INPATIENT services [42 CFR 412.3e].: Yes Medical Necessity: Significant Comorbidiites Make Outpatient Treatment Too Risky, Need Close Monitoring Due to Risk of Patient Decompensation Post Hospital Care: D/C Neurology Director Documentation - Plan Summary Plan Summary: Admit the patient in IMCU for the stroke protocol Discussed with the patient's and the family
[2018-11-14 19:08] LABS: CREATINE KINASE MB 0.35 ng/mL (<4.55)
[2018-11-14 19:19] LABS: TROPONIN I 0.075 ng/mL
[2018-11-14 20:22] LABS: APPEARANCE,URINE CLEAR; BILIRUBIN,URINE NEGATIVE (NEGATIVE); COLOR,URINE YELLOW; GLUCOSE, URINE NEGATIVE (NEGATIVE); KETONES,URINE NEGATIVE (NEGATIVE); LEUKOCYTE ESTERASE,URINE NEGATIVE (NEGATIVE); NITRITE,URINE NEGATIVE (NEGATIVE); PROTEIN,URINE 100 mg/dL (NEGATIVE); URINE SPECIFIC GRAVITY 1.023
[2018-11-14 20:36] LABS: URINE AMPHETAMINES SCREEN NEGATIVE; URINE BARBITURATES SCREEN NEGATIVE; URINE BENZODIAZEPINES SCREEN NEGATIVE; URINE COCAINE SCREEN NEGATIVE; URINE MARIJUANA (THC) SCREEN UNCONFIRMED POSITIVE; URINE METHADONE SCREEN NEGATIVE; URINE PHENCYCLIDINE SCREEN NEGATIVE
--- NOTE | 2018-11-14 22:21 | EKG REPORT ---
SEVERITY:- ABNORMAL ECG - SINUS RHYTHM LEFT AXIS DEVIATION LEFT VENTRICULAR HYPERTROPHY ABNORMAL T, CONSIDER ISCHEMIA, LATERAL LEADS ANTERIOR ST ELEVATION, PROBABLY DUE TO LVH : Confirmed by: Raina Kang MD 14-Nov-2018 22:20:33
[2018-11-14] MEDS: INSULIN LISPRO 100 UNIT/ML 3 ML VIAL SUBCUT SCH (22:33)
[2018-11-14] MEDS: ATORVASTATIN CALCIUM 80 MG TABLET PO SCH (22:35)
[2018-11-14] MEDS: FAMOTIDINE 20 MG TABLET PO SCH (22:35)
[2018-11-15 00:20] LABS: TROPONIN I 0.075 ng/mL
[2018-11-15 00:37] LABS: CREATINE KINASE MB 0.27 ng/mL (<4.55)
[2018-11-15 06:28] LABS: INTERNATIONAL RATION (INR) 0.93
[2018-11-15 06:34] LABS: ABSOLUTE BASOPHILS # (AUTO) 0.1 10^3/uL (0.0-0.2); ABSOLUTE EOSINOPHILS # (AUTO) 0.3 10^3/uL (0.0-0.6); ABSOLUTE LYMPHOCYTES (AUTO) 2.5 10^3/uL (0.5-4.7); ABSOLUTE MONOCYTES (AUTO) 0.9 10^3/uL (0.1-1.4); ABSOLUTE NEUT (AUTO) 3.9 10^3/uL (1.7-8.2); BASOPHILS % (AUTO) 0.9 % (0-2); EOSINOPHILS % (AUTO) 4.2 % (0-6); HEMATOCRIT 45.6 % (37.9-51.0); HEMOGLOBIN 15.3 g/dL (13.5-17.0); LYMPHOCYTES % (AUTO) 32.7 % (13-45); MEAN CORPUSCULAR HEMOGLOBIN 30.9 pg (27.0-33.4); MEAN CORPUSCULAR HGB CONC 33.6 g/dL (32.0-36.0); MEAN CORPUSCULAR VOLUME 92 fl (80-97); MONOCYTES % (AUTO) 11.6 % (3-13); PLATELET COUNT 183 10^3/uL (150-450); RED BLOOD COUNT 4.95 10^6/uL (4.35-5.55); RED CELL DISTRIBUTION WIDTH 12.8 % (11.5-14.0); SEGMENTED NEUTROPHILS % (AUTO) 50.6 % (42-78); TOTAL CELLS COUNTED % (AUTO) 100 %; WHITE BLOOD COUNT 7.7 10^3/uL (4.0-10.5)
[2018-11-15 06:51] LABS: ALANINE AMINOTRANSFERASE 18 U/L (21-72); ALBUMIN 4.1 g/dL (3.5-5.0); ALKALINE PHOSPHATASE 49 U/L (38-126); ANION GAP 11 (5-19); ASPARTATE AMINO TRANSFERASE 18 U/L (17-59); BILIRUBIN,DIRECT 0.2 mg/dL (0.0-0.4); BILIRUBIN,TOTAL 0.6 mg/dL (0.2-1.3); BLOOD UREA NITROGEN 21 mg/dL (7-20); CARBON DIOXIDE 24 mmol/L (22-30); CHLORIDE 107 mmol/L (98-107); CHOLESTEROL 221.49 mg/dL (0-200); CREATINE KINASE 42 U/L (55-170); GLUCOSE 96 mg/dL (75-110); POTASSIUM 4.3 mmol/L (3.6-5.0); SODIUM 142.4 mmol/L (137-145); TOTAL PROTEIN 7.2 g/dL (6.3-8.2); TRIGLYCERIDES 134 mg/dL (<150)
[2018-11-15 07:02] LABS: DIRECT LDL 158 mg/dL (<100)
[2018-11-15 07:05] LABS: CREATINE KINASE MB 0.31 ng/mL (<4.55); TROPONIN I 0.074 ng/mL
[2018-11-15] MEDS: INSULIN LISPRO 100 UNIT/ML 3 ML VIAL SUBCUT SCH ×4 (08:10→21:13)
--- NOTE | 2018-11-15 08:33 | PDOC PROGRESS REPORT ---
Subjective Progress Note for:: 11/15/18 Subjective:: Patient is feeling much better Patient is denied any chest pain to than any shortness of the breath Patient able to get more strength in the left lower and upper extremity Left-sided numbness is better Patient's blood pressure is 170 range Reason For Visit: ACUTE CVA (CEREBROVASCULAR ACCIDENT), HYPERTENSION Physical Exam Vital Signs: Temp Pulse Resp BP Pulse Ox 97.9 F 66 20 174/89 H 97 11/15/18 04:14 11/15/18 07:00 11/15/18 04:14 11/15/18 04:14 11/15/18 04:14 Intake & Output 11/14/18 11/15/18 11/16/18 06:59 06:59 06:59 Output Total 400 Balance -400 Weight 83.3 kg General appearance: PRESENT: no acute distress, well-developed, well-nourished Head exam: PRESENT: atraumatic, normocephalic Eye exam: PRESENT: conjunctiva pink, EOMI, PERRLA. ABSENT: scleral icterus Ear exam: PRESENT: normal external ear exam Mouth exam: PRESENT: moist, tongue midline Neck exam: PRESENT: full ROM. ABSENT: carotid bruit, JVD, lymphadenopathy, thyromegaly Respiratory exam: PRESENT: clear to auscultation rommel Cardiovascular exam: PRESENT: RRR. ABSENT: diastolic murmur, rubs, systolic murmur Pulses: PRESENT: normal dorsalis pedis pul, +2 pedal pulses bilateral Vascular exam: PRESENT: normal capillary refill GI/Abdominal exam: PRESENT: normal bowel sounds, soft. ABSENT: distended, guarding, mass, organolmegaly, rebound, tenderness Rectal exam: PRESENT: deferred Extremities exam: ABSENT: pedal edema Neurological exam: PRESENT: alert, awake, oriented to person, oriented to place, oriented to time, oriented to situation, CN II-XII grossly intact. ABSENT: motor sensory deficit Additional comments: Left lower extremities patient able to lift more and keep it in the air better Psychiatric exam: PRESENT: appropriate affect, normal mood. ABSENT: homicidal ideation, suicidal ideation Skin exam: PRESENT: dry, intact, warm. ABSENT: cyanosis, rash Results Laboratory Results: 11/15/18 05:41 11/15/18 05:41 11/14/18 11/14/18 11/14/18 08:40 08:40 19:50 WBC 7.5 RBC 4.98 Hgb 15.4 Hct 46.5 MCV 93 MCH 31.0 MCHC 33.2 RDW 13.2 Plt Count 188 Seg Neutrophils % 61.1 Lymphocytes % 23.3 Monocytes % 11.1 Eosinophils % 3.6 Basophils % 0.9 Absolute Neutrophils 4.6 Absolute Lymphocytes 1.7 Absolute Monocytes 0.8 Absolute Eosinophils 0.3 Absolute Basophils 0.1 Sodium 144.6 Potassium 4.1 Chloride 106 Carbon Dioxide 29 Anion Gap 10 BUN 17 Creatinine 1.09 Est GFR ( Amer) > 60 Est GFR (Non-Af Amer) > 60 Glucose 112 H Calcium 9.9 Total Bilirubin 0.9 AST 25 ALT 19 L Alkaline Phosphatase 51 Total Protein 7.8 Albumin 4.4 Triglycerides Cholesterol LDL Cholesterol Direct VLDL Cholesterol HDL Cholesterol Urine Color YELLOW Urine Appearance CLEAR Urine pH 6.0 Ur Specific [place] 1.023 Urine Protein 100 H Urine Glucose (UA) NEGATIVE Urine Ketones NEGATIVE Urine Blood SMALL H Urine Nitrite NEGATIVE Ur Leukocyte Esterase NEGATIVE Urine WBC (Auto) 1 Urine RBC (Auto) 1 11/15/18 11/15/18 05:41 05:41 WBC 7.7 RBC 4.95 Hgb 15.3 Hct 45.6 MCV 92 MCH 30.9 MCHC 33.6 RDW 12.8 Plt Count 183 Seg Neutrophils % 50.6 Lymphocytes % 32.7 Monocytes % 11.6 Eosinophils % 4.2 Basophils % 0.9 Absolute Neutrophils 3.9 Absolute Lymphocytes 2.5 Absolute Monocytes 0.9 Absolute Eosinophils 0.3 Absolute Basophils 0.1 Sodium 142.4 Potassium 4.3 Chloride 107 Carbon Dioxide 24 Anion Gap 11 BUN 21 H Creatinine 1.12 Est GFR ( Amer) > 60 Est GFR (Non-Af Amer) > 60 Glucose 96 Calcium 10.0 Total Bilirubin 0.6 AST 18 ALT 18 L Alkaline Phosphatase 49 Total Protein 7.2 Albumin 4.1 Triglycerides 134 Cholesterol 221.49 H LDL Cholesterol Direct 158 H VLDL Cholesterol 27.0 HDL Cholesterol 38 L Urine Color Urine Appearance Urine pH Ur Specific [place] Urine Protein Urine Glucose (UA) Urine Ketones Urine Blood Urine Nitrite Ur Leukocyte Esterase Urine WBC (Auto) Urine RBC (Auto) 11/14/18 11/14/18 11/14/18 08:40 08:40 17:51 Creatine Kinase 47 L 47 L CK-MB (CK-2) 0.56 Troponin I 0.102 11/14/18 11/14/18 11/14/18 17:51 23:37 23:37 Creatine Kinase 49 L CK-MB (CK-2) 0.35 0.27 Troponin I 0.075 0.075 11/15/18 11/15/18 05:41 05:41 Creatine Kinase 42 L CK-MB (CK-2) 0.31 Troponin I 0.074 Impressions: Chest X-Ray 11/14/18 08:44 IMPRESSION: NO ACUTE RADIOGRAPHIC FINDING IN THE CHEST. Head CT 11/14/18 08:44 IMPRESSION: 1. Stable chronic changes without evidence of acute intracranial abnormality. 2. Sinus mucosal disease within the maxillary and sphenoid sinuses and ethmoid air cells. EVIDENCE OF ACUTE STROKE: NO. Head MRI 11/14/18 11:05 IMPRESSION: 1. Punctate areas of restricted diffusion within the right c erebral peduncle and basal ganglia compatible with infarct. No significant mass effect or midline shift. 2. Additional stable chronic lacunar infarcts and nonspecific white matter changes, likely sequelae of microangiopathic disease. 3. Sinus mucosal disease. Pertinent positive or negative findings of the imaging study reported as a CRITICAL EXAM to COLT MORENO MD at13:39 on 11/14/2018. EVIDENCE OF ACUTE STROKE: YES. RIGHT MCA. Carotid Doppler Study 11/14/18 13:18 IMPRESSION: NO HEMODYNAMICALLY SIGNIFICANT STENOSIS. 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 Is this a current diagnosis for this admission?: Yes Plan: His last A1c was 5.6 (4) Smoker Is this a current diagnosis for this admission?: Yes Plan: Put the nicotine patch Discussed with the patient about the smoking counseling (5) Hypertension Qualifiers: Hypertension type: essential hypertension Qualified Code(s): I10 - Essenti al (primary) hypertension Is this a current diagnosis for this admission?: Yes Plan: We keep the blood pressures with a stroke protocol (6) COPD (chronic obstructive pulmonary disease) Qualifiers: COPD type: unspecified COPD Qualified Code(s): J44.9 - Chronic obstructive pulmonary disease, unspecified Is this a current diagnosis for this admission?: Yes Plan: Continues to PRN nebulizer treatments (7) Carotid stenosis Qualifiers: Laterality: right Qualified Code(s): I65.21 - Occlusion and stenosis of right carotid artery Is this a current diagnosis for this admission?: Yes Plan: Patient seen by the vascular surgery and suggest the following a 1 year 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 (8) Cervical radiculopathy Is this a current diagnosis for this admission?: Yes (9) Depression Qualifiers: Depression Type: major depressive disorder Is this a current diagnosis for this admission?: Yes (10) Hyperlipidemia Qualifiers: Hyperlipidemia type: unspecified Qualified Code(s): E78.5 - Hyperlipidemia, unspecified Is this a current diagnosis for this admission?: Yes Plan: Continues to high-dose stating (11) Substance abuse Is this a current diagnosis for this admission?: Yes Plan: The urine drug screens (12) Chronic sinusitis Qualifiers: Sinusitis location: unspecified location Qualified Code(s): J32.9 - Chronic sinusitis, unspecified Is this a current diagnosis for this admission?: Yes Plan: Start the patient on a Keflex - Time Time Spent with patient: 15-24 minutes Medications reviewed and adjusted accordingly: Yes Anticipated discharge: Home Within: Other - Plan Summary Plan Summary: Continues to physical therapy
[2018-11-15] MEDS: FAMOTIDINE 20 MG TABLET PO SCH ×2 (09:26→21:22)
[2018-11-15] MEDS: ASPIRIN 81 MG TABLET, ENT COATED PO SCH (09:26)
[2018-11-15] MEDS: NICOTINE 7 MG/24 HR PATCH.TD24 TD SCH (09:26)
[2018-11-15] MEDS: CLOPIDOGREL BISULFATE 75 MG TABLET PO SCH (09:26)
[2018-11-15] MEDS: FLUTICASONE/VILANTEROL 200-25 MCG/DOSE IH SCH (09:27)
[2018-11-15] MEDS: FLUTICASONE NASAL SPRAY 50 MCG/SPRY 120 SPRAY/16 GM NASL SCH (09:27)
[2018-11-15] MEDS: ENOXAPARIN SODIUM INJ 40 MG/0.4 ML DISP.SYRIN SUBCUT SCH (09:28)
[2018-11-15] MEDS: LIDOCAINE 5% (700 MG) TRANSDERMAL ADH..PATCH TP SCH (09:28)
[2018-11-15] MEDS ORDERED: CLOPIDOGREL BISULFATE 75 MG TABLET PO SCH (10:00)
[2018-11-15] MEDS: GABAPENTIN 300 MG CAPSULE PO SCH ×2 (13:58→21:22)
[2018-11-15] MEDS: HYDROCODONE/ACETAMINOPHEN 5-325 MG TABLET PO PRN ×3 (14:00→22:22)
[2018-11-15] MEDS ORDERED: LABETALOL HCL INJ 20 MG/4 ML DISP.SYRIN IV PRN (15:30)
--- NOTE | 2018-11-15 16:18 | EKG REPORT ---
SEVERITY:- ABNORMAL ECG - SINUS RHYTHM VENTRICULAR PREMATURE COMPLEX LEFT VENTRICULAR HYPERTROPHY ABNORMAL T, PROBABLE ISCHEMIA, LATERAL LEADS LVH WITH STRAIN PATTERN : Confirmed by: Raina Kang MD 15-Nov-2018 16:17:57
--- NOTE | 2018-11-15 20:08 | XCELERA REPORT ---
[address] [address] Transthoracic Echocardiogram Report Name: ANTOLIN ESPINOEMERSON JR Age: 53 yrs Gender: Male : 1965 Patient Status: Inpatient Patient Location: [address] [place], [place] [address] Study Date: 11/15/2018 10:31 AM Height: 69 in Weight: 189 lb BSA: 2.0 m2 Procedure: A two-dimensional transthoracic echocardiogram with color flow and Doppler was performed. Study Quality: Fair. Reason For Study: stroke History: CVA. Ordering Physician: CAITLYN ATKINSON Performed By: Margot Silveira Interpretation Summary There is no obvious cardiac source of embolus noted on this transthoracic echocardiogram. Follow-up with a NIYAH is suggested if cardiac source is still suspected. Upper normal LV size.No LVH. LV EF is 55% Left ventricular systolic function is low normal. Doppler measurements suggest impaired left ventricular relaxation, which is associated with grade I/IV or mild diastolic dysfunction The left ventricular wall motion is normal. There is no thrombus. There is no ventricular septal defect visualized. The right ventricle is grossly normal size. The right atrium is normal. The left atrial size is normal. The interatrial septum is intact with no evidence for an atrial septal defect. There is no Doppler evidence for an interatrial shunt There is no evidence of mitral valve prolapse. There is no vegetation seen on the mitral valve. There is mild mitral annular calcification. There is no mitral valve stenosis. There is a trace amount of mitral regurgitation There is no aortic valvular vegetation. There is aortic sclerosis without aortic stenosis. There is no aortic valve stenosis There is no LVOT obstruction. There is a mild amount of aortic regurgitation There is no tricuspid stenosis. There is a trace amount of tricuspid regurgitation Right ventricular systolic pressure is normal. RVSP is 24 to 29 mm of Hg , with RA mean of 5 to 10. There is no pulmonic valvular stenosis. There is a trace amount of pulmonic regurgitation The aortic root is normal size. The inferior vena cava appeared normal and decreased > 50% with respiration (RAP 5-10 mmHg) There is no pericardial effusion. There is no obvious cardiac source of embolus noted on this transthoracic echocardiogram. Follow-up with a NIYAH is suggested if cardiac source is still suspected MMode/2D Measurements & Calculations RVDd: 3.5 cm LVIDd: 6.4 cm FS: 23.5 % Ao root diam: 3.0 cm IVSd: 0.94 cm LVIDs: 4.9 cm EDV(Teich): LVPWd: 1.3 cm 208.1 ml Ao root area: ESV(Teich): 6.9 cm2 112.4 ml EF(Teich): 46.0 % EDV(MOD-sp4): SV(MOD-sp4): 118.1 ml 48.4 ml ESV(MOD-sp4): 69.7 ml EF(MOD-sp4): 41.0 % Doppler Measurements & Calculations MV E max alan: MV dec slope: Ao V2 max: AI max alan: 50.5 cm/sec 161.4 cm/sec 427.8 cm/sec MV A max alan: 226.7 cm/sec2 Ao max PG: AI max P.2 mmHg 60.9 cm/sec MV dec time: 10.4 mmHg AI dec slope: MV E/A: 0.83 0.22 sec 218.2 cm/sec2 AI P1/2t: 574.2 msec LV V1 max PG: PA V2 max: PI end-d alan: TR max alan: 2.5 mmHg 77.9 cm/sec 79.2 cm/sec 197.8 cm/sec LV V1 max: PA max P.4 mmHg TR max P.0 mmHg 78.8 cm/sec Left Ventricle Upper normal LV size.No LVH. LV EF is 55%. Left ventricular systolic function is low normal. Doppler measurements suggest impaired left ventricular relaxation, which is associated with grade I/IV or mild diastolic dysfunction. The left ventricular wall motion is normal. There is no thrombus. There is no ventricular septal defect visualized. Right Ventricle The right ventricle is grossly normal size. Atria The right atrium is normal. The left atrial size is normal. The interatrial septum is intact with no evidence for an atrial septal defect. There is no Doppler evidence for an interatrial shunt. Mitral Valve There is mild mitral annular calcification. There is no evidence of mitral valve prolapse. There is no vegetation seen on the mitral valve. There is no mitral valve stenosis. There is a trace amount of mitral regurgitation. Aortic Valve There is no aortic valvular vegetation. There is aortic sclerosis without aortic stenosis. There is no aortic valve stenosis. There is no LVOT obstruction. There is a mild amount of aortic regurgitation. Tricuspid Valve There is no tricuspid stenosis. There is a trace amount of tricuspid regurgitation. Right ventricular systolic pressure is normal. RVSP is 24 to 29 mm of Hg , with RA mean of 5 to 10. Pulmonic Valve There is no pulmonic valvular stenosis. There is a trace amount of pulmonic regurgitation. Great Vessels The aortic root is normal size. The inferior vena cava appeared normal and decreased > 50% with respiration (RAP 5-10 mmHg). Effusions There is no pericardial effusion. : CAITLYN ATKINSON > Raina Kang
[2018-11-15] MEDS: PHARMACY COMMUNICATION ORDER MC SCH ×2 (21:15→21:22)
[2018-11-15] MEDS: ATORVASTATIN CALCIUM 80 MG TABLET PO SCH (21:22)
[2018-11-16] MEDS: GABAPENTIN 300 MG CAPSULE PO SCH ×3 (05:04→21:31)
[2018-11-16] MEDS: HYDROCODONE/ACETAMINOPHEN 5-325 MG TABLET PO PRN ×3 (05:04→21:31)
[2018-11-16] MEDS: INSULIN LISPRO 100 UNIT/ML 3 ML VIAL SUBCUT SCH ×4 (08:34→21:30)
[2018-11-16] MEDS: NICOTINE 7 MG/24 HR PATCH.TD24 TD SCH (09:55)
[2018-11-16] MEDS: METOPROLOL SUCCINATE 25 MG TAB.SR.24H PO SCH (09:56)
[2018-11-16] MEDS ORDERED: METOPROLOL SUCCINATE 50 MG TAB.SR.24H PO SCH ×2 (10:00)
[2018-11-16] MEDS: CLOPIDOGREL BISULFATE 75 MG TABLET PO SCH (10:03)
[2018-11-16] MEDS: FAMOTIDINE 20 MG TABLET PO SCH ×2 (10:03→21:31)
[2018-11-16] MEDS: ASPIRIN 81 MG TABLET, ENT COATED PO SCH (10:03)
[2018-11-16] MEDS: ENOXAPARIN SODIUM INJ 40 MG/0.4 ML DISP.SYRIN SUBCUT SCH (10:03)
[2018-11-16] MEDS: FLUTICASONE NASAL SPRAY 50 MCG/SPRY 120 SPRAY/16 GM NASL SCH (10:03)
[2018-11-16] MEDS: FLUTICASONE/VILANTEROL 200-25 MCG/DOSE IH SCH (10:04)
[2018-11-16] MEDS: LIDOCAINE 5% (700 MG) TRANSDERMAL ADH..PATCH TP SCH (10:04)
--- NOTE | 2018-11-16 13:21 | PDOC PROGRESS REPORT ---
Subjective Progress Note for:: 11/16/18 Subjective:: Patient is feeling much better Patient is denied any chest pain to than any shortness of the breath Patient able to get more strength in the left lower and upper extremity Left-sided numbness is better Patient's blood pressure is 170 range Reason For Visit: ACUTE CVA (CEREBROVASCULAR ACCIDENT), HYPERTENSION Physical Exam Vital Signs: Temp Pulse Resp BP Pulse Ox 97.9 F 68 18 174/96 H 95 11/16/18 11:41 11/16/18 11:41 11/16/18 11:41 11/16/18 11:41 11/16/18 11:41 Intake & Output 11/15/18 11/16/18 11/17/18 06:59 06:59 06:59 Intake Total 1302 Output Total 400 1150 Balance -400 152 Weight 83.3 kg 83.9 kg General appearance: PRESENT: no acute distress, well-developed, well-nourished Head exam: PRESENT: atraumatic, normocephalic Eye exam: PRESENT: conjunctiva pink, EOMI, PERRLA. ABSENT: scleral icterus Ear exam: PRESENT: normal external ear exam Mouth exam: PRESENT: moist, tongue midline Neck exam: PRESENT: full ROM. ABSENT: carotid bruit, JVD, lymphadenopathy, thyromegaly Respiratory exam: PRESENT: clear to auscultation rommel Cardiovascular exam: PRESENT: RRR. ABSENT: diastolic murmur, rubs, systolic murmur Pulses: PRESENT: normal dorsalis pedis pul, +2 pedal pulses bilateral Vascular exam: PRESENT: normal capillary refill GI/Abdominal exam: PRESENT: normal bowel sounds, soft. ABSENT: distended, guarding, mass, organolmegaly, rebound, tenderness Rectal exam: PRESENT: deferred Musculoskeletal exam: PRESENT: ambulatory Neurological exam: PRESENT: alert, awake, oriented to person, oriented to place, oriented to time, oriented to situation, CN II-XII grossly intact. ABSENT: motor sensory deficit Psychiatric exam: PRESENT: appropriate affect, normal mood. ABSENT: homicidal ideation, suicidal ideation Skin exam: PRESENT: dry, intact, warm. ABSENT: cyanosis, rash Results Laboratory Results: 11/15/18 05:41 11/15/18 05:41 11/14/18 11/14/18 11/14/18 08:40 08:40 17:51 Creatine Kinase 47 L 47 L CK-MB (CK-2) 0.56 Troponin I 0.102 11/14/18 11/14/18 11/14/18 17:51 23:37 23:37 Creatine Kinase 49 L CK-MB (CK-2) 0.35 0.27 Troponin I 0.075 0.075 11/15/18 11/15/18 05:41 05:41 Creatine Kinase 42 L CK-MB (CK-2) 0.31 Troponin I 0.074 Impressions: Chest X-Ray 11/14/18 08:44 IMPRESSION: NO ACUTE RADIOGRAPHIC FINDING IN THE CHEST. Head CT 11/14/18 08:44 IMPRESSION: 1. Stable chronic changes without evidence of acute intracranial abnormality. 2. Sinus mucosal disease within the maxillary and sphenoid sinuses and ethmoid air cells. EVIDENCE OF ACUTE STROKE: NO. Head MRI 11/14/18 11:05 IMPRESSION: 1. Punctate areas of restricted diffusion within the right cerebral peduncle and basal ganglia compatible with infarct. No significant mass effect or midline shift. 2. Additional stable chronic lacunar infarcts and nonspecific white matter changes, likely sequelae of microangiopathic disease. 3. Sinus mucosal disease. Pertinent positive or negative findings of the imaging study reported as a CRITICAL EXAM to COLT MORENO MD at13:39 on 11/14/2018. EVIDENCE OF ACUTE STROKE: YES. RIGHT MCA. Carotid Doppler Study 11/14/18 13:18 IMPRESSION: NO HEMODYNAMICALLY SIGNIFICANT STENOSIS. Assessment & Plan - Diagnosis (1) Acute CVA (cerebrovascular accident) Is this a current diagnosis for this admission?: Yes Plan: Continues aspirin and Plavix well patient was not taking aspirin in the past Continues to high-dose statin (2) Elevated troponin Is this a current diagnosis for this admission?: Yes Plan: As per discussed with the cardiology no acute coronary syndromes (3) Type 2 diabetes mellitus Qualifiers: Diabetes mellitus mcc insulin use: without intermodal dispatcher use Is this a current diagnosis for this admission?: Yes Plan: His last A1c was 5.6 (4) Smoker Is this a current diagnosis for this admission?: Yes Plan: Put the nicotine patch Discussed with the patient about the smoking counseling (5) Hypertension Qualifiers: Hypertension type: essential hypertension Qualified Code(s): I10 - Essential (primary) hypertension Is this a current diagnosis for this admission?: Yes Plan: We keep the blood pressures with a stroke protocol (6) COPD (chronic obstructive pulmonary disease) Qualifiers: COPD type: unspecified COPD Qualified Code(s): J44.9 - Chronic obstructive pulmonary disease, unspecified Is this a current diagnosis for this admission?: Yes Plan: Continues to PRN nebulizer treatments (7) Carotid stenosis Qualifiers: Laterality: right Qualified Code(s): I65.21 - Occlusion and stenosis of right carotid artery Is this a current diagnosis for this admission?: Yes Plan: Patient seen by the vascular surgery and suggest the following a 1 year recent ultrasound for 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 (8) Cervical radiculopathy Is this a current diagnosis for this admission?: Yes (9) Depression Qualifiers: Depression Type: major depressive disorder Is this a current diagnosis for this admission?: Yes (10) Hyperlipidemia Qualifiers: Hyperlipidemia type: unspecified Qualified Code(s): E78.5 - Hyperlipidemia, unspecified Is this a current diagnosis for this admission?: Yes Plan: Continues to high-dose stating (11) Substance abuse Is this a current diagnosis for this admission?: Yes (12) Chronic sinusitis Qualifiers: Sinusitis location: unspecified location Qualified Code(s): J32.9 - Chronic sinusitis, unspecified Is this a current diagnosis for this admission?: Yes - Time Time Spent with patient: 15-24 minutes - Inpatient Certification Based on my medical assessment, after consideration of the patient's comorbidities, presenting symptoms, or acuity I expect that the services needed warrant INPATIENT care.: Yes I certify that my determination is in accordance with my understanding of Medicare's requirements for reasonable and necessary INPATIENT services [42 CFR 412.3e].: Yes 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
[2018-11-16] MEDS: ATORVASTATIN CALCIUM 80 MG TABLET PO SCH (21:31)
[2018-11-16] MEDS: PHARMACY COMMUNICATION ORDER MC SCH (21:32)
[2018-11-17] MEDS ORDERED: CLONIDINE HCL 0.1 MG TABLET PO ONE (01:45)
[2018-11-17] MEDS: GABAPENTIN 300 MG CAPSULE PO SCH (05:32)
[2018-11-17] MEDS: HYDROCODONE/ACETAMINOPHEN 5-325 MG TABLET PO PRN (05:36)
[2018-11-17] MEDS ORDERED: CLONIDINE HCL 0.1 MG TABLET PO SCH (06:00)
[2018-11-17] MEDS: INSULIN LISPRO 100 UNIT/ML 3 ML VIAL SUBCUT SCH ×2 (08:03→12:48)
[2018-11-17] MEDS: CLOPIDOGREL BISULFATE 75 MG TABLET PO SCH (09:24)
[2018-11-17] MEDS: LIDOCAINE 5% (700 MG) TRANSDERMAL ADH..PATCH TP SCH (09:24)
[2018-11-17] MEDS: METOPROLOL SUCCINATE 25 MG TAB.SR.24H PO SCH (09:24)
[2018-11-17] MEDS: ENOXAPARIN SODIUM INJ 40 MG/0.4 ML DISP.SYRIN SUBCUT SCH (09:25)
[2018-11-17] MEDS: FAMOTIDINE 20 MG TABLET PO SCH (09:25)
[2018-11-17] MEDS: NICOTINE 7 MG/24 HR PATCH.TD24 TD SCH (09:25)
[2018-11-17] MEDS: ASPIRIN 81 MG TABLET, ENT COATED PO SCH (09:25)
[2018-11-17] MEDS: FLUTICASONE/VILANTEROL 200-25 MCG/DOSE IH SCH (09:26)
[2018-11-17] MEDS: FLUTICASONE NASAL SPRAY 50 MCG/SPRY 120 SPRAY/16 GM NASL SCH (09:26)
--- NOTE | 2018-11-17 10:22 | PDOC DISCHARGE SUMMARY ---
General - Admit/Disc Date/PCP Admission Date/Primary Care Provider: 11/14/18 15:55 CAITLYN ATKINSON MD Discharge Date: 11/17/18 - Discharge Diagnosis (1) Acute CVA (cerebrovascular accident) Is this a current diagnosis for this admission?: Yes Summary: Continues to aspirin Plavix and high-dose statin (2) Elevated troponin Is this a current diagnosis for this admission?: Yes Summary: As per discussed with the Dr. Kang no cardiac issues (3) Type 2 diabetes mellitus Is this a current diagnosis for this admission?: Yes Summary: Currently on diet control (4) Smoker Is this a current diagnosis for this admission?: Yes Summary: Cussed with the patient about smoking counseling (5) Hypertension Is this a current diagnosis for this admission?: Yes Summary: Continues to clonidine patch with patients like it more Keep a blood pressure around 1 50-1 60 range Discussed with the patient and the significant other's regarding to keep track the blood pressures Use the hydralazine 25 mg as needed for blood pressure is more than 180 Following a 1 week (6) COPD (chronic obstructive pulmonary disease) Is this a current diagnosis for this admission?: Yes Summary: Continue this (7) Carotid stenosis Is this a current diagnosis for this admission?: Yes Summary: Is currently see the vascular surgeon at [facility] (8) Cervical radiculopathy Is this a current diagnosis for this admission?: Yes (9) Depression Is this a current diagnosis for this admission?: Yes Summary: Clear all stable (10) Hyperlipidemia Is this a current diagnosis for this admission?: Yes Summary: Continues high-dose statin (11) Substance abuse Is this a current diagnosis for this admission?: Yes (12) Chronic sinusitis Is this a current diagnosis for this admission?: Yes Summary: Keflex - Additional Information Resuscitation Status: Full Code Discharge Diet: Diabetic Discharge Activity: Activity As Tolerated Prescriptions: Aspirin [Ecotrin 81 mg EC Tablet] 81 mg PO DAILY #30 tabec Cephalexin Monohydrate [Keflex 500 mg Capsule] 500 mg PO TID #21 capsule Clopidogrel Bisulfate [Plavix 75 mg Tablet] 75 mg PO DAILY #30 tablet Hydralazine HCl [Apresoline 25 mg Tablet] 25 mg PO Q8 PRN #90 tablet PRN Reason: Give For Sbp > [] Home Medications: Budesonide/Formoterol Fumarate [Symbicort HFA 160-4.5 mcg Inhaler 6 gm] 2 puff IH Q12 11/14/18 Clonidine [Catapres-Tts 3 (0.3 mg/24 Hr) Transderm Patch] 1 patch TD TH@1000 11/14/18 Clopidogrel Bisulfate [Plavix 75 mg Tablet] 75 mg PO DAILY 11/14/18 Fluticasone Propionate [Flonase Nasal [place] 50 Mcg/[place] 16 gm] 1 spray NASL DAILY 11/14/18 Gabapentin [Neurontin 300 mg Capsule] 300 mg PO Q8 11/14/18 [employer] [Atrovent Hfa] 2 puff IH Q6 11/14/18 Lidocaine [Lidoderm 5% (700 mg) Transdermal Patch] 1 patch TP DAILY 11/14/18 Nicotine [Nicoderm 7 mg/24 Hr Transdermal Patch] 1 patch TD DAILY 11/14/18 Aspirin [Ecotrin 81 mg EC Tablet] 81 mg PO DAILY #30 tabec 11/17/18 Cephalexin Monohydrate [Keflex 500 mg Capsule] 500 mg PO TID #21 capsule 11/17/18 Clopidogrel Bisulfate [Plavix 75 mg Tablet] 75 mg PO DAILY #30 tablet 11/17/18 Hydralazine HCl [Apresoline 25 mg Tablet] 25 mg PO Q8 PRN #90 tablet 11/17/18 Metoprolol Succinate [Toprol Xl 50 mg Tab.sr] 25 mg PO DAILY #0 11/17/18 History of Present Illness History of Present Illness: EMERSON DANGELO JR is a 53 year old male This is a 53-year-old male with a history of the hypertension's and a history of the cerebrovascular accident with the multiple time but the noncompliance of the medications present in the emergency department with a complaining of a left- sided weakness in the left facial numbness. Patient stated that around 1800 yesterday he noticed he had a left-sided weakness in the left facial numbness. He stated this morning while attempting to drive to the ED he became very co nfused and disoriented. He stated he returned home and ask his significant other to drive him here. Patient stated that he has a history of the CVA in 2008 and multiple TIA with subsequently left-sided deficit. July 2017 patient is presented to the ED complaining of left-sided weakness and was discharged home with a walker He stated he has not needed to use the walker cane until his symptoms with onset yesterday Patient is already taking the Plavix and aspirin and not sure about the complia nce with the medications Patient also see a neurology outpatient History of the carotid artery disease have a surgery done on the right side in 2016 and currently see a vascular surgery at [facility] Patient's in the emergency departments initial CT of the head was negative and patient underwent for the MRI with so the punctate area of the restricted diffusion within the right cerebral pendulce to in the basal ganglia compatible with the acute infarct Additional stable chronic lacunar infarct and nonspecific white matter changes Carotid artery Doppler studies shows good blood flow with the no restrictions following the internal carotid Patient denied any chest pain to than any shortness of the breath patient's troponin was elevated His last blood work done in my office in July which patient A1c was 5.6 and LDL is less than 70 Patient other than that at this point admitting in the [facility] for the stroke protocol We will consult the cardiology due to the elevated troponin Hospital Course Hospital Course: This is a 53-year-old male with a chronic smoker history of the carotid disease history of the stroke in the past and a noncompliance and multiple other medical problems present in the emergency department with acute left-sided weakness d iagnosed with the stroke Patient was put in a stroke protocol in the hospitals Patient was taking only Plavix and on aspirin 81 mg and high-dose statin Patient's blood pressures remain 1 60-1 70 range Patient at this point doing well physical therapy occupational therapy speech therapy done Patient is walking the hallway Patient is denied any headache Patient is denied any chest pain Patient's troponin was elevated echocardiogram was done was all stable and discussed with the Dr. Kang actually put the consult for him and he said that no need for further evaluation Patient at this point expressed to go home only issue with the blood pressure was still little bit elevated and discussed with the patient's that keep her blood pressures at home with the 1 50-1 60 range Patient is following office 1 week and the readjust the medications Discussed with the patient's significant other Patient is also scheduled home health physical therapy Also discussed with her smoking counseling Physical Exam Vital Signs: Temp Pulse Resp BP Pulse Ox 97.8 F 63 16 169/95 H 99 11/17/18 04:00 11/17/18 08:01 11/17/18 08:01 11/17/18 08:01 11/17/18 08:01 Intake & Output 11/16/18 11/17/18 11/18/18 06:59 06:59 06:59 Intake Total 1302 2080 Output Total 1150 700 Balance 152 1380 Weight 83.9 kg 83.3 kg General appearance: PRESENT: no acute distress, well-developed, well-nourished Head exam: PRESENT: atraumatic, normocephalic Eye exam: PRESENT: conjunctiva pink, EOMI, PERRLA. ABSENT: scleral icterus Ear exam: PRESENT: normal external ear exam Mouth exam: PRESENT: moist, tongue midline Neck exam: PRESENT: full ROM. ABSENT: carotid bruit, JVD, lymphadenopathy, thyromegaly Respiratory exam: PRESENT: clear to auscultation rommel Cardiovascular exam: PRESENT: RRR. ABSENT: diastolic murmur, rubs, systolic murmur Pulses: PRESENT: normal dorsalis pedis pul, +2 pedal pulses bilateral Vascular exam: PRESENT: normal capillary refill GI/Abdominal exam: PRESENT: normal bowel sounds, soft. ABSENT: distended, guarding, mass, organolmegaly, rebound, tenderness Rectal exam: PRESENT: deferred Extremities exam: ABSENT: pedal edema Musculoskeletal exam: PRESENT: ambulatory Neurological exam: PRESENT: alert, awake, oriented to person, oriented to place, oriented to time, oriented to situation, reflexes normal, CN II-XII grossly intact, normal gait. ABSENT: motor sensory deficit Psychiatric exam: PRESENT: appropriate affect, normal mood. ABSENT: homicidal ideation, suicidal ideation Skin exam: PRESENT: dry, intact, warm. ABSENT: cyanosis, rash Results Laboratory Results: 11/15/18 05:41 11/15/18 05:41 11/14/18 11/14/18 11/14/18 08:40 08:40 17:51 Creatine Kinase 47 L 47 L CK-MB (CK-2) 0.56 Troponin I 0.102 11/14/18 11/14/18 11/14/18 17:51 23:37 23:37 Creatine Kinase 49 L CK-MB (CK-2) 0.35 0.27 Troponin I 0.075 0.075 11/15/18 11/15/18 05:41 05:41 Creatine Kinase 42 L CK-MB (CK-2) 0.31 Troponin I 0.074 Impressions: Chest X-Ray 11/14/18 08:44 IMPRESSION: NO ACUTE RADIOGRAPHIC FINDING IN THE CHEST. Head CT 11/14/18 08:44 IMPRESSION: 1. Stable chronic changes without evidence of acute intracranial abnormality. 2. Sinus mucosal disease within the maxillary and sphenoid sinuses and ethmoid air cells. EVIDENCE OF ACUTE STROKE: NO. Head MRI 11/14/18 11:05 IMPRESSION: 1. Punctate areas of restricted diffusion within the right cerebral peduncle and basal ganglia compatible with infarct. No significant mass effect or midline shift. 2. Additional stable chronic lacunar infarcts and nonspecific white matter changes, likely sequelae of microangiopathic disease. 3. Sinus mucosal disease. Pertinent positive or negative findings of the imaging study reported as a CRITICAL EXAM to COLT MORENO MD at13:39 on 11/14/2018. EVIDENCE OF ACUTE STROKE: YES. RIGHT MCA. Carotid Doppler Study 11/14/18 13:18 IMPRESSION: NO HEMODYNAMICALLY SIGNIFICANT STENOSIS. Qualifiers - * PATIENT BEING DISCHARGED WITH ANY OF THE FOLLOWING DIAGNOSIS: Stroke VTE patient discharged on overlapping Therapy?: Yes Stroke Pt being discharged on Anti-thrombolytic therapy?: Yes Stroke Pt being discharged on Anti-coagulation therapy?: No Reason(s) for not prescribing Anti-coagulation therapy:: Not indicated Stroke Pt being discharged on Statins?: Yes Acute Heart Failure Is this a Heart Failure Patient?: No Plan Time Spent: Greater than 30 Minutes - Discharge home with the stable conditions Follow in office 1 week
[2018-11-17] MEDS ORDERED: CLONIDINE 0.3 MG/24 HR PATCH.TDWK TD ONE (11:00)
[2018-11-17 13:15] VITALS: BP 174/106
[2018-11-22] MEDS ORDERED: CLONIDINE 0.3 MG/24 HR PATCH.TDWK TD SCH (10:00)
== END 2018-11-17 13:30 | disposition home or self-care (01) | DRG 66 ==
LOC: ER 08:20 → EH 15:55 → 3N 19:41
PROVIDERS: ADMIT Family Medicine; ATTEND Family Medicine
DX: I63.9 Cerebral infarction, unspecified (principal); F17.210 Nicotine dependence, cigarettes, uncomplicated; I69.344 Monoplegia of lower limb following cerebral infarction affecting left non-dominant side; R74.8 Abnormal levels of other serum enzymes; I65.21 Occlusion and stenosis of right carotid artery; J32.9 Chronic sinusitis, unspecified; M54.12 Radiculopathy, cervical region; Z79.02 Long term (current) use of antithrombotics/antiplatelets; F41.1 Generalized anxiety disorder; R53.1 Weakness; J44.9 Chronic obstructive pulmonary disease, unspecified; I10 Essential (primary) hypertension; E11.9 Type 2 diabetes mellitus without complications; K21.9 Gastro-esophageal reflux disease without esophagitis; F32.9 Major depressive disorder, single episode, unspecified; R20.0 Anesthesia of skin; Z88.6 Allergy status to analgesic agent; Z88.8 Allergy status to other drugs, medicaments and biological substances; Z91.14 Patient's other noncompliance with medication regimen; Z82.49 Family history of ischemic heart disease and other diseases of the circulatory system; Z91.19 Patient's noncompliance with other medical treatment and regimen
CPT/HCPCS: 36415; 70450; 70551; 71045; 80053; 80061; 80307; 81001; 82550; 82553; 82962; 83036; 84484; 85025; 85610; 93005; 93010; 93306; 93880; 99291; J1650; J3490

== ENCOUNTER 2019-02-13 09:11 | Emergency (ER) | payer MEDICAID ==
--- NOTE | 2019-02-13 09:34 | ER Document Report ---
ED Medical Screen (RME) - General Chief Complaint: Numbness of Face Stated Complaint: LEFT HAND NUMBNESS Time Seen by Provider: 02/13/19 09:24 Primary Care Provider: CAITLYN ATKINSON MD [Primary Care Provider] - Follow up as needed Mode of Arrival: Ambulatory Information source: Patient Notes: This 54-year-old male presents emergency department with left lip numbness left hand numbness and now reports his left eye is hurting him. Patient has been to the emergency department twice this week for symptoms. This is his third visit in a row. Patient was evaluated 2 days ago and advised to be admitted but he declined. Patient came back last night for MRI of his head but left after his MRI. Patient presents today with reports he just does not feel well. His left drooping of his lip is more pronounced. Patient seems more unsteady on his legs. I have greeted and performed a rapid initial assessment of this patient. A comprehensive ED assessment and evaluation of the patient, analysis of test results and completion of the medical decision making process will be conducted by additional ED providers. Dictation of this chart was performed using voice recognition software; therefore, there may be some unintended grammatical errors. TRAVEL OUTSIDE OF THE [place] IN LAST 30 DAYS: No - Related Data Allergies/Adverse Reactions: acetaminophen [From Tylenol] Allergy (Verified 02/13/19 09:12) amlodipine besylate [From Norvasc] Allergy (Verified 02/13/19 09:12) ibuprofen Allergy (Verified 02/13/19 09:12) pioglitazone HCl [From Actos] Allergy (Verified 02/13/19 09:12) Past Medical History - Past Medical History Cardiac Medical History: Reports: Hx Hypercholesterolemia, Hx Hypertension Denies: Hx Atrial Fibrillation, Hx Coronary Artery Disease Pulmonary Medical History: Reports: Hx COPD Neurological Medical History: Reports: Hx Cerebrovascular Accident - 2009 with residual right sided weakness Endocrine Medical History: Reports: Hx Diabetes Mellitus Type 1, Hx Diabetes Mellitus Type 2 Renal/ Medical History: Denies: Hx Peritoneal Dialysis GI Medical History: Reports: Hx Gastroesophageal Reflux Disease Musculoskeltal Medical History: Reports Hx Arthritis Psychiatric Medical History: Reports: Hx Depression Past Surgical History: Reports: Hx Carotid Endarterectomy - right, Hx Kidney (Renal Surgery) - lithotripsy, Hx Orthopedic Surgery, Hx Vascular Surgery - Immunizations Immunizations up to date: Yes Hx Diphtheria, Pertussis, Tetanus Vaccination: Yes History of Influenza Vaccine for 03/2017 - 08/2017 Season: Refused Physical Exam - Vital signs Vitals: Temp Pulse Resp BP Pulse Ox 98.1 F 87 20 186/95 H 99 02/13/19 09:17 02/13/19 09:17 02/13/19 09:17 02/13/19 09:02/13/19 09:17 Course - Vital Signs Vital signs: Temp Pulse Resp BP Pulse Ox 98.1 F 87 20 186/95 H 99 02/13/19 09:17 02/13/19 09:17 02/13/19 09:17 02/13/19 09:17 02/13/19 09:17 Doctor's Discharge - Discharge Referrals: CAITLYN ATKINSON MD [Primary Care Provider] - Follow up as needed
[2019-02-13 09:53] LABS: ABSOLUTE BASOPHILS # (AUTO) 0.1 10^3/uL (0.0-0.2); ABSOLUTE EOSINOPHILS # (AUTO) 0.3 10^3/uL (0.0-0.6); ABSOLUTE LYMPHOCYTES (AUTO) 1.9 10^3/uL (0.5-4.7); ABSOLUTE MONOCYTES (AUTO) 0.8 10^3/uL (0.1-1.4); ABSOLUTE NEUT (AUTO) 5.1 10^3/uL (1.7-8.2); BASOPHILS % (AUTO) 0.8 % (0-2); EOSINOPHILS % (AUTO) 3.8 % (0-6); HEMATOCRIT 48.1 % (37.9-51.0); HEMOGLOBIN 15.9 g/dL (13.5-17.0); LYMPHOCYTES % (AUTO) 23.2 % (13-45); MEAN CORPUSCULAR HEMOGLOBIN 30.7 pg (27.0-33.4); MEAN CORPUSCULAR HGB CONC 33.1 g/dL (32.0-36.0); MEAN CORPUSCULAR VOLUME 93 fl (80-97); MONOCYTES % (AUTO) 9.3 % (3-13); PLATELET COUNT 244 10^3/uL (150-450); RED BLOOD COUNT 5.19 10^6/uL (4.35-5.55); RED CELL DISTRIBUTION WIDTH 13.4 % (11.5-14.0); SEGMENTED NEUTROPHILS % (AUTO) 62.9 % (42-78); TOTAL CELLS COUNTED % (AUTO) 100 %; WHITE BLOOD COUNT 8.1 10^3/uL (4.0-10.5)
[2019-02-13 09:58] VITALS: BP 162/112
[2019-02-13 09:59] LABS: INTERNATIONAL RATION (INR) 0.94
[2019-02-13 10:00] LABS: PARTIAL THROMBOPLASTIN TIME 30.8 SEC (23.5-35.8)
[2019-02-13 10:02] LABS: PROTHROMBIN TIME 12.6 SEC (11.4-15.4)
--- NOTE | 2019-02-13 10:10 | RADIOLOGY REPORT (SQ) ---
EXAM DESCRIPTION: CHEST SINGLE VIEW COMPLETED DATE/TIME: 02/13/2019 9:55 am REASON FOR STUDY: stroke sx COMPARISON: 11/14/2018 NUMBER OF VIEWS: One view. TECHNIQUE: Single frontal radiographic image of the chest acquired. LIMITATIONS: None. FINDINGS: LUNGS AND PLEURA: Stable appearance. MEDIASTINUM AND HILAR STRUCTURES: Stable heart size and mediastinal structures. HEART AND VASCULAR STRUCTURES: Stable appearance. SUPPORT DEVICES: Appropriate location without change. BONES: No acute findings. OTHER: No other significant finding. IMPRESSION: STABLE APPEARANCE OF THE CHEST. SUPPORT DEVICES UNCHANGED. TECHNICAL DOCUMENTATION: JOB ID: [id number] [employer]- All Rights Reserved Reading location - IP/workstation name: [email or web address]
[2019-02-13 10:16] LABS: ALBUMIN 4.6 g/dL (3.5-5.0); ALKALINE PHOSPHATASE 43 U/L (38-126); ANION GAP 9 (5-19); ASPARTATE AMINO TRANSFERASE 31 U/L (17-59); BILIRUBIN,DIRECT 0.4 mg/dL (0.0-0.4); BILIRUBIN,TOTAL 1.2 mg/dL (0.2-1.3); BLOOD UREA NITROGEN 19 mg/dL (7-20); CARBON DIOXIDE 28 mmol/L (22-30); CHLORIDE 104 mmol/L (98-107); CREATINE KINASE 70 U/L (55-170); GLUCOSE 109 mg/dL (75-110); POTASSIUM 4.3 mmol/L (3.6-5.0); TOTAL PROTEIN 8.4 g/dL (6.3-8.2)
[2019-02-13 10:30] LABS: CREATINE KINASE MB < 0.22 ng/mL (<4.55); TROPONIN I < 0.012 ng/mL
--- NOTE | 2019-02-13 10:34 | RADIOLOGY REPORT (SQ) ---
EXAM DESCRIPTION: CT HEAD WITHOUT COMPLETED DATE/TIME: 02/13/2019 10:23 am REASON FOR STUDY: pain/swelling COMPARISON: 02/11/2019 TECHNIQUE: Axial images acquired through the brain without intravenous contrast. Images reviewed wi th bone, brain and subdural windows. Additional sagittal and coronal reconstructions were generated. Images stored on PACS. All CT scanners at this facility use dose modulation, iterative reconstruction, and/or weight based d osing when appropriate to reduce radiation dose to as low as reasonably achievable (ALARA). [facility]: Dose Right [facility]: CareDose [facility]: Dose Right [facility]: Teradose 4D [facility]: VCNC RADIATION DOSE: CT Rad equipment meets quality standard of care and radiation dose reduction techniq ues were employed. CTDIvol: 48.5 mGy. DLP: 879 mGy-cm. mGy. LIMITATIONS: None. FINDINGS: VENTRICLES: Prominent. CEREBRUM: No masses. No hemorrhage. No midline shift. Areas of low density in the white matter mos t likely due to chronic micro-vascular ischemic change. No evidence for acute infarction. CEREBELLUM: No masses. No hemorrhage. No alteration of density. No evidence for acute infarction. EXTRAAXIAL SPACES: Mild age-related involutional change. No fluid collections. No masses. ORBITS AND GLOBE: No intra- or extraconal masses. Normal contour of globe without masses. CALVARIUM: No fracture. PARANASAL SINUSES: There is bilateral ethmoid, frontal as well as sphenoid sinusitis. There is maxil jaime sinusitis. SOFT TISSUES: No mass or hematoma. OTHER: No other significant finding. IMPRESSION: Atrophy and small-vessel ischemic changes. Bilateral lacunar-type infarcts. Old left o ccipital lobe infarct. No acute intracranial event. Chronic appearing sinusitis stable from prior study. EVIDENCE OF ACUTE STROKE: NO. TECHNICAL DOCUMENTATION: JOB ID: [id number] Quality ID # 436: Final reports with documentation of one or more dose reduction techniques (e.g., Au tomated exposure control, adjustment of the mA and/or kV according to patient size, use of iterative reconstruction technique) 2010 [employer]- All Rights Reserved Reading location - IP/workstation name: [email or web address]
--- NOTE | 2019-02-13 10:42 | RADIOLOGY REPORT (SQ) ---
EXAM DESCRIPTION: CT FACIAL AREA WITHOUT COMPLETED DATE/TIME: 02/13/2019 10:23 am REASON FOR STUDY: pain/swelling COMPARISON: None. TECHNIQUE: Noncontrasted images through the facial bones and orbits windowed for bone and soft tissu e. Additional coronal and sagittal reconstructed images reviewed. All images stored on PACS. All CT scanners at this facility use dose modulation, iterative reconstruction, and/or weight based d osing when appropriate to reduce radiation dose to as low as reasonably achievable (ALARA). [facility]: Dose Right [facility]: CareDose [facility]: Dose Right [facility]: Teradose 4D [facility]: TCHO RADIATION DOSE: mGy. LIMITATIONS: None. FINDINGS: FACIAL BONES: No fracture or bone lesion. ORBITS: Intact. No fracture. Symmetric intact globes and retroorbital soft tissues. PARANASAL SINUSES: There is chronic appearing pansinusitis. Possibly polyposis syndrome. Similar fin dings were present dating back to July 2017. Both ostiomeatal units are occluded. There is bone remodeling in the ethmoid air cells. SOFT TISSUES: No mass or edema. INFERIOR BRAIN: Limited view. No acute findings. OTHER: No other significant finding. IMPRESSION: Pansinusitis which appears chronic. Occlusion of both ostiomeatal units. Some bony rem odeling. TECHNICAL DOCUMENTATION: JOB ID: [id number] Quality ID # [id number]: Final reports with documentation of one or more dose reduction techniques (e.g., Au tomated exposure control, adjustment of the mA and/or kV according to patient size, use of iterative reconstruction technique) 2010 [employer]- All Rights Reserved Reading location - IP/workstation name: [email or web address]
[2019-02-13] MEDS ORDERED: CEFTRIAXONE 1 GM/D5W RTU 1 GM/50 ML RTUPB IV ONE ×2 (10:57→13:00)
[2019-02-13 11:21] LABS: APPEARANCE,URINE CLOUDY; BILIRUBIN,URINE NEGATIVE (NEGATIVE); COLOR,URINE YELLOW; GLUCOSE, URINE NEGATIVE (NEGATIVE); KETONES,URINE NEGATIVE (NEGATIVE); LEUKOCYTE ESTERASE,URINE NEGATIVE (NEGATIVE); NITRITE,URINE NEGATIVE (NEGATIVE); PROTEIN,URINE 100 mg/dL (NEGATIVE); URIC ACID CRYSTALS,URINE TOO NUMEROUS TO CNT /HPF; URINE SPECIFIC GRAVITY 1.021; UROBILINOGEN,URINE NEGATIVE mg/dL (<2.0)
--- NOTE | 2019-02-13 12:19 | RADIOLOGY REPORT (SQ) ---
EXAM DESCRIPTION: CTA NECK COMPLETED DATE/TIME: 02/13/2019 11:56 am REASON FOR STUDY: hx carotid stenosis/facial droop COMPARISON: None. TECHNIQUE: Axial dynamic scanning technique with dynamic contrast enhancement through the extra-vessel scrapper helper nial carotid and vertebral arteries. Multiplanar reconstruction. 3-D MIPS and Volume-rendered imag es acquired at the workstation and saved to PACS. Images are reviewed in soft tissue, bone, lung w indows. All CT scanners at this facility use dose modulation, iterative reconstruction, and/or weight based d osing when appropriate to reduce radiation dose to as low as reasonably achievable (ALARA). [facility]: Dose Right [facility]: CareDose [facility]: Dose Right [facility]: Teradose 4D [facility]: [employer] CONTRAST TYPE AND DOSE: contrast/concentration: Isovue 350.00 mg/ml; Total Contrast Delivered: 80.0 ml; Total Saline Delivered: 75.0 ml RENAL FUNCTION: BUN 19, creatinine 1.2 LIMITATIONS: None. FINDINGS: AORTIC ARCH: Normal three-vessel origin. Bilateral subclavian arteries are patent. No d issection. RIGHT CAROTIDS: Patent common, internal and external carotid arteries without suggestion of significa nt stenosis or irregular plaque. No dissection. RIGHT VERTEBRAL: Patent. No dissection. LEFT CAROTIDS: Patent common, internal and external carotid arteries without suggestion of significan t stenosis or irregular plaque. No dissection. LEFT VERTEBRAL: Patent. No dissection. OTHER: No other significant finding. OTHER: 3-D reconstructions confirm findings. IMPRESSION: NORMAL CTA OF THE EXTRA-CRANIAL CAROTID AND VERTEBRAL ARTERIES. COMMENT: Quality ID #[id number]: Measurements of distal internal carotid diameter were used as the denomina tor for stenosis measurement. TECHNICAL DOCUMENTATION: JOB ID: [id number] Quality ID # 436: Final reports with documentation of one or more dose reduction techniques (e.g., Au tomated exposure control, adjustment of the mA and/or kV according to patient size, use of iterative reconstruction technique) 2010 [employer]- All Rights Reserved Reading location - IP/workstation name: [email or web address]
--- NOTE | 2019-02-13 12:38 | ER Document Report ---
ED General - General Chief Complaint: Numbness of Face Stated Complaint: LEFT HAND NUMBNESS Time Seen by Provider: 02/13/19 09:24 Primary Care Provider: CAITLYN ATKINSON MD [Primary Care Provider] - Follow up as needed Mode of Arrival: Ambulatory TRAVEL OUTSIDE OF THE [place] IN LAST 30 DAYS: No - HPI Notes: Patient presents complaining of facial pain. He also states he feels he has some numbness of his left lateral upper and lower lip. This is patient's third visit in 2 days. He has left [facility] the other 2 times. Patient all 3 times is complained of some left facial numbness. He is also complained of some left hand numbness. He does state that he feels the left hand numbness is no different than it was 5 weeks ago when he had a stroke. He states he has had some sinus congestion and pain about the face. No fevers. The pain in the face has been mild to moderate. It radiates throughout his face. Nothing makes it better or worse. It is constant. It is throbbing. - Related Data Allergies/Adverse Reactions: acetaminophen [From Tylenol] Allergy (Verified 02/13/19 09:12) amlodipine besylate [From Norvasc] Allergy (Verified 02/13/19 09:12) ibuprofen Allergy (Verified 02/13/19 09:12) pioglitazone HCl [From Actos] Allergy (Verified 02/13/19 09:12) Past Medical History - General Information source: Patient - Social History Smoking Status: Current Every Day Smoker Chew tobacco use (# tins/day): No Frequency of alcohol use: None Drug Abuse: None Family History: Reviewed & Not Pertinent, CAD Patient has suicidal ideation: No Patient has homicidal ideation: No - Past Medical History Cardiac Medical History: Reports: Hx Hypercholesterolemia, Hx Hypertension Denies: Hx Atrial Fibrillation, Hx Coronary Artery Disease Pulmonary Medical History: Reports: Hx COPD Neurological Medical History: Reports: Hx Cerebrovascular Accident - 2009 with residual right sided weakness Endocrine Medical History: Reports: Hx Diabetes Mellitus Type 1, Hx Diabetes Mellitus Type 2 Renal/ Medical History: Denies: Hx Peritoneal Dialysis GI Medical History: Reports: Hx Gastroesophageal Reflux Disease Musculoskeletal Medical History: Reports Hx Arthritis Psychiatric Medical History: Reports: Hx Depression Past Surgical History: Reports: Hx Carotid Endarterectomy - right, Hx Kidney (Renal Surgery) - lithotripsy, Hx Orthopedic Surgery, Hx Vascular Surgery - Immunizations Immunizations up to date: Yes Hx Diphtheria, Pertussis, Tetanus Vaccination: Yes Hx Pneumococcal Vaccination: 07/20/14 Review of Systems - Review of Systems Constitutional: denies: Chills, Fever EENT: Eye pain, Nose congestion, Nose discharge, Sinus pressure, Sinus discharge Cardiovascular: denies: Chest pain, Dyspnea Respiratory: denies: Cough, Short of breath Neurological/Psychological: Weakness, Numbness -: Yes All other systems reviewed and negative Physical Exam - Vital signs Vitals: Temp Pulse Resp BP Pulse Ox 98.1 F 87 20 186/95 H 99 02/13/19 09:17 02/13/19 09:17 02/13/19 09:17 02/13/19 09:17 02/13/19 09:17 Interpretation: Hypertensive - General General appearance: Appears well, Alert - HEENT Head: Other - Patient's left maxillary and zygomatic arch area as well as the left periorbital area have some mild swelling and induration. Patient is tender to palpation of the maxillary sinus. Eyes: Normal Conjunctiva: Normal Extraocular movements intact: Yes Pupils: PERRL Sinus: Tenderness - Left maxillary Nasal: Swelling Mouth/Lips: Normal Mucous membranes: Moist - Respiratory Respiratory status: No respiratory distress Chest status: Nontender Breath sounds: Normal Chest palpation: Normal - Cardiovascular Rhythm: Regular Heart sounds: Normal auscultation Murmur: No - Abdominal Inspection: Normal Distension: No distension Bowel sounds: Normal Tenderness: Nontender Organomegaly: No organomegaly - Back Back: Normal, Nontender - Extremities General upper extremity: Normal inspection, Nontender, Normal color, Normal ROM, Normal temperature General lower extremity: Normal inspection, Nontender, Normal color, Normal ROM, Normal temperature, Normal weight bearing. No: Alyssa's sign - Neurological Cognition: Normal Orientation: AAOx4 Amina Coma Scale Eye Opening: Spontaneous Amina Coma Scale Verbal: Oriented Amina Coma Scale Motor: Obeys Commands [place] Coma Scale Total: 15 Speech: Normal Cranial nerves: Other - Patient appears to have a mild facial droop on the left. Additional motor exam normals: Weakness, Other - Left arm and left leg have some weakness compared to the right. However patient states this is unchanged since the stroke 5 weeks ago. - Psychological Associated symptoms: Normal affect, Normal mood - Skin Skin Temperature: Warm Skin Moisture: Dry Skin Color: Normal Course - Re-evaluation Re-evalutation: 02/13/19 12:37 Patient presents with complaints of facial pain and numbness. There is no evidence the patient has had an extension of his stroke or a new stroke. MRI and head CT both show no evidence of new stroke. As well a CTA of the neck shows no evidence of arterial occlusion. I discussed the case with the keo oliveira's family doctor, Dr. Atkinson, who asked that I discharge the patient on antibiotics and follow-up in the office. I do believe the patient's presenting complaints today are due to his montgomery sinusitis. I will treat the patient with antibiotics. - Vital Signs Vital signs: Temp Pulse Resp BP Pulse Ox 98.1 F 74 28 H 162/112 H 100 02/13/19 09:17 02/13/19 09:49 02/13/19 09:49 02/13/19 09:49 02/13/19 09:49 - Laboratory Result Diagrams: 02/13/19 09:43 02/13/19 09:43 Laboratory results interpreted by me: 02/13/19 02/13/19 09:43 10:45 Total Protein 8.4 H Urine Protein 100 H Urine Blood SMALL H - Diagnostic Test Radiology reviewed: Image reviewed, Reports reviewed Radiology results interpreted by me: 02/13/19 12:38 Chest X-Ray 02/13/19 09:30 IMPRESSION: STABLE APPEARANCE OF THE CHEST. SUPPORT DEVICES UNCHANGED. Facial Bones CT 02/13/19 09:44 IMPRESSION: Pansinusitis which appears chronic. Occlusion of both ostiomeatal units. Some bony remodeling. Head CT 02/13/19 09:44 IMPRESSION: Atrophy and small-vessel ischemic changes. Bilateral lacunar-type infarcts. Old left occipital lobe infarct. No acute intracranial event. Chronic appearing sinusitis stable from prior study. EVIDENCE OF ACUTE STROKE: NO. Neck CTA 02/13/19 11:27 IMPRESSION: NORMAL CTA OF THE EXTRA-CRANIAL CAROTID AND VERTEBRAL ARTERIES. - EKG Interpretation by Me EKG shows normal: Sinus rhythm Rate: Normal - 76 Rhythm: NSR Voltage: Consistant with [facility] Discharge - Discharge Clinical Impression: History of CVA (cerebrovascular accident) Sinusitis Qualifiers: Sinusitis location: pansinusitis Chronicity: acute Recurrence: recurrent Qualified Code(s): J01.41 - Acute recurrent pansinusitis Condition: Stable Disposition: HOME, SELF-CARE Instructions: Sinusitis ([facility]) Additional Instructions: Please call Dr. Atkinson as soon as possible to arrange follow-up Prescriptions: Amox Tr/Potassium Clavulanate [Augmentin 875-125 Tablet] 1 tab PO BID 14 Days #28 tablet Forms: Elevated Blood Pressure Referrals: CAITLYN ATKINSON MD [Primary Care Provider] - Follow up tomorrow
--- NOTE | 2019-02-13 13:10 | EKG REPORT ---
SEVERITY:- ABNORMAL ECG - SINUS RHYTHM LEFT VENTRICULAR HYPERTROPHY : Confirmed by: Richard Harding MD 13-Feb-2019 13:09:43
== END 2019-02-13 12:50 | disposition home or self-care (01) ==
LOC: ER 09:11
DX: J01.41 Acute recurrent pansinusitis (principal); R20.0 Anesthesia of skin; F17.200 Nicotine dependence, unspecified, uncomplicated; I10 Essential (primary) hypertension; J44.9 Chronic obstructive pulmonary disease, unspecified; E11.9 Type 2 diabetes mellitus without complications; Z86.73 Personal history of transient ischemic attack (TIA), and cerebral infarction without residual deficits
CPT/HCPCS: 93005; 99284; 96365; 36415; 82553; 82550; 85025; 85610; 85730; 80053; 81001; 84484; 71045; 70450; 70486; 70498; 93010; J0696

== ENCOUNTER → 2019-05-21 | Outpatient (CLI) | payer MEDICAID ==
--- NOTE | 2019-05-21 11:04 | RADIOLOGY REPORT (SQ) ---
EXAM DESCRIPTION: SHOULDER LEFT 2 OR MORE VIEWS COMPLETED DATE/TIME: 05/21/2019 10:57 am REASON FOR STUDY: LEFT SHOULDER PAIN COMPARISON: None. NUMBER OF VIEWS: Three views. TECHNIQUE: Internal rotation, external rotation, and Y view images acquired of the left shoulder. LIMITATIONS: None. FINDINGS: MINERALIZATION: Normal. BONES: No acute fracture. No worrisome bone lesions. JOINTS: Mild degenerative changes in the AC joint. VISUALIZED LUNGS AND RIBS: No pneumothorax. No rib fracture. SOFT TISSUES: No radiopaque foreign body. OTHER: No other significant finding. IMPRESSION: Degenerative changes most marked in the AC joint. No acute findings. TECHNICAL DOCUMENTATION: JOB ID: [id number] [employer]- All Rights Reserved Reading location - IP/workstation name: [email or web address]
--- NOTE | 2019-05-21 11:06 | RADIOLOGY REPORT (SQ) ---
EXAM DESCRIPTION: CERV SP 4 OR 5 VIEWS COMPLETED DATE/TIME: 05/21/2019 10:57 am REASON FOR STUDY: CERVICALGIA COMPARISON: None. NUMBER OF VIEWS: Five views including obliques. TECHNIQUE: AP, lateral, obliques and odontoid radiographic images acquired of the cervical spine. LIMITATIONS: None. FINDINGS: MINERALIZATION: Normal. ALIGNMENT: Normal. VERTEBRAE: Maintained height. No fracture or worrisome bone lesion. DISCS: Multilevel disc space narrowing. Changes are most prominent at C4-5, C5-C6 and C6-C7. Small anterior osteophytes at the same levels. POSTERIOR ELEMENTS: Pedicles and facets are intact. No posterior arch defects. Facet arthropathy is present. FORAMINA: Poorly demonstrated bilaterally. There is foraminal narrowing on the right at C3-4 and C5- C6. Probable multilevel foraminal narrowing on the left. HARDWARE: None in the spine. PARASPINAL SOFT TISSUES: Normal. OTHER: No other significant finding. IMPRESSION: SPONDYLOSIS WITHOUT BONE LESION OR FRACTURE. TECHNICAL DOCUMENTATION: JOB ID: [id number] [employer]- All Rights Reserved Reading location - IP/workstation name: [email or web address]
== END ==
LOC: RAD 10:33
DX: M47.892 Other spondylosis, cervical region (principal); M54.2 Cervicalgia; M19.012 Primary osteoarthritis, left shoulder
CPT/HCPCS: 72050

== ENCOUNTER 2019-07-20 08:12 | Inpatient (IN) | payer MEDICAID ==
--- NOTE | 2019-07-20 08:49 | RADIOLOGY REPORT (SQ) ---
EXAM DESCRIPTION: CT HEAD WITHOUT COMPLETED DATE/TIME: 07/20/2019 8:28 am REASON FOR STUDY: right facial numbness COMPARISON: 02/13/2019 TECHNIQUE: Axial images acquired through the brain without intravenous contrast. Images reviewed wi th bone, brain and subdural windows. Additional sagittal and coronal reconstructions were generated. Images stored on PACS. All CT scanners at this facility use dose modulation, iterative reconstruction, and/or weight based d osing when appropriate to reduce radiation dose to as low as reasonably achievable (ALARA). [facility]: Dose Right [facility]: CareDose [facility]: Dose Right [facility]: Teradose 4D [facility]: [employer] RADIATION DOSE: CT Rad equipment meets quality standard of care and radiation dose reduction techniq ues were employed. CTDIvol: 53.2 mGy. DLP: 1070 mGy-cm. mGy. LIMITATIONS: None. FINDINGS: VENTRICLES: Normal size and contour. CEREBRUM: No masses. No hemorrhage. No midline shift. No evidence for acute infarction. Normal gra y/white matter differentiation. No areas of low density in the white matter. Chronic right lacunar i nfarct. CEREBELLUM: No masses. No hemorrhage. No alteration of density. No evidence for acute infarction. EXTRAAXIAL SPACES: No fluid collections. No masses. ORBITS AND GLOBE: No intra- or extraconal masses. Normal contour of globe without masses. CALVARIUM: No fracture. PARANASAL SINUSES: No fluid or mucosal thickening. SOFT TISSUES: No mass or hematoma. OTHER: No other significant finding. IMPRESSION: Chronic right lacunar infarct. No acute intracranial findings. EVIDENCE OF ACUTE STROKE: NO. COMMENT: Pertinent positive or negative findings of the imaging study reported as a CRITICAL EXAM t soledad REYES MD at08:43 on 07/20/2019. Category of Critical Exam: Stroke Quality ID # [id number]: Final reports with documentation of one or more dose reduction techniques (e.g., Au tomated exposure control, adjustment of the mA and/or kV according to patient size, use of iterative reconstruction technique) TECHNICAL DOCUMENTATION: JOB ID: [id number] [employer]- All Rights Reserved Reading location - IP/workstation name: [email or web address]
[2019-07-20] MEDS ORDERED: CLONIDINE HCL 0.1 MG TABLET PO ONE (09:00)
[2019-07-20 09:01] LABS: ABSOLUTE BASOPHILS # (AUTO) 0.1 10^3/uL (0.0-0.2); ABSOLUTE EOSINOPHILS # (AUTO) 0.3 10^3/uL (0.0-0.6); ABSOLUTE LYMPHOCYTES (AUTO) 1.8 10^3/uL (0.5-4.7); ABSOLUTE MONOCYTES (AUTO) 0.9 10^3/uL (0.1-1.4); ABSOLUTE NEUT (AUTO) 3.9 10^3/uL (1.7-8.2); BASOPHILS % (AUTO) 1.2 % (0-2); EOSINOPHILS % (AUTO) 4.5 % (0-6); HEMATOCRIT 43.1 % (37.9-51.0); HEMOGLOBIN 14.8 g/dL (13.5-17.0); LYMPHOCYTES % (AUTO) 26.1 % (13-45); MEAN CORPUSCULAR HEMOGLOBIN 31.7 pg (27.0-33.4); MEAN CORPUSCULAR HGB CONC 34.3 g/dL (32.0-36.0); MEAN CORPUSCULAR VOLUME 92 fl (80-97); MONOCYTES % (AUTO) 12.8 % (3-13); PLATELET COUNT 251 10^3/uL (150-450); RED BLOOD COUNT 4.67 10^6/uL (4.35-5.55); SEGMENTED NEUTROPHILS % (AUTO) 55.4 % (42-78); TOTAL CELLS COUNTED % (AUTO) 100 %
[2019-07-20 09:04] LABS: INTERNATIONAL RATION (INR) 0.99; PROTHROMBIN TIME 13.1 SEC (11.4-15.4)
[2019-07-20 09:05] LABS: PARTIAL THROMBOPLASTIN TIME 29.9 SEC (23.5-35.8)
--- NOTE | 2019-07-20 09:09 | RADIOLOGY REPORT (SQ) ---
EXAM DESCRIPTION: CHEST SINGLE VIEW COMPLETED DATE/TIME: 07/20/2019 8:36 am REASON FOR STUDY: possible stroke COMPARISON: 02/13/2019 EXAM PARAMETERS: NUMBER OF VIEWS: One view. TECHNIQUE: Single frontal radiographic view of the chest acquired. RADIATION DOSE: NA LIMITATIONS: None. FINDINGS: LUNGS AND PLEURA: No opacities, masses or pneumothorax. No pleural effusion. MEDIASTINUM AND HILAR STRUCTURES: No masses. Contour normal. HEART AND VASCULAR STRUCTURES: Heart normal in size. Normal vasculature. BONES: No acute findings. HARDWARE: None in the chest. OTHER: No other significant finding. IMPRESSION: NO ACUTE RADIOGRAPHIC FINDING IN THE CHEST. TECHNICAL DOCUMENTATION: JOB ID: [id number] [employer]- All Rights Reserved Reading location - IP/workstation name: [email or web address]
[2019-07-20 09:17] LABS: ALBUMIN 4.3 g/dL (3.5-5.0); ALKALINE PHOSPHATASE 40 U/L (38-126); ANION GAP 8 (5-19); ASPARTATE AMINO TRANSFERASE 25 U/L (17-59); BILIRUBIN,DIRECT 0.2 mg/dL (0.0-0.4); BILIRUBIN,TOTAL 0.8 mg/dL (0.2-1.3); BLOOD UREA NITROGEN 23 mg/dL (7-20); CALCIUM 9.9 mg/dL (8.4-10.2); CARBON DIOXIDE 27 mmol/L (22-30); CHLORIDE 106 mmol/L (98-107); CREATINE KINASE 97 U/L (55-170); GLUCOSE 109 mg/dL (75-110); POTASSIUM 4.3 mmol/L (3.6-5.0); TOTAL PROTEIN 7.7 g/dL (6.3-8.2)
[2019-07-20] MEDS ORDERED: LABETALOL HCL INJ 20 MG/4 ML DISP.SYRIN IV ONE (09:26)
[2019-07-20 09:29] LABS: CREATINE KINASE MB 0.62 ng/mL (<4.55); TROPONIN I 0.014 ng/mL
[2019-07-20] MEDS ORDERED: NORMAL SALINE 500 ML IV ONE (11:24)
--- NOTE | 2019-07-20 15:25 | RADIOLOGY REPORT (SQ) ---
EXAM DESCRIPTION: MRI HEAD WITHOUT COMPLETED DATE/TIME: 07/20/2019 3:08 pm REASON FOR STUDY: facial numbness/right lower ext weak/prior cva COMPARISON: CT dated 07/20/2019. TECHNIQUE: Multiplanar imaging includes non-contrasted T1, T2, FLAIR, and diffusion with ADC map seq uences. Images stored on PACS. LIMITATIONS: None. FINDINGS: ANATOMY: No anomalies. Normal vascular flow voids. Pituitary fossa normal. CSF SPACES: Atrophy induced prominence of ventricles and CSF spaces. CEREBRUM: High signal intensity lesions scattered throughout the white matter on FLAIR imaging with d istribution suggesting micro-vascular ischemic changes. Old lacunar infarct on the right. No eviden ce of hemorrhage, mass, or extraaxial fluid collection. POSTERIOR FOSSA: No signal alteration. No hemorrhage. No edema, masses or mass effect. Internal lexy tory canals, cerebello-pontine angles, mastoids normal. DIFFUSION IMAGING: Focal restricted diffusion in the left thalamus. ORBITS: No masses. Globes normal. PARANASAL SINUSES: Diffuse mucous membrane thickening. OTHER: No other significant finding. IMPRESSION: ATROPHY AND CHRONIC MICRO-VASCULAR ISCHEMIC CHANGES. ACUTE INFARCT IN THE LEFT THALAMUS . EVIDENCE OF ACUTE STROKE: YES. LEFT MCA. TECHNICAL DOCUMENTATION: JOB ID: [id number] [employer]- All Rights Reserved Reading location - IP/workstation name: [email or web address]
--- NOTE | 2019-07-20 15:26 | RADIOLOGY REPORT (SQ) ---
EXAM DESCRIPTION: MRA HEAD WITHOUT COMPLETED DATE/TIME: 07/20/2019 3:08 pm REASON FOR STUDY: facial numbness/rloer ext weakness/prior cva COMPARISON: None. TECHNIQUE: Axial 3-D [id number] acquisition imaging performed through the brain in the area of t he [place]. Images reformatted using 3-D MIPS. LIMITATIONS: None. FINDINGS: SOURCE IMAGES: No unexpected findings on source images. No large masses. 3-D MIP: No aneurysm. No occlusions. No significant stenosis. Mild atherosclerotic changes of the A1 segments. OTHER: No other significant finding. IMPRESSION: No significant stenosis or occlusion. No aneurysms. TECHNICAL DOCUMENTATION: JOB ID: [id number] [employer]- All Rights Reserved Reading location - IP/workstation name: [email or web address]
[2019-07-20] MEDS ORDERED: ACETAMINOPHEN 1,000 MG/100 ML RTUPB IV ONE (15:35)
--- NOTE | 2019-07-20 15:39 | ER Document Report ---
Entered by GIUSEPPE CAR SCRIBE 07/20/19 0815 Acting as scribe for:VICKI REYES MD ED Neuro Symptoms/Deficit - General Stated Complaint: FACIAL NUMBNESS Primary Care Provider: CAITLYN TAYLOR MD [Primary Care Provider] - Follow up as needed Mode of Arrival: Ambulatory Information source: Patient Notes: This 54-year-old male patient in custody of the [facility] presents to the emergency department today with complaints of right- sided weakness which he noticed when he woke up this morning. Patient states he felt well when he went to bed last night. 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 Patient states this morning he was getting out of the bed and he "noticed he could not walk and kept losing his balance". TRAVEL OUTSIDE OF THE [place] IN LAST 30 DAYS: No - Related Data Allergies/Adverse Reactions: acetaminophen [From Tylenol] Allergy (Verified 07/20/19 09:03) amlodipine besylate [From Norvasc] Allergy (Verified 07/20/19 09:03) ibuprofen Allergy (Verified 07/20/19 09:03) pioglitazone HCl [From Actos] Allergy (Verified 07/20/19 09:03) Past Medical History - General Information source: Patient - Social History Smoking Status: Never Smoker Cigarette use (# per day): No Frequency of alcohol use: None Drug Abuse: None Lives with: Other - Incarcerated Family History: Reviewed & Not Pertinent, CAD - Past Medical History Cardiac Medical History: Reports: Hx Hypercholesterolemia, Hx Hypertension Pulmonary Medical History: Reports: Hx COPD Neurological Medical History: Reports: Hx Cerebrovascular Accident - 2019 with residual left sided weakness Endocrine Medical History: Reports: Hx Diabetes Mellitus Type 2 GI Medical History: Reports: Hx Gastroesophageal Reflux Disease Musculoskeletal Medical History: Reports Hx Arthritis Psychiatric Medical History: Reports: Hx Depression Past Surgical History: Reports: Hx Carotid Endarterectomy - right, Hx Kidney (Renal Surgery) - lithotripsy, Hx Orthopedic Surgery, Hx Vascular Surgery - Immunizations Immunizations up to date: Yes Hx Diphtheria, Pertussis, Tetanus Vaccination: Yes Hx Pneumococcal Vaccination: 07/20/14 Review of Systems - Review of Systems Constitutional: No symptoms reported EENT: No symptoms reported Cardiovascular: No symptoms reported Respiratory: No symptoms reported Gastrointestinal: No symptoms reported Genitourinary: No symptoms reported Male Genitourinary: No symptoms reported Musculoskeletal: No symptoms reported Skin: No symptoms reported Hematologic/Lymphatic: No symptoms reported Neurological/Psychological: See HPI, Weakness - right -: Yes All other systems reviewed and negative Physical Exam - Notes Notes: Physical Exam: General: Alert, appears well. HEENT: Normocephalic. Atraumatic. PERRL. Extraocular movements intact. Oropharynx clear. Neck: Supple. Non-tender. Respiratory: No respiratory distress. Clear and equal breath sounds bilaterally. Cardiovascular: Regular rate and rhythm. Abdominal: Normal Inspection. Non-tender. No distension. Normal Bowel Sounds. Back: No gross abnormalities. Extremities: Moves all four extremities. Upper extremities: Normal inspection. Normal ROM. Lower extremities: Normal inspection. No edema. Normal ROM. Neurological: Normal cognition. AAOx4. Normal speech. Cranial nerves II through XII grossly intact bilaterally. There are absolutely no right-sided deficits, patient has baseline left-sided left sided facial droop and lower extremity weakness from prior CVA. Positive gag reflex. Psychological: Normal affect. Normal Mood. Skin: Warm. Dry. Normal color. Course - Re-evaluation Re-evalutation: 07/20/19 15:24 Patient returns from MRI scan. Just received the report that shows that MRI scan MRI and MRA disclose that there is an acute left thalamic infarct. 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 Patient also states he is unable to ambulate at this time without assistance. These findings were discussed with Dr. Taylor and the plan is to the admit patient to the [facility] bed. Also patient has complained of a headache since having the MRI scan and not getting him some Tylenol as needed for that. 07/20/19 15:37 Discussed with patient whether or not he had allergy to Tylenol. Patient reports that when he took Tylenol he said it made his stomach hurt he denied any swelling itching rash or any airway compromise or wheezing. Patient denied any diarrhea as well therefore I said the patient he probably does not have an allergy to Tylenol hence I ordered IV Tylenol for his headache. - Vital Signs Vital signs: 07/20/19 15:26 Vital signs are stable blood pressure 140/90 - Laboratory Result Diagrams: 07/20/19 08:45 07/20/19 08:45 - Diagnostic Test Radiology reviewed: Image reviewed, Reports reviewed - EKG Interpretation by Me Additional EKG results interpreted by me: 07/20/19 15:07 Twelve-lead EKG time 832 normal sinus rhythm rate of 71 probable left ventricular hypertrophy no acute other ST T wave changes noted. Critical Care Note - Critical Care Note Total time excluding time spent on procedures (mins): 75 ED NIH Stroke Scale - NIH Stroke Scale When completed:: Protocol *: 1. NIH scale should be completed with appropriate accompanying assessment tools. *: 2. The NIH should reflect what the patient is capable of doing and should not be coached by the clinician. 1a. Level of Consciousness: 0=Alert;keenly responsive -: 1=Drowsy -: 2=Obtunded -: 3=Coma/unresponsive or reflex to noxious stimuli. 1a. Responses: 0 1b. Orientation Questions: a. What month is it? -: b. How old are you? -: 0=Answers both questions correctly. -: 1=Answers one question correctly or patient is intubated or has orotracheal trauma. -: 2=Answers neither question correctly. 1b. Responses: 0 1c. Response to commands: a. Open and close eyes? -: b. Junior Accountant and release hand? -: Credit is given despite weakness. Demonstration of task is permitted. Substitute command if hands cannot be used. -: 0=Performs both tasks correctly -: 1=Performs one task correctly -: 2=Performs neither task correctly 1c. Responses: 0 2. Gaze: Establish eye contact and instruct patient to "Follow my finger" -: 0=Normal -: 1=Partial gaze palsy. Gaze is abnormal in one or both eyes, but where forced deviation or total gaze paresis is not present. -: 2=Forced deviation or total gaze paresis. 2. Responses: 0 3. Visual [place]: Sees fingers in all four quadrants. -: 0=No visual loss. -: 1=Partial hemianopsia. -: 2=Complete hemianopsia. -: 3=Bilateral hemianopsia (including Cortical blindness) 3. Responses: 0 4. Facial Movement: Instruct patient to: -: a. Show me your teeth -: b. Raise your eyebrows -: c. Close your eyes -: d. Smile -: 0=Normal symmetrical movement -: 1=Minor paralysis (flattened nasolabial fold, asymmetry on smiling). -: 2=Partial paralysis (total or near total paralysis of lower face). -: 3=Complete paralysis of upper and lower face 4. Responses: 0 5. Motor functions (left arm): Alternate sides and extend each arm with palms down (90 degrees if sitting or 45 degrees for supine). -: 0=No drift;limb holds for full 10 seconds. -: 1=Drift; limb holds but drifts down before full 10 seconds, but does not hit bed. -: 2=Some effort against gravity; limb cannot get to or maintain position. -: 3=No effort against gravity; limb falls. -: 4=No movement. -: UN=Amputation, joint fusion, explain in comments. 5. Responses (left arm): 0 5. Motor Functions (right arm): Alternate sides and extend each arm with palms down (90 degrees if sitting or 45 degrees for supine). -: 0=No drift;limb holds for full 10 seconds. -: 1=Drift; limb holds but drifts down before full 10 seconds, but does not hit bed. -: 2=Some effort against gravity; limb cannot get to or maintain position. -: 3=No effort against gravity; limb falls. -: 4=No movement. -: UN=Amputation, joint fusion, explain in comments. 5. Responses (right arm): 0 6. Motor Functions (left leg): With patient lying supine, alternate sides and extend each leg (30 degrees always while supine). -: 0=No drift, leg holds position for full 5 seconds -: 1=Drift; leg falls before full 5 seconds but does not hit bed. -: 2=Some effort against gravity, leg falls to bed but some effort against gravity. -: 3=No effort against gravity, leg falls to bed immediately. -: 4=No movement. -: UN=Amputation, joint fusion; explain in comments. 6. Responses (left leg): 0 6. Motor Functions (right leg): With patient lying supine, alternate sides and extend each leg (30 degrees always while supine). -: 0=No drift, leg holds position for full 5 seconds -: 1=Drift; leg falls before full 5 seconds but does not hit bed. -: 2=Some effort against gravity, leg falls to bed but some effort against gravity. -: 3=No effort against gravity, leg falls to bed immediately. -: 4=No movement. -: UN=Amputation, joint fusion; explain in comments. 6. Responses (right leg): 0 7. Limb Ataxia: With eyes open instruct patient to: -: a. "Touch your finger to your nose". -: b. "Touch your heel to your palm" -: 0=Absent -: 1=Present in one limb. -: 2=Present in two limbs. -: UN=Amputation or joint fusion; explain in comments. 7. Responses: 0 8. Sensory: Test sensation using pinprick or noxious stimuli. Test as many body parts as possible. -: 0=Normal;no sensory loss -: 1=Mile to moderate sensory loss (patient feels pin prick but is less sharp on affected side). -: 2=Severe or total sensory loss. 8. Responses: 1 9. Best Language: Instruct patient to: -: a. "Describe what you see in this picture." -: b. "Name the items in this picture." -: c. "Read these sentences." -: 0=No aphasia, normal -: 1=Mild to moderate aphasia. -: 2=Severe aphasia -: 3=Mute, global aphasia, no usable speech or auditory comprehension. 9. Responses: 0 10. Articulation, Dysarthia: Instruct patient to: -: "Read these words" or "Repeat these words" -: 0=Normal -: 1=Mild to moderate; patient may slur some words but can be understood without difficulty. -: 2=Severe; patients speech so slurred as to be unintelligible in the absence of dysphasia. -: UN=Intubated or other physical barrier, explain in comments. 10. Responses: 0 11. Extinction or inattention: 0=No abnormality -: 1= Visual, tactile, auditory, spatial, or personal inattention or extinction to bilateral simulation in one or the sensory modalities. -: 2=Profound karyn-inattention or karyn-inattention to more than one modality; does not recognize own hand. 11. Responses: 0 Total Score: 1 Notes: This NIH score does not include any pre-existing residual left sided weakness that the patient currently has at baseline. This patient has an unknown last known well as he was normal when he went to bed last night, therefore he is NOT a TPA candidate. Discharge - Discharge Clinical Impression: Acute CVA (cerebrovascular accident), Hypertensive emergency Condition: Good Disposition: ADMITTED INPATIENT Admitting Provider: [facility]ibhav Unit Admitted: IMCU Referrals: CAITLYN TAYLOR MD [Primary Care Provider] - Follow up as needed I personally performed the services described in the documentation, reviewed and edited the documentation which was dictated to the scribe in my presence, and it accurately records my words and actions.
[2019-07-20 16:54] LABS: CREATINE KINASE MB 0.48 ng/mL (<4.55)
[2019-07-20 16:55] LABS: TROPONIN I < 0.012 ng/mL
--- NOTE | 2019-07-20 17:15 | Progress Note ---
Provider Note Provider Note: pt seen and exam and d/w pt and about about pt condtion pt is non complince
[2019-07-20] MEDS: TRAMADOL HCL 50 MG TABLET PO PRN (17:32)
[2019-07-20] MEDS: ENOXAPARIN SODIUM INJ 40 MG/0.4 ML DISP.SYRIN SUBCUT SCH (17:33)
[2019-07-20] MEDS: NORMAL SALINE 1000 ML 1,000 ML IV PRN (17:33)
[2019-07-20] MEDS ORDERED: (PENDING PHARMACY ID) (Clonidine Hcl [Clonidine Hcl Er] 0.1 MG) PO SCH (18:00)
--- NOTE | 2019-07-20 18:22 | PDOC H&P ---
History of Present Illness Admission Date/PCP: 07/20/19 15:38 CAITLYN ATKINSON MD Patient complains of: Right-sided tingling numbness weakness History of Present Illness: EMERSON DANGELO is a 54 year old male This is a 54-year-old male very noncompliance with a history of the hypertensions not taking the medicine as prescribed hyperlipidemia history of the carotid disease status post surgery history of the stroke currently going to the weekend in the gel went to the care home yesterday and according to the patient he did not get any medications not sure Came today's in the morning with a complaining of her right-sided numbness and tingling on the face and weakness in the leg which patient already have a right-sided weakness and imbalance and a headache In the department patient's blood pressure was stable patient initial blood work is all stable CT scan of the head is negative patient underwent for the MRI and MRA of the head with suggest the patient have acute left-sided stroke Point admit the patient's been the stroke protocol in the hospital Denied any chest pain denied any shortness of the breath patient's denied any alcohol denies any drug abuse Patient's is on the bedside patient still continues to smoke despite of the several discussions with the patient about the high risk for the stroke anyway patient did not take any advice as usual and patient is currently of acute stroke Past Medical History Cardiac Medical History: Reports: Hyperlipidema, Hypertension Denies: Atrial Fibrillation, Coronary Artery Disease Pulmonary Medical History: Reports: Chronic Obstructive Pulmonary Disease (COPD) Neurological Medical History: Reports: Ischemic CVA Endocrine Medical History: Reports: Diabetes Mellitus Type 2 GI Medical History: Reports: Gastroesophageal Reflux Disease Musculoskeltal Medical History: Reports: Arthritis Psychiatric Medical History: Reports: Depression Past Surgical History Past Surgical History: Reports: Carotid Endarterectomy - right, Orthopedic Surgery, Vascular Surgery Social History Information Source: Patient Lives with: Other - Incarcerated Smoking Status: Former Smoker Electronic Cigarette use?: No Frequency of Alcohol Use: None Hx Recreational Drug Use: No Drugs: None Hx Prescription Drug Abuse: No - Advance Directive Resuscitation Status: Full Code Family History Family History: Reviewed & Not Pertinent, CAD Parental Family History Reviewed: Yes Children Family History Reviewed: Yes Sibling(s) Family History Reviewed.: Yes Medication/Allergy Home Medications: Albuterol Sulfate [Proair Hfa Inhalation Aerosol 8.5 gm Mdi] 2 puff IH Q4 PRN 02/01/20 Atorvastatin Calcium [Lipitor 40 mg Tablet] 40 mg PO DAILY 07/20/19 Clonidine HCl [Clonidine HCl ER] 0.1 mg PO TID 07/20/19 Clopidogrel Bisulfate [Plavix] 75 mg PO DAILY 07/20/19 Fluticasone Propionate [Flonase Nasal [place] 50 Mcg/[place] 16 gm] 1 spray NASL DAILY 07/20/19 Gabapentin [Neurontin 300 mg Capsule] 300 mg PO QID 07/20/19 Hydralazine HCl [Apresoline 50 mg Tablet] 50 mg PO TID 07/20/19 Ipratropium [place] [Atrovent Hfa] 2 puff IH Q6HP PRN 07/20/19 Metoprolol Succinate [Toprol Xl 25 mg Tab.sr] 25 mg PO DAILY 07/20/19 Ramipril [Altace] 5 mg PO DAILY 07/20/19 Tamsulosin HCl [Flomax] 0.4 mg PO DAILY 07/20/19 Trazodone HCl 50 mg PO QHS 07/20/19 Allergies/Adverse Reactions: acetaminophen [From Tylenol] Allergy (Verified 07/20/19 09:03) amlodipine besylate [From Norvasc] Allergy (Verified 07/20/19 09:03) ibuprofen Allergy (Verified 07/20/19 09:03) pioglitazone HCl [From Actos] Allergy (Verified 07/20/19 09:03) Review of Systems Constitutional: PRESENT: fatigue, weakness. ABSENT: chills, fever(s), hea dache(s), weight gain, weight loss Eyes: ABSENT: visual disturbances Ears: ABSENT: hearing changes Nose, Mouth, and Throat: PRESENT: headache(s) Cardiovascular: ABSENT: chest pain, dyspnea on exertion, edema, orthropnea, palpitations Respiratory: ABSENT: cough, hemoptysis Gastrointestinal: ABSENT: abdominal pain, constipation, diarrhea, hematemesis, hematochezia, nausea, vomiting Genitourinary: ABSENT: dysuria, hematuria Musculoskeletal: ABSENT: joint swelling Integumentary: ABSENT: rash, wounds Neurological: PRESENT: abnormal gait, numbness, tingling, weakness. ABSENT: abnormal speech, confusion, dizziness, focal weakness, syncope Psychiatric: ABSENT: anxiety, depression, homidical ideation, suicidal ideation Endocrine: ABSENT: cold intolerance, heat intolerance, menstrual abnormalities, polydipsia, polyuria Hematologic/Lymphatic: ABSENT: easy bleeding, easy bruising, lymphadenopathy Physical Exam Vital Signs: Temp Pulse Resp BP Pulse Ox 97.8 F 60 16 102/75 100 07/20/19 17:08 07/20/19 17:08 07/20/19 17:08 07/20/19 17:08 07/20/19 17:08 Intake & Output 07/19/19 07/20/19 07/21/19 06:59 06:59 06:59 Intake Total 600 Balance 600 Weight 80.9 kg General appearance: PRESENT: no acute distress, well-developed, well-nourished Head exam: PRESENT: atraumatic, normocephalic Eye exam: PRESENT: conjunctiva pink, EOMI, PERRLA. ABSENT: scleral icterus Ear exam: PRESENT: normal external ear exam Mouth exam: PRESENT: moist, tongue midline Neck exam: PRESENT: full ROM. ABSENT: carotid bruit, JVD, lymphadenopathy, thyromegaly Respiratory exam: PRESENT: clear to auscultation rommel Cardiovascular exam: PRESENT: RRR. ABSENT: diastolic murmur, rubs, systolic murmur Pulses: PRESENT: normal dorsalis pedis pul, +2 pedal pulses bilateral Vascular exam: PRESENT: normal capillary refill GI/Abdominal exam: PRESENT: normal bowel sounds, soft. ABSENT: distended, guarding, mass, organolmegaly, rebound, tenderness Rectal exam: PRESENT: deferred Neurological exam: PRESENT: alert, awake, oriented to person, oriented to place, oriented to time, oriented to situation, reflexes normal, abnormal gait, CN II- XII grossly intact. ABSENT: motor sensory deficit Additional comments: Right lower extremity weakness but I think is old Psychiatric exam: PRESENT: appropriate affect, normal mood. ABSENT: homicidal ideation, suicidal ideation Skin exam: PRESENT: dry, intact, warm. ABSENT: cyanosis, rash Results Laboratory Results: 07/20/19 08:45 07/20/19 08:45 07/20/19 07/20/19 08:45 08:45 WBC 7.0 RBC 4.67 Hgb 14.8 Hct 43.1 MCV 92 MCH 31.7 MCHC 34.3 RDW 13.0 Plt Count 251 Seg Neutrophils % 55.4 Sodium 140.8 Potassium 4.3 Chloride 106 Carbon Dioxide 27 Anion Gap 8 BUN 23 H Creatinine 0.98 Est GFR ( Amer) > 60 Glucose 109 Calcium 9.9 Total Bilirubin 0.8 AST 25 Alkaline Phosphatase 40 Total Protein 7.7 Albumin 4.3 07/20/19 07/20/19 07/20/19 08:45 08:45 12:05 Creatine Kinase 97 CK-MB (CK-2) 0.62 Troponin I 0.014 0.014 07/20/19 07/20/19 16:10 16:10 Creatine Kinase 78 CK-MB (CK-2) 0.48 Troponin I < 0.012 Impressions: Head CT 07/20/19 08:19 IMPRESSION: Chronic right lacunar infarct. No acute intracranial findings. EVIDENCE OF ACUTE STROKE: NO. Chest X-Ray 07/20/19 08:23 IMPRESSION: NO ACUTE RADIOGRAPHIC FINDING IN THE CHEST. Head MRI 07/20/19 10:59 IMPRESSION: ATROPHY AND CHRONIC MICRO-VASCULAR ISCHEMIC CHANGES. ACUTE INFARCT IN THE LEFT THALAMUS. EVIDENCE OF ACUTE STROKE: YES. LEFT MCA. Brain MRI with MRA 07/20/19 11:00 IMPRESSION: No significant stenosis or occlusion. No aneurysms. Assessment & Plan - Diagnosis (1) Acute CVA (cerebrovascular accident) Is this a current diagnosis for this admission?: Yes Plan: Most likely due to the high noncompliance about the medications will switch to the Plavix to the Aggrenox 1 tablet twice a day high-dose statin and put on a stroke protocol (2) COPD (chronic obstructive pulmonary disease) Qualifiers: COPD type: unspecified COPD Qualified Code(s): J44.9 - Chronic obstructive pulmonary disease, unspecified Is this a current diagnosis for this admission?: Yes (3) Carotid stenosis Qualifiers: Laterality: right Qualified Code(s): I65.21 - Occlusion and stenosis of r ight carotid artery Is this a current diagnosis for this admission?: Yes Plan: We will repeat the carotid Doppler study (4) Depression Qualifiers: Depression Type: major depressive disorder Is this a current diagnosis for this admission?: Yes (5) Hyperlipidemia Qualifiers: Hyperlipidemia type: unspecified Qualified Code(s): E78.5 - Hyperlipidemia, unspecified Is this a current diagnosis for this admission?: Yes Plan: High-dose statin (6) Hypertension Qualifiers: Hypertension type: essential hypertension Qualified Code(s): I10 - Essential (primary) hypertension Is this a current diagnosis for this admission?: Yes Plan: Due to the acute stroke keep her blood pressures around 150+ (7) Insomnia Qualifiers: Insomnia type: primary Qualified Code(s): F51.01 - Primary insomnia (8) Smoker Is this a current diagnosis for this admission?: Yes Plan: Counseling about smoking (9) Type 2 diabetes mellitus Qualifiers: Diabetes mellitus penitentiary insulin use: without terminal makeup operator use Is this a current diagnosis for this admission?: Yes Plan: Continue sliding-scale - Time Time Spent: 50 to 70 Minutes Medications reviewed and adjusted accordingly: Yes Anticipated discharge: Home with Homehealth Within: Other - Inpatient Certification Based on my medical assessment, after consideration of the patient's comorbidities, presenting symptoms, or acuity I expect that the services needed warrant INPATIENT care.: Yes I certify that my determination is in accordance with my understanding of Medicare's requirements for reasonable and necessary INPATIENT services [42 CFR 412.3e].: Yes Medical Necessity: Significant Comorbidiites Make Outpatient Treatment Too Risky, Need For IV Fluids, Need For Continuous Telemetry Monitoring, Need for Nebulizer Therapy and Monitoring of Response Post Hospital Care: D/C Social Director Documentation - Plan Summary Plan Summary: Admit the patient in IMCU with a stroke protocol
[2019-07-20] MEDS: IPRATROPIUM BROMIDE HFA 17 MCG/PUFF 200 PUFF/12.9 GM MDI IH SCH (18:40)
[2019-07-20] MEDS: FAMOTIDINE 20 MG TABLET PO SCH (21:22)
[2019-07-20] MEDS: GABAPENTIN 300 MG CAPSULE PO SCH (21:22)
[2019-07-20] MEDS: ATORVASTATIN CALCIUM 80 MG TABLET PO SCH (21:22)
[2019-07-20] MEDS: ASPIRIN/DIPYRIDAMOLE 25-200 MG 1 CAP.SR CPMP.12HR PO SCH (21:22)
[2019-07-20] MEDS: TRAZODONE HCL 50 MG TABLET PO SCH (21:22)
[2019-07-20] MEDS ORDERED: NICOTINE 14 MG/24 HR PATCH.TD24 TD ONE (22:30)
--- NOTE | 2019-07-20 23:55 | EKG REPORT ---
SEVERITY:- ABNORMAL ECG - SINUS RHYTHM PROBABLE LEFT VENTRICULAR HYPERTROPHY : Confirmed by: Breann Crowley 20-Jul-2019 23:54:59
[2019-07-21] MEDS: TRAMADOL HCL 50 MG TABLET PO PRN ×3 (00:26→22:29)
[2019-07-21] MEDS: IPRATROPIUM BROMIDE HFA 17 MCG/PUFF 200 PUFF/12.9 GM MDI IH SCH ×5 (02:09→23:29)
[2019-07-21] MEDS ORDERED: IPRATROPIUM BROMIDE HFA 17 MCG/PUFF 200 PUFF/12.9 GM MDI IH ONE (02:11)
[2019-07-21 05:10] LABS: CHOLESTEROL 142.35 mg/dL (0-200); TRIGLYCERIDES 184 mg/dL (<150)
[2019-07-21] MEDS: GABAPENTIN 300 MG CAPSULE PO SCH ×3 (05:11→22:31)
[2019-07-21 05:21] LABS: DIRECT LDL 96 mg/dL (<100)
[2019-07-21 05:30] LABS: VLDL CHOLESTEROL 36.8 mg/dL (10-31)
[2019-07-21] MEDS: METOPROLOL SUCCINATE 25 MG TAB.SR.24H PO SCH (09:53)
[2019-07-21] MEDS: TAMSULOSIN HCL 0.4 MG CAP.SR.24H PO SCH (09:54)
[2019-07-21] MEDS: ASPIRIN/DIPYRIDAMOLE 25-200 MG 1 CAP.SR CPMP.12HR PO SCH ×2 (09:54→22:31)
[2019-07-21] MEDS: FAMOTIDINE 20 MG TABLET PO SCH ×2 (09:54→22:31)
[2019-07-21] MEDS: ENOXAPARIN SODIUM INJ 40 MG/0.4 ML DISP.SYRIN SUBCUT SCH (09:55)
[2019-07-21] MEDS: NICOTINE 14 MG/24 HR PATCH.TD24 TD SCH (09:55)
[2019-07-21] MEDS: FLUTICASONE NASAL SPRAY 50 MCG/SPRY 120 SPRAY/16 GM NASL SCH (10:02)
--- NOTE | 2019-07-21 11:11 | PDOC PROGRESS REPORT ---
Subjective Progress Note for:: 07/21/19 Subjective:: Patient is feeling much better Patient's walk with the physical therapy and walk by himself with a walker Patient's tingling and numbness is getting better Patient's other than that having some drooping on the right side is also improving Patient having some tongue bite on the right lower lip before came to the hospital but no seizures activity Denied any chest pain no short of breath Reason For Visit: ACUTE STROKE Physical Exam Vital Signs: Temp Pulse Resp BP Pulse Ox 98.1 F 64 16 168/97 H 100 07/21/19 08:03 07/21/19 08:03 07/21/19 08:03 07/21/19 08:03 07/21/19 08:03 Intake & Output 07/20/19 07/21/19 07/22/19 06:59 06:59 06:59 Intake Total 890 Output Total 500 Balance 390 Weight 82.4 kg General appearance: PRESENT: no acute distress, well-developed, well-nourished Head exam: PRESENT: atraumatic, normocephalic Eye exam: PRESENT: conjunctiva pink, EOMI, PERRLA. ABSENT: scleral icterus Ear exam: PRESENT: normal external ear exam Mouth exam: PRESENT: moist, tongue midline Neck exam: PRESENT: full ROM. ABSENT: carotid bruit, JVD, lymphadenopathy, thyromegaly Respiratory exam: PRESENT: clear to auscultation rommel Cardiovascular exam: PRESENT: RRR. ABSENT: diastolic murmur, rubs, systolic murmur Pulses: PRESENT: normal dorsalis pedis pul, +2 pedal pulses bilateral Vascular exam: PRESENT: normal capillary refill GI/Abdominal exam: PRESENT: normal bowel sounds, soft. ABSENT: distended, guarding, mass, organolmegaly, rebound, tenderness Rectal exam: PRESENT: deferred Extremities exam: ABSENT: pedal edema Musculoskeletal exam: PRESENT: ambulatory Neurological exam: PRESENT: alert, awake, oriented to person, oriented to place, oriented to time, oriented to situation, CN II-XII grossly intact. ABSENT: motor sensory deficit Psychiatric exam: PRESENT: appropriate affect, normal mood. ABSENT: homicidal ideation, suicidal ideation Skin exam: PRESENT: dry, intact, warm. ABSENT: cyanosis, rash Results Laboratory Results: 07/20/19 08:45 07/20/19 08:45 07/21/19 04:08 Triglycerides 184 H Cholesterol 142.35 LDL Cholesterol Direct 96 VLDL Cholesterol 36.8 H HDL Cholesterol 29 L 07/20/19 07/20/19 07/20/19 08:45 08:45 12:05 Creatine Kinase 97 CK-MB (CK-2) 0.62 Troponin I 0.014 0.014 07/20/19 07/20/19 07/20/19 16:10 16:10 18:00 Creatine Kinase 78 CK-MB (CK-2) 0.48 Troponin I < 0.012 0.013 07/20/19 07/20/19 07/21/19 21:45 21:45 04:08 Creatine Kinase 75 74 CK-MB (CK-2) Troponin I < 0.012 07/21/19 04:08 Creatine Kinase CK-MB (CK-2) Troponin I < 0.012 Impressions: Head CT 07/20/19 08:19 IMPRESSION: Chronic right lacunar infarct. No acute intracranial findings. EVIDENCE OF ACUTE STROKE: NO. Chest X-Ray 07/20/19 08:23 IMPRESSION: NO ACUTE RADIOGRAPHIC FINDING IN THE CHEST. Head MRI 07/20/19 10:59 IMPRESSION: ATROPHY AND CHRONIC MICRO-VASCULAR ISCHEMIC CHANGES. ACUTE INFARCT IN THE LEFT THALAMUS. EVIDENCE OF ACUTE STROKE: YES. LEFT MCA. Brain MRI with MRA 07/20/19 11:00 IMPRESSION: No significant stenosis or occlusion. No aneurysms. Assessment & Plan - Diagnosis (1) Acute CVA (cerebrovascular accident) Is this a current diagnosis for this admission?: Yes Plan: Start Aggrenox and high-dose statin (2) COPD (chronic obstructive pulmonary disease) Qualifiers: COPD type: unspecified COPD Qualified Code(s): J44.9 - Chronic obstructive pulmonary disease, unspecified Is this a current diagnosis for this admission?: Yes (3) Carotid stenosis Qualifiers: Laterality: right Qualified Code(s): I65.21 - Occlusion and stenosis of right carotid artery Is this a current diagnosis for this admission?: Yes Plan: We will repeat the carotid Doppler study (4) Depression Qualifiers: Depression Type: major depressive disorder Is this a current diagnosis for this admission?: Yes (5) Hyperlipidemia Qualifiers: Hyperlipidemia type: unspecified Qualified Code(s): E78.5 - Hyperlipidemia, unspecified Is this a current diagnosis for this admission?: Yes Plan: High-dose statin (6) Hypertension Qualifiers: Hypertension type: essential hypertension Qualified Code(s): I10 - Essential (primary) hypertension Is this a current diagnosis for this admission?: Yes Plan: Due to the acute stroke keep her blood pressures around 150+ (7) Insomnia Qualifiers: Insomnia type: primary Qualified Code(s): F51.01 - Primary insomnia Is this a current diagnosis for this admission?: Yes (8) Smoker Is this a current diagnosis for this admission?: Yes (9) Type 2 diabetes mellitus 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
[2019-07-21] MEDS: NORMAL SALINE 1000 ML 1,000 ML IV PRN (16:40)
[2019-07-21] MEDS: ATORVASTATIN CALCIUM 80 MG TABLET PO SCH (22:31)
[2019-07-21] MEDS: TRAZODONE HCL 50 MG TABLET PO SCH (22:31)
[2019-07-22] MEDS: GABAPENTIN 300 MG CAPSULE PO SCH ×3 (05:10→21:31)
[2019-07-22] MEDS: IPRATROPIUM BROMIDE HFA 17 MCG/PUFF 200 PUFF/12.9 GM MDI IH SCH ×3 (05:11→18:22)
[2019-07-22] MEDS: TRAMADOL HCL 50 MG TABLET PO PRN ×2 (05:30→13:30)
[2019-07-22] MEDS: CLONIDINE HCL 0.1 MG TABLET PO SCH ×3 (08:47→21:29)
--- NOTE | 2019-07-22 09:45 | PDOC PROGRESS REPORT ---
Subjective Progress Note for:: 07/22/19 Subjective:: Patient is currently doing well Is walking the hallway by himself with the walker without any problems Since tingling and numbness is getting better Reason For Visit: ACUTE STROKE Physical Exam Vital Signs: Temp Pulse Resp BP Pulse Ox 97.7 F 65 16 191/94 H 100 07/22/19 08:28 07/22/19 08:28 07/22/19 08:28 07/22/19 08:35 07/22/19 08:28 Intake & Output 07/21/19 07/22/19 07/23/19 06:59 06:59 06:59 Intake Total 890 3253 169 Output Total 500 200 Balance 390 3053 169 Weight 82.4 kg 87 kg General appearance: PRESENT: no acute distress, well-developed, well-nourished Head exam: PRESENT: atraumatic, normocephalic Eye exam: PRESENT: conjunctiva pink, EOMI, PERRLA. ABSENT: scleral icterus Ear exam: PRESENT: normal external ear exam Mouth exam: PRESENT: moist, tongue midline Neck exam: PRESENT: full ROM. ABSENT: carotid bruit, JVD, lymphadenopathy, thyromegaly Respiratory exam: PRESENT: clear to auscultation rommel Cardiovascular exam: PRESENT: RRR. ABSENT: diastolic murmur, rubs, systolic murmur Pulses: PRESENT: normal dorsalis pedis pul, +2 pedal pulses bilateral Vascular exam: PRESENT: normal capillary refill GI/Abdominal exam: PRESENT: normal bowel sounds, soft. ABSENT: distended, guarding, mass, organolmegaly, rebound, tenderness Rectal exam: PRESENT: deferred Musculoskeletal exam: PRESENT: ambulatory Neurological exam: PRESENT: alert, awake, oriented to person, oriented to place, oriented to time, oriented to situation, CN II-XII grossly intact. ABSENT: motor sensory deficit Psychiatric exam: PRESENT: appropriate affect, normal mood. ABSENT: homicidal ideation, suicidal ideation Skin exam: PRESENT: dry, intact, warm. ABSENT: cyanosis, rash Results Laboratory Results: 07/20/19 08:45 07/20/19 08:45 07/20/19 07/20/19 07/20/19 08:45 08:45 12:05 Creatine Kinase 97 CK-MB (CK-2) 0.62 Troponin I 0.014 0.014 07/20/19 07/20/19 07/20/19 16:10 16:10 18:00 Creatine Kinase 78 CK-MB (CK-2) 0.48 Troponin I < 0.012 0.013 07/20/19 07/20/19 07/21/19 21:45 21:45 04:08 Creatine Kinase 75 74 CK-MB (CK-2) Troponin I < 0.012 07/21/19 07/21/19 04:08 10:40 Creatine Kinase CK-MB (CK-2) Troponin I < 0.012 < 0.012 Impressions: Head CT 07/20/19 08:19 IMPRESSION: Chronic right lacunar infarct. No acute intracranial findings. EVIDENCE OF ACUTE STROKE: NO. Chest X-Ray 07/20/19 08:23 IMPRESSION: NO ACUTE RADIOGRAPHIC FINDING IN THE CHEST. Head MRI 07/20/19 10:59 IMPRESSION: ATROPHY AND CHRONIC MICRO-VASCULAR ISCHEMIC CHANGES. ACUTE INFARCT IN THE LEFT THALAMUS. EVIDENCE OF ACUTE STROKE: YES. LEFT MCA. Brain MRI with MRA 07/20/19 11:00 IMPRESSION: No significant stenosis or occlusion. No aneurysms. Assessment & Plan - Diagnosis (1) Acute CVA (cerebrovascular accident) Is this a current diagnosis for this admission?: Yes (2) COPD (chronic obstructive pulmonary disease) Qualifiers: COPD type: unspecified COPD Qualified Code(s): J44.9 - Chronic obstructive pulmonary disease, unspecified Is this a current diagnosis for this admission?: Yes (3) Carotid stenosis Qualifiers: Laterality: right Qualified Code(s): I65.21 - Occlusion and stenosis of right carotid artery Is this a current diagnosis for this admission?: Yes (4) Depression Qualifiers: Depression Type: major depressive disorder Is this a current diagnosis for this admission?: Yes (5) Hyperlipidemia Qualifiers: Hyperlipidemia type: unspecified Qualified Code(s): E78.5 - Hyperlipidemia, unspecified Is this a current diagnosis for this admission?: Yes (6) Hypertension Qualifiers: Hypertension type: essential hypertension Qualified Code(s): I10 - Essential (primary) hypertension Is this a current diagnosis for this admission?: Yes (7) Insomnia Qualifiers: Insomnia type: primary Qualified Code(s): F51.01 - Primary insomnia Is this a current diagnosis for this admission?: Yes (8) Smoker Is this a current diagnosis for this admission?: Yes (9) Type 2 diabetes mellitus Qualifiers: Diabetes mellitus 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
[2019-07-22] MEDS: FLUTICASONE NASAL SPRAY 50 MCG/SPRY 120 SPRAY/16 GM NASL SCH (10:26)
[2019-07-22] MEDS: TAMSULOSIN HCL 0.4 MG CAP.SR.24H PO SCH (10:27)
[2019-07-22] MEDS: ESCITALOPRAM OXALATE 10 MG TABLET PO SCH (10:27)
[2019-07-22] MEDS: ENOXAPARIN SODIUM INJ 40 MG/0.4 ML DISP.SYRIN SUBCUT SCH (10:27)
[2019-07-22] MEDS: NICOTINE 14 MG/24 HR PATCH.TD24 TD SCH (10:27)
[2019-07-22] MEDS: FAMOTIDINE 20 MG TABLET PO SCH ×2 (10:28→21:31)
[2019-07-22] MEDS: ASPIRIN/DIPYRIDAMOLE 25-200 MG 1 CAP.SR CPMP.12HR PO SCH ×2 (10:28→21:28)
[2019-07-22] MEDS: METOPROLOL SUCCINATE 25 MG TAB.SR.24H PO SCH (10:28)
--- NOTE | 2019-07-22 14:09 | RADIOLOGY REPORT (SQ) ---
EXAM DESCRIPTION: CAROTID DOPPLER COMPLETED DATE/TIME: 07/22/2019 1:42 pm REASON FOR STUDY: facial numbess/prior cva and right endarterectomy COMPARISON: 11/14/2018 TECHNIQUE: Grayscale ultrasound, Doppler velocity and spectra, and color Doppler images acquired of the extra-cranial carotid and vertebral arteries. Images stored on PACS. LIMITATIONS: None. FINDINGS: RIGHT CAROTID CCA Velocities: Within normal limits. ICA Velocities Peak systolic 134 cm/s. End diastolic 57 cm/s. Proximal ICA/CCA peak systolic ratio 2.04. Turbulent flow. Grayscale evaluation demonstrate eccentric hypoechoic plaque with approximately 50% luminal narrowing, similar to prior. LEFT CAROTID CCA Velocities: Within normal limits. ICA Velocities Peak systolic 88 cm/s. End diastolic 40 cm/s. Proximal ICA/CCA peak systolic ratio 1.1. Normal spectral waveform. Grayscale evaluation demonstrates eccentric plaque with less than 50% sten osis. VERTEBRAL ARTERIES: Antegrade flow. Normal waveforms. SUBCLAVIAN ARTERIES: Not imaged. OTHER: No other significant finding. IMPRESSION: 1. 50 to 69% stenosis within the right ICA by velocity criteria. 2. Less than 50% stenosis within the left ICA. 3. Antegrade vertebral arteries. COMMENT: Quality ID #[id number]: Velocity criteria are extrapolated from the diameter data as defined by t he Society of Radiologists in Ultrasound Consensus Conference. Radiology 2003: 229; 340-346. TECHNICAL DOCUMENTATION: JOB ID: [id number] [employer]- All Rights Reserved Reading location - IP/workstation name: [email or web address]
[2019-07-22] MEDS: ATORVASTATIN CALCIUM 80 MG TABLET PO SCH (21:30)
[2019-07-22] MEDS: TRAZODONE HCL 50 MG TABLET PO SCH (21:30)
--- NOTE | 2019-07-22 22:22 | XCELERA REPORT ---
[address] [address] Transthoracic Echocardiogram Report Name: EMERSON DANGELO JR Age: 54 yrs Gender: Male : 1965 Patient Status: Inpatient Patient Location: [address] [place], [place] [address]A Study Date: 07/22/2019 11:36 AM Height: 69 in Weight: 181 lb BSA: 2.0 m2 Procedure: A two-dimensional transthoracic echocardiogram with color flow and Doppler was performed. Study Quality: Fair. Reason For Study: STROKE ( CVA) History: STROKE ( CVA). Ordering Physician: CAITLYN ATKINSON Performed By: Thu Clancy Interpretation Summary There is no obvious cardiac source of embolus noted on this transthoracic echocardiogram. Follow-up with a NIYAH is suggested if cardiac source is still suspected. The left ventricle is borderline dilated. There is normal left ventricular wall thickness. LV EF is 60% Left ventricular systolic function is normal. Doppler measurements suggest impaired left ventricular relaxation, which is associated with grade I/IV or mild diastolic dysfunction The left ventricular wall motion is normal. There is no thrombus. No ASD,VSD , or PFO seen The right ventricle is normal in size and function. The right atrium is normal. The left atrium is mildly dilated. There is no evidence of mitral valve prolapse. There is no vegetation seen on the mitral valve. There is no mitral valve stenosis. There is a trace amount of mitral regurgitation There is no aortic valve stenosis There is aortic sclerosis without aortic stenosis. There is no LVOT obstruction. There is a mild amount of aortic regurgitation There is no tricuspid stenosis. There is a trace to mild amount of tricuspid regurgitation Upper normal to mildly elevated RVSP.RVSP is 28 to 33 mm of Hg , with RA mean of 5 to 10. There is a trace amount of pulmonic regurgitation The aortic root is normal size. The inferior vena cava appeared normal and decreased > 50% with respiration (RAP 5-10 mmHg) There is no pericardial effusion. There is no obvious cardiac source of embolus noted on this transthoracic echocardiogram. Follow-up with a NIYAH is suggested if cardiac source is still suspected MMode/2D Measurements & Calculations RVDd: 3.3 cm LVIDd: 6.1 cm FS: 29.8 % Ao root diam: 3.3 cm IVSd: 1.0 cm LVIDs: 4.2 cm EDV(Teich): 183.6 ml Ao root area: 8.3 cm2 LVPWd: 1.1 cm ESV(Teich): 80.7 ml LA dimension: 4.4 cm EF(Teich): 56.0 % Doppler Measurements & Calculations MV E max alan: MV P1/2t max alan: Ao V2 max: AI max alan: 34.9 cm/sec 69.0 cm/sec 118.4 cm/sec 501.0 cm/sec MV A max alan: MV P1/2t: 99.0 msec Ao max PG: AI max P.8 cm/sec MVA(P1/2t): 2.2 cm2 5.6 mmHg 100.4 mmHg MV E/A: 0.51 MV dec slope: AI dec slope: 146.4 cm/sec2 203.9 cm/sec2 AI P1/2t: 1002 msec MV dec time: 0.19 sec LV V1 max PG: PA V2 max: PI end-d alan: TR max alan: 3.2 mmHg 93.5 cm/sec 111.8 cm/sec 241.5 cm/sec LV V1 max: PA max P.5 mmHg TR max P.1 cm/sec 23.3 mmHg AV P1/2t-pr_phl: MV P1/2t-pr_phl: 1002 msec 99.0 msec Left Ventricle The left ventricle is borderline dilated. There is normal left ventricular wall thickness. LV EF is 60%. Left ventricular systolic function is normal. Doppler measurements suggest impaired left ventricular relaxation, which is associated with grade I/IV or mild diastolic dysfunction. The left ventricular wall motion is normal. There is no thrombus. No ASD,VSD , or PFO seen. Right Ventricle The right ventricle is normal in size and function. Atria The right atrium is normal. The left atrium is mildly dilated. Mitral Valve There is no evidence of mitral valve prolapse. There is no vegetation seen on the mitral valve. There is no mitral valve stenosis. There is a trace amount of mitral regurgitation. Aortic Valve There is no aortic valve stenosis. There is aortic sclerosis without aortic stenosis. There is no LVOT obstruction. There is a mild amount of aortic regurgitation. Tricuspid Valve There is no tricuspid stenosis. There is a trace to mild amount of tricuspid regurgitation. Upper normal to mildly elevated RVSP.RVSP is 28 to 33 mm of Hg , with RA mean of 5 to 10. Pulmonic Valve There is no pulmonic valvular stenosis. There is a trace amount of pulmonic regurgitation. Great Vessels The aortic root is normal size. The inferior vena cava appeared normal and decreased > 50% with respiration (RAP 5-10 mmHg). Effusions There is no pericardial effusion. : CAITLYN ATKINSON Lakshmi
[2019-07-23] MEDS: IPRATROPIUM BROMIDE HFA 17 MCG/PUFF 200 PUFF/12.9 GM MDI IH SCH ×2 (00:13→05:49)
[2019-07-23] MEDS: TRAMADOL HCL 50 MG TABLET PO PRN (00:17)
[2019-07-23] MEDS: CLONIDINE HCL 0.1 MG TABLET PO SCH (05:49)
[2019-07-23] MEDS: GABAPENTIN 300 MG CAPSULE PO SCH (05:49)
--- NOTE | 2019-07-23 10:12 | PDOC DISCHARGE SUMMARY ---
Impression - Admit/DC Date/PCP Admission Date/Primary Care Provider: 07/20/19 15:38 CAITLYN ATKINSON MD Discharge Date: 07/23/19 - Discharge Diagnosis (1) Acute CVA (cerebrovascular accident) Is this a current diagnosis for this admission?: Yes (2) COPD (chronic obstructive pulmonary disease) Is this a current diagnosis for this admission?: Yes (3) Carotid stenosis Is this a current diagnosis for this admission?: Yes (4) Depression Is this a current diagnosis for this admission?: Yes (5) Hyperlipidemia Is this a current diagnosis for this admission?: Yes (6) Hypertension Is this a current diagnosis for this admission?: Yes (7) Insomnia Is this a current diagnosis for this admission?: Yes (8) Smoker Is this a current diagnosis for this admission?: Yes (9) Type 2 diabetes mellitus Is this a current diagnosis for this admission?: Yes - Additional Information Resuscitation Status: Full Code Discharge Diet: Cardiac Discharge Activity: Activity As Tolerated Referrals: CAITLYN ATKINSON MD [Primary Care Provider] - 07/30/19 10:15 am (f/u in offce 1 wk) Prescriptions: Aspirin/Dipyridamole [Aggrenox 25 mg/200 mg Capsule SA] 1 cap.sr PO Q12 #60 cpmp.12hr Atorvastatin Calcium [Lipitor 80 mg Tablet] 80 mg PO QHS #30 tablet Nicotine [Nicoderm 14 mg/24 Hr Transdermal Patch] 1 each TD DAILY #30 patch.td24 Home Medications: Albuterol Sulfate [Proair HFA Inhalation Aerosol 8.5 gm MDI] 2 puff IH Q4 PRN 07/20/19 Clonidine HCl [Clonidine HCl ER] 0.1 mg PO TID 07/20/19 Gabapentin [Neurontin 300 mg Capsule] 300 mg PO QID 07/20/19 Hydralazine HCl [Apresoline 50 mg Tablet] 50 mg PO TID 07/20/19 Ipratropium [place] [Atrovent Hfa] 2 puff IH Q6HP PRN 07/20/19 Metoprolol Succinate [Toprol Xl 25 mg Tab.sr] 25 mg PO DAILY 07/20/19 Ramipril [Altace] 5 mg PO DAILY 07/20/19 Tamsulosin HCl [Flomax] 0.4 mg PO DAILY 07/20/19 Trazodone HCl 50 mg PO QHS 02/01/20 Aspirin/Dipyridamole [Aggrenox 25 mg/200 mg Capsule SA] 1 cap.sr PO Q12 #60 cpmp.12hr 07/23/19 Atorvastatin Calcium [Lipitor 80 mg Tablet] 80 mg PO QHS #30 tablet 07/23/19 Fluticasone Propionate [Flonase Nasal [employer] 50 Mcg/[employer] 16 gm] 1 spray NASL DAILY #1 07/23/19 Nicotine [Nicoderm 14 mg/24 Hr Transdermal Patch] 1 each TD DAILY #30 patch.td24 07/23/19 History of Present Illiness History of Present Illness: EMERSON DANGELO is a 54 year old male This is a 54-year-old male very noncompliance with a history of the hypertensions not taking the medicine as prescribed hyperlipidemia history of the carotid disease status post surgery history of the stroke currently going to the weekend in the gel went to the half-way yesterday and according to the patient he did not get any medications not sure Came today's in the morning with a complaining of her right-sided numbness and tingling on the face and weakness in the leg which patient already have a right-sided weakness and imbalance and a headache In the department patient's blood pressure was stable patient initial blood work is all stable CT scan of the head is negative patient underwent for the MRI and MRA of the head with suggest the patient have acute left-sided stroke Point admit the patient's been the stroke protocol in the hospital Denied any chest pain denied any shortness of the breath patient's denied any alcohol denies any drug abuse Patient's is on the bedside patient still continues to smoke despite of the several discussions with the patient about the high risk for the stroke anyway patient did not take any advice as usual and patient is currently of acute stroke Hospital Course Hospital Course: This is a 54-year-old male's with a very noncompliance with the history of the hypertension hyperlipidemia chronic smoker with a history of the carotid disease and history of a stroke in the past came to the emergency department with the numbness and tingling in the face patient other right side and more weakness of the right side and patient's underwent for the MRI with suggest the patient have acute left thalamus strokes Patient was put on the stroke protocols underwent for the echocardiogram is all stable carotid Doppler suggest a 50 to 70% stenosis on the right side which patient have a surgery done in the past have not appointment to see a doctor was referred in next week vascular surgeon in [place] Patient was put on Aggrenox and a high dose of the statin and stop the aspirin and Plavix Walking the hallway with the walker by himself and physical therapy evaluations done and doing good Patient's blood pressure was 150 range was all stable, no other complaints patient is discharged home with home health and physical therapy follow outpatients vascular surgeon Very extensive discussion about smoking counseling risk factors about the strokes patient understand very well This with the patient's regarding the patient's current conditions Patient also started with the Lexapro 5 mg and may increase to 10 mg because of the depression underlying stress Physical Exam Vital Signs: Temp Pulse Resp BP Pulse Ox 98.5 F 59 L 16 137/80 H 99 07/23/19 07:48 07/23/19 07:48 07/23/19 07:48 07/23/19 07:48 07/23/19 07:48 Intake & Output 07/22/19 07/23/19 07/24/19 06:59 06:59 06:59 Intake Total 3253 1691 Output Total 200 6 Balance 3053 1685 Weight 87 kg 84.1 kg General appearance: PRESENT: no acute distress, well-developed, well-nourished Head exam: PRESENT: atraumatic, normocephalic Eye exam: PRESENT: conjunctiva pink, EOMI, PERRLA. ABSENT: scleral icterus Ear exam: PRESENT: normal external ear exam Mouth exam: PRESENT: moist, tongue midline Neck exam: ABSENT: carotid bruit, JVD, lymphadenopathy, thyromegaly Respiratory exam: PRESENT: clear to auscultation rommel. ABSENT: rales, rhonchi, wheezes Cardiovascular exam: PRESENT: RRR. ABSENT: diastolic murmur, rubs, systolic murmur Pulses: PRESENT: normal dorsalis pedis pul Vascular exam: PRESENT: normal capillary refill GI/Abdominal exam: PRESENT: normal bowel sounds, soft. ABSENT: distended, guarding, mass, organolmegaly, rebound, tenderness Rectal exam: PRESENT: deferred Extremities exam: PRESENT: full ROM. ABSENT: calf tenderness, clubbing, pedal edema Neurological exam: PRESENT: alert, awake, oriented to person, oriented to place, oriented to time, oriented to situation, reflexes normal, CN II-XII grossly intact, normal gait. ABSENT: motor sensory deficit Psychiatric exam: PRESENT: appropriate affect, normal mood. ABSENT: homicidal ideation, suicidal ideation Skin exam: PRESENT: dry, intact, warm. ABSENT: cyanosis, rash Results Laboratory Results: WBC 7.0 10^3/uL (4.0-10.5) 07/20/19 08:45 RBC 4.67 10^6/uL (4.35-5.55) 07/20/19 08:45 Hgb 14.8 g/dL (13.5-17.0) 07/20/19 08:45 Hct 43.1 % (37.9-51.0) 07/20/19 08:45 MCV 92 fl (80-97) 07/20/19 08:45 MCH 31.7 pg (27.0-33.4) 07/20/19 08:45 MCHC 34.3 g/dL (32.0-36.0) 07/20/19 08:45 RDW 13.0 % (11.5-14.0) 07/20/19 08:45 Plt Count 251 10^3/uL (150-450) 07/20/19 08:45 Lymph % (Auto) 26.1 % (13-45) 07/20/19 08:45 [place] % (Auto) 12.8 % (3-13) 07/20/19 08:45 Eos % (Auto) 4.5 % (0-6) 07/20/19 08:45 Baso % (Auto) 1.2 % (0-2) 07/20/19 08:45 Absolute Neuts (auto) 3.9 10^3/uL (1.7-8.2) 07/20/19 08:45 Absolute Lymphs (auto) 1.8 10^3/uL (0.5-4.7) 07/20/19 08:45 Absolute Monos (auto) 0.9 10^3/uL (0.1-1.4) 07/20/19 08:45 Absolute Eos (auto) 0.3 10^3/uL (0.0-0.6) 07/20/19 08:45 Absolute Basos (auto) 0.1 10^3/uL (0.0-0.2) 07/20/19 08:45 Seg Neutrophils % 55.4 % (42-78) 07/20/19 08:45 PT 13.1 SEC (11.4-15.4) 07/20/19 08:45 INR 0.99 07/20/19 08:45 APTT 29.9 SEC (23.5-35.8) 07/20/19 08:45 Sodium 140.8 mmol/L (137-145) 07/20/19 08:45 Potassium 4.3 mmol/L (3.6-5.0) 07/20/19 08:45 Chloride 106 mmol/L (98-107) 07/20/19 08:45 Carbon Dioxide 27 mmol/L (22-30) 07/20/19 08:45 Anion Gap 8 (5-19) 07/20/19 08:45 BUN 23 mg/dL (7-20) H 07/20/19 08:45 Creatinine 0.98 mg/dL (0.52-1.25) 07/20/19 08:45 Est GFR ( Amer) > 60 (>60) 07/20/19 08:45 Est GFR (MDRD) Non-Af > 60 (>60) 07/20/19 08:45 Glucose 109 mg/dL (75-110) 07/20/19 08:45 Calcium 9.9 mg/dL (8.4-10.2) 07/20/19 08:45 Total Bilirubin 0.8 mg/dL (0.2-1.3) 07/20/19 08:45 Direct Bilirubin 0.2 mg/dL (0.0-0.4) 07/20/19 08:45 Neonat Total Bilirubin Not Reportable 07/20/19 08:45 Neonat Direct Bilirubin Not Reportable 07/20/19 08:45 Neonat Indirect Bili Not Reportable 07/20/19 08:45 AST 25 U/L (17-59) 07/20/19 08:45 ALT 20 U/L (<50) 07/20/19 08:45 Alkaline Phosphatase 40 U/L (38-126) 07/20/19 08:45 Creatine Kinase 74 U/L (55-170) 07/21/19 04:08 CK-MB (CK-2) 0.48 ng/mL (<4.55) 07/20/19 16:10 Troponin I < 0.012 ng/mL 07/21/19 10:40 Total Protein 7.7 g/dL (6.3-8.2) 07/20/19 08:45 Albumin 4.3 g/dL (3.5-5.0) 07/20/19 08:45 Triglycerides 184 mg/dL (<150) H 07/21/19 04:08 Cholesterol 142.35 mg/dL (0-200) 07/21/19 04:08 LDL Cholesterol Direct 96 mg/dL (<100) 07/21/19 04:08 VLDL Cholesterol 36.8 mg/dL (10-31) H 07/21/19 04:08 HDL Cholesterol 29 mg/dL (>40) L 07/21/19 04:08 07/20/19 07/20/19 07/20/19 08:45 12:05 16:10 CK-MB (CK-2) 0.62 0.48 Troponin I 0.014 0.014 < 0.012 07/20/19 07/20/19 07/21/19 18:00 21:45 04:08 CK-MB (CK-2) Troponin I 0.013 < 0.012 < 0.012 07/21/19 10:40 CK-MB (CK-2) Troponin I < 0.012 Impressions: Head CT 07/20/19 08:19 IMPRESSION: Chronic right lacunar infarct. No acute intracranial findings. EVIDENCE OF ACUTE STROKE: NO. Chest X-Ray 07/20/19 08:23 IMPRESSION: NO ACUTE RADIOGRAPHIC FINDING IN THE CHEST. Head MRI 07/20/19 10:59 IMPRESSION: ATROPHY AND CHRONIC MICRO-VASCULAR ISCHEMIC CHANGES. ACUTE INFARCT IN THE LEFT THALAMUS. EVIDENCE OF ACUTE STROKE: YES. LEFT MCA. Brain MRI with MRA 07/20/19 11:00 IMPRESSION: No significant stenosis or occlusion. No aneurysms. Carotid Doppler Study 07/22/19 00:00 IMPRESSION: 1. 50 to 69% stenosis within the right ICA by velocity criteria. 2. Less than 50% stenosis within the left ICA. 3. Antegrade vertebral arteries. Plan Time Spent: Greater than 30 Minutes - Follow in office 1 week Follow with the vascular surgeon Stroke Is this a Stroke Patient?: Yes Stroke Pt being discharged on Anti-thrombolytic therapy?: Yes Stroke Pt being discharged on Anti-coagulation therapy?: No Reason(s) for not prescribing Anti-coagulation therapy:: Not indicated Stroke Pt being discharged on Statins?: Yes Acute Heart Failure - Is this a Heart Failure Patient?: No
[2019-07-23 10:27] VITALS: BP 135/96
[2019-07-23] MEDS: TAMSULOSIN HCL 0.4 MG CAP.SR.24H PO SCH (10:38)
[2019-07-23] MEDS: FLUTICASONE NASAL SPRAY 50 MCG/SPRY 120 SPRAY/16 GM NASL SCH (10:38)
[2019-07-23] MEDS: ESCITALOPRAM OXALATE 10 MG TABLET PO SCH (10:38)
[2019-07-23] MEDS: METOPROLOL SUCCINATE 25 MG TAB.SR.24H PO SCH (10:38)
[2019-07-23] MEDS: FAMOTIDINE 20 MG TABLET PO SCH (10:39)
[2019-07-23] MEDS: ASPIRIN/DIPYRIDAMOLE 25-200 MG 1 CAP.SR CPMP.12HR PO SCH (10:39)
[2019-07-23] MEDS: NICOTINE 14 MG/24 HR PATCH.TD24 TD SCH (10:39)
== END 2019-07-23 11:05 | disposition home health service (06) | DRG 65 ==
LOC: ER 08:12 → EH 15:38 → 3W 17:03
PROVIDERS: ADMIT Family Medicine; ATTEND Family Medicine
DX: I63.512 Cerebral infarction due to unspecified occlusion or stenosis of left middle cerebral artery (principal); I69.354 Hemiplegia and hemiparesis following cerebral infarction affecting left non-dominant side; J44.9 Chronic obstructive pulmonary disease, unspecified; E78.5 Hyperlipidemia, unspecified; I10 Essential (primary) hypertension; E11.9 Type 2 diabetes mellitus without complications; I65.21 Occlusion and stenosis of right carotid artery; F17.200 Nicotine dependence, unspecified, uncomplicated; F51.01 Primary insomnia; R20.0 Anesthesia of skin; R29.810 Facial weakness; F32.9 Major depressive disorder, single episode, unspecified; M19.90 Unspecified osteoarthritis, unspecified site; T46.5X6A Underdosing of other antihypertensive drugs, initial encounter; Z79.51 Long term (current) use of inhaled steroids; Z79.82 Long term (current) use of aspirin; Z79.899 Other long term (current) drug therapy
CPT/HCPCS: 36415; 70450; 70544; 70551; 71045; 80053; 80061; 82550; 82553; 84484; 85025; 85610; 85730; 93005; 93010; 93306; 93880; 96361; 96374; 99285; J0131; J1650; J3490; J7030; J7040

== ENCOUNTER 2020-01-13 13:43 | Emergency (ER) | payer MEDICAID ==
--- NOTE | 2020-01-13 14:03 | ER Document Report ---
ED Medical Screen (RME) - General Chief Complaint: Head Injury Stated Complaint: FALL/HEAD INJURY Time Seen by Provider: 01/13/20 13:57 Primary Care Provider: CAITLYN ATKINSON MD [Primary Care Provider] - Follow up as needed Notes: Patient is a 54-year-old male with a history of a CVA who presents the emergency department after falling off a ladder yesterday evening around 6:54 PM. He states that he was on the 2nd-3rd rung of the ladder and ended up falling backwards. Patient states that when he woke up this morning he was not acting his normal self and felt "shaky." Patient is currently on Plavix. Exam: Tremors noted to bilateral upper extremities. I have greeted and performed a rapid initial assessment of this patient. A comprehensive ED assessment and evaluation of the patient, analysis of test results and completion of medical decision making process will be conducted by an additional ED providers. TRAVEL OUTSIDE OF THE [place] IN LAST 30 DAYS: No - Related Data Allergies/Adverse Reactions: acetaminophen [From Tylenol] Allergy (Verified 01/13/20 13:56) amlodipine besylate [From Norvasc] Allergy (Verified 01/13/20 13:56) ibuprofen Allergy (Verified 01/13/20 13:56) pioglitazone HCl [From Actos] Allergy (Verified 01/13/20 13:56) Past Medical History - Past Medical History Cardiac Medical History: Reports: Hx Hypercholesterolemia, Hx Hypertension Denies: Hx Atrial Fibrillation, Hx Coronary Artery Disease Pulmonary Medical History: Reports: Hx COPD Neurological Medical History: Reports: Hx Cerebrovascular Accident - 2019 with residual left sided weakness Endocrine Medical History: Reports: Hx Diabetes Mellitus Type 1, Hx Diabetes Mellitus Type 2 Renal/ Medical History: Denies: Hx Peritoneal Dialysis GI Medical History: Reports: Hx Gastroesophageal Reflux Disease Musculoskeltal Medical History: Reports Hx Arthritis Psychiatric Medical History: Reports: Hx Depression Past Surgical History: Reports: Hx Carotid Endarterectomy - right, Hx Kidney (Renal Surgery) - lithotripsy, Hx Orthopedic Surgery, Hx Vascular Surgery - Immunizations Immunizations up to date: Yes Hx Diphtheria, Pertussis, Tetanus Vaccination: Yes Doctor's Discharge - Discharge Referrals: CAITLYN ATKINSON MD [Primary Care Provider] - Follow up as needed
--- NOTE | 2020-01-13 14:31 | RADIOLOGY REPORT (SQ) ---
EXAM DESCRIPTION: CT HEAD WITHOUT IMAGES COMPLETED DATE/TIME: 01/13/2020 2:16 pm REASON FOR STUDY: fall from ladder; [facility] COMPARISON: 07/20/2019 CT and MR imaging TECHNIQUE: Axial images acquired through the brain without intravenous contrast. Images reviewed wi th bone, brain and subdural windows. Additional sagittal and coronal reconstructions were generated. Images stored on PACS. All CT scanners at this facility use dose modulation, iterative reconstruction, and/or weight based d osing when appropriate to reduce radiation dose to as low as reasonably achievable (ALARA). [facility]: Dose Right [facility]: CareDose [facility]: Dose Right [facility]: Teradose 4D [facility]: Smart WEbook RADIATION DOSE: CT Rad equipment meets quality standard of care and radiation dose reduction techniq ues were employed. CTDIvol: 53.2 mGy. DLP: 1044 mGy-cm.mGy. LIMITATIONS: None. FINDINGS: VENTRICLES: Prominent. CEREBRUM: No masses. No hemorrhage. No midline shift. Re- demonstration of a right basal ganglia l acunar infarct and left parietal encephalomalacia. Additional foci of low density in the white matte r most likely due to chronic micro-vascular ischemic change. No evidence for acute infarction. CEREBELLUM: No masses. No hemorrhage. No alteration of density. No evidence for acute infarction. EXTRAAXIAL SPACES: Age-related involutional change. No fluid collections. No masses. ORBITS AND GLOBE: No intra- or extraconal masses. Normal contour of globe without masses. CALVARIUM: No fracture. PARANASAL SINUSES: Re- demonstration of complete opacification of the frontal sinuses, near complete opacification of the ethmoid air cells, lobular mucosal thickening involving the maxillary sinuses wi th a small left maxillary sinus fluid level, as well as sphenoid compartment mucosal thickening and f luid levels. The mastoid air cells are clear. SOFT TISSUES: No mass or hematoma. OTHER: No other significant finding. IMPRESSION: No evidence of calvarial injury or intracranial hemorrhage in this patient with reported fall. Stable background of microvascular and age-related involutional changes. Re- demonstration o f paranasal sinusitis. EVIDENCE OF ACUTE STROKE: NO. TECHNICAL DOCUMENTATION: JOB ID: [id number] Quality ID # [id number]: Final reports with documentation of one or more dose reduction techniques (e.g., Au tomated exposure control, adjustment of the mA and/or kV according to patient size, use of iterative reconstruction technique) 2010 [employer]- All Rights Reserved Reading location - IP/workstation name: [email or web address]
--- NOTE | 2020-01-13 14:34 | RADIOLOGY REPORT (SQ) ---
EXAM DESCRIPTION: CT CERVICAL SPINE WITHOUT IMAGES COMPLETED DATE/TIME: 01/13/2020 2:16 pm REASON FOR STUDY: fall from ladder; [facility] COMPARISON: 11/23/2015 TECHNIQUE: Axial images acquired through the cervical spine without intravenous contrast. Images re viewed with lung, soft tissue and bone windows. Reconstructed coronal and sagittal MPR images review ed. Images stored on PACS. All CT scanners at this facility use dose modulation, iterative reconstruction, and/or weight based d osing when appropriate to reduce radiation dose to as low as reasonably achievable (ALARA). [facility]: Dose Right [facility]: CareDose [facility]: Dose Right [facility]: Teradose 4D [facility]: Smart Sweetie High RADIATION DOSE: CT Rad equipment meets quality standard of care and radiation dose reduction techniq ues were employed. CTDIvol: 19.2 mGy. DLP: 376 mGy-cm. mGy. LIMITATIONS: None. FINDINGS: ALIGNMENT: Anatomic. MINERALIZATION: Normal. VERTEBRAL BODIES: No fractures or dislocation. DISCS: Interval progression in previously demonstrated multilevel disc space narrowing with osteophyt es. FACETS, LATERAL MASSES, POSTERIOR ELEMENTS: Facet arthropathy. No fractures. No dislocation. No ac nick findings. HARDWARE: None in the spine. VISUALIZED RIBS: No fractures. LUNG APICES AND SOFT TISSUES: Paraseptal emphysematous changes. No pneumothorax. No acute findings. OTHER: No other significant finding. IMPRESSION: No evidence of acute osseous injury. Background multilevel spondylotic changes, which a ppear somewhat progressed in the study interval. TECHNICAL DOCUMENTATION: JOB ID: [id number] Quality ID # [id number]: Final reports with documentation of one or more dose reduction techniques (e.g., Au tomated exposure control, adjustment of the mA and/or kV according to patient size, use of iterative reconstruction technique) 2010 [employer]- All Rights Reserved Reading location - IP/workstation name: [email or web address]
[2020-01-13 14:58] LABS: ABSOLUTE BASOPHILS # (AUTO) 0.1 10^3/uL (0.0-0.2); ABSOLUTE EOSINOPHILS # (AUTO) 0.3 10^3/uL (0.0-0.6); ABSOLUTE LYMPHOCYTES (AUTO) 2.2 10^3/uL (0.5-4.7); ABSOLUTE MONOCYTES (AUTO) 0.7 10^3/uL (0.1-1.4); ABSOLUTE NEUT (AUTO) 5.1 10^3/uL (1.7-8.2); BASOPHILS % (AUTO) 1.1 % (0-2); EOSINOPHILS % (AUTO) 3.5 % (0-6); HEMATOCRIT 47.2 % (37.9-51.0); HEMOGLOBIN 16.1 g/dL (13.5-17.0); LYMPHOCYTES % (AUTO) 26.1 % (13-45); MEAN CORPUSCULAR HEMOGLOBIN 31.9 pg (27.0-33.4); MEAN CORPUSCULAR HGB CONC 34.2 g/dL (32.0-36.0); MEAN CORPUSCULAR VOLUME 93 fl (80-97); MONOCYTES % (AUTO) 8.9 % (3-13); PLATELET COUNT 237 10^3/uL (150-450); RED BLOOD COUNT 5.07 10^6/uL (4.35-5.55); RED CELL DISTRIBUTION WIDTH 12.9 % (11.5-14.0); SEGMENTED NEUTROPHILS % (AUTO) 60.4 % (42-78); TOTAL CELLS COUNTED % (AUTO) 100 %; WHITE BLOOD COUNT 8.4 10^3/uL (4.0-10.5)
[2020-01-13 15:25] LABS: ALBUMIN 4.7 g/dL (3.5-5.0); ALKALINE PHOSPHATASE 46 U/L (38-126); ANION GAP 9 (5-19); ASPARTATE AMINO TRANSFERASE 21 U/L (17-59); BILIRUBIN,TOTAL 1.1 mg/dL (0.2-1.3); BLOOD UREA NITROGEN 16 mg/dL (7-20); CALCIUM 10.1 mg/dL (8.4-10.2); CARBON DIOXIDE 27 mmol/L (22-30); CHLORIDE 104 mmol/L (98-107); GLUCOSE 112 mg/dL (75-110); POTASSIUM 4.1 mmol/L (3.6-5.0); TOTAL PROTEIN 8.2 g/dL (6.3-8.2)
[2020-01-13 15:47] LABS: INTERNATIONAL RATION (INR) 0.98
[2020-01-13 15:48] LABS: PARTIAL THROMBOPLASTIN TIME 31.4 SEC (23.5-35.8)
[2020-01-13] MEDS ORDERED: KETOROLAC TROMETHAMINE INJ/PF 30 MG/1 ML SDV IV ONE (17:34)
[2020-01-13] MEDS ORDERED: CYCLOBENZAPRINE HCL 10 MG TABLET PO ONE (17:34)
[2020-01-13] MEDS ORDERED: LIDOCAINE 5% (700 MG) TRANSDERMAL ADH..PATCH TP ONE (17:34)
--- NOTE | 2020-01-13 17:47 | ER Document Report ---
ED General - General Chief Complaint: Altered Mental Status Stated Complaint: FALL/HEAD INJURY Time Seen by Provider: 01/13/20 13:57 Primary Care Provider: CAITLYN ATKINSON MD [Primary Care Provider] - Follow up as needed Notes: 54-year-old male who states that he was at home yesterday on a ladder when he fell backwards and hit the left side of his occiput on the corner of his truck bed. Denies any loss of consciousness but states that for the past 24 hours he has had an increasing left-sided headache and felt "delusional" today and also had some increasing weakness in his left hand leading him to drop something when he tried to pick it up. Complains of a left-sided neck pain to that radiates down his left arm. Denies any numbness or tingling. Denies any loss of consciousness, denies any vomiting. Patient is taking Plavix due to a carotid endarterectomy and a stroke a few months ago. Patient admits chronic weakness in his left arm and his left leg. States the left arm weakness is slightly worse today. States he called and spoke with his primary care physician Dr. Atkinson and was advised to come to the emergency department for further work-up. Patient's biggest complaint right now is his left-sided headache. Denies any slurred speech, denies any blurred vision, denies any change in his ability to walk or use his left leg. TRAVEL OUTSIDE OF THE [place] IN LAST 30 DAYS: No - Related Data Allergies/Adverse Reactions: acetaminophen [From Tylenol] Allergy (Verified 01/13/20 13:56) amlodipine besylate [From Norvasc] Allergy (Verified 01/13/20 13:56) ibuprofen Allergy (Verified 01/13/20 13:56) pioglitazone HCl [From Actos] Allergy (Verified 01/13/20 13:56) Home Medications: plavix. cva. 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 Endocrine Medical History: Reports: Hx Diabetes Mellitus Type 1, Hx Diabetes Mellitus Type 2 Renal/ Medical History: Denies: Hx Peritoneal Dialysis GI Medical History: Reports: Hx Gastroesophageal Reflux Disease Musculoskeletal Medical History: Reports Hx Arthritis Psychiatric Medical History: Reports: Hx Depression Past Surgical History: Reports: Hx Carotid Endarterectomy - right, Hx Kidney (Renal Surgery) - lithotripsy, Hx Orthopedic Surgery, Hx Vascular Surgery - Immunizations Immunizations up to date: Yes Hx Diphtheria, Pertussis, Tetanus Vaccination: Yes Hx Pneumococcal Vaccination: 07/20/14 Review of Systems - Review of Systems Constitutional: No symptoms reported EENT: No symptoms reported Cardiovascular: No symptoms reported Musculoskeletal: See HPI, Neck pain Neurological/Psychological: See HPI, Weakness, Headaches. denies: Lost consciousness -: Yes All other systems reviewed and negative Physical Exam - Vital signs Vitals: Temp Pulse Resp BP Pulse Ox 98.7 F 75 18 187/108 H 98 01/13/20 13:52 01/13/20 13:52 01/13/20 13:52 01/13/20 13:52 01/13/20 13:52 Interpretation: Hypertensive - Notes Notes: GENERAL: Alert, interacts well. No acute distress. HEAD: Normocephalic, no ecchymoses, no break in the skin, he is tender to palpation left posterior occipital prominence. EYES: Pupils equal, round and reactive to light, extraocular movements intact. ENT: Oral mucosa moist, tongue midline. NECK: Full range of motion, supple, trachea midline. No midline bony tenderness to palpation, there is left paraspinal muscle tenderness to palpation posteriorly. LUNGS: Clear to auscultation bilaterally, no wheezes, rales or rhonchi, no respiratory distress. HEART: Regular rate and rhythm, no murmurs, gallops, rubs. ABDOMEN: Soft, nontender, nondistended, bowel sounds present in all 4 quadrants. EXTREMITIES: Moves all 4 extremities spontaneously, 4/5 muscle strength in left arm, 3/5 muscle strength in the left leg, patient states this is relatively unchanged from baseline, sensation is intact, no edema, radial and dorsalis pedis pulses 2/4 bilaterally. No cyanosis. NEUROLOGICAL: Alert and oriented x3, normal speech, cranial nerves II through XII grossly intact, biceps and patellar DTRs 2+ bilaterally. PSYCH: Normal mood, normal affect. SKIN: Warm, Dry, normal turgor. Course - Re-evaluation Re-evalutation: 01/13/20 17:47 CBC unremarkable, coags normal, CMP grossly unremarkable. Cervical Spine CT 01/13/20 14:00 IMPRESSION: No evidence of acute osseous injury. Background multilevel spondylotic changes, which appear somewhat progressed in the study interval. Head CT 01/13/20 14:00 IMPRESSION: No evidence of calvarial injury or intracranial hemorrhage in this patient with reported fall. Stable background of microvascular and age-related involutional changes. Re- demonstration of paranasal sinusitis. EVIDENCE OF ACUTE STROKE: NO. No evidence of acute new stroke. Discussed with Dr. Atkinson who agrees to follow- up with patient in the office tomorrow. Agrees with treating with muscle relaxers for the cervical spasm and suggest lidocaine patches as well. I agree with this plan. Patient will be discharged home, given instructions on concussions and postconcussive syndrome. Instructed on why we should avoid most sedating medications in a head injury. Discharged to home. - Vital Signs Vital signs: Temp Pulse Resp BP Pulse Ox 98.7 F 75 17 191/115 H 97 01/13/20 13:56 01/13/20 13:52 01/13/20 16:08 01/13/20 16:08 01/13/20 16:08 - Laboratory Result Diagrams: 01/13/20 14:47 01/13/20 14:47 Laboratory results interpreted by me: 01/13/20 14:47 Glucose 112 H Discharge - Discharge Clinical Impression: History of CVA (cerebrovascular accident) Closed head injury Qualifiers: Encounter type: initial encounter Qualified Code(s): S09.90XA - Unspecified injury of head, initial encounter Concussion Qualifiers: Encounter type: initial encounter Loss of consciousness presence/duration: without LOC Qualified Code(s): S06.0X0A - Concussion without loss of consciousness, initial encounter Cervical strain, acute Qualifiers: Encounter type: initial encounter Qualified Code(s): S16.1XXA - Strain of muscle, fascia and tendon at neck level, initial encounter Hypertension Qualifiers: Hypertension type: unspecified Qualified Code(s): I10 - Essential (primary) hypertension Condition: Stable Disposition: HOME, SELF-CARE Additional Instructions: Concussion You have suffered a concussion -- a temporary loss of certain brain functions due to a mild brain injury. The recovery is usually rapid and complete. The temporary problems occurring with a concussion can include loss of consciousness, dizziness, nausea, vomiting, and confusion. Repeat concussions can cause brain damage. In the future, avoid activities that will cause a blow to your head. Wear a helmet for sports such as snowboarding, biking, or skating. It's important that someone be with you for the first 24 hours. During this time, do not exercise or drive a vehicle. Do not take any pain medication stronger than acetaminophen unless prescribed by the physician. Any significant changes should be reported immediately to the physician. Signs of a problem may include: (1) Mental confusion (2) Incoordination or staggering (3) Repeated or forceful vomiting (4) Clear or bloody drainage from ear, mouth, or nose (5) Severe headache, not relieved by acetaminophen or prescribed pain medication Post-Concussion Syndrome Post-concussion syndrome often follows a mild head injury. Dizziness, mild nausea, mild headache, trouble concentrating, and a general sense of "not being right" may persist for a week or two. This is a frequent complication of conc ussion. However, if the symptoms worsen, or new symptoms develop, you should be re-examined by the physician. There is no specific cure for post-concussion syndrome. You can take mild pain medication such as ibuprofen or acetaminophen. While you should not drive if you are dizzy, you can get back to your regular activities as quickly as the symptoms will allow. And while vigorous exercise may worsen the headache, mild physical activity often is helpful. Sitting and thinking about your symptoms will worsen them. If difficulties continue, you may need referral for special therapy to help you regain full mental function. Call the physician if you are worsening, or if symptoms are still present in one week. Report any new symptoms immediately. Neck Injury (Cervical Strain) You have a neck strain. This is an injury to the muscles and ligaments in the neck. There is no evidence of a fracture of the neck bones. Also, no injury to the spinal cord or nerve roots was detected. Usually, stiffness and pain INCREASE for the first 24-48 hours after the injury. The pain will gradually resolve and the neck will become more mobile. Most patients are back at work or school within a few days. Typically, complete healing takes about two or three weeks. The usual initial treatment is rest and cold packs. A neck collar may be placed to keep the muscles of the neck at rest. Antiinflammatory and muscle relaxing medication are often used to reduce the spasm and irritation. You should call the doctor, or go to the hospital, if you develop numbness or weakness in any extremity, problems with your bladder or bowel, or pain radiating down the arms. Prescriptions: Cyclobenzaprine HCl [Flexeril 10 mg Tablet] 10 mg PO TIDP PRN #15 tab PRN Reason: Lidocaine [Lidoderm 5% (700 mg) Transdermal Patch] 1 patch TP DAILY #30 adh..patch Referrals: CAITLYN ATKINSON MD [Primary Care Provider] - Follow up tomorrow
[2020-01-13 18:41] VITALS: BP 218/115
== END 2020-01-13 18:39 | disposition home or self-care (01) ==
LOC: ER 13:43
DX: S06.0X0A Concussion without loss of consciousness, initial encounter (principal); S16.1XXA Strain of muscle, fascia and tendon at neck level, initial encounter; R41.82 Altered mental status, unspecified; W11.XXXA Fall on and from ladder, initial encounter; Y92.009 Unspecified place in unspecified non-institutional (private) residence as the place of occurrence of the external cause; F17.200 Nicotine dependence, unspecified, uncomplicated; E78.00 Pure hypercholesterolemia, unspecified; I10 Essential (primary) hypertension; I69.954 Hemiplegia and hemiparesis following unspecified cerebrovascular disease affecting left non-dominant side; J44.9 Chronic obstructive pulmonary disease, unspecified; E11.9 Type 2 diabetes mellitus without complications; Z79.01 Long term (current) use of anticoagulants
CPT/HCPCS: 99285; 36415; 85025; 85610; 85730; 80053; 70450; 72125; J3490 ×2; J1885